=== PATIENT | male | born 1960 | race Caucasian/White ===

== ENCOUNTER → 2019-03-03 | Outpatient (CLI) | payer BC ==
[2019-03-03 08:53] LABS: HCT 40.9 % (39.0-53.0); HGB 13.4 gm/dL (13.0-17.5); MCH 30.1 pg (25.0-35.0); MCHC 32.8 g/dL (31.0-37.0); MCV 91.5 fL (80.0-100.0); Mean Platelet Volume 7.5; Platelet Count 149 k/uL (150-450); RBC 4.47 m/uL (4.30-5.90); RDW 12.7 % (11.5-15.5); WBC 5.2 k/uL (3.8-10.6)
[2019-03-03 16:14] LABS: African American GFR (CKD) 114.9 (60.0-200.0); Anion Gap 6.2 mmol/L (4.00-12.00); BUN/Creat Ratio 22.5 Ratio (12.00-20.00); Calcium 9.3 mg/dL (8.7-10.3); Carbon Dioxide 30.8 mmol/L (21.6-31.8); Chol/HDL Ratio 1.92; LDL Cholesterol,Calculated 59.2 mg/dL (0.0-131.0); Potassium 4.3 mmol/L (3.5-5.5); VLDL Calculation 13.8 mg/dL (5.00-40.00)
[2019-03-03 17:42] LABS: Hemoglobin A1C 5.4 % (4.0-6.0)
== END | disposition home or self-care (01) ==
LOC: LABWHC1 06:30
PROVIDERS: ATTEND Physician Assistant
DX: I10 Essential (primary) hypertension (principal); E78.5 Hyperlipidemia, unspecified; R00.2 Palpitations
CPT/HCPCS: 36415; 80048; 80061; 83036; 84443; 85027

== ENCOUNTER 2022-04-24 15:13 | Observation (INO) | payer BC ==
[2022-04-24] MEDS ORDERED: ASPIRIN 81 MG PO STA (15:29)
[2022-04-24 15:55] LABS: Basophils # (A) 0.1 k/uL (0-0.2); Basophils % (A) 1 %; Eosinophils # (A) 0.1 k/uL (0-0.7); Eosinophils % (A) 1 %; HCT 44.7 % (39.0-53.0); HGB 14.7 gm/dL (13.0-17.5); Lymphocytes # (A) 1.7 k/uL (1.0-4.8); Lymphocytes % (A) 22 %; MCH 31.5 pg (25.0-35.0); MCHC 32.9 g/dL (31.0-37.0); MCV 95.8 fL (80.0-100.0); Mean Platelet Volume 8.9; Monocytes # (A) 0.4 k/uL (0-1.0); Monocytes % (A) 5 %; Neutrophils # (A) 5.5 k/uL (1.3-7.7); Neutrophils % (A) 70 %; Platelet Count 259 k/uL (150-450); RBC 4.67 m/uL (4.30-5.90); RDW 13.5 % (11.5-15.5); WBC 7.8 k/uL (3.8-10.6)
[2022-04-24 16:07] LABS: Albumin 3.6 g/dL (3.5-5.0); Calcium 9.1 mg/dL (8.4-10.2); Magnesium 1.8 mg/dL (1.6-2.3); Potassium 4.9 mmol/L (3.5-5.1); Total Bilirubin 0.9 mg/dL (0.2-1.3); Total Protein 6.6 g/dL (6.3-8.2)
[2022-04-24 16:10] LABS: Prothrombin Time 10.3 sec (9.0-12.0)
--- NOTE | 2022-04-24 17:30 | XR ---
EXAMINATION TYPE: XR chest 2V DATE OF EXAM: 04/24/2022 COMPARISON: 04/24/2022 HISTORY: Chest pain TECHNIQUE: 2 views FINDINGS: Heart and mediastinum are normal. Lungs are clear. Diaphragm is normal. Bony thorax is inta ct. IMPRESSION: No active cardiopulmonary disease. Normal heart. No change.
--- NOTE | 2022-04-24 17:52 | ED ---
General Adult HPI - General Chief complaint: Dizziness Stated complaint: Chest Pain,Dizziness Time Seen by Provider: 04/24/22 17:20 Source: patient, RN notes reviewed, old records reviewed Mode of arrival: ambulatory Limitations: no limitations - History of Present Illness Initial comments: This is a 62-year-old male who presents emergency Department complaining that when he was at work this morning he started yelling lightheaded and felt his heart racing and he almost passed out. Patient states this happened a couple weeks ago and he fell and hurt his ribs on the right side. Patient states he has a history of A. fib and he believes it was atrial fibrillation kicked in the sense that it made him lightheaded. Patient denies any chest pain. Patient states the symptoms continued until he arrived in the emergency department and they seemed to subside. Patient states they did an EKG and he was told that his heart rate was a sinus rhythm at this point time. Patient denies any symptoms since then. Patient states she doesn't want to go home because he is fearful that this occur again he might fall out. Patient states he also has tried a car and that makes him nervous as well. Patient denies any recent fever chills. Patient states he was somewhat short of breath with this was occurring. Patient denies any swelling to the legs or calf tenderness. - Related Data Home Medications Medication Instructions Recorded Confirmed Furosemide [Lasix] 20 mg PO BID 04/24/22 04/24/22 Lansoprazole 30 mg PO DAILY PRN 04/24/22 04/24/22 amLODIPine [Norvasc] 2.5 mg PO DAILY 04/24/22 04/24/22 lisinopriL [Zestril] 5 mg PO BID 04/24/22 04/24/22 oxyCODONE-APAP 10-325MG [Percocet 1 tab PO Q6HR 04/24/22 04/24/22 10-325 mg] Allergies Allergy/AdvReac Type Severity Reaction Status Date / Time iron Allergy SEVERE Verified 04/24/22 17:49 PAIN, WHEN RECEIVED INJECTION OF IRON nylon Allergy SUTURES, Uncoded 04/24/22 15:22 "FESTER OUT," INFECTED Review of Systems ROS Statement: Those systems with pertinent positive or pertinent negative responses have been documented in the HPI. ROS Other: All systems not noted in ROS Statement are negative. Past Medical History Past Medical History: Musculoskeletal Disorder, Skin Disorder Additional Past Medical History / Comment(s): psoriasis, arthritis, hx kidney stones, cast on rt wrist from recent surgery, hx cellulitis left leg History of Any Multi-Drug Resistant Organisms: None Reported Past Surgical History: Back Surgery, Bariatric Surgery, Cholecystectomy, Hernia Repair, Orthopedic Surgery Additional Past Surgical History / Comment(s): BACK X2 -rods in back, CERVICAL SURG.,-Segundo en Y.,hernia x 3, rt wrist surgery, abdominoplasty, cyst removed "from behind the heart", pain clinic procedures Past Anesthesia/Blood Transfusion Reactions: Previous Problems w/ Anesthesia Additional Past Anesthesia/Blood Transfusion Reaction / Comment(s): Pain with last pain clinic procedure 04/28/14- felt every needle going in Past Psychological History: No Psychological Hx Reported Smoking Status: Former smoker Past Alcohol Use History: Rare Past Drug Use History: None Reported - Past Family History Mother Family Medical History: No Reported History Father Family Medical History: No Reported History General Exam - General Exam Comments Initial Comments: GENERAL: Patient is well-developed and well-nourished. Patient is nontoxic and well- hydrated and is in no acute distress. ENT: Neck is soft and supple. No significant lymphadenopathy is noted. Oropharynx is clear. Moist mucous membranes. Neck has full range of motion without eliciting any pain. EYES: The sclera were anicteric and conjunctiva were pink and moist. Extraocular movements were intact and pupils were equal round and reactive to light. Eyelids were unremarkable. PULMONARY: Unlabored respirations. Good breath sounds bilaterally. No audible rales rhonchi or wheezing was noted. CARDIOVASCULAR: There is a regular rate and rhythm without any murmurs gallops or rubs. ABDOMEN: Soft and nontender with normal bowel sounds. SKIN: Skin is clear with no lesions or rashes and otherwise unremarkable. NEUROLOGIC: Patient is alert and oriented x3. Cranial nerves II through XII are grossly intact. Motor and sensory are also intact. Normal speech, volume and content. Symmetrical smile. MUSCULOSKELETAL: Normal extremities with adequate strength and full range of motion. No lower extremity swelling or edema. No calf tenderness. LYMPHATICS: No significant lymphadenopathy is noted PSYCHIATRIC: Normal psychiatric evaluation. Limitations: no limitations Course Vital Signs 04/24/22 04/24/22 15:20 18:27 Temperature 97.3 F L Pulse Rate 91 154 H Respiratory 16 20 Rate Blood Pressure 114/74 O2 Sat by Pulse 98 97 Oximetry Medical Decision Making - Medical Decision Making EKG was interpreted by me. EKG shows sinus rhythm at 70 bpm SC interval 151 QRS is 92 QT interval 352 QTC is 385. Patient's EKG shows an occasional PAC. Patient's EKG shows no ST segment elevation. Patient does have Q waves in leads II, III, and F aVF. Chest x-ray showed no acute abnormality. I spoke with Dr. Anderson he agreed to admit the patient admitted the patient I wrote admitting orders. After I admitted the patient patient started to have some palpitations so repeat EKG was done and showed an atrial tachycardia 132 bpm SC interval was read as 170 by the computer but I do not see a definitive P wave so I do not have a SC interval. QRS was 102 QT interval QT interval was 300 QTC is 378 per patient's EKG shows no ST segment elevation or depression. Patient has Q waves in the inferior leads. - Lab Data Result diagrams: 04/24/22 15:45 04/24/22 15:45 Lab Results 04/24/22 04/24/22 04/24/22 Range/Units 15:45 15:45 15:45 WBC 7.8 (3.8-10.6) k/uL RBC 4.67 (4.30-5.90) m/uL Hgb 14.7 (13.0-17.5) gm/dL Hct 44.7 (39.0-53.0) % MCV 95.8 (80.0-100.0) fL MCH 31.5 (25.0-35.0) pg MCHC 32.9 (31.0-37.0) g/dL RDW 13.5 (11.5-15.5) % Plt Count 259 (150-450) k/uL MPV 8.9 Neutrophils % 70 % Lymphocytes % 22 % Monocytes % 5 % Eosinophils % 1 % Basophils % 1 % Neutrophils # 5.5 (1.3-7.7) k/uL Lymphocytes # 1.7 (1.0-4.8) k/uL Monocytes # 0.4 (0-1.0) k/uL Eosinophils # 0.1 (0-0.7) k/uL Basophils # 0.1 (0-0.2) k/uL PT 10.3 (9.0-12.0) sec INR 1.0 (<1.2) APTT 24.0 (22.0-30.0) sec Sodium 133 L (137-145) mmol/L Potassium 4.9 (3.5-5.1) mmol/L Chloride 104 (98-107) mmol/L Carbon Dioxide 25 (22-30) mmol/L Anion Gap 4 mmol/L BUN 17 (9-20) mg/dL Creatinine 1.13 (0.66-1.25) mg/dL Est GFR (CKD-EPI)AfAm 82 (>60 ml/min/1.73 sqM) Est GFR (CKD-EPI)NonAf 71 (>60 ml/min/1.73 sqM) Glucose 103 H (74-99) mg/dL Calcium 9.1 (8.4-10.2) mg/dL Magnesium 1.8 (1.6-2.3) mg/dL Total Bilirubin 0.9 (0.2-1.3) mg/dL AST 43 (17-59) U/L ALT 19 (4-49) U/L Alkaline Phosphatase 128 H (38-126) U/L Troponin I (0.000-0.034) ng/mL Total Protein 6.6 (6.3-8.2) g/dL Albumin 3.6 (3.5-5.0) g/dL 04/24/22 Range/Units 15:45 WBC (3.8-10.6) k/uL RBC (4.30-5.90) m/uL Hgb (13.0-17.5) gm/dL Hct (39.0-53.0) % MCV (80.0-100.0) fL MCH (25.0-35.0) pg MCHC (31.0-37.0) g/dL RDW (11.5-15.5) % Plt Count (150-450) k/uL MPV Neutrophils % % Lymphocytes % % Monocytes % % Eosinophils % % Basophils % % Neutrophils # (1.3-7.7) k/uL Lymphocytes # (1.0-4.8) k/uL Monocytes # (0-1.0) k/uL Eosinophils # (0-0.7) k/uL Basophils # (0-0.2) k/uL PT (9.0-12.0) sec INR (<1.2) APTT (22.0-30.0) sec Sodium (137-145) mmol/L Potassium (3.5-5.1) mmol/L Chloride (98-107) mmol/L Carbon Dioxide (22-30) mmol/L Anion Gap mmol/L BUN (9-20) mg/dL Creatinine (0.66-1.25) mg/dL Est GFR (CKD-EPI)AfAm (>60 ml/min/1.73 sqM) Est GFR (CKD-EPI)NonAf (>60 ml/min/1.73 sqM) Glucose (74-99) mg/dL Calcium (8.4-10.2) mg/dL Magnesium (1.6-2.3) mg/dL Total Bilirubin (0.2-1.3) mg/dL AST (17-59) U/L ALT (4-49) U/L Alkaline Phosphatase (38-126) U/L Troponin I <0.012 (0.000-0.034) ng/mL Total Protein (6.3-8.2) g/dL Albumin (3.5-5.0) g/dL Disposition Clinical Impression: Near syncope, History of atrial fibrillation, Palpitations Disposition: ADMITTED IP TO THIS [facility] Time of Disposition: 17:55
[2022-04-24] MEDS ORDERED: NITROGLYCERIN SL TABS 0.4 MG TAB SUBLINGUAL PRN (17:56)
[2022-04-24] MEDS ORDERED: PANTOPRAZOLE 40 MG TABLET PO PRN (18:49)
[2022-04-24] MEDS: oxyCODONE-APAP 10-325MG 1 EACH TAB PO SCH (19:01)
[2022-04-24] MEDS: FUROSEMIDE 20 MG TAB PO SCH (20:49)
[2022-04-24] MEDS ORDERED: lisinopriL 5 MG TAB PO SCH (21:00)
--- NOTE | 2022-04-24 22:08 | P.HPIM ---
History of Present Illness H&P Date: 04/24/22 Chief Complaint: Heart racing This is a pleasant 62-year-old patient who follows with Dr. Lucas Williamson. Chronic stable medical conditions include psoriasis,, osteoporosis, kidney stones. Patient has followed with Dr. Juan Davenport from cardiology before for atrial fibrillation. For about 2 years patient has episodes of heart racing then settles down. Today patient started having frequent and more prominent episodes of heart racing perspiration feeling nearly fainted. Coming on and off. Patient finally decided to come in. In the ER also an episode of heart rate going up to 130s. Admitted for the same. Review of systems: GEN.: Tired EYES: None HEENT: None NECK: None RESPIRATORY: As above CARDIOVASCULAR: As above GASTROINTESTINAL: None GENITOURINARY: None MUSCULOSKELETAL: Joint pains LYMPHATICS: None HEMATOLOGICAL: None PSYCHIATRY: None NEUROLOGICAL: None Past medical history to include: Psoriasis, arthritis, kidney stones, atrial fibrillation Social history: Lives alone. 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 Alcohol rarely. Physical examination: VITAL SIGNS: 97.3, 154, 20, 114/74, 98% room air GENERAL: BMI 35.9, laying in bed, awake, not in distress. EYES: Pupils equal. Conjunctiva normal. HEENT: External appearance of nose and ears normal, oral cavity grossly normal. NECK: JVD not raised; masses not palpable. HEART: First and second heart sounds are normal; no edema. LUNGS: Respiratory rate normal; clear to auscultation. ABDOMEN: Soft, nontender, liver spleen not palpable, no masses palpable. PSYCH: Alert and oriented x3; mood and affect normal. MUSCULOSKELETAL:No Clubbing/cyanosis;muscles-grossly intact NEUROLOGICAL: Cranial nerves grossly intact; no facial asymmetry, power and sensation grossly intact. LYMPHATICS: No lymph nodes palpable in the axilla and neck INVESTIGATIONS, reviewed in the clinical context: White count 7.8 hemoglobin 14.7 platelets 259 potassium 4.9 creatinine 1.13 Troponin I less than 0.012 EKG tracing personally reviewed by me-sinus rhythm Chest x-ray film personally reviewed by me-no obvious abnormality Assessment plan: -Paroxysmal atrial fibrillation with rapid ventricular rate/questionable atrial tachycardia.: Symptomatic Telemetry. Cardiology consultation. Check TSH.Lopressor 12.5 twice a day. -Essential hypertension Continue Zestril. Hold Norvasc. Lopressor 12.5 twice a day -GERD PPI -Primary osteoarthritis multiple joints [place] 10 when necessary -Obesity BMI 35.9 Weight loss measures Telemetry. Add Lopressor 12.5 by mouth twice a day. Hold Norvasc. Other home medications to continue. 2-D echocardiogram. Cardiology consulted. Care was discussed with the patient. Past Medical History Past Medical History: Musculoskeletal Disorder, Skin Disorder Additional Past Medical History / Comment(s): psoriasis, arthritis, hx kidney stones, cast on rt wrist from recent surgery, hx cellulitis left leg History of Any Multi-Drug Resistant Organisms: None Reported Past Surgical History: Back Surgery, Bariatric Surgery, Cholecystectomy, Hernia Repair, Orthopedic Surgery Additional Past Surgical History / Comment(s): BACK X2 -rods in back, CERVICAL SURG.,-Segundo en Y.,hernia x 3, rt wrist surgery, abdominoplasty, cyst removed "from behind the heart", pain clinic procedures Past Anesthesia/Blood Transfusion Reactions: Previous Problems w/ Anesthesia Additional Past Anesthesia/Blood Transfusion Reaction / Comment(s): Pain with last pain clinic procedure 04/28/14- felt every needle going in Past Psychological History: No Psychological Hx Reported Additional Psychological History / Comment(s): . Smoking Status: Former smoker Past Alcohol Use History: Rare Additional Past Alcohol Use History / Comment(s): occ CIGAR. QUIT CIGARETTES 1983. Past Drug Use History: None Reported - Past Family History Mother Family Medical History: No Reported History Father Family Medical History: No Reported History Medications and Allergies Home Medications Medication Instructions Recorded Confirmed Type Furosemide [Lasix] 20 mg PO BID 04/24/22 04/24/22 History Lansoprazole 30 mg PO DAILY PRN 04/24/22 04/24/22 History amLODIPine [Norvasc] 2.5 mg PO DAILY 04/24/22 04/24/22 History lisinopriL [Zestril] 5 mg PO BID 04/24/22 04/24/22 History oxyCODONE-APAP 10-325MG [Percocet 1 tab PO Q6HR 04/24/22 04/24/22 History 10-325 mg] Allergies Allergy/AdvReac Type Severity Reaction Status Date / Time iron Allergy SEVERE Verified 04/24/22 17:49 PAIN, WHEN RECEIVED INJECTION OF IRON nylon Allergy SUTURES, Uncoded 04/24/22 15:22 "FESTER OUT," INFECTED Physical Exam Vitals: Vital Signs Temp Pulse Pulse Resp BP BP Pulse Ox 04/24/22 20:25 97.9 F 80 16 97/70 04/24/22 18:27 154 H 20 97 04/24/22 15:20 97.3 F L 91 16 114/74 98 Intake and Output 04/24/22 04/24/22 04/24/22 06:59 14:59 22:59 Intake Total 118 Balance 118 Intake: Oral 118 Other: Weight 127.006 kg Results CBC & Chem 7: 04/24/22 15:45 04/24/22 15:45 Labs: Abnormal Lab Results - Last 24 Hours (Table) 04/24/22 Range/Units 15:45 Sodium 133 L (137-145) mmol/L Glucose 103 H (74-99) mg/dL Alkaline Phosphatase 128 H (38-126) U/L
[2022-04-25] MEDS: oxyCODONE-APAP 10-325MG 1 EACH TAB PO SCH ×5 (00:17→23:20)
[2022-04-25] MEDS ORDERED: amLODIPine 2.5 MG TAB PO SCH (09:00)
[2022-04-25] MEDS ORDERED: ASPIRIN 325 MG TAB PO SCH (09:00)
[2022-04-25] MEDS ORDERED: METOPROLOL TARTRATE 12.5 MG TAB PO SCH (09:00)
[2022-04-25 09:38] LABS: LDL Cholesterol,Calculated 55.8 mg/dL (0.0-131.0)
[2022-04-25] MEDS: FUROSEMIDE 20 MG TAB PO SCH ×2 (10:10→17:09)
[2022-04-25] MEDS: METOPROLOL SUCCINATE (ER) 50 MG TAB.ER.24H PO SCH (10:10)
[2022-04-25] MEDS: FLECAINIDE 50 MG TAB PO SCH ×2 (10:11→21:11)
--- NOTE | 2022-04-25 10:53 | P.CRDCN ---
History of Present Illness History of present illness: HISTORY OF PRESENTING ILLNESS This is a pleasant 62-year-old male past medical history significant for SVT/AVNRT status post ablation in 2014, hypertension, paroxysmal atrial fibrillation (inducible on EP study), hypertension. He follows in the office with Issac. We have been asked to see in consultation for near syncope and palpitations. Patient presents emergency with symptoms of increased dizziness and lightheadedness. He states that he was at work and he felt like he may pass out. His co-workers noticed him and assisted him. He did not lose consciousness. He denied any chest pain, shortness of breath, palpitations. When he arrived to the emergency department he was found to be in SVT. He has been following with Dr. Davenport in the office for this. He currently has an event monitor on. He was called yesterday during this episode, because an arrhythmia was noted on his poppy nt monitor and was recommended patient be evaluated with medication changes. He overall is feeling better but continues to have some lightheadedness.Denies history of CAD, [place], Stroke, or diabetes. Former tobacco use. Denies alcohol or illicit drug use. Denies any family history. DIAGNOSTICS * EKG reveals sinus tachycardia, heart rate 132. * Telemetry tracings indicate sinus tachycardia at bedside HR 130s * Chest xray no acute cardiopulmonary process * Laboratory reviewed, WBC 7.3, he wanted 0.6, platelets 190, sodium 141, potassium 4.9, BUN 54, serum creatinine 1.6, lactate 4.9, repeat 1.0 troponin 0.048-->0.033-->0.038 * Echocardiogram in the office 01/2021 revealed EF 55%, moderate concentric LVH, mild mitral regurgitation, mild tricuspid regurgitation * Current home cardiac medications include lisinopril 5 mg twice a day, amlodipine 2.5 mg daily, Lasix 20 mg twice a day REVIEW OF SYSTEMS At the time of my exam: CONSTITUTIONAL: Denies fever or chills. +lightheadedness, dizziness near syncope CARDIOVASCULAR: Denies chest pain, shortness of breath, orthopnea, PND or palpitations. RESPIRATORY: Denies cough. GASTROINTESTINAL: Denies abdominal pain, diarrhea, constipation, nausea or vomiting. MUSCULOSKELETAL: Denies myalgias. NEUROLOGIC: Denies numbness, tingling, headacbe or weakness. ENDOCRINE: Denies fatigue, weight change, polydipsia or polyurina. GENITOURINARY: Denies burning, hematuria or urgency with micturation. HEMATOLOGIC: Denies history of anemia or bleeding. PHYSICAL EXAMINATION BP 91/63 HR 64, afebrile 97% on room air CONSTITUTIONAL: No apparent distress. HEENT: Head is normocephalic. Pupils are equal, round. Sclerae anicteric. Mucous membranes of the mouth are moist. No JVD. No carotid bruit. CHEST EXAMINATION: Lungs are clear to auscultation. No chest wall tenderness is noted on palpation or with deep breathing. HEART EXAMINATION: Regular rate and rhythm. S1, S2 heard. No murmurs, gallops or rub. ABDOMEN: Soft, nontender. Positive bowel sounds. EXTREMITIES: 2+ peripheral pulses, no lower extremity edema and no calf tenderness. NEUROLOGIC EXAMINATION: Patient is awake, alert and oriented x3. ASSESSMENT SVT Near Syncope History of SVT/AVNRT status post ablation in 2014 Hypertension History of aroxysmal atrial fibrillation (inducible on EP study) [place] Vasc score 1 PLAN Start Flecainide 50mg BID Start metoprolol succinate 50mg Daily Patient hypotensive, hold Lisinopril and amlodipine at this time and can slowly restart medications based on BP response Obtain 2D echocardiogram and doppler study to assess cardiac structure and function. Monitor on telemetry Further recommendations based on clinical course Nurse practitioner note has been reviewed by physician. Signing provider agrees with the documented findings, assessment, and plan of care. Past Medical History Past Medical History: Musculoskeletal Disorder, Skin Disorder Additional Past Medical History / Comment(s): psoriasis, arthritis, hx kidney stones, cast on rt wrist from recent surgery, hx cellulitis left leg History of Any Multi-Drug Resistant Organisms: None Reported Past Surgical History: Back Surgery, Bariatric Surgery, Cholecystectomy, Hernia Repair, Orthopedic Surgery Additional Past Surgical History / Comment(s): BACK X2 -rods in back, CERVICAL SURG.,-Segundo en Y.,hernia x 3, rt wrist surgery, abdominoplasty, cyst removed "from behind the heart", pain clinic procedures Past Anesthesia/Blood Transfusion Reactions: Previous Problems w/ Anesthesia Additional Past Anesthesia/Blood Transfusion Reaction / Comment(s): Pain with last pain clinic procedure 04/28/14- felt every needle going in Past Psychological History: No Psychological Hx Reported Additional Psychological History / Comment(s): . Smoking Status: Former smoker Past Alcohol Use History: Rare Additional Past Alcohol Use History / Comment(s): occ CIGAR. QUIT CIGARETTES 86. Past Drug Use History: None Reported - Past Family History Mother Family Medical History: No Reported History Father Family Medical History: No Reported History Medications and Allergies Home Medications Medication Instructions Recorded Confirmed Type Furosemide [Lasix] 20 mg PO BID 04/24/22 04/24/22 History Lansoprazole 30 mg PO DAILY PRN 04/24/22 04/24/22 History amLODIPine [Norvasc] 2.5 mg PO DAILY 04/24/22 04/24/22 History lisinopriL [Zestril] 5 mg PO BID 04/24/22 04/24/22 History oxyCODONE-APAP 10-325MG [Percocet 1 tab PO Q6HR 04/24/22 04/24/22 History 10-325 mg] Allergies Allergy/AdvReac Type Severity Reaction Status Date / Time iron Allergy SEVERE Verified 04/24/22 17:49 PAIN, WHEN RECEIVED INJECTION OF IRON nylon Allergy SUTURES, Uncoded 04/24/22 15:22 "FESTER OUT," INFECTED Physical Exam Vitals: Vital Signs Temp Pulse Pulse Resp BP BP Pulse Ox 04/25/22 05:47 97.8 F 64 16 93/71 98 04/25/22 03:56 98.1 F 64 16 91/63 97 04/24/22 23:00 98.1 F 69 16 110/66 98 04/24/22 20:25 97.9 F 80 16 97/70 98 04/24/22 18:27 154 H 20 97 04/24/22 15:20 97.3 F L 91 16 114/74 98 Intake and Output 04/24/22 04/25/22 04/25/22 22:59 06:59 14:59 Intake Total 128 250 Balance 128 250 Intake: IV 10 10 Invasive Line 1 10 10 Oral 118 240 Other: Voiding Method Toilet Toilet Weight 127.006 kg Results 04/24/22 15:45 04/24/22 15:45 Cardiac Enzymes 04/24/22 04/24/22 04/24/22 Range/Units 15:45 15:45 18:26 AST 43 (17-59) U/L Troponin I <0.012 <0.012 (0.000-0.034) ng/mL 04/24/22 Range/Units 21:48 AST (17-59) U/L Troponin I <0.012 (0.000-0.034) ng/mL Coagulation 04/24/22 Range/Units 15:45 PT 10.3 (9.0-12.0) sec APTT 24.0 (22.0-30.0) sec CBC 04/24/22 Range/Units 15:45 WBC 7.8 (3.8-10.6) k/uL RBC 4.67 (4.30-5.90) m/uL Hgb 14.7 (13.0-17.5) gm/dL Hct 44.7 (39.0-53.0) % Plt Count 259 (150-450) k/uL Comprehensive Metabolic Panel 04/24/22 Range/Units 15:45 Sodium 133 L (137-145) mmol/L Potassium 4.9 (3.5-5.1) mmol/L Chloride 104 (98-107) mmol/L Carbon Dioxide 25 (22-30) mmol/L BUN 17 (9-20) mg/dL Creatinine 1.13 (0.66-1.25) mg/dL Glucose 103 H (74-99) mg/dL Calcium 9.1 (8.4-10.2) mg/dL AST 43 (17-59) U/L ALT 19 (4-49) U/L Alkaline Phosphatase 128 H (38-126) U/L Total Protein 6.6 (6.3-8.2) g/dL Albumin 3.6 (3.5-5.0) g/dL Current Medications Generic Name Dose Route Start Last Admin Trade Name Freq PRN Reason Stop Dose Admin Aspirin 325 mg 04/25/22 09:00 Aspirin 325 Mg Tab PO DAILY [facility] Furosemide 20 mg 04/24/22 21:00 04/24/22 20:49 Furosemide 20 Mg Tab PO 20 mg 0900,1800 MELVIN Administration Lisinopril 5 mg 04/24/22 21:00 04/24/22 20:49 Lisinopril 5 Mg Tab PO 5 mg BID MELVIN Administration Metoprolol Tartrate 12.5 mg 04/25/22 09:00 Metoprolol Tartrate 12.5 Mg Tab PO BID [facility] Nitroglycerin 0.4 mg 04/24/22 17:56 Nitroglycerin Sl Tabs 0.4 Mg Tab SUBLINGUAL Q5M PRN Chest Pain Oxycodone/Acetaminophen 1 each 04/24/22 19:00 04/25/22 05:45 Oxycodone-Apap 10-325mg 1 Each Tab PO 1 each Q6HR MELVIN Administration Pantoprazole Sodium 40 mg 04/24/22 18:49 Pantoprazole 40 Mg Tablet PO DAILY PRN ACID REFLUX Intake and Output 04/24/22 04/25/22 04/25/22 22:59 06:59 14:59 Intake Total 128 250 Balance 128 250 Intake: IV 10 10 Invasive Line 1 10 10 Oral 118 240 Other: Voiding Method Toilet Toilet Weight 127.006 kg 04/24/22 15:45 04/24/22 15:45
--- NOTE | 2022-04-25 15:49 | P.PN ---
Progress Note - Text Progress Note Date: 04/25/22 Chief Complaint: Heart racing This is a pleasant 62-year-old patient who follows with Dr. Lucas Williamson. Chronic stable medical conditions include psoriasis,, osteoporosis, kidney stones. Patient has followed with Dr. Juan Davenport from cardiology before for atrial fibrillation. For about 2 years patient has episodes of heart racing then settles down. Today patient started having frequent and more prominent episodes of heart racing perspiration feeling nearly fainted. Coming on and off. Patient finally decided to come in. In the ER also an episode of heart rate going up to 130s. Admitted for the same. [History of SVT/AVNRT status post ablation 2015: Paroxysmal atrial fibrillation inducible on EP study. Admitted with SVT. Patient had gone back into sinus rhythm. 04/25/2022: This morning patient again went into SVT-patient was symptomatic feeling tired and dizzy.. Patient's Toprol-XL was increased to 50 mg a day and flecainide was added. Patient feeling better after heart rate controlled. Will observe. Active Medications Flecainide Acetate (Flecainide 50 Mg Tab) 50 mg PO Q12HR [facility] Last Admin: 04/25/22 10:11 Dose: 50 mg Furosemide (Furosemide 20 Mg Tab) 20 mg PO 0900,1800 [facility] Last Admin: 04/25/22 10:10 Dose: 20 mg Metoprolol Succinate (Metoprolol Succinate (Er) 50 Mg Tab.Er.24h) 50 mg PO DAILY [facility] Last Admin: 04/25/22 10:10 Dose: 50 mg Nitroglycerin (Nitroglycerin Sl Tabs 0.4 Mg Tab) 0.4 mg SUBLINGUAL Q5M PRN PRN Reason: Chest Pain Oxycodone/Acetaminophen (Oxycodone-Apap 10-325mg 1 Each Tab) 1 each PO Q6HR [facility] Last Admin: 04/25/22 11:09 Dose: 1 each Pantoprazole Sodium (Pantoprazole 40 Mg Tablet) 40 mg PO DAILY PRN PRN Reason: ACID REFLUX Last Admin: 04/25/22 10:12 Dose: 40 mg Past medical history to include: Psoriasis, arthritis, kidney stones, atrial fibrillation Social history: Lives alone. 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 Alcohol rarely. Physical examination: VITAL SIGNS: 98, 73, 13, 111/80, 98% room air GENERAL: Laying in bed, comfortable EYES: Pupils equal. Conjunctiva normal. HEENT: External appearance of nose and ears normal, oral cavity grossly normal. NECK: JVD not raised; masses not palpable. HEART: First and second heart sounds are normal; no edema. LUNGS: Respiratory rate normal; clear to auscultation. ABDOMEN: Soft, nontender, liver spleen not palpable, no masses palpable. PSYCH: Alert and oriented x3; mood and affect normal. MUSCULOSKELETAL:No Clubbing/cyanosis;muscles-grossly intact INVESTIGATIONS, reviewed in the clinical context: LDL 55 White count 7.8 hemoglobin 14.7 platelets 259 potassium 4.9 creatinine 1.13 Troponin I less than 0.012 EKG tracing personally reviewed by me-sinus rhythm Chest x-ray film personally reviewed by me-no obvious abnormality Assessment plan: -Paroxysmal SVT recurrent Toprol-XL 50 g day. Flecainide 50 mg every 12 -History of AVNRT with ablation in 2015 -History of atrial flutter fibrillation inducible. Chads score 1 -Essential hypertension Stop Zestril. Toprol XL 50 -GERD PPI -Primary osteoarthritis multiple joints [place] 10 when necessary -Obesity BMI 35.9 Weight loss measures Toprol XL 50 started today. Flecainide started.. DC lisinopril. Patient is symptomatic with his episode.
[2022-04-26] MEDS: oxyCODONE-APAP 10-325MG 1 EACH TAB PO SCH ×3 (03:55→11:12)
[2022-04-26] MEDS: FUROSEMIDE 20 MG TAB PO SCH (08:14)
[2022-04-26] MEDS: FLECAINIDE 50 MG TAB PO SCH (08:14)
[2022-04-26] MEDS: METOPROLOL SUCCINATE (ER) 50 MG TAB.ER.24H PO SCH (08:14)
--- NOTE | 2022-04-26 09:13 | CA ---
Transthoracic Echo Report Name: Kenn Cedillo Age: 62 Gender: M : 1960 Exam Date: 04/25/2022 14:06 Exam Location: [facility] Ht (in): 72 Wt (lb): 280 Ordering Physician: Mohsen Anderson MD Attending/Referring Phys: Bingo Floater Erin Gomez RDCS Procedure CPT: Indications: atrial fibrillation Cardiac Hx: Technical Quality: Very technically difficult study Contrast 1: Lumason Total Dose (mL): 4 Contrast 2: Total Dose (mL): MEASUREMENTS (Male / Female) Normal Values M-MODE Aortic Root Diameter MM 3.9 cm MV E Point Septal Separation 0.4 cm AV Cusp Separation MM 2.1 cm DOPPLER MV Area PHT 4.8 cm??? Mitral E Point Velocity 39.0 cm/s Mitral A Point Velocity 48.8 cm/s Mitral E to A Ratio 0.8 MV Deceleration Time 157.6 ms FINDINGS Left Ventricle Left ventricular ejection fraction is estimated at 55%. Right Ventricle Normal right ventricular size and function. Right Atrium Normal right atrial size. Left Atrium Normal left atrial size. Mitral Valve Mitral valve not well visualized. Aortic Valve Aortic valve not well visualized. Tricuspid Valve Tricuspid valve not well visualized. Pulmonic Valve Pulmonic valve not well visualized. Pericardium Normal pericardium. Aorta Aortic root and proximal ascending aorta not well visualized. CONCLUSIONS Normal LV systolic function Technical difficult study with suboptimal acoustic windows, Definity contrast used to enhance LV endocardial borders for good visualization Previewed by: Dr. Juan Davenport MD (Electronically Signed) Final Date: 26 April 2022 09:12
[2022-04-26 10:07] VITALS: RESP 18; TEMP 98.1
[2022-04-26 11:51] VITALS: BP 108/76; PULSE 76
--- NOTE | 2022-04-26 13:16 | P.PN ---
Subjective This is a pleasant 62-year-old male past medical history significant for SVT/AVNRT status post ablation in 2014, hypertension, paroxysmal atrial fibr illation (inducible on EP study), hypertension. He follows in the office with [facility]. We have been asked to see in consultation for near syncope and palpitations. Patient presents emergency with symptoms of increased dizziness and lightheadedness. He states that he was at work and he felt like he may pass out. His co-workers noticed him and assisted him. He did not lose consciousness. He denied any chest pain, shortness of breath, palpitations. When he arrived to the emergency department he was found to be in SVT. He has been following with Dr. Davenport in the office for this. He currently has an event monitor on. He was called yesterday during this episode, because an arrhythmia was noted on his event monitor and was recommended patient be evaluated with medication changes. He overall is feeling better but continues to have some lightheadedness. 04/26/2022 Patient seen and examined at bedside, no acute distress. His symptoms have resolved. No further SVT. 11 episode of sinus tachycardia with heart rate in the 120s. He's currently maintaining sinus rhythm with heart rates in the 60s to 70s, Blood pressure has been low 90s/60s. He's currently maintained on flecainide 50 mg twice a day. Metoprolol succinate 50 mg daily Echocardiogram revealed EF 55% GENERAL: Well-appearing, well-nourished and in no acute distress. NECK: Supple without JVD or thyromegaly. LUNGS: Breath sounds clear to auscultation bilaterally. Respiration equal and unlabored. No wheezes, rales or rhonchi. HEART: Regular rate and rhythm without murmurs, rubs or gallops. S1 and S2 heard. EXTREMITIES: Normal range of motion, no edema. No clubbing or cyanosis. Peripheral pulses intact. ASSESSMENT SVT Near Syncope History of SVT/AVNRT status post ablation in 2014 Hypertension History of aroxysmal atrial fibrillation (inducible on EP study) [place] score 1 PLAN From cardiology perspective, patient is stable to be discharged home. Continue flecainide and metoprolol succinate. Hold lisinopril and amlodipine secondary to hypotension. Follow up with Dr. Davenport outpatient on 05/02 as scheduled. Nurse Practitioner note has been reviewed, I agree with a documented findings and plan of care. Patient was seen and examined. Objective - Vital Signs Vital signs: Vital Signs Temp 98.1 F 04/26/22 08:10 Pulse 76 04/26/22 11:50 Resp 18 04/26/22 11:50 BP 108/76 04/26/22 11:50 Pulse Ox 97 04/26/22 11:50 FiO2 Intake & Output 04/25/22 04/26/22 04/26/22 18:59 06:59 18:59 Intake Total 850 660 118 Balance 850 660 118 Intake: IV 30 Invasive Line 1 30 Oral 820 660 118 Other: Voiding Method Toilet Toilet Toilet # Voids 2 1 - Labs CBC & Chem 7: 04/24/22 15:45 04/24/22 15:45
--- NOTE | 2022-04-26 23:10 | P.DS ---
Providers Date of admission: 04/24/22 17:56 Expected date of discharge: 04/26/22 Attending physician: Mohsen Anderson Consults: 04/24/22 17:56 Consult Physician Urgent Consulting Provider: [facility] Consult Reason/Comments: Palpitations, history of A. fib, near syncope Do you want consulting provider notified?: Yes Primary care physician: Lucas Williamson MD Hospital Course: Chief Complaint: Heart racing This is a pleasant 62-year-old patient who follows with Dr. Lucas Williamson. Chronic stable medical conditions include psoriasis,, osteoporosis, kidney stones. Patient has followed with Dr. Juan Davenport from cardiology before for atrial fibrillation. For about 2 years patient has episodes of heart racing then settles down. Today patient started having frequent and more prominent episodes of heart racing perspiration feeling nearly fainted. Coming on and off. Patient finally decided to come in. In the ER also an episode of heart rate going up to 130s. Admitted for the same. [History of SVT/AVNRT status post ablation 2014: Paroxysmal atrial fibrillation inducible on EP study. Admitted with SVT. Patient had gone back into sinus rhythm. 04/25/2022: This morning patient again went into SVT-patient was symptomatic feeling tired and dizzy.. Patient's Toprol-XL was increased to 50 mg a day and flecainide was added. Patient feeling better after heart rate controlled. Will observe. 04/26/2022: Patient feeling well. Up and about. Seen by cardiology. For discharge home today. Discussed. Past medical history to include: Psoriasis, arthritis, kidney stones, atrial fibrillation Social history: Lives alone. 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 Alcohol rarely. Physical examination: VITAL SIGNS: 98.1, 76, 18, 108/76, 97% room air GENERAL: Sitting up, comfortable EYES: Pupils equal. Conjunctiva normal. HEENT: External appearance of nose and ears normal, oral cavity grossly normal. NECK: JVD not raised; masses not palpable. HEART: First and second heart sounds are normal; no edema. LUNGS: Respiratory rate normal; clear to auscultation. ABDOMEN: Soft, nontender, liver spleen not palpable, no masses palpable. PSYCH: Alert and oriented x3; mood and affect normal. MUSCULOSKELETAL:No Clubbing/cyanosis;muscles-grossly intact INVESTIGATIONS, reviewed in the clinical context: LDL 55 White count 7.8 hemoglobin 14.7 platelets 259 potassium 4.9 creatinine 1.13 Troponin I less than 0.012 EKG tracing personally reviewed by me-sinus rhythm Chest x-ray film personally reviewed by me-no obvious abnormality Assessment plan: -Paroxysmal SVT recurrent Toprol-XL 50 g day. Flecainide 50 mg every 12 -History of AVNRT with ablation in 2014 -History of atrial flutter fibrillation inducible. Chads score 1 -Essential hypertension Stop Zestril. Toprol XL 50 -GERD PPI -Primary osteoarthritis multiple joints [place] 10 when necessary -Obesity BMI 35.9 Weight loss measures Disposition: Home Plan - Discharge Summary Discharge Rx Participant: No New Discharge Prescriptions: New Flecainide [Tambocor] 50 mg PO Q12HR #60 tab Metoprolol Succinate (ER) [Toprol XL] 50 mg PO DAILY #60 tab Continue oxyCODONE-APAP 10-325MG [Percocet 10-325 mg] 1 tab PO Q6HR Lansoprazole 30 mg PO DAILY PRN PRN Reason: ACID REFLUX Discontinued Furosemide [Lasix] 20 mg PO BID lisinopriL [Zestril] 5 mg PO BID amLODIPine [Norvasc] 2.5 mg PO DAILY Discharge Medication List Lansoprazole 30 mg PO DAILY PRN 04/24/22 [History] oxyCODONE-APAP 10-325MG [Percocet 10-325 mg] 1 tab PO Q6HR 04/24/22 [History] Flecainide [Tambocor] 50 mg PO Q12HR #60 tab 04/26/22 [Rx] Metoprolol Succinate (ER) [Toprol XL] 50 mg PO DAILY #60 tab 04/26/22 [Rx] Follow up Appointment(s)/Referral(s): Juan Davenport MD [STAFF PHYSICIAN] - 05/02/22 11:15 am Lucas Williamson MD [Primary Care Provider] - 1-2 days Patient Instructions/Handouts: Heart Palpitations (DC) Discharge Disposition: HOME SELF-CARE
== END 2022-04-26 14:50 | disposition home or self-care (01) ==
LOC: EC 15:13 → INTOOBSV 17:56 → 3SCARD 17:56
PROVIDERS: ADMIT Hospitalist; ATTEND Hospitalist
DX: I47.1 Supraventricular tachycardia (principal); I48.0 Paroxysmal atrial fibrillation; R55 Syncope and collapse; L40.9 Psoriasis, unspecified; I10 Essential (primary) hypertension; K21.9 Gastro-esophageal reflux disease without esophagitis; M15.9 Polyosteoarthritis, unspecified; E66.9 Obesity, unspecified; Z68.35 Body mass index [BMI] 35.0-35.9, adult; Z87.442 Personal history of urinary calculi; Z87.891 Personal history of nicotine dependence; Z98.84 Bariatric surgery status; Z79.899 Other long term (current) drug therapy
CPT/HCPCS: 99285; 36415; 94760; 93005; 93306; 80061; 80053; 84443; 83735; 84484; 85025; 85610; 85730; 71046; G0378 ×3; Q9950

== ENCOUNTER → 2022-08-28 | Outpatient (CLI) | payer BC ==
[2022-08-28 22:13] LABS: HCT 39.9 % (39.6-50.0); HGB 12.2 g/dL (13.0-17.0); MCH 27.3 pg (27.0-32.0); MCHC 30.6 g/dL (32.0-37.0); MCV 89.3 fL (80.0-97.0); Mean Platelet Volume 10.2 fL (9.5-12.2); NRBC Per 100 WBC 0 /100 WBCS (0.0-0.0); Platelet Count 226 X 10*3/uL (140-440); RBC 4.47 X 10*6/uL (4.40-5.60); RDW 15.2 % (11.5-14.5); WBC 6.37 X 10*3/uL (4.50-10.00)
[2022-08-28 23:06] LABS: African American GFR (CKD) 94.5 (60.0-200.0); Anion Gap 11.3 mmol/L (10.00-18.00); Blood Urea Nitrogen 10.5 mg/dL (9.0-27.0); Non-African American GFR(CKD) 81.5 (60.0-200.0); Potassium 4.1 mmol/L (3.5-5.5)
== END | disposition home or self-care (01) ==
LOC: LABPAT 13:12
PROVIDERS: ATTEND Internal Medicine Clinical Cardiac Electrophysiology
DX: Z01.812 Encounter for preprocedural laboratory examination (principal); I47.1 Supraventricular tachycardia; I48.11 Longstanding persistent atrial fibrillation
CPT/HCPCS: 80051; 82565; 84520; 85027

== ENCOUNTER 2022-09-03 09:27 | Day surgery (SDC) | payer BC ==
[2022-09-03] MEDS: SODIUM CHLORIDE 0.9% 1,000 ML IV SCH (09:55)
[2022-09-03] MEDS ORDERED: ATROPINE SULFATE 0.1 MG/ML 10ML SYRINGE ONE (10:31)
[2022-09-03] MEDS ORDERED: ROCURONIUM 10 MG/ML (5 ML VIAL) IV ONE (10:31)
[2022-09-03] MEDS ORDERED: ISOPROTERENOL 250 MCG/1.25 ML SYR IV ONE (10:31)
[2022-09-03] MEDS ORDERED: PROPOFOL 10 MG/ML 20 ML VIAL IV ONE (10:31)
[2022-09-03] MEDS ORDERED: SUCCINYLCHOLINE CHLORIDE 200 MG/10 ML VIAL IV ONE (10:31)
[2022-09-03] MEDS ORDERED: HEPARIN SODIUM,PORCINE 5,000 UNIT/ML 1 ML VIAL ONE (10:31)
[2022-09-03] MEDS ORDERED: LIDOCAINE 2% INJ 20 MG/ML (2 ML VIAL) ONE (10:31)
[2022-09-03] MEDS ORDERED: HYDROmorphone (PF) 1 MG/ML ONE (10:31)
[2022-09-03] MEDS ORDERED: MIDAZOLAM 2 MG/2 ML VIAL ONE (10:31)
[2022-09-03] MEDS ORDERED: fentaNYL (PF) 50 MCG/ML 2 ML AMP ONE (10:31)
[2022-09-03] MEDS ORDERED: HEPARIN SODIUM,PORCINE 10,000 UNIT/ML 1 ML VIAL ONE (10:31)
[2022-09-03] MEDS ORDERED: PHENYLEPHRINE-0.9% NACL SYG 1,000 MCG/10 ML SYRINGE ONE (10:31)
[2022-09-03] MEDS ORDERED: FUROSEMIDE 10 MG/ML 2 ML VIAL ONE (10:31)
[2022-09-03] MEDS ORDERED: LIDOCAINE 1% INJ 10MG/ML (20 ML MDV) ONE (10:57)
[2022-09-03] MEDS ORDERED: HEPARIN SOD,PORK IN 0.45% NACL 25,000 UNIT in 0.45% NACL 1 250ML.BAG IV ONE (11:09)
[2022-09-03] MEDS ORDERED: LIDOCAINE 1% INJ 10MG/ML (20 ML MDV) SQ ONE (11:17)
[2022-09-03] MEDS ORDERED: ADENOSINE 3 MG/ML 4 ML VIAL ONE (11:49)
[2022-09-03] MEDS ORDERED: ADENOSINE 3 MG/ML 4 ML VIAL IV ONE (11:52)
[2022-09-03] MEDS ORDERED: IOPAMIDOL-370 100ML BTL INJ ONE (13:16)
[2022-09-03] MEDS ORDERED: HEPARIN SODIUM (1,000 UNIT/ML) 1,000 UNIT in SODIUM CHLORIDE 0.9% 1,000 ML IRRIGATION ONE (13:48)
[2022-09-03] MEDS ORDERED: SODIUM CHLORIDE 0.9% 1,000 ML IV ONE ×2 (14:40→18:00)
[2022-09-03] MEDS ORDERED: ACETAMINOPHEN TAB 325 MG TAB PO PRN (16:46)
--- NOTE | 2022-09-03 16:54 | P.EPPROC ---
- EP Procedure Note Electrophysiology Procedure Note: PROCEDURE A. fib ablation SVT ablation DIAGNOSIS Atrial fibrillation, symptomatic, refractory to therapy, failed drug therapy SVT, recurrent and symptomatic, recurrent hospitalizations RESULT No left atrial appendage mass seen on intracardiac echo, normal LV size and function Successful A. fib ablation/pulmonary vein isolation of all veins using cryo- ablation Complete entrance block in all 4 veins confirmed No evidence for phrenic nerve injury Esophageal deflection YES Inducible AV ruddy reentrant tachycardia Status post successful slow pathway ablation and the tachycardia was rendered noninducible Inducible atrial fibrillation after PVI, on Isuprel, different atrial activation patterns Left atrial roof line made successfully Left atrial septal line made successfully Inducible atrial fibrillation on Isuprel, once again different atrial and CS activation patterns Electrical cardioversion with a synchronized shock across the chest YES PROCEDURE DETAILS Written informed consent prior to procedure. Patient brought to the EP lab. General anesthesia given. Heparin administered. A city maintained above 300 seconds Both groins prepped and draped per protocol and venous sheaths placed. Esophagus intubated, circa catheter for temperature monitoring an endoscope for possible esophageal deflection. Phrenic nerve monitoring performed. Esophageal temperature monitoring performed. Esophageal deflection performed if circa catheter overlapping with the balloon or circa temperature less than 27.5C Intracardiac echocardiography performed. Pericardium evaluated. Left atrial appendage evaluated. Left atrium evaluated along with pulmonary veins Transseptal catheterization performed under fluoroscopic guidance and intracardiac echo guidance Cryoablation sheath exchanged, balloon catheter along with achieve catheter placed in the left atrium. Pulmonary veins isolated in the following sequence: Left superior pulmonary vein followed by left inferior pulmonary vein, followed by right inferior pulmonary vein and lastly right superior pulmonary vein. Phrenic nerve stimulation along with capture thresholds within the SVC and right superior pulmonary vein to identify the phrenic nerve proximity to the cryo- balloon. Pulmonary veins isolated and confirmed with entrance and exit block. Phrenic nerve integrity confirmed at the end of the procedure Inducible AV ruddy reentrant tachycardia Status post slow pathway ablation, successful Tachycardia rendered noninducible Evidence for antegrade slow pathway conduction persists without induction of SVT Atrial fibrillation/organized/of different activation patterns induced some concentric others eccentric and rapid within the Juan sinus Ablation of the left atrial roof performed with sequential lesions from the left superior to the right superior pulmonary veins. Ablation of the electrograms confirmed Ablation of the left atrial septum performed along fractionated electrograms in the posterior septum Ablation of electrograms confirmed Once again organized atrial fibrillation, somewhat concentric activation in the CS Electrical cardioversion performed for persistence of atrial fibrillation despite successful ablation within the pulmonary veins, left atrial roof and the left atrial septum Diagnostic catheters for the high right atrium, His bundle, coronary sinus placed. LA and RA pressures recorded RA pressure: LA pressure: Diagnostic EP study with coronary sinus pacing and recording, high-dose Isuprel used during different parts of the procedure Baseline measurements: Sinus cycle length 675 ms, SC interval 161 ms, QRS 112 ms and QT 401 ms AH 82 ms and HV 43 ms Sinus recovery times at 600, 500 and, 400 ms were 1014, 1009. 1 and 1205 ms. Corresponding corrected sinus node recovery times were mildly prolonged AV node Wenckebach block 390 ms Atrial ERP 600/240 ms with single echoes Burst stimulation from the coronary sinus induced organized atrial fibrillation at different times during the procedure Venous sheaths were removed and hemostasis assured with a closure device. Patient extubated and transferred to recovery Increase procedural time During ablation multiple attempts had to be made to move the esophagus a safe distance of the from the pulmonary vein draining cryoablation, to avoid excessive thermal cooling of the esophagus This took extra time and effort to keep the esophagus a safe distance away from the cryoablation balloon. During ablation of the right-sided veins, phrenic nerve stimulation was noted within the right-sided veins. The cryo balloon in close proximity to this location, during standard technique for occlusion of the vein, posing a risk to the phrenic nerve. Therefore the balloon was repositioned around the antrum in a roving fashion to isolate the vein at an extra ostial level to minimize the risk of phrenic nerve injury. The right-sided veins were completely and successfully isolated with this extra effort PROCEDURES PERFORMED Diagnostic EP study CS pacing and recording Left and right transseptal catheterization Catheter the mapping of the tachycardia Intracardiac echocardiography Pulmonary vein isolation with transseptal and comprehensive EPS, [id number] Extended procedure duration Drug infusion, +54731 Left atrial roof line, +55995 Linear ablation, left atrium, +84339 Electrical cardioversion with a synchronized shock across the chest [id number]
--- NOTE | 2022-09-03 16:57 | P.HPCAR ---
History of Present Illness This is Dr. Davenport dictating an H/P on this patient The patient was interviewed and examined IMPRESSION / ASSESSMENT: Recurrent SVT Recurrent PAT/atrial fibrillation Failed drug therapy, breakthrough episodes on flecainide Hypertension with LVH PLAN: Proceed with EP study and ablation Continue Xarelto HPI Patient continues to have episodes of palpitations despite flecainide therapy. During episodes of tachycardia he becomes dizzy and lightheaded and gets short of breath No fever chills cough expectoration Compliant with xarelto, PRECIOUS VASC score of 1 ROS: No fever chills or rigors, no cough, phlegm or expectoration, no nausea, vomiting or diarrhea, no hematuria, dysuria, no musculoskeletal complaints, no strokes or seizures, no skin lesions. EXAMINATION: 98.9F, pulse rate in the 70s, blood pressure 152/92 mmHg Breath sounds are clear no rhonchi no crackles Heart sounds S1-S2 normal No JVD Abdomen is soft Extremities are warm REVIEW OF LABS, ECG & MEDICAL DATA currently on xarelto, metoprolol, flecainide and lisinopril and Lasix Physical Exam Vitals: Vital Signs Temp Pulse Resp BP Pulse Ox 09/03/22 09:55 98.9 F 76 16 157/92 97 Intake and Output 09/03/22 09/03/22 09/03/22 06:59 14:59 22:59 Intake Total 2129 Output Total 650 Balance 2129 -650 Intake: IV 2128 Output: Urine 650 Other: Weight 136.7 kg Past Medical History Past Medical History: GERD/Reflux, GI Bleed, Hypertension, Musculoskeletal Disorder, Skin Disorder Additional Past Medical History / Comment(s): psoriasis, arthritis, hx kidney stones, hx cellulitis left leg. see Dr Davenport H&P, hx bleeding ulcers History of Any Multi-Drug Resistant Organisms: None Reported Past Surgical History: Back Surgery, Bariatric Surgery, Cholecystectomy, Hernia Repair, Orthopedic Surgery Additional Past Surgical History / Comment(s): BACK X2 -rods in back, CERVICAL SURG.,-Segundo en Y.,hernia x 3, rt wrist surgery, abdominoplasty, cyst removed "from behind the heart", pain clinic procedures Past Anesthesia/Blood Transfusion Reactions: Previous Problems w/ Anesthesia Additional Past Anesthesia/Blood Transfusion Reaction / Comment(s): Pain with pain clinic procedure 12/11/14- felt every needle going in Smoking Status: Former smoker - Past Family History Mother Family Medical History: No Reported History Father Family Medical History: No Reported History Additional Family Medical History / Comment(s): heart issues Physical Examination Vital Signs Temp Pulse Resp BP Pulse Ox 09/03/22 09:55 98.9 F 76 16 157/92 97 Intake and Output 09/03/22 09/03/22 09/03/22 06:59 14:59 22:59 Intake Total 212 Output Total 650 Balance 2128 - Intake: IV 2128 Output: Urine 650 Other: Weight 136.7 kg Results Current Medications Generic Name Dose Route Start Last Admin Trade Name Freq PRN Reason Stop Dose Admin Acetaminophen 650 mg 09/03/22 16:46 Acetaminophen Tab 325 Mg Tab PO Q6HR PRN Mild Pain (Scale 1 to 3) Flecainide Acetate 50 mg 09/03/22 21:00 Flecainide 50 Mg Tab PO Q12HR MELVIN Furosemide 20 mg 09/04/22 09:00 Furosemide 20 Mg Tab PO BID@0900,1500 MELVIN Sodium Chloride 1,000 mls @ 20 mls/hr 09/03/22 06:51 09/03/22 09:55 Saline 0.9% IV 10/03/22 06:52 1,000 mls .Q24H MELVIN Administration Acetaminophen 1,000 mg/ IV 100 mls @ 400 mls/hr 09/03/22 17:00 Solution IVPB 09/03/22 17:14 ONCE ONE Lisinopril 5 mg 09/04/22 09:00 Lisinopril 5 Mg Tab PO DAILY [facility] Metoprolol Succinate 50 mg 09/04/22 09:00 Metoprolol Succinate (Er) 50 Mg Tab.Er.24h PO DAILY [facility] Pantoprazole Sodium 40 mg 09/04/22 07:30 Pantoprazole 40 Mg Tablet PO AC-BRKFST [facility] Rivaroxaban 20 mg 09/03/22 19:00 Rivaroxaban 20 Mg Tab PO DAILY [facility] Protocol Sodium Chloride 12 ml 09/03/22 16:46 Sodium Chloride 0.9% Flush 10 Ml Syringe IV Q12HR PRN Line Flush Intake and Output 09/03/22 09/03/22 09/03/22 06:59 14:59 22:59 Intake Total 2128 Output Total 650 Balance 2128 -650 Intake: IV 2128 Output: Urine 650 Other: Weight 136.7 kg Patient Weight 09/04/22 06:59 Weight 136.7 kg
[2022-09-03] MEDS ORDERED: ACETAMINOPHEN IV (For NPO) 1,000 MG in EMPTY BAG 1 BAG IVPB ONE (17:00)
[2022-09-03] MEDS ORDERED: oxyCODONE-APAP 10-325MG 1 EACH TAB PO SCH (20:30)
[2022-09-03] MEDS: RIVAROXABAN 20 MG TAB PO SCH (20:49)
[2022-09-03] MEDS: oxyCODONE-APAP 10-325MG 1 EACH TAB PO PRN (20:49)
[2022-09-03] MEDS: FLECAINIDE 50 MG TAB PO SCH (20:49)
[2022-09-04] MEDS: oxyCODONE-APAP 10-325MG 1 EACH TAB PO PRN ×3 (01:37→10:37)
[2022-09-04] MEDS: SODIUM CHLORIDE 0.9% 1,000 ML IV SCH (06:34)
[2022-09-04 06:41] VITALS: BP 132/88; PULSE 85; RESP 17; TEMP 98.7
[2022-09-04] MEDS ORDERED: PANTOPRAZOLE 40 MG TABLET PO SCH (07:30)
--- NOTE | 2022-09-04 07:58 | P.DS ---
Providers Attending physician: Juan Davenport Primary care physician: Lucas Williamson MD Hospital Course: Patient is doing well. No chest discomfort dizziness lightheadedness. No palpitations Groins of healed well Vitals are stable Twelve-lead EKG shows sinus mechanism Impression Recurrent paroxysmal atrial fibrillation, symptomatic Recurrent SVT Obesity Status post SVT ablation for AVNRT Status post pulmonary vein isolation Status post left atrial linear ablation in the roof as well as in the septum Patient was still easily inducible into atrial fibrillation and underwent electrical cardioversion Plan Complete abstinence from alcohol use Weight reduction Sleep apnea assessment Continue current medications including xarelto and flecainide and hypertension management Patient Condition at Discharge: Stable Plan - Discharge Summary Discharge Rx Participant: No New Discharge Prescriptions: No Action Flecainide [Tambocor] 50 mg PO Q12HR #60 tab lisinopriL [Zestril] 5 mg PO DAILY Furosemide [Lasix] 20 mg PO BID Rivaroxaban [Xarelto] 20 mg PO DAILY oxyCODONE-APAP 10-325MG [Percocet 10-325 mg] 1 tab PO Q4H Lansoprazole 30 mg PO DAILY Metoprolol Succinate (ER) [Toprol XL] 50 mg PO DAILY #60 tab Discharge Medication List Lansoprazole 30 mg PO DAILY 04/24/22 [History] oxyCODONE-APAP 10-325MG [Percocet 10-325 mg] 1 tab PO Q4H 04/24/22 [History] Flecainide [Tambocor] 50 mg PO Q12HR #60 tab 04/26/22 [Rx] Metoprolol Succinate (ER) [Toprol XL] 50 mg PO DAILY #60 tab 04/26/22 [Rx] Furosemide [Lasix] 20 mg PO BID 08/28/22 [History] Rivaroxaban [Xarelto] 20 mg PO DAILY 08/28/22 [History] lisinopriL [Zestril] 5 mg PO DAILY 08/28/22 [History] Follow up Appointment(s)/Referral(s): Juan Davenport MD [STAFF PHYSICIAN] - 2 Weeks Activity/Diet/Wound Care/Special Instructions: Post EP study - Ablation instructions 1. Keep access sites dry for 2 days. 2. No heavy lifting or straining for 2 days. 3. Avoid bending the hips repeatedly for 2 days. 4. You may go up and down stairs slowly Call if the following is noted 1. Bleeding, increasing swelling or pain at the access sites. 2. Increasing chest discomfort, especially upon taking a deep breath. 3. Increasing shortness of breath, at rest or with exertion. 4. Undue cough / phlegm 5. Difficulty or pain while swallowing. 6. Pain or change in color in the extremities. 7. Fever, chills, rigors. 8. Increasing headache or neurologic symptoms. 9. Dizziness, fainting, palpitations No change in medications Discharge Disposition: HOME SELF-CARE
[2022-09-04] MEDS: RIVAROXABAN 20 MG TAB PO SCH (08:28)
[2022-09-04] MEDS: FLECAINIDE 50 MG TAB PO SCH (08:28)
[2022-09-04] MEDS ORDERED: FUROSEMIDE 20 MG TAB PO SCH (09:00)
[2022-09-04] MEDS ORDERED: lisinopriL 5 MG TAB PO SCH (09:00)
[2022-09-04] MEDS ORDERED: METOPROLOL SUCCINATE (ER) 50 MG TAB.ER.24H PO SCH (09:00)
== END 2022-09-04 14:10 | disposition home or self-care (01) ==
LOC: CATHEP 09:27 → 6NMEDSUR 16:10 → CATHEP 09-04 14:10
PROVIDERS: ATTEND Internal Medicine Clinical Cardiac Electrophysiology
DX: I47.1 Supraventricular tachycardia (principal); I48.0 Paroxysmal atrial fibrillation; I44.2 Atrioventricular block, complete; I10 Essential (primary) hypertension; Z79.01 Long term (current) use of anticoagulants; K21.9 Gastro-esophageal reflux disease without esophagitis; M19.90 Unspecified osteoarthritis, unspecified site; Z87.442 Personal history of urinary calculi; Z90.49 Acquired absence of other specified parts of digestive tract; Z87.891 Personal history of nicotine dependence; Z79.899 Other long term (current) drug therapy
CPT/HCPCS: 93656; 93657; 93623; 84443; C1894 ×2; C1769 ×4; C1760; C1730 ×4; C1731; C1759; C1893; C1733; C1766; C1732; J2001; J1644 ×2; J0153; J0131; Q9967

== ENCOUNTER 2022-09-13 07:57 | Emergency (ER) | payer BC ==
--- NOTE | 2022-09-13 08:28 | ED ---
Extremity Problem HPI - General Chief complaint: Extremity Problem,Nontraumatic Stated complaint: Feet issue Time Seen by Provider: 09/13/22 07:58 Source: patient, RN notes reviewed Mode of arrival: ambulatory Limitations: no limitations - History of Present Illness Initial comments: This is a 62-year-old male who presents to the emergency department for left leg pain and swelling. States that it started to slightly over month ago. He has seen orthopedics and had imaging revealing no acute findings. He went to [facility] about a week ago. He had an x-ray and blood work at that time. They were concerned about gout and checked his uric acid levels, which he states was negative. He does believe that he might be getting swelling and pain in the right leg now as well. The left leg was red when this first began, however that has since resolved. While the redness has resolved, he feels like the swelling is getting worse. Denies any chest pain or shortness of breath. He has no hx of DVTs and he is on Xarelto. He does also take Lasix twice daily. States that this feels similar to a prior episode of cellulitis, which required hospitalization. Denies any fevers, chills, sore throat, cough, dyspnea, chest pain, pa lpitations, abdominal pain, nausea, vomiting, diarrhea, back pain, or headaches. MD Complaint: extremity pain, extremity swelling Onset/Timin -: month(s) Location: left, lower extremity - Related Data Home Medications Medication Instructions Recorded Confirmed Lansoprazole 30 mg PO DAILY 04/24/22 09/13/22 oxyCODONE-APAP 10-325MG [Percocet 1 tab PO Q4H 04/24/22 09/13/22 10-325 mg] Furosemide [Lasix] 20 mg PO BID 08/28/22 09/13/22 Rivaroxaban [Xarelto] 20 mg PO DAILY 08/28/22 09/13/22 lisinopriL [Zestril] 5 mg PO BID 08/28/22 09/13/22 Previous Rx's Medication Instructions Recorded Flecainide [Tambocor] 50 mg PO Q12HR #60 tab 04/26/22 Metoprolol Succinate (ER) [Toprol 50 mg PO DAILY #60 tab 04/26/22 XL] Cephalexin [Keflex] 500 mg PO Q6HR 7 Days #28 cap 09/13/22 Allergies Allergy/AdvReac Type Severity Reaction Status Date / Time colchicine Allergy Nausea & Verified 09/13/22 10:26 Vomiting iron Allergy SEVERE Verified 09/13/22 10:26 PAIN, WHEN RECEIVED INJECTION OF IRON nylon Allergy SUTURES, Uncoded 09/13/22 10:26 "FESTER OUT," INFECTED Review of Systems ROS Statement: Those systems with pertinent positive or pertinent negative responses have been documented in the HPI. ROS Other: All systems not noted in ROS Statement are negative. Past Medical History Past Medical History: Musculoskeletal Disorder, Skin Disorder Additional Past Medical History / Comment(s): psoriasis, arthritis, hx kidney stones, cast on rt wrist from recent surgery, hx cellulitis left leg History of Any Multi-Drug Resistant Organisms: None Reported Past Surgical History: Back Surgery, Bariatric Surgery, Cholecystectomy, Hernia Repair, Orthopedic Surgery Additional Past Surgical History / Comment(s): BACK X2 -rods in back, CERVICAL SURG.,-Segundo en Y.,hernia x 3, rt wrist surgery, abdominoplasty, cyst removed "from behind the heart", pain clinic procedures Past Anesthesia/Blood Transfusion Reactions: Previous Problems w/ Anesthesia Additional Past Anesthesia/Blood Transfusion Reaction / Comment(s): Pain with last pain clinic procedure 04/28/14- felt every needle going in Past Psychological History: No Psychological Hx Reported Smoking Status: Former smoker Past Alcohol Use History: Occasional Past Drug Use History: None Reported - Past Family History Mother Family Medical History: No Reported History Father Family Medical History: No Reported History General Exam Limitations: no limitations General appearance: alert, in no apparent distress Head exam: Present: atraumatic, normocephalic, normal inspection Respiratory exam: Present: normal lung sounds bilaterally. Absent: respiratory distress, wheezes, rales, rhonchi, stridor Cardiovascular Exam: Present: regular rate, normal rhythm, normal heart sounds. Absent: systolic murmur, diastolic murmur, rubs, gallop, clicks Extremities exam: Present: other (Non-pitting edema and tenderness beginning in the left foot and spreading just inferior to the left patella. No overlying erythema. 2+ DP and PT pulses and capillary refill <1 second.) Neurological exam: Present: alert, oriented X3, CN II-XII intact Psychiatric exam: Present: normal affect, normal mood Skin exam: Present: warm, dry, intact, normal color. Absent: rash Course Vital Signs 09/13/22 09/13/22 09/13/22 08:09 10:04 11:38 Temperature 98.2 F 98.0 F Pulse Rate 92 82 78 Respiratory 20 18 18 Rate Blood Pressure 150/98 112/84 107/93 O2 Sat by Pulse 99 96 96 Oximetry Medical Decision Making - Medical Decision Making This is a 62-year-old male who presents to the emergency department for left leg pain and swelling. Was pt. sent in by a medical professional or institution? @ -No Did you speak to anyone other than the patient for history? @ -No Did you review nursing and triage notes? @ -Yes, and I agree, it is accurate with regards to the patient's symptoms. Were old charts reviewed? @ -No Differential Diagnosis? @ -Differential Leg Pain/Swelling: Leg fracture, leg sprain, DVT, PVD, arterial insufficiency, iliac artery aneurysm, cellulitis, compartment syndrome, tendinopathy, nerve entrapment, piriformis syndrome, osteoarthritis, rhabdomyolysis, myositis, cramping from an electrolyte imbalance, this is not meant to be an all inclusive list. X-rays interpreted by me (1pt min.)? @ -XR of the left foot and tib fib obtained. My interpretation identifies no acute fractures or dislocations. There is diffuse subcutaneous edema. U/S interpreted by me (1pt. min.)? @ -Duplex US of the left lower extremity obtained. My interpretation identifies no evidence of a DVT. What testing was considered but not performed? (CT, X-rays, U/S, labs)? Why? @ -None What meds were considered but not given? Why? @ -None Did you discuss the management of the patient with other professionals? @ -No Did you reconcile home meds? @ -No Was smoking cessation discussed for >3mins.? @ -No Was critical care preformed (if so, how long)? @ -No Were there social determinants of health that impacted care today? How? (Homelessness, low income, unemployed, alcoholism, drug addiction, transportation, low edu. Level, literacy, decrease access to med. care, shelter, rehab)? @ -No Was there de-escalation of care discussed even if they declined? (Discuss DNR or withdrawal of care, Hospice)? @ -No What co-morbidities impacted this encounter? (DM, HTN, Smoking, COPD, CAD, Cancer, CVA, Hep., AIDS, mental health diagnosis, sleep apnea, morbid obesity)? @ -Morbid obesity Was patient admitted / discharged? @ -Discharged. Lab work obtained and found to be fairly unremarkable with no evidence of leukocytosis or elevated BNP. He does have mildly elevated inflammatory markers. XR of the left lower extremity obtained revealing sub cutaneous edema and no other acute findings. Duplex US of the left lower extremity obtained as well revealing no evidence of a DVT. We do not have a clear cause for his symptoms, however given that the symptoms feel the same as a prior cellulitis and with the elevation inflammatory markers, will treat the patient for possible cellulitis. Prescription for Keflex provided with dosing instructions reviewed. He is instructed to follow up with his PCP for reevaluation of ongoing symptoms. Undiagnosed new problem with uncertain prognosis? @ -None Drug Therapy requiring intensive monitoring for toxicity (Heparin, Nitro, Insulin, Cardizem)? @ -None Were any procedures done? @ -None Diagnosis/symptom? @ -Cellulitis, left lower extremity swelling Acute, or Chronic, or Acute on Chronic? @ -Acute Uncomplicated (without systemic symptoms) or Complicated (systemic symptoms)? @ -Uncomplicated Side effects of treatment? @ -None Exacerbation, Progression, or Severe Exacerbation] @ -Not applicable Poses a threat to life or bodily function? @ -No Return precautions reviewed in depth, the patient is instructed to return to the emergency department with any new, worsening, or concerning symptoms. Patient verbalized understanding. This case was discussed in detail with the attending ED physician, Dr. Rodriguez. Presentation, findings, and treatment plan discussed in detail as well. - Lab Data Result diagrams: 09/13/22 08:47 09/13/22 08:47 Lab Results 09/13/22 09/13/22 09/13/22 Range/Units 08:47 08:47 08:47 WBC 8.7 (3.8-10.6) k/uL RBC 4.35 (4.30-5.90) m/uL Hgb 12.5 L (13.0-17.5) gm/dL Hct 38.6 L (39.0-53.0) % MCV 88.9 (80.0-100.0) fL MCH 28.7 (25.0-35.0) pg MCHC 32.3 (31.0-37.0) g/dL RDW 16.3 H (11.5-15.5) % Plt Count 272 (150-450) k/uL MPV 7.6 Neutrophils % 64 % Lymphocytes % 25 % Monocytes % 6 % Eosinophils % 2 % Basophils % 1 % Neutrophils # 5.6 (1.3-7.7) k/uL Lymphocytes # 2.2 (1.0-4.8) k/uL Monocytes # 0.5 (0-1.0) k/uL Eosinophils # 0.1 (0-0.7) k/uL Basophils # 0.0 (0-0.2) k/uL Hypochromasia Slight Anisocytosis Slight ESR Cancelled Sodium 139 (137-145) mmol/L Potassium 4.3 (3.5-5.1) mmol/L Chloride 107 (98-107) mmol/L Carbon Dioxide 22 (22-30) mmol/L Anion Gap 10 mmol/L BUN 11 (9-20) mg/dL Creatinine 0.87 (0.66-1.25) mg/dL Est GFR (CKD-EPI)AfAm >90 (>60 ml/min/1.73 sqM) Est GFR (CKD-EPI)NonAf >90 (>60 ml/min/1.73 sqM) Glucose 93 (74-99) mg/dL Plasma Lactic Acid Luis 1.0 (0.7-2.0) mmol/L Calcium 8.8 (8.4-10.2) mg/dL Total Bilirubin 0.5 (0.2-1.3) mg/dL AST 21 (17-59) U/L ALT 14 (4-49) U/L Alkaline Phosphatase 75 (38-126) U/L C-Reactive Protein 4.4 H (<1.0) mg/dL NT-Pro-B Natriuret Pep pg/mL Total Protein 6.6 (6.3-8.2) g/dL Albumin 3.7 (3.5-5.0) g/dL 09/13/22 09/13/22 Range/Units 08:47 09:40 WBC (3.8-10.6) k/uL RBC (4.30-5.90) m/uL Hgb (13.0-17.5) gm/dL Hct (39.0-53.0) % MCV (80.0-100.0) fL MCH (25.0-35.0) pg MCHC (31.0-37.0) g/dL RDW (11.5-15.5) % Plt Count (150-450) k/uL MPV Neutrophils % % Lymphocytes % % Monocytes % % Eosinophils % % Basophils % % Neutrophils # (1.3-7.7) k/uL Lymphocytes # (1.0-4.8) k/uL Monocytes # (0-1.0) k/uL Eosinophils # (0-0.7) k/uL Basophils # (0-0.2) k/uL Hypochromasia Anisocytosis ESR 17 H Sodium (137-145) mmol/L Potassium (3.5-5.1) mmol/L Chloride (98-107) mmol/L Carbon Dioxide (22-30) mmol/L Anion Gap mmol/L BUN (9-20) mg/dL Creatinine (0.66-1.25) mg/dL Est GFR (CKD-EPI)AfAm (>60 ml/min/1.73 sqM) Est GFR (CKD-EPI)NonAf (>60 ml/min/1.73 sqM) Glucose (74-99) mg/dL Plasma Lactic Acid Luis (0.7-2.0) mmol/L Calcium (8.4-10.2) mg/dL Total Bilirubin (0.2-1.3) mg/dL AST (17-59) U/L ALT (4-49) U/L Alkaline Phosphatase (38-126) U/L C-Reactive Protein (<1.0) mg/dL NT-Pro-B Natriuret Pep 312 pg/mL Total Protein (6.3-8.2) g/dL Albumin (3.5-5.0) g/dL - Radiology Data Radiology results: report reviewed, image reviewed Disposition Clinical Impression: Cellulitis of left lower extremity Disposition: HOME SELF-CARE Instructions (If sedation given, give patient instructions): Cellulitis (ED) Additional Instructions: Return to the emergency department with any new, worsening, or concerning symptoms. Take the antibiotic as prescribed for 7 days. Continue to take your pain medication as prescribed. Follow up with your primary care provider in 1-2 days. Prescriptions: Cephalexin [Keflex] 500 mg PO Q6HR 7 Days #28 cap Is patient prescribed a controlled substance at d/c from ED?: No Referrals: Lucas Williamson MD [Primary Care Provider] - 1-2 days
--- NOTE | 2022-09-13 08:44 | XR ---
EXAMINATION TYPE: XR tibia fibula LT DATE OF EXAM: 09/13/2022 CLINICAL HISTORY: Pain and swelling for 1.5 months. TECHNIQUE: Two views of the left leg are obtained. COMPARISON: None. FINDINGS: There is no acute fracture or dislocation seen in the left tibia or fibula. Meniscal calci fications are present in the left knee raising concern for underlying chondrocalcinosis. Left ankle j oint appears within normal limits. Mild to moderate diffuse subcutaneous edema distally is noted. IMPRESSION: As above.
--- NOTE | 2022-09-13 08:46 | XR ---
EXAMINATION TYPE: XR foot complete LT DATE OF EXAM: 09/13/2022 CLINICAL HISTORY: Pain and swelling TECHNIQUE: Frontal, lateral, and oblique images of the left foot are obtained. COMPARISON: Prior left foot x-ray July 08, 2014 FINDINGS: There is no acute fracture/dislocation evident in the left foot. Mild narrowing at the fir st metatarsophalangeal joint is redemonstrated. Degenerative spurring at tibial talar joint redemonst rated. Tiny round density at the proximal plantar base of the cuboid bone is again seen and could ref lect product of old fracture. Mild diffuse subcutaneous edema is present. IMPRESSION: As above.
[2022-09-13 09:09] LABS: ALT 14 U/L (4-49); AST 21 U/L (17-59); African American GFR (CKD) >90 (>60 ml/min/1.73 sqM); Albumin 3.7 g/dL (3.5-5.0); Alkaline Phosphatase 75 U/L (38-126); Anion Gap 10 mmol/L; Blood Urea Nitrogen 11 mg/dL (9-20); Calcium 8.8 mg/dL (8.4-10.2); Carbon Dioxide 22 mmol/L (22-30); Chloride 107 mmol/L (98-107); Glucose 93 mg/dL (74-99); Non-African American GFR(CKD) >90 (>60 ml/min/1.73 sqM); Potassium 4.3 mmol/L (3.5-5.1); Sodium 139 mmol/L (137-145); Total Bilirubin 0.5 mg/dL (0.2-1.3); Total Protein 6.6 g/dL (6.3-8.2)
--- NOTE | 2022-09-13 09:14 | US ---
EXAMINATION TYPE: US venous doppler duplex LE LT DATE OF EXAM: 09/13/2022 9:06 AM COMPARISON: Prior left lower extremity venous ultrasound 2014 CLINICAL INDICATION: Male, 62 years old with history of Pain and swelling to left leg; pain and edema left leg SIDE PERFORMED: left TECHNIQUE: The lower extremity deep venous system is examined utilizing real time linear array sonog jerica with graded compression, doppler sonography and color-flow sonography. VESSELS IMAGED: Common Femoral Vein Deep Femoral Vein Greater Saphenous Vein * Femoral Vein Popliteal Vein Small Saphenous Vein * Proximal Calf Veins (* superficial vessels) Left Leg: no evidence of DVT as visualized. rouleaux flow left popliteal vein Grayscale, color doppler, spectral doppler imaging performed of the deep veins of the left lower extr emity. There is normal flow, compressibility, vascular waveforms. IMPRESSION: No ultrasound evidence for acute DVT in the left lower extremity. No significant change from prior.
[2022-09-13 09:18] LABS: Anisocytosis Slight; Basophils % (A) 1 %; Eosinophils # (A) 0.1 k/uL (0-0.7); Eosinophils % (A) 2 %; HCT 38.6 % (39.0-53.0); HGB 12.5 gm/dL (13.0-17.5); Hypochromasia Slight; Lymphocytes # (A) 2.2 k/uL (1.0-4.8); Lymphocytes % (A) 25 %; MCH 28.7 pg (25.0-35.0); MCHC 32.3 g/dL (31.0-37.0); MCV 88.9 fL (80.0-100.0); Mean Platelet Volume 7.6; Monocytes # (A) 0.5 k/uL (0-1.0); Monocytes % (A) 6 %; Neutrophils # (A) 5.6 k/uL (1.3-7.7); Neutrophils % (A) 64 %; Platelet Count 272 k/uL (150-450); RBC 4.35 m/uL (4.30-5.90); RDW 16.3 % (11.5-15.5); WBC 8.7 k/uL (3.8-10.6)
[2022-09-13] MEDS ORDERED: KETOROLAC 15 MG/ML 1 ML VIAL IVP STA (09:22)
[2022-09-13] MEDS ORDERED: MORPHINE SULFATE 2 MG/ML SYRINGE IVP STA (09:22)
[2022-09-13 10:07] VITALS: RESP 18
[2022-09-13 10:42] LABS: C Reactive Protein 4.4 mg/dL (<1.0)
[2022-09-13 11:41] VITALS: BP 107/93; PULSE 78; TEMP 98
== END 2022-09-13 11:40 | disposition home or self-care (01) ==
LOC: EC 07:57
DX: L03.116 Cellulitis of left lower limb (principal); Z87.891 Personal history of nicotine dependence; Z88.8 Allergy status to other drugs, medicaments and biological substances
CPT/HCPCS: 36415; 83880; 80053; 85652; 83605; 85025; 86140; 73590; 73630; 93971; 99283; 96374; 96375; J2270; J1885

== ENCOUNTER 2022-11-07 09:13 | Emergency (ER) | payer BC ==
[2022-11-07 09:22] VITALS: BP 147/78; PULSE 77; RESP 18; TEMP 98.8
--- NOTE | 2022-11-07 09:39 | ED ---
General Adult HPI <Eli Angulo - Last Filed: 11/07/22 11:23> - General Source: patient Mode of arrival: ambulatory Limitations: no limitations <Marquez Garcia - Last Filed: 11/07/22 13:41> - General Chief complaint: Trauma Stated complaint: Fall - Head Injury Time Seen by Provider: 11/07/22 09:34 - History of Present Illness Initial comments: Dictation was produced using [employer] dictation software. please excuse any grammatical, word or spelling errors. Chief Complaint: 62-year-old male presents emergency department for head injury History of Present Illness: [id number] male presents to the emergency department for head injury. Patient was playing in his yard. He is standing on boulders when he lost his balance and fell forward. He struck his head on the [place]. Denies any loss of consciousness. Patient has any neck pain. He does complain of also left knee pain. Patient takes Xarelto. He had a cardiac ablation recently. The ROS documented in this emergency department record has been reviewed and confirmed by me. Those systems with pertinent positive or negative responses have been documented in the HPI. All other systems are other negative and/or noncontributory. (Marquez Garcia) - Related Data Home Medications Medication Instructions Recorded Confirmed Lansoprazole 30 mg PO DAILY 04/24/22 09/13/22 oxyCODONE-APAP 10-325MG [Percocet 1 tab PO Q4H 04/24/22 09/13/22 10-325 mg] Furosemide [Lasix] 20 mg PO BID 08/28/22 09/13/22 Rivaroxaban [Xarelto] 20 mg PO DAILY 08/28/22 09/13/22 lisinopriL [Zestril] 5 mg PO BID 08/28/22 09/13/22 Previous Rx's Medication Instructions Recorded Flecainide [Tambocor] 50 mg PO Q12HR #60 tab 04/26/22 Metoprolol Succinate (ER) [Toprol 50 mg PO DAILY #60 tab 04/26/22 XL] Cephalexin [Keflex] 500 mg PO Q6HR 7 Days #28 cap 09/13/22 Amoxic-Pot Clav 875-125Mg 1 tab PO BID 7 Days #14 tab 11/07/22 [Augmentin 111-071] Allergies Allergy/AdvReac Type Severity Reaction Status Date / Time colchicine Allergy Nausea & Verified 11/07/22 09:22 Vomiting iron Allergy SEVERE Verified 11/07/22 09:22 PAIN, WHEN RECEIVED INJECTION OF IRON nylon Allergy SUTURES, Uncoded 11/07/22 09:22 "FESTER OUT," INFECTED Review of Systems ROS Other: All systems not noted in ROS Statement are negative. <Eli Angulo - Last Filed: 11/07/22 11:23> ROS Other: All systems not noted in ROS Statement are negative. <Marquez Garcia - Last Filed: 11/07/22 13:41> ROS Statement: Those systems with pertinent positive or pertinent negative responses have been documented in the HPI. Past Medical History Past Medical History: Musculoskeletal Disorder, Skin Disorder Additional Past Medical History / Comment(s): psoriasis, arthritis, hx kidney stones, cast on rt wrist from recent surgery, hx cellulitis left leg History of Any Multi-Drug Resistant Organisms: None Reported Past Surgical History: Back Surgery, Bariatric Surgery, Cholecystectomy, Hernia Repair, Orthopedic Surgery Additional Past Surgical History / Comment(s): BACK X2 -rods in back, CERVICAL SURG.,-Segundo en Y.,hernia x 3, rt wrist surgery, abdominoplasty, cyst removed "from behind the heart", pain clinic procedures Past Anesthesia/Blood Transfusion Reactions: Previous Problems w/ Anesthesia Additional Past Anesthesia/Blood Transfusion Reaction / Comment(s): Pain with last pain clinic procedure 04/28/14- felt every needle going in Past Psychological History: No Psychological Hx Reported Smoking Status: Former smoker Past Alcohol Use History: Occasional Past Drug Use History: None Reported - Past Family History Mother Family Medical History: No Reported History Father Family Medical History: No Reported History <Marquez Garcia - Last Filed: 11/07/22 13:41> General Exam Limitations: no limitations <Marquez Garcia - Last Filed: 11/07/22 13:41> - General Exam Comments Initial Comments: PHYSICAL EXAM: General Impression: Alert and oriented x3, not in acute distress HEENT: 2 cm laceration over the left eyebrow, extra-ocular movements intact, pupils equal and reactive to light bilaterally, mucous membranes moist. Cardiovascular: Heart regular rate and rhythm Chest: Able to complete full sentences, no retractions, no tachypnea Abdomen: abdomen soft, non-tender, non-distended, no organomegaly Musculoskeletal: Pulses present and equal in all extremities, no peripheral edema, palpable tenderness to the left anterior knee Motor: no focal deficits noted Neurological: CN II-XII grossly intact, no focal motor or sensory deficits noted Skin: Abrasion to the left knee Psych: Normal affect and mood (Marquez Garcia) Course <Marquez Garcia - Last Filed: 11/07/22 13:41> Vital Signs 11/07/22 09:17 Temperature 98.8 F Pulse Rate 77 Respiratory 18 Rate Blood Pressure 147/78 O2 Sat by Pulse 98 Oximetry - Reevaluation(s) Reevaluation #1: 11/07/22 09:39 Patient seen and evaluated in room #6. Patient seen and evaluated via ATLS protocol. (Marquez Garcia) EKG Findings - EKG Comments: EKG Findings:: My EKG interpretation: Ventricular rate 75, sinus rhythm,. Interval 171, QRS 90, QTc 433. No OK prolongation, no QTC prolongation, no ST or T-wave changes noted. EKG compared to 09/04/2022 showing no changes. Overall, this EKG is unremarkable <Marquez Garcia - Last Filed: 11/07/22 13:41> Procedures - Laceration Laceration #1 Consent Obtained: verbal consent Indication: laceration Site: face (left eyebrow) Description: linear Depth: simple, single layer Anesthetic Used: lidocaine 2%, with epi Anesthesia Technique: local infiltration Amount (mls): 4 Type of Sutures: other (monofilament) Size of Sutures: 6-0 Number of Sutures: 15 Technique: simple, interrupted Patient Tolerated Procedure: well, no complications <Eli Angulo - Last Filed: 11/07/22 11:23> Medical Decision Making - Lab Data Result diagrams: 11/07/22 09:36 11/07/22 09:36 <Eli Angulo - Last Filed: 11/07/22 11:23> - Lab Data Result diagrams: 11/07/22 09:36 11/07/22 09:36 <Marquez Garcia - Last Filed: 11/07/22 13:41> - Medical Decision Making Was pt. sent in by a medical professional or institution (, [facility], TOPOGRAPHICAL SURVEYOR, urgent care, hospital, or prison...) When possible be specific @ -No Did you speak to anyone other than the patient for history (EMS, parent, family, police, friend...)? What history was obtained from this source @ -EMS reports patient fell and struck his head Did you review nursing and triage notes (agree or disagree)? Why? @ -I reviewed and agree with nursing and triage notes Were old charts reviewed (outside hosp., previous admission, EMS record, old EKG, old radiological studies, urgent care reports/EKG's, prison records)? Report findings @ -No old charts were reviewed Differential Diagnosis (chest pain, altered mental status, abdominal pain women, abdominal pain men, vaginal bleeding, musculoskeletal, weakness, fever, dyspnea, syncope, headache, dizziness, GI bleed, back pain, seizure, CVA, palpatations, mental health)? @ -Cranial injury, scalp fracture, facial fracture EKG interpreted by me (3pts min.). @ -See above X-rays interpreted by me (1pt min.). @ -Chest x-ray, pelvis x-ray and knee x-ray shows no acute osseous abnormalities CT interpreted by me (1pt min.). @ -And the head and C-spine shows no acute intracranial processes. Facial CT shows left inferior orbital wall fracture U/S interpreted by me (1pt. min.). @ -None done What testing was considered but not performed or refused? (CT, X-rays, U/S, labs)? Why? @ -None What meds were considered but not given or refused? Why? @ -None Did you discuss the management of the patient with other professionals (professionals i.e. , [facility], TOPOGRAPHICAL SURVEYOR, lab, RT, psych nurse, social problems specialist, corporation lawyer, teacher, fourth officer, family service caseworker)? Give summary @ -No Was smoking cessation discussed for >3mins.? @ -No Was critical care preformed (if so, how long)? @ -Yes, 33 minutes Were there social determinants of health that impacted care today? How? (Homelessness, low income, unemployed, alcoholism, drug addiction, transportation, low edu. Level, literacy, decrease access to med. care, skilled nursing, rehab)? @ -No Was there de-escalation of care discussed even if they declined (Discuss DNR or withdrawal of care, Hospice)? DNR status @ -No What co-morbidities impacted this encounter? (DM, HTN, Smoking, COPD, CAD, Cancer, CVA, ARF, Chemo, Hep., AIDS, mental health diagnosis, sleep apnea, morbid obesity)? @ -None Was patient admitted / discharged? Hospital course, mention meds given and route, prescriptions, significant lab abnormalities, going to OR and other pertinent info. @ -62-year-old male takes anti-coagulation medication presents to the ER after head injury after mechanical fall. Vital signs upon arrival are within acceptable limits. Laboratory evaluation is unremarkable. Imaging studies shows no severe traumatic injuries. He does have a orbital floor fracture without entrapment. No clinical entrapment. Laceration repaired by mid-level provider. Tetanus updated. Patient discharged. He is given prophylactic antibiotics Undiagnosed new problem with uncertain prognosis? @ -No Drug Therapy requiring intensive monitoring for toxicity (Heparin, Nitro, Insulin, Cardizem)? @ -No Were any procedures done? @ -No Diagnosis/symptom? Acute, or Chronic, or Acute on Chronic? Uncomplicated (without systemic symptoms) or Complicated (systemic symptoms)? @ - head injury, facial laceration, orbital floor fracture Side effects of treatment? @ -No Exacerbation, Progression, or Severe Exacerbation? @ -No Poses a threat to life or bodily function? How? (Chest pain, [place], [place], pneumonia, PE, COPD, DKA, ARF, appy, cholecystitis, CVA, Diverticulitis, Homicidal, Suicidal, threat to staff... and all critical care pts) @ -yes (Marquez Garcia) - Lab Data Lab Results 11/07/22 11/07/22 11/07/22 Range/Units 09:36 09:36 09:36 WBC 7.4 (3.8-10.6) k/uL RBC 4.39 (4.30-5.90) m/uL Hgb 12.3 L (13.0-17.5) gm/dL Hct 38.3 L (39.0-53.0) % MCV 87.3 (80.0-100.0) fL MCH 27.9 (25.0-35.0) pg MCHC 32.0 (31.0-37.0) g/dL RDW 17.1 H (11.5-15.5) % Plt Count 173 (150-450) k/uL MPV 7.9 Neutrophils % 69 % Lymphocytes % 22 % Monocytes % 5 % Eosinophils % 2 % Basophils % 1 % Neutrophils # 5.1 (1.3-7.7) k/uL Lymphocytes # 1.6 (1.0-4.8) k/uL Monocytes # 0.4 (0-1.0) k/uL Eosinophils # 0.1 (0-0.7) k/uL Basophils # 0.1 (0-0.2) k/uL Anisocytosis Slight PT 12.0 (9.0-12.0) sec INR 1.2 H (<1.2) APTT 27.9 (22.0-30.0) sec Sodium 137 (137-145) mmol/L Potassium 3.7 (3.5-5.1) mmol/L Chloride 101 (98-107) mmol/L Carbon Dioxide 27 (22-30) mmol/L Anion Gap 9 mmol/L BUN 14 (9-20) mg/dL Creatinine 0.88 (0.66-1.25) mg/dL Est GFR (CKD-EPI)AfAm >90 (>60 ml/min/1.73 sqM) Est GFR (CKD-EPI)NonAf >90 (>60 ml/min/1.73 sqM) Glucose 108 H (74-99) mg/dL POC Glucose (mg/dL) (70-110) mg/dL POC Glu Pipe Bending Machine Operator ID Calcium 8.6 (8.4-10.2) mg/dL Total Bilirubin 0.7 (0.2-1.3) mg/dL AST 29 (17-59) U/L ALT 15 (4-49) U/L Alkaline Phosphatase 102 (38-126) U/L Troponin I (0.000-0.034) ng/mL Total Protein 6.8 (6.3-8.2) g/dL Albumin 3.9 (3.5-5.0) g/dL Serum Alcohol <10 mg/dL Blood Type Blood Type Confirm Blood Type Recheck Bld Type Recheck Status Antibody Screen Spec Expiration Date 11/07/22 11/07/22 11/07/22 Range/Units 09:36 09:40 09:56 WBC (3.8-10.6) k/uL RBC (4.30-5.90) m/uL Hgb (13.0-17.5) gm/dL Hct (39.0-53.0) % MCV (80.0-100.0) fL MCH (25.0-35.0) pg MCHC (31.0-37.0) g/dL RDW (11.5-15.5) % Plt Count (150-450) k/uL MPV Neutrophils % % Lymphocytes % % Monocytes % % Eosinophils % % Basophils % % Neutrophils # (1.3-7.7) k/uL Lymphocytes # (1.0-4.8) k/uL Monocytes # (0-1.0) k/uL Eosinophils # (0-0.7) k/uL Basophils # (0-0.2) k/uL Anisocytosis PT (9.0-12.0) sec INR (<1.2) APTT (22.0-30.0) sec Sodium (137-145) mmol/L Potassium (3.5-5.1) mmol/L Chloride (98-107) mmol/L Carbon Dioxide (22-30) mmol/L Anion Gap mmol/L BUN (9-20) mg/dL Creatinine (0.66-1.25) mg/dL Est GFR (CKD-EPI)AfAm (>60 ml/min/1.73 sqM) Est GFR (CKD-EPI)NonAf (>60 ml/min/1.73 sqM) Glucose (74-99) mg/dL POC Glucose (mg/dL) 111 H (70-110) mg/dL POC Glu Pipe Bending Machine Operator ID Mosley, Hay Calcium (8.4-10.2) mg/dL Total Bilirubin (0.2-1.3) mg/dL AST (17-59) U/L ALT (4-49) U/L Alkaline Phosphatase (38-126) U/L Troponin I <0.012 (0.000-0.034) ng/mL Total Protein (6.3-8.2) g/dL Albumin (3.5-5.0) g/dL Serum Alcohol mg/dL Blood Type A Positive Blood Type Confirm Blood Type Recheck No Previous Record Bld Type Recheck Status CABO Indicated Antibody Screen NEGATIVE Spec Expiration Date 11/10/2022 - 233511/07/22 Range/Units 09:56 WBC (3.8-10.6) k/uL RBC (4.30-5.90) m/uL Hgb (13.0-17.5) gm/dL Hct (39.0-53.0) % MCV (80.0-100.0) fL MCH (25.0-35.0) pg MCHC (31.0-37.0) g/dL RDW (11.5-15.5) % Plt Count (150-450) k/uL MPV Neutrophils % % Lymphocytes % % Monocytes % % Eosinophils % % Basophils % % Neutrophils # (1.3-7.7) k/uL Lymphocytes # (1.0-4.8) k/uL Monocytes # (0-1.0) k/uL Eosinophils # (0-0.7) k/uL Basophils # (0-0.2) k/uL Anisocytosis PT (9.0-12.0) sec INR (<1.2) APTT (22.0-30.0) sec Sodium (137-145) mmol/L Potassium (3.5-5.1) mmol/L Chloride (98-107) mmol/L Carbon Dioxide (22-30) mmol/L Anion Gap mmol/L BUN (9-20) mg/dL Creatinine (0.66-1.25) mg/dL Est GFR (CKD-EPI)AfAm (>60 ml/min/1.73 sqM) Est GFR (CKD-EPI)NonAf (>60 ml/min/1.73 sqM) Glucose (74-99) mg/dL POC Glucose (mg/dL) (70-110) mg/dL POC Glu Pipe Bending Machine Operator ID Calcium (8.4-10.2) mg/dL Total Bilirubin (0.2-1.3) mg/dL AST (17-59) U/L ALT (4-49) U/L Alkaline Phosphatase (38-126) U/L Troponin I (0.000-0.034) ng/mL Total Protein (6.3-8.2) g/dL Albumin (3.5-5.0) g/dL Serum Alcohol mg/dL Blood Type Blood Type Confirm A Positive Blood Type Recheck Bld Type Recheck Status Antibody Screen Spec Expiration Date Disposition <Eli Angulo - Last Filed: 11/07/22 11:23> Is patient prescribed a controlled substance at d/c from ED?: No Time of Disposition: 13:41 <Marquez Garcia - Last Filed: 11/07/22 13:41> Clinical Impression: Head injury Disposition: HOME SELF-CARE Condition: Fair Instructions (If sedation given, give patient instructions): Head Injury (ED) Additional Instructions: suture removal in 5 days, do not blow nose Prescriptions: Amoxic-Pot Clav 875-125Mg [Augmentin 875-125] 1 tab PO BID 7 Days #14 tab Referrals: Lucas Williamson MD [Primary Care Provider] - 1-2 days
[2022-11-07 09:42] LABS: Glucose,Whole Blood 111 mg/dL (70-110)
[2022-11-07] MEDS ORDERED: MORPHINE SULFATE 4 MG/ML SYRINGE IV STA ×2 (09:45→12:23)
[2022-11-07] MEDS ORDERED: DIPH,PERTUS(ACELL)TETVAC-LF 0.5 ML VIAL IM ONE (09:45)
[2022-11-07 09:53] LABS: Anisocytosis Slight; Basophils # (A) 0.1 k/uL (0-0.2); Basophils % (A) 1 %; Eosinophils # (A) 0.1 k/uL (0-0.7); Eosinophils % (A) 2 %; HCT 38.3 % (39.0-53.0); HGB 12.3 gm/dL (13.0-17.5); Lymphocytes # (A) 1.6 k/uL (1.0-4.8); Lymphocytes % (A) 22 %; MCH 27.9 pg (25.0-35.0); MCV 87.3 fL (80.0-100.0); Mean Platelet Volume 7.9; Monocytes # (A) 0.4 k/uL (0-1.0); Monocytes % (A) 5 %; Neutrophils # (A) 5.1 k/uL (1.3-7.7); Neutrophils % (A) 69 %; Platelet Count 173 k/uL (150-450); RBC 4.39 m/uL (4.30-5.90); RDW 17.1 % (11.5-15.5); WBC 7.4 k/uL (3.8-10.6)
--- NOTE | 2022-11-07 09:55 | XR ---
EXAMINATION TYPE: XR chest 1V portable DATE OF EXAM: 11/07/2022 Comparison: 04/24/2022 Clinical History: 62-year-old male pain after trauma, fall on thinners Findings: ACDF hardware. Heart mild to moderately enlarged. Patchy bibasilar opacities. There are low lung volu mes with elevated hemidiaphragms. No pleural effusion seen. Impression: Mild/moderate cardiomegaly. Bibasilar opacities likely patchy atelectasis given the low lung volumes. Clinically correlate.
--- NOTE | 2022-11-07 09:57 | XR ---
EXAMINATION TYPE: XR pelvis AP view DATE OF EXAM: 11/07/2022 Comparison: 10/23/2011 Clinical History: 62-year-old male Trauma Findings: Posterior and interbody lumbosacral fusion hardware. There is mild degenerative change of the left hi p. Bilateral superior femoral head neck junction CAM deformities which can contribute to femoral acet abular impingement. No acute fracture, subluxation, dislocation is seen. Somewhat underpenetrated ass essment of the iliac wings and sacrum. Impression: Mild left hip OA. No acute osseous abnormality seen.
[2022-11-07 10:04] LABS: ALT 15 U/L (4-49); AST 29 U/L (17-59); African American GFR (CKD) >90 (>60 ml/min/1.73 sqM); Albumin 3.9 g/dL (3.5-5.0); Alcohol <10 mg/dL; Alkaline Phosphatase 102 U/L (38-126); Anion Gap 9 mmol/L; Blood Urea Nitrogen 14 mg/dL (9-20); Calcium 8.6 mg/dL (8.4-10.2); Carbon Dioxide 27 mmol/L (22-30); Chloride 101 mmol/L (98-107); Glucose 108 mg/dL (74-99); Non-African American GFR(CKD) >90 (>60 ml/min/1.73 sqM); Potassium 3.7 mmol/L (3.5-5.1); Sodium 137 mmol/L (137-145); Total Bilirubin 0.7 mg/dL (0.2-1.3); Total Protein 6.8 g/dL (6.3-8.2)
[2022-11-07] MEDS ORDERED: LIDOCAINE 2%-EPI 1:100,000 20 ML VIAL SQ STA (10:11)
--- NOTE | 2022-11-07 10:23 | CT ---
EXAMINATION TYPE: CT facial bones wo con DATE OF EXAM: 11/07/2022 COMPARISON: None HISTORY: Fall on thinners CT DLP: [id number] mGycm Unenhanced CT of the facial bones was performed in the axial and coronal planes. Bone and soft tissu e window settings are submitted. Soft tissue swelling with left frontal scalp laceration. There is irregularity at the base of the left orbital floor compatible with orbital floor fracture wi thout evidence of muscle entrapment. Displacement is noted of approximately 1.6 mm. Small amount of h emorrhagic fluid is seen within the left maxillary sinus. The globes are intact. Paranasal sinuses are well-aerated. IMPRESSION: 1. Mildly displaced left orbital floor fracture without blowout component or muscle entrapment. Displ acement of 1.6 mm. Small amount of hemorrhagic fluid left maxillary sinus.
[2022-11-07 10:29] LABS: INR 1.2 (<1.2); Partial Thromboplastin Time 27.9 sec (22.0-30.0)
--- NOTE | 2022-11-07 10:40 | XR ---
EXAMINATION TYPE: XR knee complete LT DATE OF EXAM: 11/07/2022 COMPARISON: None HISTORY: 62-year-old male fall and pain, multiple abrasions TECHNIQUE: 3 views FINDINGS: Meniscal chondrocalcinosis. Some anterior soft tissue swelling is noted. No significant joint effusio n. Osteopenia. No acute fracture, subluxation, dislocation seen. Medial and patellofemoral compartmen t degenerative spurring. IMPRESSION: Soft tissue swelling. Meniscal chondrocalcinosis incidentally noted. Some scattered degenerative spur ring. No acute osseous abnormality seen.
--- NOTE | 2022-11-07 11:53 | CT ---
EXAMINATION TYPE: CT brain barrett campos con DATE OF EXAM: 11/07/2022 COMPARISON: 02/11/2014 HISTORY: Trauma, Fall on thinners CT DLP: 1328.[address] of the brain was performed. The ventricles, basal cisterns and sulci overlying the cerebral convexities demonstrate mild enlargem ent. There is no evidence for intracranial hemorrhage or sulcal effacement. There is decreased attenuatio n about the periventricular white matter and deep white matter of both cerebral hemispheres, compatib le with chronic small vessel ischemia. No mass effects are seen. If symptoms persist consider MRI. Osseous calvarium is intact. Left frontal scalp laceration noted. Small amount of hemorrhagic fluid w ithin the left maxillary sinus. IMPRESSION: 1. Age related atrophic and chronic small vessel ischemic change without acute intracranial process seen at this time. CT Cervical Spine: Unenhanced CT of the cervical spine was performed with bone and soft tissue window settings submitted . Coronal and sagittal reconstruction is obtained. There is normal alignment and prevertebral soft tissues. No evidence for acute cervical fracture . Scattered degenerative disc disease and spondylosis. Biapical scarring. IMPRESSION: 1. No evidence for acute fracture or subluxation of the cervical spine.
== END 2022-11-07 14:09 | disposition home or self-care (01) ==
LOC: EC 09:13
DX: S02.32XA Fracture of orbital floor, left side, initial encounter for closed fracture (principal); S01.112A Laceration without foreign body of left eyelid and periocular area, initial encounter; S80.212A Abrasion, left knee, initial encounter; Z87.891 Personal history of nicotine dependence; Z23 Encounter for immunization; Z88.8 Allergy status to other drugs, medicaments and biological substances; Z91.048 Other nonmedicinal substance allergy status; W01.198A Fall on same level from slipping, tripping and stumbling with subsequent striking against other object, initial encounter
CPT/HCPCS: 36415; 93005; 86900; 86901; 80053; 84484; 85025; 85610; 85730; 86850; 80320; 72170; 73562; 71045; 72125; 70486; 70450; 90715; 99285; 96374; 96376; 90471; 12011; J2270

== ENCOUNTER 2022-11-10 17:29 | Emergency (ER) | payer BC ==
[2022-11-10 18:10] VITALS: RESP 18; TEMP 98
--- NOTE | 2022-11-10 19:47 | XR ---
EXAMINATION TYPE: XR wrist complete LT DATE OF EXAM: 11/10/2022 7:42 PM INDICATION: Patient age:Male; 62 years old; Reason for study: pain; PHH. COMPARISON: None TECHNIQUE: left wrist was examined in the. Frontal, navicular, lateral, and oblique. FINDINGS: No acute osseous pathology, joint dislocation, or joint effusion. No evidence of any soft tissue swelling is seen. Multifocal degeneration changes of the joints of the hand most pronounced at the carpometacarpal joint of the first digit. IMPRESSION: 1. No acute osseous pathology. 2. Mild multifocal osteoarthrosis
--- NOTE | 2022-11-10 20:34 | ED ---
General Adult HPI - General Chief complaint: Extremity Injury, Upper Stated complaint: L Wrist, fall Time Seen by Provider: 11/10/22 18:21 Source: patient, RN notes reviewed, old records reviewed Mode of arrival: ambulatory - History of Present Illness Initial comments: Patient is a 62-year-old male who presents emergency department over concern for left wrist injury. Was evaluated recently and I emergency department after a fall but left wrist is not hurting at that time. Since the fall has developed left wrist tenderness, as well as stiffness. He is concerned he may have a injury of the left wrist. No other acute injuries that are new at this time. Denies any sensory deficits. Reduced range motion left wrist as well as fingers. Presents for x-rays and further evaluation. - Related Data Home Medications Medication Instructions Recorded Confirmed Lansoprazole 30 mg PO DAILY 04/24/22 09/13/22 oxyCODONE-APAP 10-325MG [Percocet 1 tab PO Q4H 04/24/22 09/13/22 10-325 mg] Furosemide [Lasix] 20 mg PO BID 08/28/22 09/13/22 Rivaroxaban [Xarelto] 20 mg PO DAILY 08/28/22 09/13/22 lisinopriL [Zestril] 5 mg PO BID 08/28/22 09/13/22 Previous Rx's Medication Instructions Recorded Flecainide [Tambocor] 50 mg PO Q12HR #60 tab 04/26/22 Metoprolol Succinate (ER) [Toprol 50 mg PO DAILY #60 tab 04/26/22 XL] Cephalexin [Keflex] 500 mg PO Q6HR 7 Days #28 cap 09/13/22 Amoxic-Pot Clav 875-125Mg 1 tab PO BID 7 Days #14 tab 11/07/22 [Augmentin 875-125] Allergies Allergy/AdvReac Type Severity Reaction Status Date / Time colchicine Allergy Nausea & Verified 11/10/22 18:11 Vomiting iron Allergy SEVERE Verified 11/10/22 18:11 PAIN, WHEN RECEIVED INJECTION OF IRON nylon Allergy SUTURES, Uncoded 11/10/22 18:11 "FESTER OUT," INFECTED Review of Systems ROS Statement: Those systems with pertinent positive or pertinent negative responses have been documented in the HPI. Review of Systems: CONST: Denies fever EYES: Denies blurry vision ENT: Denies nasal congestion C/V: Denies Chest pain RESP: Denies shortness of breath GI: Denies abdominal pain : Denies dysuria SKIN: Denies rash. MSK: Endorses left wrist pain NEURO: Denies headache ROS Other: All systems not noted in ROS Statement are negative. Past Medical History Past Medical History: Atrial Fibrillation, Musculoskeletal Disorder, Skin Disorder Additional Past Medical History / Comment(s): psoriasis, arthritis, hx kidney stones, cast on rt wrist from recent surgery, hx cellulitis left leg History of Any Multi-Drug Resistant Organisms: None Reported Past Surgical History: Ablation, Back Surgery, Bariatric Surgery, Cholec ystectomy, Hernia Repair, Orthopedic Surgery Additional Past Surgical History / Comment(s): BACK X2 -rods in back, CERVICAL SURG.,-Segundo en Y.,hernia x 3, rt wrist surgery, abdominoplasty, cyst removed "from behind the heart", pain clinic procedures Past Anesthesia/Blood Transfusion Reactions: Previous Problems w/ Anesthesia Additional Past Anesthesia/Blood Transfusion Reaction / Comment(s): Pain with last pain clinic procedure 04/28/14- felt every needle going in Past Psychological History: No Psychological Hx Reported Smoking Status: Former smoker Past Alcohol Use History: Occasional Past Drug Use History: None Reported - Past Family History Mother Family Medical History: No Reported History Father Family Medical History: No Reported History General Exam - General Exam Comments Initial Comments: General: Appears in no acute distress. HEAD: Bruising over the left cheek and eye, with known left orbital floor fracture EYES: EOMI. ENT: Hearing grossly intact. RESPIRATORY: No respiratory distress. C/V: Regular rate and rhythm. ABD: Abdomen is nondistended. EXT: Swelling over the left wrist. Reduced range of motion secondary to pain. No obvious deformity palpated. Tenderness over the left snuffbox. Neurovascular intact. Reduced range of motion of the fingers. 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 SKIN: No rashes or lesions observed on exposed skin. NEURO: Alert and oriented. Course Vital Signs 11/10/22 11/10/22 18:04 20:41 Temperature 98 F Pulse Rate 86 54 L Respiratory 18 18 Rate Blood Pressure 143/91 146/91 O2 Sat by Pulse 93 L 95 Oximetry Procedures - Orthopedic Splinting/Casting Injury #1 Side: left Upper Extremity Injury Location: wrist Upper Extremity Immobilizer: volar splint Additional Comments: Neurovascularly intact following procedure distal to the splint. Medical Decision Making - Medical Decision Making Was pt. sent in by a medical professional or institution (CLOVIS Martinez, FLIGHT SIMULATOR TEACHER, urgent care, hospital, or [facility]...) When possible be specific @ -No Did you speak to anyone other than the patient for history (EMS, parent, family, police, friend...)? What history was obtained from this source @ -No Did you review nursing and triage notes (agree or disagree)? Why? @ -I reviewed and agree with nursing and triage notes Were old charts reviewed (outside hosp., previous admission, EMS record, old EKG, old radiological studies, urgent care reports/EKG's, [facility] records)? Report findings @ -. Recent visit to the emergency department from 11/07/2022 Differential Diagnosis (chest pain, altered mental status, abdominal pain women, abdominal pain men, vaginal bleeding, weakness, fever, dyspnea, syncope, headache, dizziness, GI bleed, back pain, seizure, CVA, palpatations, mental health, musculoskeletal)? @ -Differential Musculoskeletal Muscular strain, contusion, ligament sprain, fracture, arthritis, septic arthritis, bursitis, cellulitis, muscle spasm, nerve compression, DVT, arterial occlusion, herpes zoster, electrolyte abnormality, tumor.... This is not meant to be in all inclusive list EKG interpreted by me (3pts min.). @ -None done X-rays interpreted by me (1pt min.). @ -Left wrist x-ray reveals no obvious acute injury. There is arthritis present. CT interpreted by me (1pt min.). @ -None done U/S interpreted by me (1pt. min.). @ -None done What testing was considered but not performed or refused? (CT, X-rays, U/S, la bs)? Why? @ -None What meds were considered but not given or refused? Why? @ -I offered analgesia medications which were declined. Did you discuss the management of the patient with other professionals (professionals i.e. CLOVIS Martinez, FLIGHT SIMULATOR TEACHER, lab, RT, psych nurse, social work manager, washer assembler, teacher, founder and chief executive officer, insurance case manager)? Give summary @ -No Was smoking cessation discussed for >3mins.? @ -No Was critical care preformed (if so, how long)? @ -No Were there social determinants of health that impacted care today? How? (Homelessness, low income, unemployed, alcoholism, drug addiction, transportation, low edu. Level, literacy, decrease access to med. care, senior living, rehab)? @ -No Was there de-escalation of care discussed even if they declined (Discuss DNR or withdrawal of care, Hospice)? DNR status @ -No What co-morbidities impacted this encounter? (DM, HTN, Smoking, COPD, CAD, Cancer, CVA, ARF, Chemo, Hep., AIDS, mental health diagnosis, sleep apnea, morbid obesity)? @ -None Was patient admitted / discharged? Hospital course, mention meds given and route, prescriptions, significant lab abnormalities, going to OR and other pertinent info. @ -Based on the patient's presentation and physical exam, presents with left wrist pain after a fall. Fell 2 days ago and was evaluated as he is on blood thinners and workup revealed a left orbital floor fracture. No imaging was done of the wrist. States it is begun hurting and is more stiff with reduced range of motion. Is requesting x-rays. No new falls or traumas. No loss of consciousness or hitting of his head since the original fall. Otherwise has no acute complaints. X-rays will be obtained. I offered analgesia medications which were declined. Vital signs within acceptable limits. X-rays negative for acute fracture. I updated the patient. Due to the patient having snuffbox tenderness as well as increased pain, he will be placed in a splint and given follow-up information with his orthopedic surgeon, Dr. Kaufman who he is familiar with. He was in agreement with this plan. Strict return precautions discussed. Patient tolerated stenting well. Neurovascular intact following the procedure distal to the splint. I instructed the patient to follow up with their PCP in the next 1-3 days. I provided contact information for follow up with orthopedics. I explained that the patient should return to the emergency department if they experience any worsening symptoms. Strict return precautions were discussed with the patient. The patient expressed understanding of these instructions. I answered all questions that the patient had. The patient was discharged home in good condition with their prescriptions and follow up information. Undiagnosed new problem with uncertain prognosis? @ -No Drug Therapy requiring intensive monitoring for toxicity (Heparin, Nitro, Insulin, Cardizem)? @ -No Were any procedures done? @ -Splinting Diagnosis/symptom? @ -Left wrist pain, strain Acute, or Chronic, or Acute on Chronic? @ -Acute Uncomplicated (without systemic symptoms) or Complicated (systemic symptoms)? @ -Complicated Side effects of treatment? @ -No Exacerbation, Progression, or Severe Exacerbation? @ -No Poses a threat to life or bodily function? How? (Chest pain, USA, MS, pneumonia, PE, COPD, DKA, ARF, appy, cholecystitis, CVA, Diverticulitis, Homicidal, Suicidal, threat to staff... and all critical care pts) @ -No Disposition Clinical Impression: Wrist pain, Wrist sprain Disposition: HOME SELF-CARE Condition: Good Instructions (If sedation given, give patient instructions): Wrist Injury (ED) Is patient prescribed a controlled substance at d/c from ED?: No Referrals: Lucas Williamson MD [Primary Care Provider] - 1-2 days Ron Kaufman MD [STAFF PHYSICIAN] - 1-2 days Time of Disposition: 20:29
[2022-11-10 20:46] VITALS: BP 146/91; PULSE 54
== END 2022-11-10 20:45 | disposition home or self-care (01) ==
LOC: EC 17:29
DX: S63.502A Unspecified sprain of left wrist, initial encounter (principal); I48.91 Unspecified atrial fibrillation; Z79.01 Long term (current) use of anticoagulants; Z87.891 Personal history of nicotine dependence; Z88.8 Allergy status to other drugs, medicaments and biological substances; W18.30XA Fall on same level, unspecified, initial encounter
CPT/HCPCS: 29125; 99283

== ENCOUNTER → 2024-04-23 | Outpatient (CLI) | payer BC ==
[2024-04-23 11:31] LABS: ALT 17 U/L (10-49); AST 21 U/L (14-35); Albumin 3.9 g/dL (3.8-4.9); Albumin/Globulin Ratio 1.62 Ratio (1.60-3.17); Alkaline Phosphatase 161 U/L (41-126); Blood Urea Nitrogen 46.4 mg/dL (9.0-27.0); Calcium 9.4 mg/dL (8.7-10.3); Carbon Dioxide 18.1 mmol/L (21.6-31.8); Chloride 112 mmol/L (96-109); Chol/HDL Ratio 2.64 Ratio; Globulin 2.4 g/dL (1.6-3.3); Glucose 85 mg/dL (70-110); LDL Cholesterol,Calculated 67.5 mg/dL (0.0-131.0); Magnesium 2.2 mg/dL (1.5-2.4); Potassium 5.6 mmol/L (3.5-5.5); Sodium 144 mmol/L (135-145); Total Bilirubin 0.8 mg/dL (0.3-1.2); Total Protein 6.3 g/dL (6.2-8.2); VLDL Calculation 17.04 mg/dL (5.00-40.00)
== END | disposition home or self-care (01) ==
LOC: LABWHC1 07:11
PROVIDERS: ATTEND Nurse Practitioner Adult Health
DX: I48.0 Paroxysmal atrial fibrillation (principal); I12.9 Hypertensive chronic kidney disease with stage 1 through stage 4 chronic kidney disease, or unspecified chronic kidney disease; N18.32 Chronic kidney disease, stage 3b
CPT/HCPCS: 36415; 80053; 80061; 83036; 83735; 84439; 84443

== ENCOUNTER 2024-05-08 12:22 | Inpatient (IN) | payer BC ==
[2024-05-08] MEDS: SODIUM CHLORIDE 0.9% 1,000 ML IV STA (12:40)
[2024-05-08 12:56] LABS: Basophils % (A) 0 %; Eosinophils # (A) 0.1 k/uL (0-0.7); Eosinophils % (A) 0 %; HCT 37.4 % (39.0-53.0); HGB 11.8 gm/dL (13.0-17.5); Hypochromasia Marked; Lymphocytes # (A) 0.3 k/uL (1.0-4.8); Lymphocytes % (A) 2 %; MCH 30.3 pg (25.0-35.0); MCHC 31.5 g/dL (31.0-37.0); MCV 96.2 fL (80.0-100.0); Mean Platelet Volume 8.3; Monocytes # (A) 0.4 k/uL (0-1.0); Monocytes % (A) 2 %; Neutrophils # (A) 19.8 k/uL (1.3-7.7); Neutrophils % (A) 96 %; Platelet Count 148 k/uL (150-450); RBC 3.89 m/uL (4.30-5.90); RDW 14.6 % (11.5-15.5); WBC 20.8 k/uL (3.8-10.6)
[2024-05-08 12:58] LABS: INR 1.1 (<1.2); Partial Thromboplastin Time 24.9 sec (22.0-30.0)
[2024-05-08 12:59] LABS: AST 254 U/L (17-59); African American GFR (CKD) 16 (>60 ml/min/1.73 sqM); Albumin 3.6 g/dL (3.5-5.0); Alkaline Phosphatase 171 U/L (38-126); Anion Gap 17 mmol/L; Blood Urea Nitrogen 76 mg/dL (9-20); Calcium 8.8 mg/dL (8.4-10.2); Carbon Dioxide 10 mmol/L (22-30); Chloride 115 mmol/L (98-107); Glucose 93 mg/dL (74-99); Magnesium 1.8 mg/dL (1.6-2.3); Non-African American GFR(CKD) 14 (>60 ml/min/1.73 sqM); Potassium 4.8 mmol/L (3.5-5.1); Sodium 142 mmol/L (137-145); Total Bilirubin 4.1 mg/dL (0.2-1.3); Total Protein 6.1 g/dL (6.3-8.2)
[2024-05-08 13:06] LABS: ALT 177 U/L (4-49)
--- NOTE | 2024-05-08 13:33 | XR ---
EXAMINATION TYPE: XR chest 2V DATE OF EXAM: 05/08/2024 1:26 PM COMPARISON: Chest radiographs from 11/07/2022 CLINICAL INDICATION: Male, 64 years old with history of dysrhythmia; [facility] TECHNIQUE: XR chest 2V Frontal and lateral views of the chest. FINDINGS: Lungs/Pleura: There is no evidence of pleural effusion, focal consolidation, or pneumothorax. Pulmonary vascularity: Unremarkable. Heart/mediastinum: Cardiomediastinal silhouette is unremarkable. Musculoskeletal: No acute osseous pathology. There is fixation hardware in the lower cervical spine. IMPRESSION: No acute cardiopulmonary disease/process. [facility], , 05/08/2024 1:31 PM
[2024-05-08 13:34] LABS: Bilirubin, Delta 1.5 mg/dL (0.0-0.2); Bilirubin,Unconjugated 0.6 mg/dL (0.0-1.1)
--- NOTE | 2024-05-08 13:47 | ED ---
General Adult HPI - General Chief complaint: Arrhythmia/Palpitations Stated complaint: Afib, Weakness, Low oxygen Time Seen by Provider: 05/08/24 12:30 Source: patient Mode of arrival: wheelchair Limitations: no limitations - History of Present Illness Initial comments: 64-year-old male past medical history of chronic kidney disease, chronic back pain who presents to the emergency department with weakness. Patient reports that he has been feeling weak with low blood pressure and high heart rate. He noted a couple of weeks ago that he had 1 day worth of dark tea colored urine. He was not having any abdominal pain. He told his family that he would go to the emergency department if it happened again. He reports it happened once more but then stopped. He does have chronic kidney disease stage IIIa. He denies any abdominal pain now. States he has been urinating more frequently. Denies dysuria or hematuria. No black or bloody stools. No recent medication changes. Denies use of alcohol or NSAIDs. No fevers. No nausea or vomiting. No chest pain or difficulty breathing. Does have a history of A-fib. Is not on anticoagulation. This was stopped after his ablation. No other alleviating, precipitating or modifying factors - Related Data Home Medications Medication Instructions Recorded Confirmed Lansoprazole 30 mg PO DAILY PRN 04/24/22 05/08/24 oxyCODONE-APAP 10-325MG [Percocet 1 tab PO Q4H 04/24/22 05/08/24 10-325 mg] Furosemide [Lasix] 40 mg PO BID 08/28/22 05/08/24 Cholecalciferol [Vitamin D3 (25 25 mcg PO DAILY 05/08/24 05/08/24 Mcg = 1000 Iu)] Sodium Bicarbonate Tab 650 mg PO BID 05/08/24 05/08/24 allopurinoL [Zyloprim] 100 mg PO DAILY 05/08/24 05/08/24 lisinopriL [Zestril] 15 mg PO DAILY 05/08/24 05/08/24 Previous Rx's Medication Instructions Recorded Metoprolol Succinate (ER) [Toprol 50 mg PO DAILY #60 tab 04/26/22 XL] Allergies Allergy/AdvReac Type Severity Reaction Status Date / Time colchicine Allergy Nausea & Verified 05/08/24 16:01 Vomiting iron Allergy SEVERE Verified 05/08/24 16:01 PAIN, WHEN RECEIVED INJECTION OF IRON nylon Allergy SUTURES, Uncoded 05/08/24 12:24 "FESTER OUT," INFECTED Review of Systems ROS Statement: Those systems with pertinent positive or pertinent negative responses have been documented in the HPI. ROS Other: All systems not noted in ROS Statement are negative. Past Medical History Past Medical History: Atrial Fibrillation, Musculoskeletal Disorder, Renal Disease, Skin Disorder, Thyroid Disorder Additional Past Medical History / Comment(s): psoriasis, arthritis, hx kidney stones, cast on rt wrist from recent surgery, hx cellulitis left leg History of Any Multi-Drug Resistant Organisms: None Reported Past Surgical History: Ablation, Back Surgery, Bariatric Surgery, Cholecystectomy, Hernia Repair, Orthopedic Surgery Additional Past Surgical History / Comment(s): BACK X2 -rods in back, CERVICAL SURG.,-Segundo en Y.,hernia x 3, rt wrist surgery, abdominoplasty, cyst removed "from behind the heart", pain clinic procedures Past Anesthesia/Blood Transfusion Reactions: Previous Problems w/ Anesthesia Additional Past Anesthesia/Blood Transfusion Reaction / Comment(s): Pain with last pain clinic procedure 04/28/14- felt every needle going in Past Psychological History: No Psychological Hx Reported Smoking Status: Former smoker Past Alcohol Use History: Occasional Past Drug Use History: None Reported - Past Family History Mother Family Medical History: No Reported History Father Family Medical History: No Reported History General Exam Limitations: no limitations General appearance: alert, in no apparent distress Head exam: Present: atraumatic, normocephalic, normal inspection Eye exam: Present: normal appearance, PERRL, EOMI. Absent: scleral icterus, conjunctival injection, periorbital swelling ENT exam: Present: normal exam, mucous membranes moist Neck exam: Present: normal inspection. Absent: tenderness, meningismus, lymphadenopathy Respiratory exam: Present: normal lung sounds bilaterally. Absent: respiratory distress, wheezes, rales, rhonchi, stridor Cardiovascular Exam: Present: regular rate, normal rhythm, normal heart sounds. Absent: systolic murmur, diastolic murmur, rubs, gallop, clicks GI/Abdominal exam: Present: soft, normal bowel sounds. Absent: distended, tenderness, guarding, rebound, rigid Extremities exam: Present: normal inspection, full ROM, normal capillary refill. Absent: tenderness, pedal edema, joint swelling, calf tenderness Back exam: Present: normal inspection Neurological exam: Present: alert, oriented X3, CN II-XII intact Psychiatric exam: Present: normal affect, normal mood Skin exam: Present: warm, dry, intact, normal color. Absent: rash Course Vital Signs 05/08/24 05/08/24 05/08/24 12:24 13:10 13:57 Temperature 97.9 F Pulse Rate 102 H 100 96 Respiratory 22 18 18 Rate Blood Pressure 62/45 70/41 68/40 O2 Sat by Pulse 100 98 95 Oximetry 05/08/24 05/08/24 05/08/24 14:48 15:20 15:23 Temperature Pulse Rate 95 96 Respiratory 16 15 Rate Blood Pressure 73/39 61/47 69/45 O2 Sat by Pulse 96 96 Oximetry 05/08/24 05/08/24 05/08/24 15:33 15:55 16:00 Temperature Pulse Rate 101 H 99 101 H Respiratory 16 11 L 22 Rate Blood Pressure 71/60 64/42 O2 Sat by Pulse 97 94 L 89 L Oximetry 05/08/24 05/08/24 05/08/24 16:10 16:13 16:20 Temperature Pulse Rate 102 H 102 H Respiratory 24 20 46 H Rate Blood Pressure 69/40 69/40 69/40 O2 Sat by Pulse 97 96 62 L Oximetry 05/08/24 05/08/24 05/08/24 16:27 16:30 16:40 Temperature Pulse Rate 96 96 92 Respiratory 20 23 25 H Rate Blood Pressure 67/41 67/40 67/45 O2 Sat by Pulse 96 97 96 Oximetry 05/08/24 05/08/24 05/08/24 16:45 16:50 16:51 Temperature Pulse Rate 93 96 96 Respiratory 20 23 20 Rate Blood Pressure 76/57 76/57 77/56 O2 Sat by Pulse 97 98 97 Oximetry 05/08/24 05/08/24 05/08/24 17:00 17:10 17:20 Temperature Pulse Rate 100 93 91 Respiratory 18 25 H 12 Rate Blood Pressure 77/56 84/55 79/56 O2 Sat by Pulse 99 97 98 Oximetry 05/08/24 05/08/24 05/08/24 17:30 17:33 17:40 Temperature Pulse Rate 90 92 95 Respiratory 15 20 13 Rate Blood Pressure 79/56 83/53 83/58 O2 Sat by Pulse 98 96 95 Oximetry 05/08/24 05/08/2424 17:50 18:00 18:10 Temperature Pulse Rate 92 93 93 Respiratory 10 L 16 20 Rate Blood Pressure 81/52 81/52 89/63 O2 Sat by Pulse 95 98 98 Oximetry 05/08/24 05/08/24 05/08/24 18:20 18:30 18:40 Temperature Pulse Rate 96 99 98 Respiratory 27 H 26 H 26 H Rate Blood Pressure 84/66 84/66 98/66 O2 Sat by Pulse 97 97 98 Oximetry 05/08/24 05/08/24 05/08/24 18:50 18:52 18:58 Temperature 97.8 F Pulse Rate 96 96 104 H Respiratory 25 H 20 20 Rate Blood Pressure 94/65 94/65 94/64 O2 Sat by Pulse 97 97 97 Oximetry 05/08/24 05/08/24 19:00 19:21 Temperature Pulse Rate 103 H Respiratory 11 L Rate Blood Pressure 94/65 85/51 O2 Sat by Pulse 97 Oximetry Procedures - Central Line Placement Right IJ Consent Obtained: verbal consent, written consent Patient Placed on Monitor/Pulse Ox: Yes MD Prep: mask, gown, gloves Central Line Prep: Chlorhexidine scrub Local Anesthesia Used: Lidocaine 1% Amount of Anesthesia Used (mls): 6 Ultrasound Used for Placement: Yes Central Line Lumen Inserted: triple Bloods Obtained for Lab: Yes Central Line Position: all ports aspirated, flushed, capped, sutured in place with nylon Dressing Applied: Tegaderm Post Procedure X-Ray: tip of catheter in good position Patient Tolerated Procedure: well, no complications Complications: none - Sepsis Sepsis Focused Exam #1 Time Sepsis Criteria Met: 16:15 (urine obtained and possibly the source) Sepsis Focused Exam Date: 05/08/24 Sepsis Focused Exam Time: 20:15 Sepsis Focused Exam Complete: Yes Vital Signs & RN Notes Reviewed: Yes Capillary Refill: < 2 Seconds: Fingers, Toes Peripheral Pulses: Normal: Radial (R), Radial (L), Dorsalis Pedis (R), Dorsalis Pedis (L) Skin Color: Jaundice Respiratory Exam: normal lung sounds Cardiovascular Exam: regular rate Medical Decision Making - Medical Decision Making Was pt. sent in by a medical professional or institution (, PA, DENTAL LABORATORY MANAGER, urgent care, hospital, or fpc...) When possible be specific @ -No Did you speak to anyone other than the patient for history (EMS, parent, family, police, friend...)? What history was obtained from this source @ -Spoke with family for history Did you review nursing and triage notes (agree or disagree)? Why? @ -I reviewed and agree with nursing and triage notes Were old charts reviewed (outside hosp., previous admission, EMS record, old EKG, old radiological studies, urgent care reports/EKG's, fpc records)? Report findings @ -No old charts were reviewed Differential Diagnosis (chest pain, altered mental status, abdominal pain women, abdominal pain men, vaginal bleeding, weakness, fever, dyspnea, syncope, h eadache, dizziness, GI bleed, back pain, seizure, CVA, palpatations, mental health, musculoskeletal)? @ -Differential Weakness: Hypoglycemia, shock, sepsis, hyponatremia, anemia, infection, OH, ETOH, adverse medicine reaction, overdose, stroke, this is not meant to be an all-inclusive list. EKG interpreted by me (3pts min.). @ -yes and demonstrates sinus tachycardia with a rate of 104. MN interval 167. QRS 89. QTc of 382. No acute ST segment elevations or depressions X-rays interpreted by me (1pt min.). @ -Yes and demonstrates no acute process CT interpreted by me (1pt min.). @ -Yes and demonstrates no acute process U/S interpreted by me (1pt. min.). @ -None done What testing was considered but not performed or refused? (CT, X-rays, U/S, labs)? Why? @ -None What meds were considered but not given or refused? Why? @ -None Did you discuss the management of the patient with other professionals (professionals i.e. Dr., PA, DENTAL LABORATORY MANAGER, lab, RT, psych nurse, addiction social worker, wrist liner, teacher, admitting officer, returned case inspector)? Give summary @ -Spoke with Dr. Baum from the ICU, Dr. Salmeron from [facility] and Dr. Richardson from nephrology Was smoking cessation discussed for >3mins.? @ -No Was critical care preformed (if so, how long)? @ -yes, 40 minutes Were there social determinants of health that impacted care today? How? (Homelessness, low income, unemployed, alcoholism, drug addiction, transportation, low edu. Level, literacy, decrease access to med. care, prison, rehab)? @ -No Was there de-escalation of care discussed even if they declined (Discuss DNR or withdrawal of care, Hospice)? DNR status @ -No What co-morbidities impacted this encounter? (DM, HTN, Smoking, COPD, CAD, Can cer, CVA, ARF, Chemo, Hep., AIDS, mental health diagnosis, sleep apnea, morbid obesity)? @ -Hypertension, chronic back pain Was patient admitted / discharged? Hospital course, mention meds given and route, prescriptions, significant lab abnormalities, going to OR and other pertinent info. @ -Upon arrival patient seen and evaluated in room 15. Thorough history and physical exam was performed. Patient markedly hypotensive upon arrival. IV is established. Laboratory studies are conducted. Chest x-ray was performed. CT was performed. Patient did receive 3 L of normal saline. He was empirically started on Zosyn due to his abnormal elevated white blood cell count and abnormal liver studies. Urinalysis does return and is fairly unremarkable. Blood cultures were obtained before antibiotic administration. Patient remains hypotensive after 3 L normal saline and therefore central line is placed and patient is started on norepinephrine. I did speak with Dr. Richardson who recommended a 4th L of fluid and starting the patient on a bicarb drip at 150 cc/hr. I spoke with Dr. Baum from ICU and [facility] Admitted to the floor in stable condition Undiagnosed new problem with uncertain prognosis? @ -No Drug Therapy requiring intensive monitoring for toxicity (Heparin, Nitro, Insulin, Cardizem)? @ -No Were any procedures done? @ -No Diagnosis/symptom? @ -Acute hypotension, undifferentiated shock, transaminitis, hyperbilirubinemia, leukocytosis, lactic acidosis Acute, or Chronic, or Acute on Chronic? @ -Acute Uncomplicated (without systemic symptoms) or Complicated (systemic symptoms)? @ -complicated Side effects of treatment? @ -No Exacerbation, Progression, or Severe Exacerbation? @ -NO Poses a threat to life or bodily function? How? (Chest pain, [place], OH, pneumonia, PE, COPD, DKA, ARF, appy, cholecystitis, CVA, Diverticulitis, Homicidal, Suicidal, threat to staff... and all critical care pts) @ -yes patient is markedly hypotensive - Lab Data Result diagrams: 05/09/24 05:14 12/22/24 05:14 Lab Results 05/08/24 05/08/24 05/08/24 Range/Units 12:44 12:44 12:44 WBC 20.8 H (3.8-10.6) k/uL RBC 3.89 L (4.30-5.90) m/uL Hgb 11.8 L (13.0-17.5) gm/dL Hct 37.4 L (39.0-53.0) % MCV 96.2 (80.0-100.0) fL MCH 30.3 (25.0-35.0) pg MCHC 31.5 (31.0-37.0) g/dL RDW 14.6 (11.5-15.5) % Plt Count 148 L (150-450) k/uL MPV 8.3 Neutrophils % 96 % Lymphocytes % 2 % Monocytes % 2 % Eosinophils % 0 % Basophils % 0 % Neutrophils # 19.8 H (1.3-7.7) k/uL Lymphocytes # 0.3 L (1.0-4.8) k/uL Monocytes # 0.4 (0-1.0) k/uL Eosinophils # 0.1 (0-0.7) k/uL Basophils # 0.0 (0-0.2) k/uL Manual Slide Review Performed Hypochromasia Marked PT 12.0 (10.0-12.5) sec INR 1.1 (<1.2) APTT 24.9 (22.0-30.0) sec Sodium 142 (137-145) mmol/L Potassium 4.8 (3.5-5.1) mmol/L Chloride 115 H (98-107) mmol/L Carbon Dioxide 10 L (22-30) mmol/L Anion Gap 17 mmol/L BUN 76 H (9-20) mg/dL Creatinine 4.26 H (0.66-1.25) mg/dL Est GFR (CKD-EPI)AfAm 16 (>60 ml/min/1.73 sqM) Est GFR (CKD-EPI)NonAf 14 (>60 ml/min/1.73 sqM) Glucose 93 (74-99) mg/dL Lactic Ac Sepsis Rflx Plasma Lactic Acid Luis (0.7-2.0) mmol/L Calcium 8.8 (8.4-10.2) mg/dL Magnesium 1.8 (1.6-2.3) mg/dL Total Bilirubin 4.1 H (0.2-1.3) mg/dL Conjugated Bilirubin 2.0 H (0.0-0.3) mg/dL Unconjugated Bilirubin 0.6 (0.0-1.1) mg/dL Delta Bilirubin 1.5 H (0.0-0.2) mg/dL AST 254 H (17-59) U/L ALT 177 H (4-49) U/L Alkaline Phosphatase 171 H (38-126) U/L Troponin I (0.000-0.034) ng/mL NT-Pro-B Natriuret Pep pg/mL Total Protein 6.1 L (6.3-8.2) g/dL Albumin 3.6 (3.5-5.0) g/dL Lipase (23-300) U/L TSH 2.230 (0.465-4.680) mIU/L Urine Color Urine Appearance (Clear) Urine pH (5.0-8.0) Ur Specific [place] (1.001-1.035) Urine Protein (Negative) Urine Glucose (UA) (Negative) Urine Ketones (Negative) Urine Blood (Negative) Urine Nitrite (Negative) Urine Bilirubin (Negative) Urine Urobilinogen (<2.0) mg/dL Ur Leukocyte Esterase (Negative) Urine RBC (0-5) /hpf Urine WBC (0-5) /hpf Ur Squamous Epith Cells (0-4) /hpf Urine Bacteria (None) /hpf Hyaline Casts (0-2) /lpf Acetaminophen ug/mL Hepatitis A IgM Ab (Nonreactive) Hep Bs Antigen (Nonreactive) Hep B Core IgM Ab (Nonreactive) Hep C IgG Ab (Nonreactive) 05/08/24 05/08/24 05/08/24 Range/Units 12:44 13:19 14:07 WBC (3.8-10.6) k/uL RBC (4.30-5.90) m/uL Hgb (13.0-17.5) gm/dL Hct (39.0-53.0) % MCV (80.0-100.0) fL MCH (25.0-35.0) pg MCHC (31.0-37.0) g/dL RDW (11.5-15.5) % Plt Count (150-450) k/uL MPV Neutrophils % % Lymphocytes % % Monocytes % % Eosinophils % % Basophils % % Neutrophils # (1.3-7.7) k/uL Lymphocytes # (1.0-4.8) k/uL Monocytes # (0-1.0) k/uL Eosinophils # (0-0.7) k/uL Basophils # (0-0.2) k/uL Manual Slide Review Hypochromasia PT (10.0-12.5) sec INR (<1.2) APTT (22.0-30.0) sec Sodium (137-145) mmol/L Potassium (3.5-5.1) mmol/L Chloride (98-107) mmol/L Carbon Dioxide (22-30) mmol/L Anion Gap mmol/L BUN (9-20) mg/dL Creatinine (0.66-1.25) mg/dL Est GFR (CKD-EPI)AfAm (>60 ml/min/1.73 sqM) Est GFR (CKD-EPI)NonAf (>60 ml/min/1.73 sqM) Glucose (74-99) mg/dL Lactic Ac Sepsis Rflx Y Plasma Lactic Acid Luis 3.2 H* (0.7-2.0) mmol/L Calcium (8.4-10.2) mg/dL Magnesium (1.6-2.3) mg/dL Total Bilirubin (0.2-1.3) mg/dL Conjugated Bilirubin (0.0-0.3) mg/dL Unconjugated Bilirubin (0.0-1.1) mg/dL Delta Bilirubin (0.0-0.2) mg/dL AST (17-59) U/L ALT (4-49) U/L Alkaline Phosphatase (38-126) U/L Troponin I <0.012 (0.000-0.034) ng/mL NT-Pro-B Natriuret Pep pg/mL Total Protein (6.3-8.2) g/dL Albumin (3.5-5.0) g/dL Lipase (23-300) U/L TSH (0.465-4.680) mIU/L Urine Color Urine Appearance (Clear) Urine pH (5.0-8.0) Ur Specific [place] (1.001-1.035) Urine Protein (Negative) Urine Glucose (UA) (Negative) Urine Ketones (Negative) Urine Blood (Negative) Urine Nitrite (Negative) Urine Bilirubin (Negative) Urine Urobilinogen (<2.0) mg/dL Ur Leukocyte Esterase (Negative) Urine RBC (0-5) /hpf Urine WBC (0-5) /hpf Ur Squamous Epith Cells (0-4) /hpf Urine Bacteria (None) /hpf Hyaline Casts (0-2) /lpf Acetaminophen ug/mL Hepatitis A IgM Ab (Nonreactive) Hep Bs Antigen (Nonreactive) Hep B Core IgM Ab (Nonreactive) Hep C IgG Ab (Nonreactive) 05/08/24 05/08/24 05/08/24 Range/Units 15:05 16:12 16:43 WBC (3.8-10.6) k/uL RBC (4.30-5.90) m/uL Hgb (13.0-17.5) gm/dL Hct (39.0-53.0) % MCV (80.0-100.0) fL MCH (25.0-35.0) pg MCHC (31.0-37.0) g/dL RDW (11.5-15.5) % Plt Count (150-450) k/uL MPV Neutrophils % % Lymphocytes % % Monocytes % % Eosinophils % % Basophils % % Neutrophils # (1.3-7.7) k/uL Lymphocytes # (1.0-4.8) k/uL Monocytes # (0-1.0) k/uL Eosinophils # (0-0.7) k/uL Basophils # (0-0.2) k/uL Manual Slide Review Hypochromasia PT (10.0-12.5) sec INR (<1.2) APTT (22.0-30.0) sec Sodium (137-145) mmol/L Potassium (3.5-5.1) mmol/L Chloride (98-107) mmol/L Carbon Dioxide (22-30) mmol/L Anion Gap mmol/L BUN (9-20) mg/dL Creatinine (0.66-1.25) mg/dL Est GFR (CKD-EPI)AfAm (>60 ml/min/1.73 sqM) Est GFR (CKD-EPI)NonAf (>60 ml/min/1.73 sqM) Glucose (74-99) mg/dL Lactic Ac Sepsis Rflx Plasma Lactic Acid Luis (0.7-2.0) mmol/L Calcium (8.4-10.2) mg/dL Magnesium (1.6-2.3) mg/dL Total Bilirubin (0.2-1.3) mg/dL Conjugated Bilirubin (0.0-0.3) mg/dL Unconjugated Bilirubin (0.0-1.1) mg/dL Delta Bilirubin (0.0-0.2) mg/dL AST (17-59) U/L ALT (4-49) U/L Alkaline Phosphatase (38-126) U/L Troponin I (0.000-0.034) ng/mL NT-Pro-B Natriuret Pep pg/mL Total Protein (6.3-8.2) g/dL Albumin (3.5-5.0) g/dL Lipase 44 (23-300) U/L TSH (0.465-4.680) mIU/L Urine Color Dark Yellow Urine Appearance Cloudy (Clear) Urine pH 5.5 (5.0-8.0) Ur Specific [place] 1.019 (1.001-1.035) Urine Protein 1+ H (Negative) Urine Glucose (UA) Negative (Negative) Urine Ketones Negative (Negative) Urine Blood Negative (Negative) Urine Nitrite Negative (Negative) Urine Bilirubin 2+ H (Negative) Urine Urobilinogen 8.0 (<2.0) mg/dL Ur Leukocyte Esterase Moderate H (Negative) Urine RBC 2 (0-5) /hpf Urine WBC 17 H (0-5) /hpf Ur Squamous Epith Cells 1 (0-4) /hpf Urine Bacteria Rare H (None) /hpf Hyaline Casts 1 (0-2) /lpf Acetaminophen <10.0 <10.0 ug/mL Hepatitis A IgM Ab (Nonreactive) Hep Bs Antigen (Nonreactive) Hep B Core IgM Ab (Nonreactive) Hep C IgG Ab (Nonreactive) 05/08/24 05/08/24 05/08/24 Range/Units 16:43 16:43 16:43 WBC (3.8-10.6) k/uL RBC (4.30-5.90) m/uL Hgb (13.0-17.5) gm/dL Hct (39.0-53.0) % MCV (80.0-100.0) fL MCH (25.0-35.0) pg MCHC (31.0-37.0) g/dL RDW (11.5-15.5) % Plt Count (150-450) k/uL MPV Neutrophils % % Lymphocytes % % Monocytes % % Eosinophils % % Basophils % % Neutrophils # (1.3-7.7) k/uL Lymphocytes # (1.0-4.8) k/uL Monocytes # (0-1.0) k/uL Eosinophils # (0-0.7) k/uL Basophils # (0-0.2) k/uL Manual Slide Review Hypochromasia PT (10.0-12.5) sec INR (<1.2) APTT (22.0-30.0) sec Sodium (137-145) mmol/L Potassium (3.5-5.1) mmol/L Chloride (98-107) mmol/L Carbon Dioxide (22-30) mmol/L Anion Gap mmol/L BUN (9-20) mg/dL Creatinine (0.66-1.25) mg/dL Est GFR (CKD-EPI)AfAm (>60 ml/min/1.73 sqM) Est GFR (CKD-EPI)NonAf (>60 ml/min/1.73 sqM) Glucose (74-99) mg/dL Lactic Ac Sepsis Rflx Plasma Lactic Acid Luis 3.0 H* (0.7-2.0) mmol/L Calcium (8.4-10.2) mg/dL Magnesium (1.6-2.3) mg/dL Total Bilirubin (0.2-1.3) mg/dL Conjugated Bilirubin (0.0-0.3) mg/dL Unconjugated Bilirubin (0.0-1.1) mg/dL Delta Bilirubin (0.0-0.2) mg/dL AST (17-59) U/L ALT (4-49) U/L Alkaline Phosphatase (38-126) U/L Troponin I (0.000-0.034) ng/mL NT-Pro-B Natriuret Pep 9350 pg/mL Total Protein (6.3-8.2) g/dL Albumin (3.5-5.0) g/dL Lipase (23-300) U/L TSH (0.465-4.680) mIU/L Urine Color Urine Appearance (Clear) Urine pH (5.0-8.0) Ur Specific [place] (1.001-1.035) Urine Protein (Negative) Urine Glucose (UA) (Negative) Urine Ketones (Negative) Urine Blood (Negative) Urine Nitrite (Negative) Urine Bilirubin (Negative) Urine Urobilinogen (<2.0) mg/dL Ur Leukocyte Esterase (Negative) Urine RBC (0-5) /hpf Urine WBC (0-5) /hpf Ur Squamous Epith Cells (0-4) /hpf Urine Bacteria (None) /hpf Hyaline Casts (0-2) /lpf Acetaminophen ug/mL Hepatitis A IgM Ab Nonreactive (Nonreactive) Hep Bs Antigen Nonreactive (Nonreactive) Hep B Core IgM Ab Nonreactive (Nonreactive) Hep C IgG Ab Nonreactive (Nonreactive) Disposition Clinical Impression: Hypotension, [place] (acute kidney injury), Leukocytosis Disposition: ADMITTED IP TO THIS [facility] Condition: Serious Is patient prescribed a controlled substance at d/c from ED?: No Time of Disposition: 16:54 Decision to Admit Reason: Admit from EC Decision Date: 05/08/24 Decision Time: 16:54
[2024-05-08] MEDS: SODIUM CHLORIDE 0.9% 1,000 ML IV ONE ×2 (14:03→18:04)
[2024-05-08] MEDS: SODIUM CHLORIDE 0.9% 1,000 ML IV SCH (14:04)
[2024-05-08] MEDS: fentaNYL (PF) 50 MCG/ML 2 ML AMP IVP STA (14:45)
[2024-05-08] MEDS: PIPERACILLIN-TAZOBACTAM 3.375 GM in SODIUM CHLORIDE 0.9% 100 ML IVPB STA (15:08)
[2024-05-08 15:24] LABS: Acetaminophen <10.0 ug/mL; Lipase 44 U/L (23-300)
[2024-05-08] MEDS: fentaNYL (PF) 50 MCG/ML 2 ML AMP IVP PRN (15:29)
--- NOTE | 2024-05-08 16:19 | CT ---
EXAMINATION TYPE: CT abdomen pelvis wo con DATE OF EXAM: 05/08/2024 4:00 PM COMPARISON: None available. CLINICAL INDICATION: Male, 64 years old with history of abd pain; weakness, abdominal pain, jaundice TECHNIQUE: Axial CT abdomen pelvis wo con;Sagittal and coronal reformats were created on a separate workstation. Oral contrast used: without Oral Contrast (none if empty) CT DLP: 1417.4 mGycm, Automated exposure control for dose reduction was used. FINDINGS: LOWER CHEST: Unremarkable ABDOMEN LIVER: Unremarkable GALLBLADDER AND BILE DUCTS: Gallbladder is surgically absent with mild intrahepatic and extra hepatic biliary dilatation likely physiologic and a postcholecystectomy change. No evidence of choledocholit hiasis. PANCREAS: Unremarkable. SPLEEN: Unremarkable. ADRENAL GLANDS: Unremarkable. KIDNEYS AND URETERS: Bilateral nonobstructive small renal calculi. No hydronephrosis or hydroureter. PELVIS BLADDER: No evidence for wall thickening or mass given limitations of exam. REPRODUCTIVE: Unremarkable. ABDOMEN & PELVIS STOMACH AND BOWEL: Postoperative changes of Segundo-en-Y gastric bypass. No evidence of bowel obstructio n. PERITONEUM/RETROPERITONEUM: No evidence of pneumoperitoneum or free fluid. VASCULATURE: No evidence of aortic aneurysm. MUSCULOSKELETAL: No acute osseous abnormalities. Multilevel thoracolumbar spinal degenerative changes . Fusion hardware visualized beginning at L2-S1. Surgical daryl overlying the anterior abdominal wa ll. LYMPH NODES: No gross evidence for lymphadenopathy. SOFT TISSUE/ABDOMINAL WALL: Unremarkable IMPRESSION: No acute abnormality in the abdomen/pelvis or CT findings to explain reported symptoms. [facility], , 05/08/2024 4:17 PM
[2024-05-08] MEDS: NOREPINEPHRINE 4 MG in SODIUM CHLORIDE 0.9% 250 ML IV SCH (16:24)
[2024-05-08 16:26] LABS: Appearance,Urine Cloudy (Clear); Bacteria,Urine Rare /hpf; Bilirubin,Urine 2+ (Negative); Blood,Urine Negative (Negative); Color,Urine Dark Yellow; Glucose,Urine (UA) Negative (Negative); Hyaline Casts,Urine 1 /lpf (0-2); Ketones,Urine Negative (Negative); Leukocyte Esterase,Urine Moderate (Negative); Nitrite,Urine Negative (Negative); PH, Urine 5.5 (5.0-8.0); Protein,Urine 1+ (Negative); RBC,Urine 2 /hpf (0-5); Specific Gravity,Urine 1.019 (1.001-1.035); Squamous Epithelial Cell,Urine 1 /hpf (0-4); WBC,Urine 17 /hpf (0-5)
[2024-05-08] MEDS ORDERED: Potassium Replacement Protocol 1 EACH MISC MISCELLANE PRN (16:54)
[2024-05-08] MEDS ORDERED: Magnesium Replacement Protocol 1 EACH MISC MISCELLANE PRN (16:54)
[2024-05-08] MEDS ORDERED: NALOXONE 0.4 MG/ML 1 ML VIAL IV PRN (16:54)
[2024-05-08] MEDS ORDERED: VANCOMYCIN IV PER PHARMACY 1 EACH MISC MISCELLANE PRN (17:39)
[2024-05-08] MEDS ORDERED: CEFEPIME 2 GM in SODIUM CHLORIDE 0.9% 100 ML IVPB SCH (17:45)
[2024-05-08] MEDS: metroNIDAZOLE-NS PMX 500 MG in SALINE 1 100ML.BAG IVPB SCH (17:51)
[2024-05-08] MEDS: LIDOCAINE 1% INJ 10MG/ML (20 ML MDV) SQ ONE (17:53)
[2024-05-08] MEDS ORDERED: LACTATED RINGERS 1,000 ML IV SCH (18:00)
--- NOTE | 2024-05-08 18:31 | P.HPIM ---
History of Present Illness H&P Date: 05/08/24 Patient is a 64-year-old male with past medical history significant for atrial fibrillation status post ablation (09/08) not on anticoagulation at home, chronic kidney disease stage IIIa, hypertension, and hyperlipidemia presents to the emergency department due to feeling severe fatigue since around 10 AM as well as a reported home blood pressure of 60s/40s with a pulse near 200reported by family who is at bedside. Patient states that he has been feeling sick 3 times about 1 month before , on , and today. All 3 of these episodes have been accompanied by "a stomachache." He notes that with the previous to illnesses he had dark urine but this time his urine color did not change. Family states that he was unable to walk today because he was feeling sick and that is when they decided to check his blood pressure. He notes a feeling of nausea earlier this morning and tried to force himself to vomit but was unable to. He denies diarrhea. He reports feeling cold in his extremities. He currently denies chest pain, palpitations, dyspnea, abdominal pain, nausea/v omiting, diarrhea, lightheadedness. Initial EKG: Sinus tachycardia, low voltage, ventricular rate 104 bpm. Initial chest x-ray: No acute cardiopulmonary disease/process. Initial CT abdomen/pelvis: No acute abnormalities. Initial labs: WBC 20.8, hemoglobin 11.8, hematocrit 37.4, platelets 148, sodium 142, potassium 4.8, chloride 115, CO2 10, BUN 76, creatinine 4.26, lactic acid 3.2, total bilirubin 4.1, conjugated bilirubin 2.0, AST 254, ALT 177, alkaline phosphatase 171, troponin X1 <0.012, lipase 44, TSH 2.23. Initial urinalysis: 1+ protein, 2+ bilirubin, moderate leukocyte esterase, WBC 1 7, rare bacteria. Initial vitals: T 97.9, OK 102 bpm, RR 22, BP 62/45, 100% O2 on room air. ED documentation reviewed. Review of systems: Pertinent positives and negatives as discussed in HPI, a complete review of systems was performed and all other systems are negative. Social history: Tobacco: Former smoker Alcohol: None reported Recreational drugs: None reported Travel: None reported Sick contacts: None reported Physical examination: Vital signs reviewed General: Nontoxic, no distress, appears stated age, well-appearing Derm: Warm, dry, intact Head: Atraumatic, normocephalic, symmetric Eyes: EOMI, icteric sclera Mouth: No lip lesion, mucus membranes moist Cardiovascular: S1-S2 regular, no murmur Lungs: CTA bilateral, no rhonchi, no rales, no accessory muscle use Abdominal: Soft, non-tender to palpation Extremities: No cyanosis, no clubbing, 1+ pitting edema bilaterally to the knee Neuro: Alert, oriented x 3, gross neurological examination did not reveal any focal deficits. Cranial nerves II to XII grossly intact. Psych: Appropriate affect and mood Assessment and Plan: Patient is a 64-year-old male with past medical history significant for atrial fibrillation status post ablation (09/08) not on anticoagulation at home, chronic kidney disease stage IIIa, hypertension, and hyperlipidemia admitted for shock. Active #. Unspecified shock, likely septic versus hypovolemic #. Leukocytosis #. Lactic acidosis #. High anion gap metabolic acidosis #Mild thrombocytopenia and normocytic anemia, likely in the setting of acute illness IV cefepime 1 g twice daily IV vancomycin pharmacy to dose IV metronidazole 500 mg 3 times daily IV sodium bicarb 150 cc/h -Blood cultures pending -Echocardiogram pending -A.m. cortisol level -Repeat CBC and CMP tomorrow #. Conjugated bilirubinemia, concerning for obstruction pathology #Transaminitis -Acute hepatitis panel pending Right upper quadrant ultrasound pending #. Acute kidney injury on chronic kidney disease stage IIIa Ultrasound kidney and bladder pending -Likely prerenal -Management as above -Nephrology consulted, pending recommendations Chronic #. Atrial fibrillation status post ablation (09/08) not on anticoagulation Currently in sinus rhythm -Continue threat monitoring analyst #. Hypertension Hold home antihypertensives due to hypotension and shock #. Hyperlipidemia Hold home meds #. History of GI ulcers DVT prophylaxis: Heparin subcutaneous every 8 hours GI prophylaxis: Protonix IV 40 mg daily The patient is admitted with an anticipated less than 2 midnight stay for evaluation of shock CODE STATUS: Full code Discussed with: Patient, patient's family at bedside, and Dr. Salmeron Anticipated discharge place: Home A total of 65 minutes was spent on the care of this complex patient more than 50% of the time was spent in counseling and care coordination. I have seen and evaluated the patient today. Discussed with the resident and agree with the residents finding and plan as documented in the resident's note. Changes highlighted in blue font. Past Medical History Past Medical History: Atrial Fibrillation, Musculoskeletal Disorder, Renal Disease, Skin Disorder, Thyroid Disorder Additional Past Medical History / Comment(s): psoriasis, arthritis, hx kidney stones, cast on rt wrist from recent surgery, hx cellulitis left leg History of Any Multi-Drug Resistant Organisms: None Reported Past Surgical History: Ablation, Back Surgery, Bariatric Surgery, Cholecystectomy, Hernia Repair, Orthopedic Surgery Additional Past Surgical History / Comment(s): BACK X2 -rods in back, CERVICAL SURG.,-Segundo en Y.,hernia x 3, rt wrist surgery, abdominoplasty, cyst removed "from behind the heart", pain clinic procedures Past Anesthesia/Blood Transfusion Reactions: Previous Problems w/ Anesthesia Additional Past Anesthesia/Blood Transfusion Reaction / Comment(s): Pain with last pain clinic procedure 04/28/14- felt every needle going in Past Psychological History: No Psychological Hx Reported Smoking Status: Former smoker Past Alcohol Use History: Occasional Past Drug Use History: None Reported - Past Family History Mother Family Medical History: No Reported History Father Family Medical History: No Reported History Medications and Allergies Home Medications Medication Instructions Recorded Confirmed Type Lansoprazole 30 mg PO DAILY PRN 04/24/22 05/08/24 History oxyCODONE-APAP 10-325MG [Percocet 1 tab PO Q4H 04/24/22 05/08/24 History 10-325 mg] Metoprolol Succinate (ER) [Toprol 50 mg PO DAILY #60 tab 04/26/22 05/08/24 Rx XL] Furosemide [Lasix] 40 mg PO BID 08/28/22 05/08/24 History Cholecalciferol [Vitamin D3 (25 25 mcg PO DAILY 05/08/24 05/08/24 History Mcg = 1000 Iu)] Sodium Bicarbonate Tab 650 mg PO BID 05/08/24 05/08/24 History allopurinoL [Zyloprim] 100 mg PO DAILY 05/08/24 05/08/24 History lisinopriL [Zestril] 15 mg PO DAILY 05/08/24 05/08/24 History Allergies Allergy/AdvReac Type Severity Reaction Status Date / Time colchicine Allergy Nausea & Verified 05/08/24 16:01 Vomiting iron Allergy SEVERE Verified 05/08/24 16:01 PAIN, WHEN RECEIVED INJECTION OF IRON nylon Allergy SUTURES, Uncoded 12/21/24 12:24 "FESTER OUT," INFECTED Physical Exam Vitals: Vital Signs Temp Pulse Resp BP Pulse Ox 05/08/24 16:27 96 20 67/41 96 05/08/24 16:13 102 H 20 69/40 96 05/08/24 15:33 101 H 16 71/60 97 05/08/24 15:23 96 15 69/45 96 05/08/24 15:20 95 16 61/47 96 05/08/24 14:48 73/39 05/08/24 13:57 96 18 68/40 95 05/08/24 13:10 100 18 70/41 98 05/08/24 12:24 97.9 F 102 H 22 62/45 100 Intake and Output 05/08/24 05/08/24 05/08/24 06:59 14:59 22:59 Intake Total 2.943 Balance 2.943 Intake: Intake, IV Titration 2.943 Amount Norepinephrine 4 mg In 2.943 Sodium Chloride 0.9% 250 ml @ 0.03 MCG/KG/MIN 13. 584 mls/hr IV .[id number] [facility] Rx#:[id number] Other: Weight 118.841 kg Results CBC & Chem 7: 05/08/24 12:44 05/08/24 12:44 Labs: Abnormal Lab Results - Last 24 Hours (Table) 05/08/24 05/08/24 05/08/24 Range/Units 12:44 12:44 13:19 WBC 20.8 H (3.8-10.6) k/uL RBC 3.89 L (4.30-5.90) m/uL Hgb 11.8 L (13.0-17.5) gm/dL Hct 37.4 L (39.0-53.0) % Plt Count 148 L (150-450) k/uL Neutrophils # 19.8 H (1.3-7.7) k/uL Lymphocytes # 0.3 L (1.0-4.8) k/uL Chloride 115 H (98-107) mmol/L Carbon Dioxide 10 L (22-30) mmol/L BUN 76 H (9-20) mg/dL Creatinine 4.26 H (0.66-1.25) mg/dL Plasma Lactic Acid Luis 3.2 H* (0.7-2.0) mmol/L Total Bilirubin 4.1 H (0.2-1.3) mg/dL Conjugated Bilirubin 2.0 H (0.0-0.3) mg/dL Delta Bilirubin 1.5 H (0.0-0.2) mg/dL AST 254 H (17-59) U/L ALT 177 H (4-49) U/L Alkaline Phosphatase 171 H (38-126) U/L Total Protein 6.1 L (6.3-8.2) g/dL Urine Protein (Negative) Urine Bilirubin (Negative) Ur Leukocyte Esterase (Negative) Urine WBC (0-5) /hpf Urine Bacteria (None) /hpf 05/08/24 Range/Units 16:12 WBC (3.8-10.6) k/uL RBC (4.30-5.90) m/uL Hgb (13.0-17.5) gm/dL Hct (39.0-53.0) % Plt Count (150-450) k/uL Neutrophils # (1.3-7.7) k/uL Lymphocytes # (1.0-4.8) k/uL Chloride (98-107) mmol/L Carbon Dioxide (22-30) mmol/L BUN (9-20) mg/dL Creatinine (0.66-1.25) mg/dL Plasma Lactic Acid Luis (0.7-2.0) mmol/L Total Bilirubin (0.2-1.3) mg/dL Conjugated Bilirubin (0.0-0.3) mg/dL Delta Bilirubin (0.0-0.2) mg/dL AST (17-59) U/L ALT (4-49) U/L Alkaline Phosphatase (38-126) U/L Total Protein (6.3-8.2) g/dL Urine Protein 1+ H (Negative) Urine Bilirubin 2+ H (Negative) Ur Leukocyte Esterase Moderate H (Negative) Urine WBC 17 H (0-5) /hpf Urine Bacteria Rare H (None) /hpf
[2024-05-08] MEDS: VANCOMYCIN 1,750 MG in SODIUM CHLORIDE 0.9% 500 ML 500 ML IVPB ONE (18:40)
[2024-05-08] MEDS: DEXTROSE 5% IN WATER 1,000 ML with SODIUM BICARB (1 MEQ/ML) 150 ML IV SCH (18:44)
--- NOTE | 2024-05-08 18:51 | XR ---
EXAMINATION TYPE: XR chest 1V confirm line plcmt DATE OF EXAM: 05/08/2024 6:46 PM COMPARISON: Prior chest radiographs, most recently dated 05/08/2024. CLINICAL INDICATION: Male, 64 years old with history of central line to right ij; [facility] TECHNIQUE: XR chest 1V confirm line plcmt Frontal view of the chest. FINDINGS: Low lung volumes limit evaluation. Cardiomegaly. Mild bibasilar atelectasis/scarring. No sizable pleural effusion. No pneumothorax. Right IJ central venous catheter terminating in the region of the proximal SVC. Partially visualized cervical spine fusion. IMPRESSION: Right IJ central venous catheter with distal catheter tip terminating in the region of the proximal S VC. [facility], , 05/08/2024 6:49 PM
[2024-05-08] MEDS: NOREPINEPHRINE 32 MG in SODIUM CHLORIDE 0.9% 218 ML IV SCH (18:54)
[2024-05-08 19:23] LABS: Glucose,Whole Blood 84 mg/dL (70-110)
[2024-05-08] MEDS: SODIUM BICARBONATE TAB 650 MG TAB PO SCH (21:43)
[2024-05-08] MEDS: CEFEPIME 1 GM in SODIUM CHLORIDE 0.9% 50 ML IVPB SCH (23:05)
[2024-05-09] MEDS: HEPARIN SODIUM,PORCINE 5,000 UNIT/ML 1 ML VIAL SQ SCH (00:53)
[2024-05-09] MEDS: oxyCODONE-APAP 10-325MG 1 EACH TAB PO PRN (01:50)
[2024-05-09 06:04] LABS: ALT 126 U/L (4-49); AST 132 U/L (17-59); African American GFR (CKD) 21 (>60 ml/min/1.73 sqM); Alkaline Phosphatase 159 U/L (38-126); Anion Gap 9 mmol/L; Blood Urea Nitrogen 73 mg/dL (9-20); Calcium 8.4 mg/dL (8.4-10.2); Carbon Dioxide 14 mmol/L (22-30); Chloride 118 mmol/L (98-107); Glucose 91 mg/dL (74-99); Magnesium 1.8 mg/dL (1.6-2.3); Non-African American GFR(CKD) 18 (>60 ml/min/1.73 sqM); Potassium 4.8 mmol/L (3.5-5.1); Sodium 141 mmol/L (137-145); Total Bilirubin 3.2 mg/dL (0.2-1.3); Total Protein 5.4 g/dL (6.3-8.2)
[2024-05-09] MEDS: MAGNESIUM SULFATE-D5W PMX 1 GM in DEXTROSE/WATER 1 100ML.BAG IVPB ONE (06:30)
[2024-05-09 07:05] LABS: HCT 35.4 % (39.0-53.0); HGB 11.2 gm/dL (13.0-17.5); Hypochromasia Moderate; MCH 30.3 pg (25.0-35.0); MCHC 31.7 g/dL (31.0-37.0); MCV 95.8 fL (80.0-100.0); Mean Platelet Volume 10.2; Platelet Count 129 k/uL (150-450); RDW 15.4 % (11.5-15.5); WBC 37.1 k/uL (3.8-10.6)
[2024-05-09 08:13] LABS: Band Neutrophils % 27 %; Lymphocytes # (M) 1.48 k/uL (1.0-4.8); Monocytes # (M) 1.11 k/uL (0-1.0); Neutrophils % (M) 66 %; Nucleated Red Blood Cells 0 /100 WBC (0-0); Total Cells Counted 100
[2024-05-09] MEDS: PANTOPRAZOLE 40 MG/10 ML VIAL IVP SCH (08:34)
--- NOTE | 2024-05-09 08:48 | XR ---
EXAMINATION TYPE: XR chest 1V DATE OF EXAM: 05/09/2024 COMPARISON: 05/08/2024 CLINICAL INDICATION: Male, 64 years old with history of Follow-up pneumonia; TECHNIQUE: Single frontal view of the chest is obtained. FINDINGS: No change in the right jugular central venous catheter. There is no airspace consolidation. There is no pleural effusion or pneumothorax. Heart and pulmonary vasculature are stable. There may be mild interstitial prominence could be chroni c or reflect mild vascular congestion. Postsurgical changes of cervical fusion otherwise the osseous structures are intact. IMPRESSION: Mild interstitial prominence could reflect chronic interstitial changes or mild pulmonary edema or in fectious process. There is been no interval change. [facility], , 05/09/2024 8:45 AM
--- NOTE | 2024-05-09 09:10 | US ---
EXAMINATION TYPE: US abdomen comp/pelvis limited DATE OF EXAM: 05/09/2024 COMPARISON: NONE CLINICAL INDICATION: Male, 64 years old with history of shock, please evaluate CBD; CKD 3 evaluate CB D GB removed. TECHNIQUE: Grayscale color Doppler imaging of the abdomen and pelvis. FINDINGS: EXAM MEASUREMENTS: Liver Length: 19.7 cm Gallbladder Wall: Surgically absent CBD: .9 cm Spleen: 9.3 cm Right Kidney: 11.5 x 5.4 x 5.4 cm Left Kidney: 11.9 x 5.6 x 4.3 cm Pancreas: Obscured by bowel gas Liver: Increased attenuation Gallbladder: Surgically absent CBD: wnl Spleen: wnl Right Kidney: No hydronephrosis or masses seen Left Kidney: No hydronephrosis or masses seen Upper IVC: wnl Abd Aorta: wnl Bladder: Catheter in place. IMPRESSION: 1. Moderate hepatomegaly and fatty infiltration of the liver. 2. Surgical absence of the gallbladder. 3 Limited evaluation of pancreas but the visualized portion is normal. 4. No biliary duct dilatation. 5. Normal kidneys and aorta [facility], Workstation: [email or web address] 05/09/2024 9:08 AM
--- NOTE | 2024-05-09 09:30 | P.NPCON ---
History of Present Illness - Reason for Consult acute renal failure - History of Present Illness Reason for consultation: Acute kidney injury on chronic kidney disease History of present illness: Patient is a 64-year-old male seen in renal consultation for acute kidney injury on chronic kidney disease. Patient has chronic kidney disease stage IIIb with baseline creatinine near 1.5-1.6 secondary to nephrosclerosis. Patient's creatinine on admission was 4.26 and is 3.48 today. Patient states he developed stomach pain which was going on since before . Pain has been intermittent but was worse this time for which he came to the hospital. Patient states his oral intake has been less than usual and has been feeling weak. Blood pressure was low in the systolic 60s and he did receive 4 L normal saline bolus and is currently maintained on bicarb drip. Acidosis is improving. He is on Levophed. Nonoliguric. CAT scan showed no evidence of hydronephrosis. He denies history of diabetes. Denies history of coronary artery disease. Denies use of nonsteroidals. Patient does have history of A-fib and has undergone 2 ablations in the past. No vomiting. Denies fever or chills. Denies gross hematuria or dysuria. Vital signs are stable. General: No acute distress. HEENT: Head exam is unremarkable. LUNGS: No audible rhonchi or wheezes. HEART: Rate and Rhythm are regular. ABDOMEN: Nontender. EXTREMITITES: No edema. Past Medical History Past Medical History: Atrial Fibrillation, Hyperlipidemia, Hypertension, Musculoskeletal Disorder, Renal Disease, Skin Disorder, Thyroid Disorder Additional Past Medical History / Comment(s): bariatric surgery (gastric bypass) over 15 years ago and he has lost over 200 pounds, psoriasis, arthritis, hx kidney stones, cast on rt wrist from recent surgery, hx cellulitis left leg History of Any Multi-Drug Resistant Organisms: None Reported Past Surgical History: Ablation, Back Surgery, Bariatric Surgery, Cholecystectomy, Hernia Repair, Orthopedic Surgery Additional Past Surgical History / Comment(s): BACK X2 -rods in back, CERVICAL SURG.,-Segundo en Y.,hernia x 3, rt wrist surgery, abdominoplasty, cyst removed "from behind the heart", pain clinic procedures Past Anesthesia/Blood Transfusion Reactions: Previous Problems w/ Anesthesia Additional Past Anesthesia/Blood Transfusion Reaction / Comment(s): Pain with last pain clinic procedure 04/28/14- felt every needle going in Past Psychological History: No Psychological Hx Reported Smoking Status: Former smoker Past Alcohol Use History: Occasional Past Drug Use History: None Reported - Past Family History Mother Family Medical History: No Reported History Father Family Medical History: No Reported History Medications and Allergies Home Medications Medication Instructions Recorded Confirmed Type Lansoprazole 30 mg PO DAILY PRN 04/24/22 05/08/24 History oxyCODONE-APAP 10-325MG [Percocet 1 tab PO Q4H 04/24/22 05/08/24 History 10-325 mg] Metoprolol Succinate (ER) [Toprol 50 mg PO DAILY #60 tab 04/26/22 05/08/24 Rx XL] Furosemide [Lasix] 40 mg PO BID 08/28/22 05/08/24 History Cholecalciferol [Vitamin D3 (25 25 mcg PO DAILY 05/08/24 05/08/24 History Mcg = 1000 Iu)] Sodium Bicarbonate Tab 650 mg PO BID 05/08/24 05/08/24 History allopurinoL [Zyloprim] 100 mg PO DAILY 05/08/24 05/08/24 History lisinopriL [Zestril] 15 mg PO DAILY 05/08/24 05/08/24 History Allergies Allergy/AdvReac Type Severity Reaction Status Date / Time colchicine Allergy Nausea & Verified 05/08/24 16:01 Vomiting iron Allergy SEVERE Verified 05/08/24 16:01 PAIN, WHEN RECEIVED INJECTION OF IRON nylon Allergy SUTURES, Uncoded 05/08/24 12:24 "FESTER OUT," INFECTED Physical Exam Vitals: Vital Signs Temp Pulse Resp BP Pulse Ox 05/09/24 07:00 84 17 114/73 93 L 05/09/24 06:45 82 20 102/73 93 L 05/09/24 06:30 80 22 117/78 05/09/24 06:15 83 28 H 112/75 97 05/09/24 06:00 81 20 104/72 05/09/24 05:45 80 20 102/73 05/09/24 05:30 79 20 100/69 05/09/24 05:15 78 18 109/79 95 05/09/24 05:00 83 18 109/77 05/09/24 04:45 80 19 111/82 05/09/24 04:30 84 21 100/70 05/09/24 04:15 83 24 110/76 93 L 05/09/24 04:00 80 20 110/74 94 L 05/09/24 03:45 83 20 106/75 05/09/24 03:30 85 21 104/73 05/09/24 03:15 86 20 107/74 05/09/24 03:00 85 21 115/76 93 L 05/09/24 02:45 84 21 119/85 93 L 05/09/24 02:30 85 20 92/63 94 L 05/09/24 02:15 83 24 121/80 94 L 05/09/24 02:00 86 25 H 110/84 05/09/24 01:45 85 15 132/98 96 05/09/24 01:30 87 25 H 130/93 95 05/09/24 01:15 90 26 H 117/81 95 05/09/24 01:00 91 24 115/83 93 L 05/09/24 00:45 90 22 103/78 93 L 05/09/24 00:30 92 22 114/79 05/09/24 00:15 92 21 107/81 05/09/24 00:10 96 26 H 107/81 94 L 05/09/24 00:00 98.6 F 96 26 H 120/80 93 L 05/08/24 23:45 94 28 H 109/78 95 05/08/24 23:30 91 25 H 115/80 95 05/08/24 23:20 95 28 H 115/80 94 L 05/08/24 23:10 96 21 98/67 93 L 05/08/24 23:00 95 19 95/76 95 05/08/24 22:50 26 H 95/76 94 L 05/08/24 22:40 96 27 H 102/73 93 L 05/08/24 22:30 30 H 102/69 94 L 05/08/24 22:20 96 18 102/69 95 05/08/24 22:10 98 26 H 95/64 95 05/08/24 22:00 98 18 114/74 96 05/08/24 21:50 85 25 H 114/74 97 05/08/24 21:40 90 25 H 119/75 96 05/08/24 21:30 90 23 115/77 97 05/08/24 21:20 87 26 H 115/77 95 05/08/24 21:10 91 27 H 104/74 96 05/08/24 21:00 87 18 104/77 96 05/08/24 20:50 86 18 104/77 97 05/08/24 20:40 88 23 95/74 98 05/08/24 20:30 85 34 H 94/65 97 05/08/24 20:20 87 33 H 94/65 98 05/08/24 20:10 18 83/59 97 05/08/24 20:00 98.1 F 91 6 L 74/53 97 05/08/24 19:50 96 11 L 74/53 96 05/08/24 19:40 95 7 L 77/50 96 05/08/24 19:30 75/52 05/08/24 19:21 103 H 11 L 85/51 05/08/24 19:00 94/65 97 05/08/24 18:58 104 H 20 94/64 97 05/08/24 18:52 97.8 F 96 20 94/65 97 05/08/24 18:50 96 25 H 94/65 97 05/08/24 18:40 98 26 H 98/66 98 05/08/24 18:30 99 26 H 84/66 97 05/08/24 18:20 96 27 H 84/66 97 05/08/24 18:10 93 20 89/63 98 05/08/24 18:00 93 16 81/52 98 05/08/24 17:50 92 10 L 81/52 95 05/08/24 17:40 95 13 83/58 95 05/08/24 17:33 92 20 83/53 96 05/08/24 17:30 90 15 79/56 98 05/08/24 17:20 91 12 79/56 98 05/08/24 17:10 93 25 H 84/55 97 05/08/24 17:00 100 18 77/56 99 05/08/24 16:51 96 20 77/56 97 05/08/24 16:50 96 23 76/57 98 05/08/24 16:45 93 20 76/57 97 05/08/24 16:40 92 25 H 67/45 96 05/08/24 16:30 96 23 67/40 97 05/08/24 16:27 96 20 67/41 96 05/08/24 16:20 46 H 69/40 62 L 05/08/24 16:13 102 H 20 69/40 96 05/08/24 16:10 102 H 24 69/40 97 05/08/24 16:00 101 H 22 64/42 89 L 05/08/24 15:55 99 11 L 94 L 05/08/24 15:33 101 H 16 71/60 97 05/08/24 15:23 96 15 69/45 96 05/08/24 15:20 95 16 61/47 96 05/08/24 14:48 73/39 05/08/24 13:57 96 18 68/40 95 05/08/24 13:10 100 18 70/41 98 05/08/24 12:24 97.9 F 102 H 22 62/45 100 Intake and Output 05/08/24 05/09/24 05/09/24 22:59 06:59 14:59 Intake Total 1934.297 2806.799 253.37 Output Total 230 925 100 Balance 980.055 568.799 153.37 Intake: IV 1010 1380 250 0.9 KVO 10 80 0 Cefepime 1 gm In Sodium 50 Chloride 0.9% 50 ml @ 12. 5 mls/hr IVPB Q12HR [facility] Rx#:[id number] Dextrose 5% in Water 1, 450 1200 150 000 ml @ 150 mls/hr IV . Q7H40M [facility] with Sodium Bicarb (1 Meq/ml) 150 ml Rx#:[id number] Magnesium Sulfate-D5w Pmx 100 1 gm In Dextrose/Water 1 100ml.bag @ 100 mls/hr IVPB ONCE ONE Rx#: [id number] Vancomycin 1,750 mg In 500 Sodium Chloride 0.9% 500 ml 500 ml @ 167 mls/hr IVPB ONCE ONE Rx#: [id number] metroNIDAZOLE-NS PMX 500 100 mg In Saline 1 100ml.bag @ 100 mls/hr IVPB Q8HR [facility] Rx#:[id number] Intake, IV Titration 200.055 113.799 3.37 Amount Norepinephrine 32 mg In 113.799 3.37 Sodium Chloride 0.9% 218 ml @ 0.05 MCG/KG/MIN 2. 785 mls/hr IV .Q24H [facility] Rx#:[id number] Norepinephrine 4 mg In 200.055 Sodium Chloride 0.9% 250 ml @ 0.03 MCG/KG/MIN 13. 584 mls/hr IV .[id number] [facility] Rx#:[id number] Output: Urine 230 925 100 Other: Voiding Method Indwelling Catheter Indwelling Catheter Weight 118.841 kg 123.6 kg Results - Lab Results Most recent lab results Calcium 8.4 mg/dL (8.4-10.2) 05/09/24 05:14 Magnesium 1.8 mg/dL (1.6-2.3) 05/09/24 05:14 05/09/24 05:14 05/09/24 05:14 Assessment and Plan Plan: Assessment: 1. Acute kidney injury secondary to ATN secondary to hypotension, further worsened with the use of lisinopril. And was also taking Lasix as needed. Creatinine 4.26 on admission and is 3.48 today. No hydronephrosis noted on imaging. 2. Chronic kidney disease stage IIIb with a baseline creatinine 1.5-1.6 secondary to nephrosclerosis. 3. Septic shock maintained on Levophed and antibiotics. 4. Metabolic acidosis secondary to lactic acidosis, acute kidney injury maintained on bicarb drip. Better. 5. A-fib with history of ablations. Plan: Maintain bicarb drip. Follow-up cultures. Avoid nephrotoxins. Continue to monitor renal function and urine output. Wean Levophed. Thank you for the consultation. I will continue to follow the patient with you during his hospital stay.
[2024-05-09 11:16] LABS: Glucose,Whole Blood 109 mg/dL (70-110)
--- NOTE | 2024-05-09 11:30 | P.CNPUL ---
History of Present Illness Consult date: 05/09/24 Chief complaint: Hypotension History of present illness: On 05/09/2024, patient is being seen in consultation for sepsis/hypotension. The patient presented to the Emergency Department feeling weak. On and off, he was been having abdominal pain for the past 2 to 3 months. He was having some vague mid abdominal pain which essentially has recovered. No nausea. No emesis. No diarrhea. No abdominal pain. He states that he was able to keep up with his oral and fluid intake. He has a [employer] combination of lisinopril and SPENSER inhibitors on outpatient basis. He was feeling weak. He came into the emergency department and the patient was found to be in acute kidney injury. Urine output was low. He was started on fluid resuscitation as the patient was found to have an acute kidney injury. Noted the patient's initial creatinine wa s at 4.26 with a BUN of 76. He also had a serum bicarb of 10. Lactic acid level is at 3.2. Mild transaminitis. Troponins were negative. Lipase was 44. There is white cell count was initially 20.8 came at 37. Hemoglobin 11.2 and a platelet count of 129. The patient was started on IV cefepime and vancomycin. Overall, he received a total of 4 L of normal saline and the patient was subsequently maintained on a bicarb drip at a rate of 150 cc an hour. Urine output improved and the creatinine is dropped from 4.26 down to 3.4 and the patient is producing urine output. Blood cultures from today is indicating positive gram-negative bacillus, likely E. coli. Chest x-ray shows no evidence of any acute abnormalities. CAT scan of the abdomen and pelvis was done in Emergency Department yesterday and it showed no acute intra-abdominal findings. The ultrasound of the abdomen was also done today. The patient has hepatomegaly and fatty liver infiltration. He is status post cholecystectomy. No other acute abnormalities were noted. Currently, the patient is on pressors. Norepinephrine was running as high as 0.3 mcg/kg/min and currently is down to 0.09. Awake and alert and communicating. He is currently in normal sinus rhythm. Room air oxygen with a pulse ox of 94%. Review of Systems Constitutional: Reports fatigue, Reports weakness Eyes: denies as per HPI, denies blurred vision, denies bulging eye, denies decr eased vision, denies diplopia, denies discharge, denies dry eye, denies irritation, denies itching, denies pain, denies photophobia, denies loss of peripheral vision, denies loss of vision, denies tunnel vision/blind spots Ears: deny: decreased hearing, ear discharge, earache, tinnitus Ears, nose, mouth and throat: Reports as per HPI Breasts: absent: as per HPI, gynecomastia Cardiovascular: Reports as per HPI Respiratory: Reports as per HPI Gastrointestinal: Reports abdominal pain Genitourinary: Reports as per HPI Musculoskeletal: Reports as per HPI Musculoskeletal: absent: ankle pain, ankle stiffness, ankle swelling Integumentary: Reports as per HPI Neurological: Reports as per HPI Psychiatric: Reports as per HPI Endocrine: Reports as per HPI Hematologic/Lymphatic: Reports as per HPI Allergic/Immunologic: Reports as per HPI Past Medical History Past Medical History: Atrial Fibrillation, Hyperlipidemia, Hypertension, Musculoskeletal Disorder, Renal Disease, Skin Disorder, Thyroid Disorder Additional Past Medical History / Comment(s): bariatric surgery (gastric bypass) over 15 years ago and he has lost over 200 pounds, psoriasis, arthritis, hx kidney stones, cast on rt wrist from recent surgery, hx cellulitis left leg History of Any Multi-Drug Resistant Organisms: None Reported Past Surgical History: Ablation, Back Surgery, Bariatric Surgery, Cholecystectomy, Hernia Repair, Orthopedic Surgery Additional Past Surgical History / Comment(s): BACK X2 -rods in back, CERVICAL SURG.,-[facility].,hernia x 3, rt wrist surgery, abdominoplasty, cyst removed "from behind the heart", pain clinic procedures Past Anesthesia/Blood Transfusion Reactions: Previous Problems w/ Anesthesia Additional Past Anesthesia/Blood Transfusion Reaction / Comment(s): Pain with last pain clinic procedure 04/28/14- felt every needle going in Past Psychological History: No Psychological Hx Reported Smoking Status: Former smoker Past Alcohol Use History: Occasional Past Drug Use History: None Reported - Past Family History Mother Family Medical History: No Reported History Father Family Medical History: No Reported History Medications and Allergies Home Medications Medication Instructions Recorded Confirmed Type Lansoprazole 30 mg PO DAILY PRN 04/24/22 05/08/24 History oxyCODONE-APAP 10-325MG [Percocet 1 tab PO Q4H 04/24/22 05/08/24 History 10-325 mg] Metoprolol Succinate (ER) [Toprol 50 mg PO DAILY #60 tab 04/26/22 05/08/24 Rx XL] Furosemide [Lasix] 40 mg PO BID 08/28/22 05/08/24 History Cholecalciferol [Vitamin D3 (25 25 mcg PO DAILY 05/08/24 05/08/24 History Mcg = 1000 Iu)] Sodium Bicarbonate Tab 650 mg PO BID 05/08/24 05/08/24 History allopurinoL [Zyloprim] 100 mg PO DAILY 05/08/24 05/08/24 History lisinopriL [Zestril] 15 mg PO DAILY 05/08/24 05/08/24 History Allergies Allergy/AdvReac Type Severity Reaction Status Date / Time colchicine Allergy Nausea & Verified 05/08/24 16:01 Vomiting iron Allergy SEVERE Verified 05/08/24 16:01 PAIN, WHEN RECEIVED INJECTION OF IRON nylon Allergy SUTURES, Uncoded 05/08/24 12:24 "FESTER OUT," INFECTED Physical Exam Vitals: Vital Signs Temp Pulse Resp BP Pulse Ox 05/09/24 07:00 84 17 114/73 93 L 05/09/24 06:45 82 20 102/73 93 L 05/09/24 06:30 80 22 117/78 05/09/24 06:15 83 28 H 112/75 97 05/09/24 06:00 81 20 104/72 05/09/24 05:45 80 20 102/73 05/09/24 05:30 79 20 100/69 05/09/24 05:15 78 18 109/79 95 05/09/24 05:00 83 18 109/77 05/09/24 04:45 80 19 111/82 05/09/24 04:30 84 21 100/70 05/09/24 04:15 83 24 110/76 93 L 05/09/24 04:00 80 20 110/74 94 L 05/09/24 03:45 83 20 106/75 05/09/24 03:30 85 21 104/73 05/09/24 03:15 86 20 107/74 05/09/24 03:00 85 21 115/76 93 L 05/09/24 02:45 84 21 119/85 93 L 05/09/24 02:30 85 20 92/63 94 L 05/09/24 02:15 83 24 121/80 94 L 05/09/24 02:00 86 25 H 110/84 05/09/24 01:45 85 15 132/98 96 05/09/24 01:30 87 25 H 130/93 95 05/09/24 01:15 90 26 H 117/81 95 05/09/24 01:00 91 24 115/83 93 L 05/09/24 00:45 90 22 103/78 93 L 05/09/24 00:30 92 22 114/79 05/09/24 00:15 92 21 107/81 05/09/24 00:10 96 26 H 107/81 94 L 05/09/24 00:00 98.6 F 96 26 H 120/80 93 L 05/08/24 23:45 94 28 H 109/78 95 05/08/24 23:30 91 25 H 115/80 95 05/08/24 23:20 95 28 H 115/80 94 L 05/08/24 23:10 96 21 98/67 93 L 05/08/24 23:00 95 19 95/76 95 05/08/24 22:50 26 H 95/76 94 L 05/08/24 22:40 96 27 H 102/73 93 L 05/08/24 22:30 30 H 102/69 94 L 05/08/24 22:20 96 18 102/69 95 05/08/24 22:10 98 26 H 95/64 95 05/08/24 22:00 98 18 114/74 96 05/08/24 21:50 85 25 H 114/74 97 05/08/24 21:40 90 25 H 119/75 96 05/08/24 21:30 90 23 115/77 97 05/08/24 21:20 87 26 H 115/77 95 05/08/24 21:10 91 27 H 104/74 96 05/08/24 21:00 87 18 104/77 96 05/08/24 20:50 86 18 104/77 97 05/08/24 20:40 88 23 95/74 98 05/08/24 20:30 85 34 H 94/65 97 05/08/24 20:20 87 33 H 94/65 98 05/08/24 20:10 18 83/59 97 05/08/24 20:00 98.1 F 91 6 L 74/53 97 05/08/24 19:50 96 11 L 74/53 96 05/08/24 19:40 95 7 L 77/50 96 05/08/24 19:30 75/52 05/08/24 19:21 103 H 11 L 85/51 05/08/24 19:00 94/65 97 05/08/24 18:58 104 H 20 94/64 97 05/08/24 18:52 97.8 F 96 20 94/65 97 05/08/24 18:50 96 25 H 94/65 97 05/08/24 18:40 98 26 H 98/66 98 05/08/24 18:30 99 26 H 84/66 97 05/08/24 18:20 96 27 H 84/66 97 05/08/24 18:10 93 20 89/63 98 05/08/24 18:00 93 16 81/52 98 05/08/24 17:50 92 10 L 81/52 95 05/08/24 17:40 95 13 83/58 95 05/08/24 17:33 92 20 83/53 96 05/08/24 17:30 90 15 79/56 98 05/08/24 17:20 91 12 79/56 98 05/08/24 17:10 93 25 H 84/55 97 05/08/24 17:00 100 18 77/56 99 05/08/24 16:51 96 20 77/56 97 05/08/24 16:50 96 23 76/57 98 05/08/24 16:45 93 20 76/57 97 05/08/24 16:40 92 25 H 67/45 96 05/08/24 16:30 96 23 67/40 97 05/08/24 16:27 96 20 67/41 96 05/08/24 16:20 46 H 69/40 62 L 05/08/24 16:13 102 H 20 69/40 96 05/08/24 16:10 102 H 24 69/40 97 05/08/24 16:00 101 H 22 64/42 89 L 05/08/24 15:55 99 11 L 94 L 05/08/24 15:33 101 H 16 71/60 97 05/08/24 15:23 96 15 69/45 96 05/08/24 15:20 95 16 61/47 96 05/08/24 14:48 73/39 05/08/24 13:57 96 18 68/40 95 05/08/24 13:10 100 18 70/41 98 05/08/24 12:24 97.9 F 102 H 22 62/45 100 Intake and Output 05/08/24 05/09/24 05/09/24 22:59 06:59 14:59 Intake Total 4329.262 9060.799 253.37 Output Total 230 925 100 Balance 980.055 568.799 153.37 Intake: IV 1010 1380 250 0.9 KVO 10 80 0 Cefepime 1 gm In Sodium 50 Chloride 0.9% 50 ml @ 12. 5 mls/hr IVPB Q12HR [facility] Rx#:[id number] Dextrose 5% in Water 1, 450 1200 150 000 ml @ 150 mls/hr IV . Q7H40M MELVIN with Sodium Bicarb (1 Meq/ml) 150 ml Rx#:[id number] Magnesium Sulfate-D5w Pmx 100 1 gm In Dextrose/Water 1 100ml.bag @ 100 mls/hr IVPB ONCE ONE Rx#: [id number] Vancomycin 1,750 mg In 500 Sodium Chloride 0.9% 500 ml 500 ml @ 167 mls/hr IVPB ONCE ONE Rx#: [id number] metroNIDAZOLE-NS PMX 500 100 mg In Saline 1 100ml.bag @ 100 mls/hr IVPB Q8HR [facility] Rx#:[id number] Intake, IV Titration 200.055 113.799 3.37 Amount Norepinephrine 32 mg In 113.799 3.37 Sodium Chloride 0.9% 218 ml @ 0.05 MCG/KG/MIN 2. 785 mls/hr IV .Q24H [facility] Rx#:[id number] Norepinephrine 4 mg In 200.055 Sodium Chloride 0.9% 250 ml @ 0.03 MCG/KG/MIN 13. 584 mls/hr IV .[id number] [facility] Rx#:[id number] Output: Urine 230 925 100 Other: Voiding Method Indwelling Catheter Indwelling Catheter Weight 118.841 kg 123.6 kg The patient appeared well nourished and normally developed. Vital signs as documented. Head exam is unremarkable. No scleral icterus or corneal arcus noted. Neck is without jugular venous distension, thyromegaly, or carotid bruits. Carotid upstrokes are brisk bilaterally. Lungs are clear to auscultation and percussion. Cardiac exam reveals the PMI to be normally sized and situated. Rhythm is regular. First and second heart sounds normal. No murmurs, rubs or gallops. Abdominal exam reveals normal bowel sounds, no masses, no organomegaly and no aortic enlargement. Extremities are nonedematous and both femoral and pedal pulses are normal. Examination of the skin revealed no evidence of significant rashes, suspicious appearing nevi or other concerning lesions. Neurologically, the patient is awake and alert and the patient does not have any focal neurological deficit. Cranial nerves are essentially intact. Results - Laboratory Findings CBC and BMP: 05/09/24 05:14 05/09/24 05:14 PT/INR, D-dimer PT 12.0 sec (10.0-12.5) 05/08/24 12:44 INR 1.1 (<1.2) 05/08/24 12:44 Abnormal lab findings: Abnormal Labs 05/08/24 05/08/24 05/08/24 12:44 12:44 13:19 WBC 20.8 H RBC 3.89 L Hgb 11.8 L Hct 37.4 L Plt Count 148 L Neutrophils # 19.8 H Neutrophils # (Manual) Lymphocytes # 0.3 L Monocytes # (Manual) Chloride 115 H Carbon Dioxide 10 L BUN 76 H Creatinine 4.26 H Plasma Lactic Acid Luis 3.2 H* Total Bilirubin 4.1 H Conjugated Bilirubin 2.0 H Delta Bilirubin 1.5 H AST 254 H ALT 177 H Alkaline Phosphatase 171 H Total Protein 6.1 L Albumin Urine Protein Urine Bilirubin Ur Leukocyte Esterase Urine WBC Urine Bacteria 05/08/24 05/08/24 05/08/24 16:12 16:43 19:50 WBC RBC Hgb Hct Plt Count Neutrophils # Neutrophils # (Manual) Lymphocytes # Monocytes # (Manual) Chloride Carbon Dioxide BUN Creatinine Plasma Lactic Acid Luis 3.0 H* 3.5 H* Total Bilirubin Conjugated Bilirubin Delta Bilirubin AST ALT Alkaline Phosphatase Total Protein Albumin Urine Protein 1+ H Urine Bilirubin 2+ H Ur Leukocyte Esterase Moderate H Urine WBC 17 H Urine Bacteria Rare H 05/08/24 05/09/24 05/09/24 23:34 05:14 05:14 WBC 37.1 H RBC 3.70 L Hgb 11.2 L Hct 35.4 L Plt Count 129 L Neutrophils # Neutrophils # (Manual) 34.50 H Lymphocytes # Monocytes # (Manual) 1.11 H Chloride 118 H Carbon Dioxide 14 L BUN 73 H Creatinine 3.48 H Plasma Lactic Acid Luis 2.9 H* Total Bilirubin 3.2 H Conjugated Bilirubin Delta Bilirubin AST 132 H ALT 126 H Alkaline Phosphatase 159 H Total Protein 5.4 L Albumin 3.0 L Urine Protein Urine Bilirubin Ur Leukocyte Esterase Urine WBC Urine Bacteria 05/09/24 05:14 WBC RBC Hgb Hct Plt Count Neutrophils # Neutrophils # (Manual) Lymphocytes # Monocytes # (Manual) Chloride Carbon Dioxide BUN Creatinine Plasma Lactic Acid Luis 2.2 H* Total Bilirubin Conjugated Bilirubin Delta Bilirubin AST ALT Alkaline Phosphatase Total Protein Albumin Urine Protein Urine Bilirubin Ur Leukocyte Esterase Urine WBC Urine Bacteria - Diagnostic Findings Chest x-ray: image reviewed Assessment and Plan Plan: Acute gram-negative sepsis , Likely E. coli of a urinary source. Awaiting final blood culture results. Acute hypotension, resuscitated with a total of 4 L of IV fluids and pressors. Norepinephrine is running at 0.09 mcg/kg/min. Acute kidney injury, improving, secondary to above, currently off diuretics and off SPENSER inhibitors Acute leukocytosis secondary to above Mild lactic acidosis Metabolic acidosis, currently on a bicarb infusion at a rate of 150 cc an hour Anuria at the time of admission, improving and the patient is producing adequate amount of urine output Paroxysmal atrial fibrillation, status post ablation the patient's cardiac rhythm is sinus Hypertension Hyperlipidemia Gastric bypass surgery and the patient has lost significant amount of weight following his bariatric surgeon that was done more than 15 years ago Plan Patient is currently on room air oxygen Modify antibiotics and put the patient on 2 g of IV Rocephin every 24 hours Awaiting final cultures and sensitivities Wean off pressors and discontinue Continue bicarb infusion Mental status is appropriate Check UA and urine cultures Will continue to follow. Keep the patient in ICU for now.
[2024-05-09 11:35] LABS: Hepatitis A Antibody IgM Nonreactive (Nonreactive); Hepatitis B Core IgM Nonreactive (Nonreactive); Hepatitis B Surface Antigen Nonreactive (Nonreactive); Hepatitis C IgG Antibody Nonreactive (Nonreactive)
--- NOTE | 2024-05-09 11:57 | P.PN ---
Subjective Progress Note Date: 05/09/24 Subjective: Patient seen and examined at bedside. No acute events overnight. Pertinent positives and negatives as discussed above, a complete review of systems was performed and all other systems are negative. Vitals Signs Reviewed. General: Nontoxic, no distress, appears at stated age Derm: Warm, dry Head: Atraumatic, normocephalic, symmetric Eyes: EOMI, no lid lag, icteric sclera Mouth: No lip lesion, mucus membranes moist Cardiovascular: S1S2 reg, no murmur Lungs: CTA bilateral, no rhonchi, no rales, no accessory muscle use Abdominal: Soft, nontender to palpation, no guarding, no appreciable organomegaly Ext: No gross muscle atrophy, trace peripheral edema, no contractures Neuro: CN II-XI grossly intact, no focal neuro deficits Psych: Alert, oriented, appropriate affect Data Reviewed Today: Pertinent Labs: WBC 37.1, band neutrophils 27%, hemoglobin 11.2, platelet 121, bicarb 14, creatinine 3.48, lactate 2.2, total bili 3.2, AST 132, ALT 126, ALP 159 Imaging: Abdominal ultrasound shows CBD within normal limits, moderate hepatomegaly and fatty infiltration of the liver Chest x-ray independently interpreted, shows interstitial opacities, more prominent on right base Assessment and Plan: Active: Septic shock secondary to E. coli bacteremia Bandemia Lactic acidosis High anion gap metabolic acidosis [place] on CKD stage III transaminitis -Possibly urinary source for E. coli bacteremia -Nephrology note reviewed, patient continued on sodium bicarb drip at 150 cc an hour -Also continued on sodium bicarb tabs 650 twice daily -Wean pressors -ICU following -Started on ceftriaxone 2 g every 24 hours, Flagyl 500 IV every 8 hours, vancomycin discontinued -Cortisol level pending -Repeat blood cultures, hepatitis panel pending -Echocardiogram pending Chronic: History of hypertension -Hold antihypertensives Atrial fibrillation status post ablation -Not on any anticoagulation Dyslipidemia -Hold statin DVT ppx: Subcu heparin Code status: Full code Anticipated discharge place: Pending clinical course Anticipated discharge time: Pending clinical course Objective - Vital Signs Vital signs: Vital Signs Temp 98.6 F 05/09/24 00:00 Pulse 84 05/09/24 07:00 Resp 17 05/09/24 07:00 BP 114/73 05/09/24 07:00 Pulse Ox 93 L 05/09/24 07:00 FiO2 Intake & Output 05/08/24 05/09/24 05/09/24 18:59 06:59 18:59 Intake Total 44.599 2659.255 253.37 Output Total 1155 100 Balance 44.599 1504.255 153.37 Weight 118.841 kg 123.6 kg Intake: IV 2390 250 0.9 KVO 90 0 Cefepime 1 gm In Sodium 50 Chloride 0.9% 50 ml @ 12. 5 mls/hr IVPB Q12HR [facility] Rx#:[id number] Dextrose 5% in Water 1, 1650 150 000 ml @ 150 mls/hr IV . Q7H40M [facility] with Sodium Bicarb (1 Meq/ml) 150 ml Rx#:[id number] Magnesium Sulfate-D5w Pmx 100 1 gm In Dextrose/Water 1 100ml.bag @ 100 mls/hr IVPB ONCE ONE Rx#: [id number] Vancomycin 1,750 mg In 500 Sodium Chloride 0.9% 500 ml 500 ml @ 167 mls/hr IVPB ONCE ONE Rx#: [id number] metroNIDAZOLE-NS PMX 500 100 mg In Saline 1 100ml.bag @ 100 mls/hr IVPB Q8HR [facility] Rx#:[id number] Intake, IV Titration 44.599 269.255 3.37 Amount Norepinephrine 32 mg In 113.799 3.37 Sodium Chloride 0.9% 218 ml @ 0.05 MCG/KG/MIN 2. 785 mls/hr IV .Q24H [facility] Rx#:[id number] Norepinephrine 4 mg In 44.599 155.456 Sodium Chloride 0.9% 250 ml @ 0.03 MCG/KG/MIN 13. 584 mls/hr IV .[id number] [facility] Rx#:[id number] Output: Urine 1155 100 Other: Voiding Method Indwelling Catheter - Labs CBC & Chem 7: 05/09/24 05:14 05/09/24 05:14 Labs: Abnormal Lab Results - Last 24 Hours (Table) 05/08/24 05/08/24 05/08/24 Range/Units 12:44 12:44 13:19 WBC 20.8 H (3.8-10.6) k/uL RBC 3.89 L (4.30-5.90) m/uL Hgb 11.8 L (13.0-17.5) gm/dL Hct 37.4 L (39.0-53.0) % Plt Count 148 L (150-450) k/uL Neutrophils # 19.8 H (1.3-7.7) k/uL Neutrophils # (Manual) (1.3-7.7) k/uL Lymphocytes # 0.3 L (1.0-4.8) k/uL Monocytes # (Manual) (0-1.0) k/uL Chloride 115 H (98-107) mmol/L Carbon Dioxide 10 L (22-30) mmol/L BUN 76 H (9-20) mg/dL Creatinine 4.26 H (0.66-1.25) mg/dL Plasma Lactic Acid Luis 3.2 H* (0.7-2.0) mmol/L Total Bilirubin 4.1 H (0.2-1.3) mg/dL Conjugated Bilirubin 2.0 H (0.0-0.3) mg/dL Delta Bilirubin 1.5 H (0.0-0.2) mg/dL AST 254 H (17-59) U/L ALT 177 H (4-49) U/L Alkaline Phosphatase 171 H (38-126) U/L Total Protein 6.1 L (6.3-8.2) g/dL Albumin (3.5-5.0) g/dL Urine Protein (Negative) Urine Bilirubin (Negative) Ur Leukocyte Esterase (Negative) Urine WBC (0-5) /hpf Urine Bacteria (None) /hpf 05/08/24 05/08/24 05/08/24 Range/Units 16:12 16:43 19:50 WBC (3.8-10.6) k/uL RBC (4.30-5.90) m/uL Hgb (13.0-17.5) gm/dL Hct (39.0-53.0) % Plt Count (150-450) k/uL Neutrophils # (1.3-7.7) k/uL Neutrophils # (Manual) (1.3-7.7) k/uL Lymphocytes # (1.0-4.8) k/uL Monocytes # (Manual) (0-1.0) k/uL Chloride (98-107) mmol/L Carbon Dioxide (22-30) mmol/L BUN (9-20) mg/dL Creatinine (0.66-1.25) mg/dL Plasma Lactic Acid Luis 3.0 H* 3.5 H* (0.7-2.0) mmol/L Total Bilirubin (0.2-1.3) mg/dL Conjugated Bilirubin (0.0-0.3) mg/dL Delta Bilirubin (0.0-0.2) mg/dL AST (17-59) U/L ALT (4-49) U/L Alkaline Phosphatase (38-126) U/L Total Protein (6.3-8.2) g/dL Albumin (3.5-5.0) g/dL Urine Protein 1+ H (Negative) Urine Bilirubin 2+ H (Negative) Ur Leukocyte Esterase Moderate H (Negative) Urine WBC 17 H (0-5) /hpf Urine Bacteria Rare H (None) /hpf 05/08/24 05/09/24 05/09/24 Range/Units 23:34 05:14 05:14 WBC 37.1 H (3.8-10.6) k/uL RBC 3.70 L (4.30-5.90) m/uL Hgb 11.2 L (13.0-17.5) gm/dL Hct 35.4 L (39.0-53.0) % Plt Count 129 L (150-450) k/uL Neutrophils # (1.3-7.7) k/uL Neutrophils # (Manual) 34.50 H (1.3-7.7) k/uL Lymphocytes # (1.0-4.8) k/uL Monocytes # (Manual) 1.11 H (0-1.0) k/uL Chloride 118 H (98-107) mmol/L Carbon Dioxide 14 L (22-30) mmol/L BUN 73 H (9-20) mg/dL Creatinine 3.48 H (0.66-1.25) mg/dL Plasma Lactic Acid Luis 2.9 H* (0.7-2.0) mmol/L Total Bilirubin 3.2 H (0.2-1.3) mg/dL Conjugated Bilirubin (0.0-0.3) mg/dL Delta Bilirubin (0.0-0.2) mg/dL AST 132 H (17-59) U/L ALT 126 H (4-49) U/L Alkaline Phosphatase 159 H (38-126) U/L Total Protein 5.4 L (6.3-8.2) g/dL Albumin 3.0 L (3.5-5.0) g/dL Urine Protein (Negative) Urine Bilirubin (Negative) Ur Leukocyte Esterase (Negative) Urine WBC (0-5) /hpf Urine Bacteria (None) /hpf 05/09/24 Range/Units 05:14 WBC (3.8-10.6) k/uL RBC (4.30-5.90) m/uL Hgb (13.0-17.5) gm/dL Hct (39.0-53.0) % Plt Count (150-450) k/uL Neutrophils # (1.3-7.7) k/uL Neutrophils # (Manual) (1.3-7.7) k/uL Lymphocytes # (1.0-4.8) k/uL Monocytes # (Manual) (0-1.0) k/uL Chloride (98-107) mmol/L Carbon Dioxide (22-30) mmol/L BUN (9-20) mg/dL Creatinine (0.66-1.25) mg/dL Plasma Lactic Acid Luis 2.2 H* (0.7-2.0) mmol/L Total Bilirubin (0.2-1.3) mg/dL Conjugated Bilirubin (0.0-0.3) mg/dL Delta Bilirubin (0.0-0.2) mg/dL AST (17-59) U/L ALT (4-49) U/L Alkaline Phosphatase (38-126) U/L Total Protein (6.3-8.2) g/dL Albumin (3.5-5.0) g/dL Urine Protein (Negative) Urine Bilirubin (Negative) Ur Leukocyte Esterase (Negative) Urine WBC (0-5) /hpf Urine Bacteria (None) /hpf Microbiology - Last 24 Hours (Table) 05/08/24 15:05 Blood Culture Gram Stain - Preliminary Blood Blood Culture - Preliminary Molecular ID
[2024-05-09 13:12] LABS: Amylase 57 U/L (23-121); Lipase 10 U/L (14-60)
[2024-05-09] MEDS: VANCOMYCIN 1,750 MG in SODIUM CHLORIDE 0.9% 500 ML 500 ML IVPB ONE (14:50)
[2024-05-10 06:13] LABS: Basophils # (A) 0.1 k/uL (0-0.2); Basophils % (A) 0 %; Eosinophils # (A) 0.2 k/uL (0-0.7); Eosinophils % (A) 1 %; HCT 34.6 % (39.0-53.0); Hypochromasia Slight; Lymphocytes % (A) 5 %; MCH 30.1 pg (25.0-35.0); MCHC 31.7 g/dL (31.0-37.0); MCV 95.2 fL (80.0-100.0); Mean Platelet Volume 9.3; Monocytes # (A) 0.4 k/uL (0-1.0); Monocytes % (A) 2 %; Neutrophils # (A) 20.9 k/uL (1.3-7.7); Neutrophils % (A) 92 %; Platelet Count 113 k/uL (150-450); RBC 3.64 m/uL (4.30-5.90); RDW 15.1 % (11.5-15.5); WBC 22.6 k/uL (3.8-10.6)
[2024-05-10 06:27] LABS: ALT 90 U/L (4-49); AST 66 U/L (17-59); African American GFR (CKD) 28 (>60 ml/min/1.73 sqM); Albumin 2.9 g/dL (3.5-5.0); Alkaline Phosphatase 170 U/L (38-126); Anion Gap 6 mmol/L; Blood Urea Nitrogen 63 mg/dL (9-20); Calcium 8.6 mg/dL (8.4-10.2); Carbon Dioxide 23 mmol/L (22-30); Chloride 112 mmol/L (98-107); Glucose 106 mg/dL (74-99); Non-African American GFR(CKD) 24 (>60 ml/min/1.73 sqM); Potassium 3.9 mmol/L (3.5-5.1); Sodium 141 mmol/L (137-145); Total Bilirubin 1.2 mg/dL (0.2-1.3); Total Protein 5.2 g/dL (6.3-8.2)
[2024-05-10 06:32] LABS: Vancomycin,Random 17.8 ug/mL
--- NOTE | 2024-05-10 09:52 | P.PN ---
Subjective Patient is seen in follow-up for acute kidney injury on chronic kidney disease. Renal function improved. Nonoliguric. Off Levophed this morning. Bicarb drip discontinued. Vital signs are stable. General: No acute distress. HEENT: Head exam is unremarkable. On nasal cannula. LUNGS: No audible rhonchi or wheezes. HEART: Rate and Rhythm are regular. ABDOMEN: Nontender. EXTREMITITES: No edema. Objective - Vital Signs Vital signs: Vital Signs Temp 98.6 F 05/10/24 08:00 Pulse 86 05/10/24 08:15 Resp 20 05/10/24 08:15 BP 106/72 05/10/24 08:15 Pulse Ox 94 L 05/10/24 08:15 FiO2 Intake & Output 05/09/24 05/10/24 05/10/24 18:59 06:59 18:59 Intake Total 2155.485 2140 170 Output Total 1145 1120 150 Balance 4482.139 3529 20 Weight 126.3 kg Intake: IV 2110 2140 170 0.9 KVO 210 240 20 Dextrose 5% in Water 1, 1800 1800 150 000 ml @ 150 mls/hr IV . Q7H40M [facility] with Sodium Bicarb (1 Meq/ml) 150 ml Rx#:[id number] Magnesium Sulfate-D5w Pmx 100 1 gm In Dextrose/Water 1 100ml.bag @ 100 mls/hr IVPB ONCE ONE Rx#: [id number] metroNIDAZOLE-NS PMX 500 100 mg In Saline 1 100ml.bag @ 100 mls/hr IVPB Q8HR [facility] Rx#:[id number] Intake, IV Titration 45.485 Amount Norepinephrine 32 mg In 45.485 Sodium Chloride 0.9% 218 ml @ 0.05 MCG/KG/MIN 2. 785 mls/hr IV .Q24H [facility] Rx#:[id number] Output: Urine 1145 1120 150 Other: Voiding Method Indwelling Catheter Indwelling Catheter # Bowel Movements 1 - Labs CBC & Chem 7: 05/10/24 05:28 05/10/24 05:28 Labs: Abnormal Lab Results - Last 24 Hours (Table) 05/09/24 05/09/24 05/10/24 Range/Units 05:14 09:52 05:28 WBC (3.8-10.6) k/uL RBC (4.30-5.90) m/uL Hgb (13.0-17.5) gm/dL Hct (39.0-53.0) % Plt Count (150-450) k/uL Neutrophils # (1.3-7.7) k/uL Chloride 112 H (98-107) mmol/L BUN 63 H (9-20) mg/dL Creatinine 2.72 H (0.66-1.25) mg/dL Glucose 106 H (74-99) mg/dL Plasma Lactic Acid Luis 2.8 H* (0.7-2.0) mmol/L AST 66 H (17-59) U/L ALT 90 H (4-49) U/L Alkaline Phosphatase 170 H (38-126) U/L Total Protein 5.2 L (6.3-8.2) g/dL Albumin 2.9 L (3.5-5.0) g/dL Lipase 10 L (14-60) U/L 05/10/24 Range/Units 05:28 WBC 22.6 H (3.8-10.6) k/uL RBC 3.64 L (4.30-5.90) m/uL Hgb 11.0 L (13.0-17.5) gm/dL Hct 34.6 L (39.0-53.0) % Plt Count 113 L (150-450) k/uL Neutrophils # 20.9 H (1.3-7.7) k/uL Chloride (98-107) mmol/L BUN (9-20) mg/dL Creatinine (0.66-1.25) mg/dL Glucose (74-99) mg/dL Plasma Lactic Acid Luis (0.7-2.0) mmol/L AST (17-59) U/L ALT (4-49) U/L Alkaline Phosphatase (38-126) U/L Total Protein (6.3-8.2) g/dL Albumin (3.5-5.0) g/dL Lipase (14-60) U/L Microbiology - Last 24 Hours (Table) 05/08/24 18:31 Blood Culture Gram Stain - Preliminary Blood 05/08/24 15:05 Blood Culture Gram Stain - Preliminary Blood Blood Culture - Preliminary Molecular ID Assessment and Plan Plan: Assessment: 1. Acute kidney injury secondary to ATN secondary to hypotension, further worsened with the use of lisinopril. And was also taking Lasix as needed. Creatinine 4.26 on admission and is 2.72 today. Nonoliguric. No hydronephrosis noted on imaging. 2. Chronic kidney disease stage IIIb with a baseline creatinine 1.5-1.6 second steven to nephrosclerosis. 3. Septic shock maintained on Levophed and antibiotics. Blood culture positive for E. coli. 4. Metabolic acidosis secondary to lactic acidosis, acute kidney injury maintained on bicarb drip. Improved with bicarb drip. 5. A-fib with history of ablations. Plan: Bicarb drip discontinued. Start normal saline at 50 cc an hour for maintenance fluids. Encouraged oral intake. Avoid nephrotoxins. Continue to monitor renal function and urine output.
[2024-05-10] MEDS ORDERED: SODIUM CHLORIDE 0.9% 100 ML BAG IV SCH (10:30)
[2024-05-10] MEDS: SODIUM CHLORIDE 0.9% 1,000 ML IV SCH (10:42)
--- NOTE | 2024-05-10 12:45 | P.PN ---
Subjective Progress Note Date: 05/10/24 Principal diagnosis: Acute E. coli sepsis, septic shock, and bacteremia On 05/09/2024, patient is being seen in consultation for sepsis/hypotension. The patient presented to the Emergency Department feeling weak. On and off, he was been having abdominal pain for the past 2 to 3 months. He was having some vague mid abdominal pain which essentially has recovered. No nausea. No emesis. No diarrhea. No abdominal pain. He states that he was able to keep up with his oral and fluid intake. He has a [employer] combination of lisinopril and SPENSER inhibitors on outpatient basis. He was feeling weak. He came into the emergency department and the patient was found to be in acute kidney injury. Urine output was low. He was started on fluid resuscitation as the patient was found to have an acute kidney injury. Noted the patient's initial creatinine was at 4.26 with a BUN of 76. He also had a serum bicarb of 10. Lactic acid level is at 3.2. Mild transaminitis. Troponins were negative. Lipase was 44. There is white cell count was initially 20.8 came at 37. Hemoglobin 11.2 and a platelet count of 129. The patient was started on IV cefepime and vancomycin. Overall, he received a total of 4 L of normal saline and the patient was subsequently maintained on a bicarb drip at a rate of 150 cc an hour. Urine output improved and the creatinine is dropped from 4.26 down to 3.4 and the patient is producing urine output. Blood cultures from today is indicating positive gram-negative bacillus, likely E. coli. Chest x-ray shows no evidence of any acute abnormalities. CAT scan of the abdomen and pelvis was done in Emergency Department yesterday and it showed no acute intra-abdominal findings. The ultrasound of the abdomen was also done today. The patient has hepatomegaly and fatty liver infiltration. He is status post cholecystectomy. No other acute abnormalities were noted. Currently, the patient is on pressors. Norepinephrine was running as high as 0.3 mcg/kg/min and currently is down to 0.09. Awake and alert and communicating. He is currently in normal sinus rhythm. Room air oxygen with a pulse ox of 94%. Patient was evaluated today on 05/10/2024, remains in the ICU, remains on antibiotics in the form of Rocephin, patient required norepinephrine briefly, he is now off norepinephrine, he is off both sodium bicarb drip, patient had positive blood cultures for E. coli, and the most likely source is the urine. Urine cultures are pending. Patient is feeling better today, his leukocytosis is improving with WBC count is 22.6, his metabolic acidosis is resolving bicarb today is 23 liver enzymes are improving vancomycin was discontinued WBC count is 22.6 hemoglobin is 11, creatinine down to 2.72, his hemodynamics are stabilizing and this morning norepinephrine was discontinued. Blood pressure remains marginal but the patient has good urine output. Mean arterial pressure this morning is 65 Objective - Vital Signs Vital signs: Vital Signs Temp 97.6 F 05/10/24 12:00 Pulse 68 05/10/24 12:00 Resp 20 05/10/24 12:00 BP 97/62 05/10/24 12:00 Pulse Ox 97 05/10/24 12:00 FiO2 Intake & Output 05/09/24 05/10/24 05/10/24 18:59 06:59 18:59 Intake Total 2155.485 2140 383.773 Output Total 1145 1120 355 Balance 8907.302 9392 28.773 Weight 126.3 kg Intake: IV 2110 2140 250 0.9 KVO 210 240 100 Dextrose 5% in Water 1, 1800 1800 150 000 ml @ 150 mls/hr IV . Q7H40M [facility] with Sodium Bicarb (1 Meq/ml) 150 ml Rx#:[id number] Magnesium Sulfate-D5w Pmx 100 1 gm In Dextrose/Water 1 100ml.bag @ 100 mls/hr IVPB ONCE ONE Rx#: [id number] metroNIDAZOLE-NS PMX 500 100 mg In Saline 1 100ml.bag @ 100 mls/hr IVPB Q8HR [facility] Rx#:[id number] Intake, IV Titration 45.485 133.773 Amount Norepinephrine 32 mg In 45.485 33.773 Sodium Chloride 0.9% 218 ml @ 0.05 MCG/KG/MIN 2. 785 mls/hr IV .Q24H [facility] Rx#:[id number] Sodium Chloride 0.9% 1, 100 000 ml @ 50 mls/hr IV . Q20H [facility] Rx#:[id number] Output: Urine 1145 1120 355 Other: Voiding Method Indwelling Catheter Indwelling Catheter Indwelling Catheter # Bowel Movements 1 - Exam General: Revealed 64-year-old white male in no distress Derm: No rashes skin is warm dry Head: Atraumatic, normocephalic Eyes: EOMI, no lid lag, icteric sclera Mouth: Moist mucous membranes, no thrush Cardiovascular: Normal S1-S2, no S3 gallop, no murmur Lungs: Symmetrical chest expansion clear bilaterally no rhonchi no wheezes Abdominal: Soft nontender no rebound no guarding Ext: No clubbing edema or cyanosis Neuro: Alert oriented x 3 no gross focal deficit Psych: Normal mood affect and no mental status examination - Labs CBC & Chem 7: 05/10/24 05:28 05/10/24 05:28 Labs: Abnormal Lab Results - Last 24 Hours (Table) 05/09/24 05/10/24 05/10/24 Range/Units 05:14 05:28 05:28 WBC 22.6 H (3.8-10.6) k/uL RBC 3.64 L (4.30-5.90) m/uL Hgb 11.0 L (13.0-17.5) gm/dL Hct 34.6 L (39.0-53.0) % Plt Count 113 L (150-450) k/uL Neutrophils # 20.9 H (1.3-7.7) k/uL Chloride 112 H (98-107) mmol/L BUN 63 H (9-20) mg/dL Creatinine 2.72 H (0.66-1.25) mg/dL Glucose 106 H (74-99) mg/dL AST 66 H (17-59) U/L ALT 90 H (4-49) U/L Alkaline Phosphatase 170 H (38-126) U/L Total Protein 5.2 L (6.3-8.2) g/dL Albumin 2.9 L (3.5-5.0) g/dL Lipase 10 L (14-60) U/L Microbiology - Last 24 Hours (Table) 05/08/24 18:31 Blood Culture Gram Stain - Preliminary Blood Blood Culture - Preliminary Escherichia coli 05/08/24 15:05 Blood Culture Gram Stain - Preliminary Blood Blood Culture - Preliminary Escherichia coli Molecular ID Assessment and Plan Assessment: Impression: Acute E. coli bacteremia with sepsis and septic shock most likely source is the urine/UTI urine cultures are pending patient presented with hypotension requiring fluids followed by norepinephrine Acute kidney injury, improving Acute metabolic acidosis secondary to sepsis and septic shock resolved Paroxysmal atrial fibrillation, status post ablation the patient's cardiac rhythm is sinus Hypertension Hyperlipidemia History of gastric bypass surgery Plan: Continue to monitor in the ICU for the next 24 hours Continue present supportive care measures Continue antibiotics patient is now on Rocephin Discontinue bicarb drip Continue to monitor renal profile, improving but not resolved Continue hemodynamic support if felt necessary/norepinephrine is on standby Awaiting urine cultures Patient remains critically ill Critical time is over 30 minutes Will continue to follow. Time with Patient: Greater than 30
--- NOTE | 2024-05-10 15:18 | P.PN ---
Subjective Progress Note Date: 05/10/24 Patient is a 64-year-old male with past medical history significant for atrial fibrillation status post ablation (09/08) not on anticoagulation at home, chronic kidney disease stage IIIa, hypertension, and hyperlipidemia presents to the emergency department due to feeling severe fatigue since around 10 AM as well as a reported home blood pressure of 60s/40s with a pulse near 200reported by family who is at bedside. Patient states that he has been feeling sick 3 times about 1 month before , on , and today. All 3 of these episodes have been accompanied by "a stomachache." He notes that with the previous to illnesses he had dark urine but this time his urine color did not c hange. Family states that he was unable to walk today because he was feeling sick and that is when they decided to check his blood pressure. He notes a feeling of nausea earlier this morning and tried to force himself to vomit but was unable to. He denies diarrhea. He reports feeling cold in his extremities. He currently denies chest pain, palpitations, dyspnea, abdominal pain, nausea/vomiting, diarrhea, lightheadedness. Initial EKG: Sinus tachycardia, low voltage, ventricular rate 104 bpm. Initial chest x-ray: No acute cardiopulmonary disease/process. Initial CT abdomen/pelvis: No acute abnormalities. Initial labs: WBC 20.8, hemoglobin 11.8, hematocrit 37.4, platelets 148, sodium 142, potassium 4.8, chloride 115, CO2 10, BUN 76, creatinine 4.26, lactic acid 3.2, total bilirubin 4.1, conjugated bilirubin 2.0, AST 254, ALT 177, alkaline phosphatase 171, troponin X1 <0.012, lipase 44, TSH 2.23. Initial urinalysis: 1+ protein, 2+ bilirubin, moderate leukocyte esterase, WBC 17, rare bacteria. Initial vitals: T 97.9, ND 102 bpm, RR 22, BP 62/45, 100% O2 on room air. 05/10. Patient seen and examined at bedside. No acute events overnight. Reports nausea and feeling weak and tired. Denies chest pain, abdominal pain, shortness of breath, fever, vomiting. Blood cultures growing E. coli bacteremia. Labs today: WBC 22.6, hemoglobin 11, platelets 113, sodium 141, potassium 3.9, chloride 112, BUN 63, creatinine 2.72, glucose 106, AST 66, ALT 90, alkaline phosphatase 170. Cortisol 15.6. Pertinent positives and negatives discussed above, a complete review of systems was performed and all the other systems were negative. Physical examination: Vital signs reviewed. Afebrile, hypotensive, 96% O2 saturation on room air. General: Nontoxic, no distress, appears stated age, well-appearing Derm: Warm, dry, intact Head: Atraumatic, normocephalic, symmetric Eyes: EOMI, anicteric sclera Mouth: No lip lesion, mucus membranes moist Cardiovascular: S1-S2 regular, no murmur Lungs: CTA bilateral, no rhonchi, no rales, no accessory muscle use Abdominal: Soft, non-tender to palpation Extremities: No cyanosis, clubbing, 1+ pitting edema bilaterally to the knee Neuro: Alert, oriented x 3, gross neurological examination did not reveal any focal deficits. Cranial nerves II to XII grossly intact. Psych: Appropriate affect and mood Assessment and Plan: Patient is a 64-year-old male with past medical history significant for atrial fibrillation status post ablation (09/08) not on anticoagulation at home, chronic kidney disease stage IIIa, hypertension, and hyperlipidemia admitted for shock. Active #. Septic shock, secondary to E. coli bacteremia #. Lactic acidosis #. High anion gap metabolic acidosis #. Mild thrombocytopenia and normocytic anemia, likely in the setting of acute illness Possibly urinary source for E. coli bacteremia, pending urine culture IV ceftriaxone 2 g every 24 hours IV metronidazole 500 mg every 8 hours Sodium bicarb drip discontinued 0.9% saline at 50 cc/h for maintenance fluids Repeat blood cultures pending Echocardiogram pending Repeat CBC and CMP tomorrow Wean pressors as tolerated #. Conjugated bilirubinemia, concerning for obstruction pathology, improving #. Transaminitis, improving Acute hepatitis panel negative Right upper quadrant ultrasound: Moderate hepatomegaly and fatty infiltration of the liver, no biliary duct dilatation #. Acute kidney injury on chronic kidney disease stage IIIa, likely prerenal Ultrasound kidney and bladder: No hydronephrosis or masses Management as above Nephrology following Chronic #. Atrial fibrillation status post ablation (09/08) not on anticoagulation Currently in sinus rhythm Continue telemetry monitoring #. Hypertension Hold home antihypertensives due to hypotension and shock #. Hyperlipidemia Hold home meds #. History of GI ulcers DVT prophylaxis: Heparin subcutaneous every 8 hours GI prophylaxis: Protonix IV 40 mg daily Code status: Full code Anticipated discharge place: Pending clinical course I have seen and evaluated the patient today. Discussed with the resident and agree with the residents finding and plan as documented in the resident's note. Changes highlighted in blue font. Objective - Vital Signs Vital signs: Vital Signs Temp 97.2 F L 05/10/24 04:00 Pulse 77 05/10/24 06:15 Resp 22 05/10/24 06:15 BP 105/76 05/10/24 06:15 Pulse Ox 96 05/10/24 06:15 FiO2 Intake & Output 05/09/24 05/09/24 05/10/24 06:59 18:59 06:59 Intake Total 2659.255 2155.485 2140 Output Total 1155 1145 1120 Balance 9565.740 6441.485 1020 Weight 123.6 kg 126.3 kg Intake: IV 2390 2110 2140 0.9 KVO 90 210 240 Cefepime 1 gm In Sodium 50 Chloride 0.9% 50 ml @ 12. 5 mls/hr IVPB Q12HR [facility] Rx#:[id number] Dextrose 5% in Water 1, 1650 1800 1800 000 ml @ 150 mls/hr IV . Q7H40M [facility] with Sodium Bicarb (1 Meq/ml) 150 ml Rx#:[id number] Magnesium Sulfate-D5w Pmx 100 1 gm In Dextrose/Water 1 100ml.bag @ 100 mls/hr IVPB ONCE ONE Rx#: [id number] Vancomycin 1,750 mg In 500 Sodium Chloride 0.9% 500 ml 500 ml @ 167 mls/hr IVPB ONCE ONE Rx#: [id number] metroNIDAZOLE-NS PMX 500 100 100 mg In Saline 1 100ml.bag @ 100 mls/hr IVPB Q8HR [facility] Rx#:[id number] Intake, IV Titration 269.255 45.485 Amount Norepinephrine 32 mg In 113.799 45.485 Sodium Chloride 0.9% 218 ml @ 0.05 MCG/KG/MIN 2. 785 mls/hr IV .Q24H [facility] Rx#:[id number] Norepinephrine 4 mg In 155.456 Sodium Chloride 0.9% 250 ml @ 0.03 MCG/KG/MIN 13. 584 mls/hr IV .B12L27M [facility] Rx#:[id number] Output: Urine 1155 1145 1120 Other: Voiding Method Indwelling Catheter Indwelling Catheter Indwelling Catheter # Bowel Movements 1 - Labs CBC & Chem 7: 05/10/24 05:28 05/10/24 05:28 Labs: Abnormal Lab Results - Last 24 Hours (Table) 05/09/24 05/09/24 05/09/24 Range/Units 05:14 05:14 09:52 WBC 37.1 H (3.8-10.6) k/uL RBC 3.70 L (4.30-5.90) m/uL Hgb 11.2 L (13.0-17.5) gm/dL Hct 35.4 L (39.0-53.0) % Plt Count 129 L (150-450) k/uL Neutrophils # (1.3-7.7) k/uL Neutrophils # (Manual) 34.50 H (1.3-7.7) k/uL Monocytes # (Manual) 1.11 H (0-1.0) k/uL Chloride (98-107) mmol/L BUN (9-20) mg/dL Creatinine (0.66-1.25) mg/dL Glucose (74-99) mg/dL Plasma Lactic Acid Luis 2.8 H* (0.7-2.0) mmol/L AST (17-59) U/L ALT (4-49) U/L Alkaline Phosphatase (38-126) U/L Total Protein (6.3-8.2) g/dL Albumin (3.5-5.0) g/dL Lipase 10 L (14-60) U/L 05/10/24 05/10/24 Range/Units 05:28 05:28 WBC 22.6 H (3.8-10.6) k/uL RBC 3.64 L (4.30-5.90) m/uL Hgb 11.0 L (13.0-17.5) gm/dL Hct 34.6 L (39.0-53.0) % Plt Count 113 L (150-450) k/uL Neutrophils # 20.9 H (1.3-7.7) k/uL Neutrophils # (Manual) (1.3-7.7) k/uL Monocytes # (Manual) (0-1.0) k/uL Chloride 112 H (98-107) mmol/L BUN 63 H (9-20) mg/dL Creatinine 2.72 H (0.66-1.25) mg/dL Glucose 106 H (74-99) mg/dL Plasma Lactic Acid Luis (0.7-2.0) mmol/L AST 66 H (17-59) U/L ALT 90 H (4-49) U/L Alkaline Phosphatase 170 H (38-126) U/L Total Protein 5.2 L (6.3-8.2) g/dL Albumin 2.9 L (3.5-5.0) g/dL Lipase (14-60) U/L Microbiology - Last 24 Hours (Table) 05/08/24 18:31 Blood Culture Gram Stain - Preliminary Blood 05/08/24 15:05 Blood Culture Gram Stain - Preliminary Blood Blood Culture - Preliminary Molecular ID
--- NOTE | 2024-05-10 17:18 | CA ---
Transthoracic Echo Report Name: Kenn Cedillo Age: 64 Gender: M : 1960 Exam Date: 05/10/2024 09:03 Exam Location: [facility] Ht (in): 73 Wt (lb): 262 Ordering Physician: Amy Medina MD Attending/Referring Phys: Annealer Antoinette Quiñonez RDCS Procedure CPT: Indications: shock Cardiac Hx: Technical Quality: Very technically difficult study Contrast 1: Definity Total Dose (mL): 2 Contrast 2: Total Dose (mL): MEASUREMENTS (Male / Female) Normal Values 2D ECHO LV Diastolic Diameter PLAX 4.4 cm 4.2 - 5.9 / 3.9 - 5.3 cm LV Systolic Diameter PLAX 3.2 cm IVS Diastolic Thickness 1.1 cm 0.6 - 1.0 / 0.6 - 0.9 cm LVPW Diastolic Thickness 1.0 cm 0.6 - 1.0 / 0.6 - 0.9 cm LV Relative Wall Thickness 0.5 RV Internal Dim ED PLAX 3.8 cm LA Systolic Diameter LX 3.5 cm 3.0 - 4.0 / 2.7 - 3.8 cm M-MODE Aortic Root Diameter MM 3.6 cm AV Cusp Separation MM 2.2 cm DOPPLER AV Peak Velocity 111.5 cm/s AV Peak Gradient 5.0 mmHg MV Area PHT 4.0 cm??? Mitral E Point Velocity 69.7 cm/s Mitral A Point Velocity 43.6 cm/s Mitral E to A Ratio 1.6 MV Deceleration Time 191.6 ms TR Peak Velocity 324.9 cm/s TR Peak Gradient 42.2 mmHg Right Ventricular Systolic Press 47.2 mmHg FINDINGS Left Ventricle Left ventricular ejection fraction is estimated at 50-55 %. Left ventricular cavity size normal. Left ventricular wall thickness normal. Right Ventricle Moderate right ventricular dilatation. Moderate pulmonary hypertension. Right ventricular systolic pressure estimated at 47 mm hg. Right Atrium Right atrium not well visualized. Left Atrium Normal left atrial size. Mitral Valve Mitral valve not well visualized. Aortic Valve Aortic valve not well visualized. Tricuspid Valve Tricuspid valve not well visualized. Mild tricuspid regurgitation. Pulmonic Valve Pulmonic valve not well visualized. Pericardium No pericardial effusion. Aorta Normal size aortic root and proximal ascending aorta. CONCLUSIONS Diagnosis diagnosis acute hypotension/shock Hyperdynamic LV with preserved function Previewed by: Dr. Juan Davenport MD (Electronically Signed) Final Date: 10 May 2024 17:17
[2024-05-10] MEDS: ONDANSETRON 4 MG TAB PO PRN (20:53)
[2024-05-11 05:45] LABS: Basophils % (A) 0 %; Eosinophils # (A) 0.3 k/uL (0-0.7); Eosinophils % (A) 2 %; HCT 30.3 % (39.0-53.0); Hypochromasia Marked; Lymphocytes # (A) 1.5 k/uL (1.0-4.8); Lymphocytes % (A) 11 %; MCH 30.1 pg (25.0-35.0); MCHC 31.1 g/dL (31.0-37.0); MCV 96.7 fL (80.0-100.0); Mean Platelet Volume 9.4; Monocytes # (A) 0.5 k/uL (0-1.0); Monocytes % (A) 3 %; Neutrophils % (A) 83 %; RBC 3.13 m/uL (4.30-5.90); WBC 14.4 k/uL (3.8-10.6)
[2024-05-11 06:05] LABS: ALT 64 U/L (4-49); AST 35 U/L (17-59); African American GFR (CKD) 38 (>60 ml/min/1.73 sqM); Albumin 2.4 g/dL (3.5-5.0); Alkaline Phosphatase 135 U/L (38-126); Anion Gap 2 mmol/L; Blood Urea Nitrogen 53 mg/dL (9-20); Calcium 8.3 mg/dL (8.4-10.2); Carbon Dioxide 25 mmol/L (22-30); Chloride 114 mmol/L (98-107); Glucose 93 mg/dL (74-99); Non-African American GFR(CKD) 33 (>60 ml/min/1.73 sqM); Potassium 3.8 mmol/L (3.5-5.1); Sodium 141 mmol/L (137-145); Total Bilirubin 0.8 mg/dL (0.2-1.3); Total Protein 4.7 g/dL (6.3-8.2)
[2024-05-11 06:06] LABS: HGB 9.4 gm/dL (13.0-17.5); Platelet Count 98 k/uL (150-450)
--- NOTE | 2024-05-11 10:01 | P.PN ---
Subjective Patient is seen in follow-up for acute kidney injury on chronic kidney disease. Renal function improved. Nonoliguric. Off Levophed this morning. On normal saline. Vital signs are stable. General: No acute distress. HEENT: Head exam is unremarkable. On nasal cannula. LUNGS: No audible rhonchi or wheezes. HEART: Rate and Rhythm are regular. ABDOMEN: Nontender. EXTREMITITES: No edema. Objective - Vital Signs Vital signs: Vital Signs Temp 96.2 F L 05/11/24 08:15 Pulse 58 L 05/11/24 08:15 Resp 10 L 05/11/24 08:15 BP 88/57 05/11/24 08:15 Pulse Ox 97 05/11/24 08:15 FiO2 Intake & Output 05/10/24 05/11/24 05/11/24 18:59 06:59 18:59 Intake Total 727.977 670.889 155 Output Total 580 680 125 Balance 147.977 -9.111 30 Weight 128.2 kg Intake: IV 280 610 155 0.9 KVO 130 60 5 Dextrose 5% in Water 1, 150 000 ml @ 150 mls/hr IV . Q7H40M [facility] with Sodium Bicarb (1 Meq/ml) 150 ml Rx#:[id number] Sodium Chloride 0.9% 1, 550 50 000 ml @ 50 mls/hr IV . Q20H [facility] Rx#:[id number] metroNIDAZOLE-NS PMX 500 100 mg In Saline 1 100ml.bag @ 100 mls/hr IVPB Q8HR [facility] Rx#:[id number] Intake, IV Titration 447.977 60.889 Amount Norepinephrine 32 mg In 47.977 10.889 Sodium Chloride 0.9% 218 ml @ 0.05 MCG/KG/MIN 2. 785 mls/hr IV .Q24H [facility] Rx#:[id number] Sodium Chloride 0.9% 1, 400 50 000 ml @ 50 mls/hr IV . Q20H [facility] Rx#:[id number] Output: Urine 580 680 125 Other: Voiding Method Indwelling Catheter Indwelling Catheter - Labs CBC & Chem 7: 05/11/24 05:29 05/11/24 05:29 Labs: Abnormal Lab Results - Last 24 Hours (Table) 05/11/24 05/11/24 Range/Units 05:29 05:29 WBC 14.4 H (3.8-10.6) k/uL RBC 3.13 L (4.30-5.90) m/uL Hgb 9.4 L D (13.0-17.5) gm/dL Hct 30.3 L (39.0-53.0) % Plt Count 98 L (150-450) k/uL Neutrophils # 12.0 H (1.3-7.7) k/uL Chloride 114 H (98-107) mmol/L BUN 53 H (9-20) mg/dL Creatinine 2.09 H (0.66-1.25) mg/dL Calcium 8.3 L (8.4-10.2) mg/dL ALT 64 H (4-49) U/L Alkaline Phosphatase 135 H (38-126) U/L Total Protein 4.7 L (6.3-8.2) g/dL Albumin 2.4 L (3.5-5.0) g/dL Microbiology - Last 24 Hours (Table) 05/09/24 11:52 Blood Culture - Preliminary Blood 05/08/24 18:31 Blood Culture Gram Stain - Preliminary Blood Blood Culture - Preliminary Escherichia coli 05/08/24 15:05 Blood Culture Gram Stain - Preliminary Blood Blood Culture - Preliminary Escherichia coli Molecular ID Assessment and Plan Plan: Assessment: 1. Acute kidney injury secondary to ATN secondary to hypotension, further worsened with the use of lisinopril. And was also taking Lasix as needed. Creatinine 4.26 on admission and is 2.09 today. Nonoliguric. No hydronephrosis noted on imaging. 2. Chronic kidney disease stage IIIb with a baseline creatinine 1.5-1.6 secondary to nephrosclerosis. 3. Septic shock maintained on Levophed and antibiotics. Blood culture positive for E. coli. 4. Metabolic acidosis secondary to lactic acidosis, acute kidney injury maintained on bicarb drip. Improved with bicarb drip. 5. A-fib with history of ablations. Plan: Maintain gentle IV hydration. Encouraged oral intake. Avoid nephrotoxins. Continue to monitor renal function and urine output.
[2024-05-11] MEDS: MIDODRINE 5 MG TAB PO SCH (10:48)
[2024-05-11] MEDS: POTASSIUM CHLORIDE ER 20 MEQ TAB.ER PO STA (10:48)
--- NOTE | 2024-05-11 11:33 | P.PN ---
Subjective Progress Note Date: 05/11/24 Principal diagnosis: Acute E. coli sepsis, septic shock, and bacteremia On 05/09/2024, patient is being seen in consultation for sepsis/hypotension. The patient presented to the Emergency Department feeling weak. On and off, he was been having abdominal pain for the past 2 to 3 months. He was having some vague mid abdominal pain which essentially has recovered. No nausea. No emesis. No diarrhea. No abdominal pain. He states that he was able to keep up with his oral and fluid intake. He has a [employer] combination of lisinopril and SPENSER inhibitors on outpatient basis. He was feeling weak. He came into the emergency department and the patient was found to be in acute kidney injury. Urine output was low. He was started on fluid resuscitation as the patient was found to have an acute kidney injury. Noted the patient's initial creatinine was at 4.26 with a BUN of 76. He also had a serum bicarb of 10. Lactic acid level is at 3.2. Mild transaminitis. Troponins were negative. Lipase was 44. There is white cell count was initially 20.8 came at 37. Hemoglobin 11.2 and a platelet count of 129. The patient was started on IV cefepime and vancomycin. Overall, he received a total of 4 L of normal saline and the patient was subsequently maintained on a bicarb drip at a rate of 150 cc an hour. Urine output improved and the creatinine is dropped from 4.26 down to 3.4 and the patient is producing urine output. Blood cultures from today is indicating positive gram-negative bacillus, likely E. coli. Chest x-ray shows no evidence of any acute abnormalities. CAT scan of the abdomen and pelvis was done in Emergency Department yesterday and it showed no acute intra-abdominal findings. The ultrasound of the abdomen was also done today. The patient has hepatomegaly and fatty liver infiltration. He is status post cholecystectomy. No other acute abnormalities were noted. Currently, the patient is on pressors. Norepinephrine was running as high as 0.3 mcg/kg/min and currently is down to 0.09. Awake and alert and communicating. He is currently in normal sinus rhythm. Room air oxygen with a pulse ox of 94%. Patient was evaluated today on 05/10/2024, remains in the ICU, remains on antibiotics in the form of Rocephin, patient required norepinephrine briefly, he is now off norepinephrine, he is off both sodium bicarb drip, patient had positive blood cultures for E. coli, and the most likely source is the urine. Urine cultures are pending. Patient is feeling better today, his leukocytosis is improving with WBC count is 22.6, his metabolic acidosis is resolving bicarb today is 23 liver enzymes are improving vancomycin was discontinued WBC count is 22.6 hemoglobin is 11, creatinine down to 2.72, his hemodynamics are stabilizing and this morning norepinephrine was discontinued. Blood pressure remains marginal but the patient has good urine output. Mean arterial pressure this morning is 65 Patient was evaluated today on 05/11/2024, patient is doing well, not requiring any pressors, norepinephrine was discontinued around 530 this a.m. Remains on Rocephin and Flagyl patient had E. coli bacteremia he is on 1 L nasal cannula, not in any distress, hemodynamically stable today. WBC count is trending down to 14.4 electrolytes are normal BUN is better down to 53 creatinine down to 2.09. Overall the patient has been dramatically improving over the last few days Objective - Vital Signs Vital signs: Vital Signs Temp 96.2 F L 05/11/24 08:15 Pulse 64 05/11/24 11:00 Resp 12 05/11/24 11:00 BP 99/68 05/11/24 11:00 Pulse Ox 93 L 05/11/24 11:00 FiO2 Intake & Output 05/10/24 05/11/24 05/11/24 18:59 06:59 18:59 Intake Total 727.977 670.889 713 Output Total 580 680 375 Balance 147.977 -9.111 338 Weight 128.2 kg Intake: IV 280 610 355 0.9 KVO 130 60 5 Cefepime 1 gm In Sodium 50 Chloride 0.9% 50 ml @ 12. 5 mls/hr IVPB Q12HR [facility] Rx#:[id number] Dextrose 5% in Water 1, 150 000 ml @ 150 mls/hr IV . Q7H40M [facility] with Sodium Bicarb (1 Meq/ml) 150 ml Rx#:[id number] Sodium Chloride 0.9% 1, 550 200 000 ml @ 50 mls/hr IV . Q20H [facility] Rx#:[id number] metroNIDAZOLE-NS PMX 500 100 mg In Saline 1 100ml.bag @ 100 mls/hr IVPB Q8HR [facility] Rx#:[id number] Intake, IV Titration 447.977 60.889 Amount Norepinephrine 32 mg In 47.977 10.889 Sodium Chloride 0.9% 218 ml @ 0.05 MCG/KG/MIN 2. 785 mls/hr IV .Q24H [facility] Rx#:[id number] Sodium Chloride 0.9% 1, 400 50 000 ml @ 50 mls/hr IV . Q20H [facility] Rx#:[id number] Oral 358 Output: Urine 580 680 375 Other: Voiding Method Indwelling Catheter Indwelling Catheter - Exam General: Revealed 64-year-old white male in no distress, on 1 L nasal cannula Derm: No rashes skin is warm dry Head: Atraumatic, normocephalic Eyes: EOMI, no lid lag, icteric sclera Mouth: Moist mucous membranes, no thrush Cardiovascular: Normal S1-S2, no S3 gallop, no murmur Lungs: Symmetrical chest expansion clear bilaterally no rhonchi no wheezes Abdominal: Soft nontender no rebound no guarding Ext: No clubbing edema or cyanosis Neuro: Alert oriented x 3 no gross focal deficit Psych: Normal mood affect and no mental status examination - Labs CBC & Chem 7: 05/11/24 05:29 05/11/24 05:29 Labs: Abnormal Lab Results - Last 24 Hours (Table) 05/11/24 05/11/24 Range/Units 05:29 05:29 WBC 14.4 H (3.8-10.6) k/uL RBC 3.13 L (4.30-5.90) m/uL Hgb 9.4 L D (13.0-17.5) gm/dL Hct 30.3 L (39.0-53.0) % Plt Count 98 L (150-450) k/uL Neutrophils # 12.0 H (1.3-7.7) k/uL Chloride 114 H (98-107) mmol/L BUN 53 H (9-20) mg/dL Creatinine 2.09 H (0.66-1.25) mg/dL Calcium 8.3 L (8.4-10.2) mg/dL ALT 64 H (4-49) U/L Alkaline Phosphatase 135 H (38-126) U/L Total Protein 4.7 L (6.3-8.2) g/dL Albumin 2.4 L (3.5-5.0) g/dL Microbiology - Last 24 Hours (Table) 05/10/24 11:46 Urine Culture - Final Urine,Catheterized 05/08/24 18:31 Blood Culture Gram Stain - Final Blood Blood Culture - Final Escherichia coli 05/08/24 15:05 Blood Culture Gram Stain - Final Blood Blood Culture - Final Escherichia coli Molecular ID 05/09/24 11:52 Blood Culture - Preliminary Blood Assessment and Plan Assessment: Impression: Acute E. coli bacteremia with sepsis and septic shock most likely source is the urine/UTI urine cultures are pending patient presented with hypotension requiring fluids followed by norepinephrine Acute kidney injury, improving Acute metabolic acidosis secondary to sepsis and septic shock resolved Paroxysmal atrial fibrillation, status post ablation the patient's cardiac rhythm is sinus Hypertension Hyperlipidemia History of gastric bypass surgery Plan: Continue to monitor in the ICU Continue present supportive care measures Continue antibiotics patient is now on Rocephin Awaiting urine cultures And potentially downgrade to a monitored bed in the next 24 hours assuming the patient does not require any pressors anymore for Will continue to follow. Time with Patient: Less than 30
--- NOTE | 2024-05-11 11:56 | P.PN ---
Subjective Progress Note Date: 05/11/24 Subjective: Patient seen and examined at bedside. No acute events overnight. Off of Levophed this morning. Pertinent positives and negatives as discussed above, a complete review of systems was performed and all other systems are negative. Vitals Signs Reviewed. General: [nontoxic], [no distress], [appears at stated age] Derm: [warm], [dry] Head: [atraumatic], [normocephalic], [symmetric] Eyes: [EOMI], [no lid lag], [anicteric sclera] Mouth: [no lip lesion], [mucus membranes moist] Cardiovascular: [S1S2 reg], [no murmur] Lungs: [CTA bilateral], [no rhonchi, no rales] , [no accessory muscle use] Abdominal: [soft], [ nontender to palpation], [no guarding], [no appreciable organomegaly] Ext: [no gross muscle atrophy], [no edema], [no contractures] Neuro: [ CN II-XI grossly intact], [no focal neuro deficits] Psych: [Alert], [oriented], [appropriate affect] Data Reviewed Today: Pertinent Labs: WBC 14.4, hemoglobin 9.4, platelet 98, creatinine 2.09, AST 35, ALT 64, ALP 135, total bili 0.8 Imaging: No new imaging Assessment and Plan: Patient is critically ill, needs close monitoring. Prognosis guarded Active #. Septic shock, secondary to E. coli bacteremia #. Lactic acidosis #. High anion gap metabolic acidosis #. Mild thrombocytopenia and normocytic anemia, likely in the setting of acute illness Possibly urinary source for E. coli bacteremia, urine cultures were taken after antibiotic administration -Repeat blood cultures negative growth to date -CT abdomen pelvis did not show any acute process IV ceftriaxone 2 g every 24 hours IV metronidazole 500 mg every 8 hours 0.9% saline at 50 cc/h for maintenance fluids Echocardiogram LVEF 50 to 55% Repeat CBC and CMP tomorrow Maintain off of pressors -ID also consulted, there is another potential bacteria identified with initial blood culture, pending further speciation #. Conjugated bilirubinemia, concerning for obstruction pathology, improving #. Transaminitis, improving Acute hepatitis panel negative Right upper quadrant ultrasound: Moderate hepatomegaly and fatty infiltration of the liver, no biliary duct dilatation #. Acute kidney injury on chronic kidney disease stage IIIa, likely prerenal Ultrasound kidney and bladder: No hydronephrosis or masses Management as above Nephrology note reviewed, continue management as above Chronic #. Atrial fibrillation status post ablation (09/08) not on anticoagulation Currently in sinus rhythm Continue telemetry monitoring #. Hypertension Hold home antihypertensives due to hypotension and shock #. Hyperlipidemia Hold home meds #. History of GI ulcers DVT prophylaxis: Heparin subcutaneous every 8 hours GI prophylaxis: Protonix IV 40 mg daily Code status: Full code Anticipated discharge place: Pending clinical course Anticipated discharge time: Pending clinical course Objective - Vital Signs Vital signs: Vital Signs Temp 96.2 F L 05/11/24 08:15 Pulse 64 05/11/24 11:00 Resp 12 05/11/24 11:00 BP 99/68 05/11/24 11:00 Pulse Ox 93 L 05/11/24 11:00 FiO2 Intake & Output 05/10/24 05/11/24 05/11/24 18:59 06:59 18:59 Intake Total 727.977 670.889 713 Output Total 580 680 375 Balance 147.977 -9.111 338 Weight 128.2 kg Intake: IV 280 610 355 0.9 KVO 130 60 5 Cefepime 1 gm In Sodium 50 Chloride 0.9% 50 ml @ 12. 5 mls/hr IVPB Q12HR [facility] Rx#:[id number] Dextrose 5% in Water 1, 150 000 ml @ 150 mls/hr IV . Q7H40M [facility] with Sodium Bicarb (1 Meq/ml) 150 ml Rx#:[id number] Sodium Chloride 0.9% 1, 550 200 000 ml @ 50 mls/hr IV . Q20H [facility] Rx#:[id number] metroNIDAZOLE-NS PMX 500 100 mg In Saline 1 100ml.bag @ 100 mls/hr IVPB Q8HR [facility] Rx#:[id number] Intake, IV Titration 447.977 60.889 Amount Norepinephrine 32 mg In 47.977 10.889 Sodium Chloride 0.9% 218 ml @ 0.05 MCG/KG/MIN 2. 785 mls/hr IV .Q24H [facility] Rx#:[id number] Sodium Chloride 0.9% 1, 400 50 000 ml @ 50 mls/hr IV . Q20H [facility] Rx#:[id number] Oral 358 Output: Urine 580 680 375 Other: Voiding Method Indwelling Catheter Indwelling Catheter - Labs CBC & Chem 7: 05/11/24 05:29 05/11/24 05:29 Labs: Abnormal Lab Results - Last 24 Hours (Table) 05/11/24 05/11/24 Range/Units 05:29 05:29 WBC 14.4 H (3.8-10.6) k/uL RBC 3.13 L (4.30-5.90) m/uL Hgb 9.4 L D (13.0-17.5) gm/dL Hct 30.3 L (39.0-53.0) % Plt Count 98 L (150-450) k/uL Neutrophils # 12.0 H (1.3-7.7) k/uL Chloride 114 H (98-107) mmol/L BUN 53 H (9-20) mg/dL Creatinine 2.09 H (0.66-1.25) mg/dL Calcium 8.3 L (8.4-10.2) mg/dL ALT 64 H (4-49) U/L Alkaline Phosphatase 135 H (38-126) U/L Total Protein 4.7 L (6.3-8.2) g/dL Albumin 2.4 L (3.5-5.0) g/dL Microbiology - Last 24 Hours (Table) 05/10/24 11:46 Urine Culture - Final Urine,Catheterized 05/08/24 18:31 Blood Culture Gram Stain - Final Blood Blood Culture - Final Escherichia coli 05/08/24 15:05 Blood Culture Gram Stain - Final Blood Blood Culture - Final Escherichia coli Molecular ID 05/09/24 11:52 Blood Culture - Preliminary Blood
[2024-05-11] MEDS: ONDANSETRON 4 MG TAB PO PRN (12:41)
[2024-05-11 23:44] VITALS: RESP 18
[2024-05-12 09:03] LABS: Basophils % (A) 0 %; Eosinophils # (A) 0.3 k/uL (0-0.7); Eosinophils % (A) 3 %; HCT 33.6 % (39.0-53.0); HGB 10.3 gm/dL (13.0-17.5); Hypochromasia Moderate; Lymphocytes # (A) 1.5 k/uL (1.0-4.8); Lymphocytes % (A) 16 %; MCH 29.6 pg (25.0-35.0); MCHC 30.8 g/dL (31.0-37.0); Mean Platelet Volume 9.3; Monocytes # (A) 0.7 k/uL (0-1.0); Monocytes % (A) 7 %; Neutrophils # (A) 6.9 k/uL (1.3-7.7); Neutrophils % (A) 72 %; Platelet Count 111 k/uL (150-450); RDW 14.7 % (11.5-15.5); WBC 9.5 k/uL (3.8-10.6)
[2024-05-12 09:16] LABS: ALT 45 U/L (4-49); AST 20 U/L (17-59); African American GFR (CKD) 44 (>60 ml/min/1.73 sqM); Albumin 2.7 g/dL (3.5-5.0); Alkaline Phosphatase 139 U/L (38-126); Anion Gap 5 mmol/L; Blood Urea Nitrogen 41 mg/dL (9-20); Calcium 8.7 mg/dL (8.4-10.2); Carbon Dioxide 23 mmol/L (22-30); Chloride 114 mmol/L (98-107); Glucose 103 mg/dL (74-99); Non-African American GFR(CKD) 38 (>60 ml/min/1.73 sqM); Potassium 3.6 mmol/L (3.5-5.1); Sodium 142 mmol/L (137-145); Total Bilirubin 0.6 mg/dL (0.2-1.3); Total Protein 5.1 g/dL (6.3-8.2)
--- NOTE | 2024-05-12 09:21 | P.CONS ---
History of Present Illness - Reason for Consult Consult date: 05/11/24 Unclear source of E. coli bacteremia Requesting physician: Sahil Salmeron - Chief Complaint Weakness dark urine x few days - History of Present Illness Patient is a 64-year-old male with a past medical history significant for atrial fibrillation kidney stones psoriasis renal insufficiency with low creatinine clearance and high risk of nephrotoxicity from certain antibiotics patient has been brought to the hospital 3 days ago for evaluation of weakness patient was complaining of feeling weak low blood pressure and high heart rate symptom has been going on for the last week or so before presentation to hospital admission urine has becoming more darker tea colored patient denies having any suprapubic or flank pain he did have some nausea but no vomiting denies having any chest pain or shortness of breath or cough or presentation to the hospital the patient was afebrile and no fever have been called subsequently patient was not tachycardic he was hypotensive requiring admission to the ICU and has been treated with a pressor support patient did have elevated white count 20,000 which is up to 37,000 on 05/09/2024 and is down to 22.6 BUN/creatinine has been elevated but trending down liver enzymes are elevated UA has been mildly positive patient did have chest x-ray no acute cardiopulmonary disease process abdominal pelvis CT no acute abnormality in the abdominal pelvis on CT patient has been treated with Rocephin and Flagyl infectious disease was consulted today concerning for E. coli bacteremia without a clear etiology Review of Systems Positive point and negatives has been mentioned in the HPI, complete review of systems was performed and all other systems are negative Past Medical History Past Medical History: Atrial Fibrillation, Musculoskeletal Disorder, Renal Disease, Skin Disorder, Thyroid Disorder Additional Past Medical History / Comment(s): psoriasis, arthritis, hx kidney stones, cast on rt wrist from recent surgery, hx cellulitis left leg History of Any Multi-Drug Resistant Organisms: None Reported Past Surgical History: Ablation, Back Surgery, Bariatric Surgery, Cholecyst ectomy, Hernia Repair, Orthopedic Surgery Additional Past Surgical History / Comment(s): BACK X2 -rods in back, CERVICAL SURG.,-Seg[facility] en Y.,hernia x 3, rt wrist surgery, abdominoplasty, cyst removed "from behind the heart", pain clinic procedures Past Anesthesia/Blood Transfusion Reactions: Previous Problems w/ Anesthesia Additional Past Anesthesia/Blood Transfusion Reaction / Comm: Pain with last pain clinic procedure 04/28/14- felt every needle going in Past Psychological History: No Psychological Hx Reported Smoking Status: Former smoker Past Alcohol Use History: Occasional Past Drug Use History: None Reported - Past Family History Mother Family Medical History: No Reported History Father Family Medical History: No Reported History Medications and Allergies Home Medications Medication Instructions Recorded Confirmed Type Lansoprazole 30 mg PO DAILY PRN 04/24/22 05/08/24 History oxyCODONE-APAP 10-325MG [Percocet 1 tab PO Q4H 04/24/22 05/08/24 History 10-325 mg] Metoprolol Succinate (ER) [Toprol 50 mg PO DAILY #60 tab 04/26/22 05/08/24 Rx XL] Furosemide [Lasix] 40 mg PO BID 08/28/22 05/08/24 History Cholecalciferol [Vitamin D3 (25 25 mcg PO DAILY 05/08/24 05/08/24 History Mcg = 1000 Iu)] Sodium Bicarbonate Tab 650 mg PO BID 05/08/24 05/08/24 History allopurinoL [Zyloprim] 100 mg PO DAILY 05/08/24 05/08/24 History lisinopriL [Zestril] 15 mg PO DAILY 05/08/24 05/08/24 History Allergies Allergy/AdvReac Type Severity Reaction Status Date / Time colchicine Allergy Nausea & Verified 05/08/24 16:01 Vomiting iron Allergy SEVERE Verified 05/08/24 16:01 PAIN, WHEN RECEIVED INJECTION OF IRON nylon Allergy SUTURES, Uncoded 05/08/24 12:24 "FESTER OUT," INFECTED Physical Exam Vitals: Vital Signs Temp Pulse Resp BP Pulse Ox 05/11/24 11:00 64 12 99/68 93 L 05/11/24 10:45 17 93/59 92 L 05/11/24 10:30 15 94/58 96 05/11/24 10:15 59 L 13 93/58 91 L 05/11/24 10:00 64 12 85/59 90 L 05/11/24 09:45 62 12 90/62 92 L 05/11/24 09:30 67 15 88/62 96 05/11/24 09:15 58 L 11 L 90/58 95 05/11/24 09:00 60 10 L 94/66 95 05/11/24 08:45 62 16 103/71 96 05/11/24 08:30 59 L 13 101/45 97 05/11/24 08:15 96.2 F L 58 L 10 L 88/57 97 05/11/24 08:10 97 05/11/24 08:00 60 12 90/56 95 05/11/24 07:45 61 10 L 87/57 94 L 05/11/24 07:30 58 L 10 L 87/59 97 05/11/24 07:15 67 12 85/57 96 05/11/24 07:00 61 12 92/61 94 L 05/11/24 06:45 67 12 88/60 95 05/11/24 06:30 69 12 93/64 96 05/11/24 06:15 60 12 98/67 94 L 05/11/24 06:00 58 L 13 101/70 98 05/11/24 05:45 53 L 14 104/73 96 05/11/24 05:30 53 L 10 L 95/72 96 05/11/24 05:15 56 L 13 95/64 98 05/11/24 05:00 53 L 11 L 89/65 96 05/11/24 04:45 52 L 11 L 94/67 95 05/11/24 04:30 56 L 14 91/60 95 05/11/24 04:15 57 L 13 90/61 94 L 05/11/24 04:00 97.7 F 57 L 11 L 89/59 94 L 05/11/24 03:45 56 L 12 90/59 93 L 05/11/24 03:30 63 12 87/54 93 L 05/11/24 03:15 61 11 L 84/58 93 L 05/11/24 03:00 59 L 14 84/52 93 L 05/11/24 02:45 61 11 L 88/52 92 L 05/11/24 02:30 57 L 11 L 88/54 92 L 05/11/24 02:15 61 12 87/56 93 L 05/11/24 02:00 64 12 89/63 93 L 05/11/24 01:45 58 L 14 85/57 95 05/11/24 01:30 63 12 85/56 95 05/11/24 01:15 69 12 89/56 95 05/11/24 01:00 71 13 86/57 92 L 05/11/24 00:45 68 13 98/59 94 L 05/11/24 00:34 59 L 14 98/59 95 05/11/24 00:30 59 L 14 90/65 97 05/11/24 00:15 64 13 94/63 96 05/11/24 00:00 97.4 F L 61 12 90/61 95 05/10/24 23:45 66 12 89/58 93 L 05/10/24 23:30 72 14 88/58 93 L 05/10/24 23:15 69 14 92/60 92 L 05/10/24 23:00 71 14 91/59 92 L 05/10/24 22:45 74 14 90/59 93 L 05/10/24 22:30 65 13 94/64 93 L 05/10/24 22:15 67 12 91/58 95 05/10/24 22:00 73 13 92/58 94 L 05/10/24 21:45 74 14 90/61 93 L 05/10/24 21:30 73 16 98/65 93 L 05/10/24 21:15 68 14 102/68 94 L 05/10/24 21:00 68 16 99/64 95 05/10/24 20:45 63 16 96/65 94 L 05/10/24 20:30 64 14 97/64 94 L 05/10/24 20:15 68 16 99/62 94 L 05/10/24 20:00 97.3 F L 65 13 100/57 94 L 05/10/24 19:45 61 14 102/64 95 05/10/24 19:30 61 12 97/59 95 05/10/24 19:15 66 13 93/62 93 L 05/10/24 19:00 64 12 98/64 95 05/10/24 18:45 62 7 L 101/66 95 05/10/24 18:30 67 15 99/65 96 05/10/24 18:15 65 16 95/64 98 05/10/24 18:00 67 13 89/57 98 05/10/24 17:45 72 13 88/57 97 05/10/24 17:30 75 16 88/56 95 05/10/24 17:15 79 18 100/67 94 L 05/10/24 17:00 63 14 103/69 97 05/10/24 16:45 66 13 88/60 97 05/10/24 16:30 60 13 93/63 97 05/10/24 16:15 62 13 96/56 96 05/10/24 16:00 98.3 F 67 14 94/61 96 05/10/24 15:45 67 17 95/60 95 05/10/24 15:30 65 16 92/62 96 05/10/24 15:15 85 21 97/58 95 05/10/24 15:00 73 15 94/57 93 L 05/10/24 14:45 75 13 95/56 94 L 05/10/24 14:30 74 15 90/59 95 05/10/24 14:15 70 17 103/71 94 L 05/10/24 14:00 66 16 97/62 97 05/10/24 13:45 70 12 90/65 96 05/10/24 13:30 67 16 105/63 97 Intake and Output 05/10/24 05/11/24 05/11/24 22:59 06:59 14:59 Intake Total 459.263 445.830 713 Output Total 385 445 375 Balance 74.263 0.830 338 Intake: IV 190 440 355 0.9 KVO 40 40 5 Cefepime 1 gm In Sodium 50 Chloride 0.9% 50 ml @ 12. 5 mls/hr IVPB Q12HR [facility] Rx#:[id number] Sodium Chloride 0.9% 1, 150 400 200 000 ml @ 50 mls/hr IV . Q20H [facility] Rx#:[id number] metroNIDAZOLE-NS PMX 500 100 mg In Saline 1 100ml.bag @ 100 mls/hr IVPB Q8HR [facility] Rx#:[id number] Intake, IV Titration 269.263 5.830 Amount Norepinephrine 32 mg In 19.263 5.830 Sodium Chloride 0.9% 218 ml @ 0.05 MCG/KG/MIN 2. 785 mls/hr IV .Q24H [facility] Rx#:[id number] Sodium Chloride 0.9% 1, 250 000 ml @ 50 mls/hr IV . Q20H [facility] Rx#:[id number] Oral 358 Output: Urine 385 445 375 Other: Voiding Method Indwelling Catheter Indwelling Catheter Weight 128.2 kg GENERAL DESCRIPTION: Middle-aged male up in the chair, no distress. No tachypnea or accessory muscle of respiration use. HEENT: Shows Pallor , no scleral icterus. Oral mucous membrane is dry. NECK: Trachea central, no thyromegaly. LUNGS: Unlabored breathing. Clear to auscultation anteriorly. No wheeze or crackle. HEART: S1, S2, regular rate and rhythm. No loud murmur ABDOMEN: Soft, no tenderness , EXTREMITIES: No edema of feet. SKIN: No rash, no masses palpable. NEUROLOGICAL: The patient is awake, alert, oriented x3, mood and affect normal. Results CBC & Chem 7: 05/12/24 08:23 05/12/24 08:23 Labs: Abnormal Lab Results - Last 24 Hours (Table) 05/11/24 05/11/24 Range/Units 05:29 05:29 WBC 14.4 H (3.8-10.6) k/uL RBC 3.13 L (4.30-5.90) m/uL Hgb 9.4 L D (13.0-17.5) gm/dL Hct 30.3 L (39.0-53.0) % Plt Count 98 L (150-450) k/uL Neutrophils # 12.0 H (1.3-7.7) k/uL Chloride 114 H (98-107) mmol/L BUN 53 H (9-20) mg/dL Creatinine 2.09 H (0.66-1.25) mg/dL Calcium 8.3 L (8.4-10.2) mg/dL ALT 64 H (4-49) U/L Alkaline Phosphatase 135 H (38-126) U/L Total Protein 4.7 L (6.3-8.2) g/dL Albumin 2.4 L (3.5-5.0) g/dL Microbiology - Last 24 Hours (Table) 05/10/24 11:46 Urine Culture - Final Urine,Catheterized 05/08/24 18:31 Blood Culture Gram Stain - Final Blood Blood Culture - Final Escherichia coli 05/08/24 15:05 Blood Culture Gram Stain - Final Blood Blood Culture - Final Escherichia coli Molecular ID 05/09/24 11:52 Blood Culture - Preliminary Blood Assessment and Plan (1) Sepsis Current Visit: Yes Status: Acute Code(s): A41.9 - SEPSIS, UNSPECIFIED ORGANISM SNOMED Code(s): 96114228 (2) UTI (urinary tract infection) Current Visit: Yes Status: Acute Code(s): N39.0 - URINARY TRACT INFECTION, SITE NOT SPECIFIED SNOMED Code(s): 19599815 (3) E coli bacteremia Current Visit: Yes Status: Acute Code(s): R78.81 - BACTEREMIA; B96.20 - UNSP ESCHERICHIA COLI THE CAUSE OF DISEASES CLASSD ELSR SNOMED Code(s): 655739395639 (4) Leukocytosis Current Visit: Yes Status: Acute Code(s): D72.829 - ELEVATED WHITE BLOOD CELL COUNT, UNSPECIFIED SNOMED Code(s): 504004394 Plan: 1patient presented to hospital with sepsis in this patient who did have elevated white count hypotension source likely urinary 2-E. coli bacteremia source is likely urinary as no other obvious focus for this bacteremia CT abdominal pelvis did not show any GI source 3-blood culture repeat has been negative so far 4-patient to continue with Rocephin 2 g daily however discontinue Flagyl We will follow on clinical condition and cultures to further adjust medication if needed Thank you for this consultation we will follow the patient along with you Dictation was produced using [email or web address] dictation software. please excuse any grammatical, word or spelling errors. Time with Patient: Greater than 30
--- NOTE | 2024-05-12 09:50 | P.PN ---
Subjective Patient is seen in follow-up for acute kidney injury on chronic kidney disease. Renal function improved. Nonoliguric. Off vasopressors. Transferred out of the ICU. Bañuelos catheter removed this morning. Has been voiding on his own. Vital signs are stable. General: No acute distress. HEENT: Head exam is unremarkable. On nasal cannula. LUNGS: No audible rhonchi or wheezes. HEART: Rate and Rhythm are regular. ABDOMEN: Nontender. EXTREMITITES: 1+ edema. Objective - Vital Signs Vital signs: Vital Signs Temp 97.6 F 05/12/24 07:54 Pulse 66 05/12/24 07:54 Resp 18 05/12/24 07:54 BP 104/69 05/12/24 07:54 Pulse Ox 97 05/12/24 07:54 FiO2 Intake & Output 05/11/24 05/12/24 05/12/24 18:59 06:59 18:59 Intake Total 1635 110 476 Output Total 720 400 Balance 915 -290 476 Weight 120.7 kg Intake: IV 815 110 0.9 KVO 15 10 Cefepime 1 gm In Sodium 50 Chloride 0.9% 50 ml @ 12. 5 mls/hr IVPB Q12HR [facility] Rx#:[id number] Sodium Chloride 0.9% 1, 550 100 000 ml @ 50 mls/hr IV . Q20H [facility] Rx#:[id number] metroNIDAZOLE-NS PMX 500 200 mg In Saline 1 100ml.bag @ 100 mls/hr IVPB Q8HR [facility] Rx#:[id number] Oral 820 476 Output: Urine 720 400 Other: Voiding Method Indwelling Catheter Indwelling Catheter - Labs CBC & Chem 7: 05/12/24 08:23 05/12/24 08:23 Labs: Abnormal Lab Results - Last 24 Hours (Table) 05/12/24 05/12/24 Range/Units 08:23 08:23 RBC 3.50 L (4.30-5.90) m/uL Hgb 10.3 L (13.0-17.5) gm/dL Hct 33.6 L (39.0-53.0) % MCHC 30.8 L (31.0-37.0) g/dL Plt Count 111 L (150-450) k/uL Chloride 114 H (98-107) mmol/L BUN 41 H (9-20) mg/dL Creatinine 1.86 H (0.66-1.25) mg/dL Glucose 103 H (74-99) mg/dL Alkaline Phosphatase 139 H (38-126) U/L Total Protein 5.1 L (6.3-8.2) g/dL Albumin 2.7 L (3.5-5.0) g/dL Microbiology - Last 24 Hours (Table) 05/09/24 11:52 Blood Culture - Preliminary Blood 05/10/24 11:46 Urine Culture - Final Urine,Catheterized 05/08/24 18:31 Blood Culture Gram Stain - Final Blood Blood Culture - Final Escherichia coli 05/08/24 15:05 Blood Culture Gram Stain - Final Blood Blood Culture - Final Escherichia coli Molecular ID Assessment and Plan Plan: Assessment: 1. Acute kidney injury secondary to ATN secondary to hypotension, further worsened with the use of lisinopril. And was also taking Lasix as needed. Creatinine 4.26 on admission and is 1.86 today. Nonoliguric. No hydronephrosis noted on imaging. 2. Chronic kidney disease stage IIIb with a baseline creatinine 1.5-1.6 secondary to nephrosclerosis. 3. Septic shock status post vasopressors. On antibiotics. Blood culture positive for E. coli. 4. Metabolic acidosis secondary to lactic acidosis, acute kidney injury maintained on bicarb drip. Improved with bicarb drip. 5. A-fib with history of ablations. 6. Volume overload. Plan: Hep-Lock IV fluids. Lasix 40 mg IV once today. Encouraged oral intake. Avoid nephrotoxins. Continue to monitor renal function and urine output. Monitor bladder scans to make sure no urinary retention.
--- NOTE | 2024-05-12 09:55 | P.PN ---
Subjective Progress Note Date: 05/12/24 No new complaints today. Breathing is good. happy to have clay catheter removed. Passed TOV, having stools, not diarrhea. Gen: In NAD, non-toxic HEENT: normocephalic, atraumatic, hearing acuity is intant, mucous membranes moist CVS: perfusing all extremities well, no pitting edema, Respiratory: symmetric chest expansion, no accessory muscle use, GI: soft, NTTP, ND, : no suprapubic tenderness, no CVA tenderness MSK/Derm: no rashes, cyanosis Neuro: CN II-XII intact, no motor weakness, Psych: cooperative, euthymic mood, judgment and insight is intact Hospital course: Patient is a 64-year-old male with past medical history significant for atrial fibrillation status post ablation (09/08) not on anticoagulation at home, chronic kidney disease stage IIIa, hypertension, and hyperlipidemia presented to the emergency department due to feeling severe fatigue. Initial EKG: Sinus tachycardia, low voltage, ventricular rate 104 bpm. Initial chest x-ray: No acute cardiopulmonary disease/process. Initial CT abdomen/pelvis: No acute abnormalities. Initial labs: WBC 20.8, hemoglobin 11.8, hematocrit 37.4, platelets 148, sodium 142, potassium 4.8, chloride 115, CO2 10, BUN 76, creatinine 4.26, lactic acid 3.2, total bilirubin 4.1, conjugated bilirubin 2.0, AST 254, ALT 177, alkaline phosphatase 171, troponin X1 <0.012, lipase 44, TSH 2.23. Initial urinalysis: 1+ protein, 2+ bilirubin, moderate leukocyte esterase, WBC 17, rare bacteria. Initial vitals: T 97.9, [place] 102 bpm, RR 22, BP 62/45, 100% O2 on room air. Pt was treated initially for septic shock, and was found to have E coli bact eremia with unclear source. Treated with ceftriaxone, flagyl, and required levophed. Quickly improved with IVF, pressors, and abx, and E coli was found to be pansensitive, so tapered down to ceftriaxone alone per ID. Active #. Septic shock, secondary to E. coli bacteremia #. Lactic acidosis #. High anion gap metabolic acidosis #. Mild thrombocytopenia and normocytic anemia, likely in the setting of acute illness Possibly urinary source for E. coli bacteremia, urine cultures were taken after antibiotic administration -Repeat blood cultures negative growth to date -CT abdomen pelvis did not show any acute process IV ceftriaxone 2 g every 24 hours IV metronidazole 500 mg every 8 hours was discontinued 0.9% saline at 50 cc/h for maintenance fluids Echocardiogram LVEF 50 to 55% Repeat CBC and CMP tomorrow Maintain off of pressors -ID also consulted, there is another potential bacteria identified with initial blood culture, pending further speciation #. Conjugated bilirubinemia, concerning for obstruction pathology, improving #. Transaminitis, improving Acute hepatitis panel negative Right upper quadrant ultrasound: Moderate hepatomegaly and fatty infiltration of the liver, no biliary duct dilatation #. Acute kidney injury on chronic kidney disease stage IIIa, likely prerenal Ultrasound kidney and bladder: No hydronephrosis or masses Management as above Nephrology note reviewed, continue management as above Chronic #. Atrial fibrillation status post ablation (09/08) not on anticoagulation Currently in sinus rhythm Continue telemetry monitoring #. Hypertension Hold home antihypertensives due to hypotension and shock #. Hyperlipidemia Hold home meds #. History of GI ulcers DVT prophylaxis: Heparin subcutaneous every 8 hours GI prophylaxis: Protonix IV 40 mg daily Code status: Full code Anticipated discharge place: Pending clinical course Anticipated discharge time: Pending clinical course Objective - Vital Signs Vital signs: Vital Signs Temp 97.6 F 05/12/24 07:54 Pulse 66 05/12/24 07:54 Resp 18 05/12/24 07:54 BP 104/69 05/12/24 07:54 Pulse Ox 97 05/12/24 07:54 FiO2 Intake & Output 05/11/24 05/12/24 05/12/24 18:59 06:59 18:59 Intake Total 1635 110 476 Output Total 720 400 Balance 915 -290 476 Weight 120.7 kg Intake: IV 815 110 0.9 KVO 15 10 Cefepime 1 gm In Sodium 50 Chloride 0.9% 50 ml @ 12. 5 mls/hr IVPB Q12HR [facility] Rx#:[id number] Sodium Chloride 0.9% 1, 550 100 000 ml @ 50 mls/hr IV . Q20H [facility] Rx#:[id number] metroNIDAZOLE-NS PMX 500 200 mg In Saline 1 100ml.bag @ 100 mls/hr IVPB Q8HR [facility] Rx#:[id number] Oral 820 476 Output: Urine 720 400 Other: Voiding Method Indwelling Catheter Indwelling Catheter - Labs CBC & Chem 7: 05/12/24 08:23 05/12/24 08:23 Labs: Abnormal Lab Results - Last 24 Hours (Table) 05/12/24 05/12/24 Range/Units 08:23 08:23 RBC 3.50 L (4.30-5.90) m/uL Hgb 10.3 L (13.0-17.5) gm/dL Hct 33.6 L (39.0-53.0) % MCHC 30.8 L (31.0-37.0) g/dL Plt Count 111 L (150-450) k/uL Chloride 114 H (98-107) mmol/L BUN 41 H (9-20) mg/dL Creatinine 1.86 H (0.66-1.25) mg/dL Glucose 103 H (74-99) mg/dL Alkaline Phosphatase 139 H (38-126) U/L Total Protein 5.1 L (6.3-8.2) g/dL Albumin 2.7 L (3.5-5.0) g/dL Microbiology - Last 24 Hours (Table) 05/09/24 11:52 Blood Culture - Preliminary Blood 05/10/24 11:46 Urine Culture - Final Urine,Catheterized 05/08/24 18:31 Blood Culture Gram Stain - Final Blood Blood Culture - Final Escherichia coli 05/08/24 15:05 Blood Culture Gram Stain - Final Blood Blood Culture - Final Escherichia coli Molecular ID
--- NOTE | 2024-05-12 11:23 | P.PN ---
Subjective Progress Note Date: 05/12/24 Principal diagnosis: Acute E. coli sepsis, septic shock, and bacteremia On 05/09/2024, patient is being seen in consultation for sepsis/hypotension. The patient presented to the Emergency Department feeling weak. On and off, he was been having abdominal pain for the past 2 to 3 months. He was having some vague mid abdominal pain which essentially has recovered. No nausea. No emesis. No diarrhea. No abdominal pain. He states that he was able to keep up with his oral and fluid intake. He has a [employer] combination of lisinopril and SPENSER inhibitors on outpatient basis. He was feeling weak. He came into the emergency department and the patient was found to be in acute kidney injury. Urine output was low. He was started on fluid resuscitation as the patient was found to have an acute kidney injury. Noted the patient's initial creatinine was at 4.26 with a BUN of 76. He also had a serum bicarb of 10. Lactic acid level is at 3.2. Mild transaminitis. Troponins were negative. Lipase was 44. There is white cell count was initially 20.8 came at 37. Hemoglobin 11.2 and a platelet count of 129. The patient was started on IV cefepime and vancomycin. Overall, he received a total of 4 L of normal saline and the patient was subsequently maintained on a bicarb drip at a rate of 150 cc an hour. Urine output improved and the creatinine is dropped from 4.26 down to 3.4 and the patient is producing urine output. Blood cultures from today is indicating positive gram-negative bacillus, likely E. coli. Chest x-ray shows no evidence of any acute abnormalities. CAT scan of the abdomen and pelvis was done in Emergency Department yesterday and it showed no acute intra-abdominal findings. The ultrasound of the abdomen was also done today. The patient has hepatomegaly and fatty liver infiltration. He is status post cholecystectomy. No other acute abnormalities were noted. Currently, the patient is on pressors. Norepinephrine was running as high as 0.3 mcg/kg/min and currently is down to 0.09. Awake and alert and communicating. He is currently in normal sinus rhythm. Room air oxygen with a pulse ox of 94%. Patient was evaluated today on 05/10/2024, remains in the ICU, remains on antibiotics in the form of Rocephin, patient required norepinephrine briefly, he is now off norepinephrine, he is off both sodium bicarb drip, patient had positive blood cultures for E. coli, and the most likely source is the urine. Urine cultures are pending. Patient is feeling better today, his leukocytosis is improving with WBC count is 22.6, his metabolic acidosis is resolving bicarb today is 23 liver enzymes are improving vancomycin was discontinued WBC count is 22.6 hemoglobin is 11, creatinine down to 2.72, his hemodynamics are stabilizing and this morning norepinephrine was discontinued. Blood pressure remains marginal but the patient has good urine output. Mean arterial pressure this morning is 65 Patient was evaluated today on 05/11/2024, patient is doing well, not requiring any pressors, norepinephrine was discontinued around 530 this a.m. Remains on Rocephin and Flagyl patient had E. coli bacteremia he is on 1 L nasal cannula, not in any distress, hemodynamically stable today. WBC count is trending down to 14.4 electrolytes are normal BUN is better down to 53 creatinine down to 2.09. Overall the patient has been dramatically improving over the last few days Patient was seen today on 05/12/2024, he is now on the medical floor, out of the ICU he was transferred last night, patient is hemodynamically stable, not in any distress, feeling great, even his chronic back pain seems to be better according to him since he has been in the hospital. His urine cultures are negative, his source of infection remains unclear, patient had an E. coli bacteremia on admission. CT of the abdomen and pelvis on admission showed no evidence of abscess even the lumbar spine was noted to be unremarkable. WBC count is down to 9.5 this is the best he has had since admission hemoglobin is 10.3 electrolytes are normal BUN is 41 creatinine steadily improving down to 1.86 today. Objective - Vital Signs Vital signs: Vital Signs Temp 97.6 F 05/12/24 07:54 Pulse 66 05/12/24 08:25 Resp 18 05/12/24 07:54 BP 104/69 05/12/24 07:54 Pulse Ox 97 05/12/24 07:54 FiO2 Intake & Output 05/11/24 05/12/24 05/12/24 18:59 06:59 18:59 Intake Total 1635 110 476 Output Total 720 400 Balance 915 -290 476 Weight 120.7 kg Intake: IV 815 110 0.9 KVO 15 10 Cefepime 1 gm In Sodium 50 Chloride 0.9% 50 ml @ 12. 5 mls/hr IVPB Q12HR [facility] Rx#:[id number] Sodium Chloride 0.9% 1, 550 100 000 ml @ 50 mls/hr IV . Q20H [facility] Rx#:[id number] metroNIDAZOLE-NS PMX 500 200 mg In Saline 1 100ml.bag @ 100 mls/hr IVPB Q8HR [facility] Rx#:[id number] Oral 820 476 Output: Urine 720 400 Other: Voiding Method Indwelling Catheter Indwelling Catheter Indwelling Catheter - Exam General: Revealed 64-year-old white male in no distress, on 2 L nasal cannula with O2 sat of 97 to 99% Derm: No rashes skin is warm dry Head: Atraumatic, normocephalic Eyes: EOMI, no lid lag, icteric sclera Mouth: Moist mucous membranes, no thrush Cardiovascular: Normal S1-S2, no S3 gallop, no murmur Lungs: Symmetrical chest expansion clear bilaterally no rhonchi no wheezes Abdominal: Soft nontender no rebound no guarding Ext: No clubbing edema or cyanosis Neuro: Alert oriented x 3 no gross focal deficit Psych: Normal mood affect and no mental status examination - Labs CBC & Chem 7: 05/12/24 08:23 05/12/24 08:23 Labs: Abnormal Lab Results - Last 24 Hours (Table) 05/12/24 05/12/24 Range/Units 08:23 08:23 RBC 3.50 L (4.30-5.90) m/uL Hgb 10.3 L (13.0-17.5) gm/dL Hct 33.6 L (39.0-53.0) % MCHC 30.8 L (31.0-37.0) g/dL Plt Count 111 L (150-450) k/uL Chloride 114 H (98-107) mmol/L BUN 41 H (9-20) mg/dL Creatinine 1.86 H (0.66-1.25) mg/dL Glucose 103 H (74-99) mg/dL Alkaline Phosphatase 139 H (38-126) U/L Total Protein 5.1 L (6.3-8.2) g/dL Albumin 2.7 L (3.5-5.0) g/dL Microbiology - Last 24 Hours (Table) 05/09/24 11:52 Blood Culture - Preliminary Blood 05/10/24 11:46 Urine Culture - Final Urine,Catheterized 05/08/24 18:31 Blood Culture Gram Stain - Final Blood Blood Culture - Final Escherichia coli 05/08/24 15:05 Blood Culture Gram Stain - Final Blood Blood Culture - Final Escherichia coli Molecular ID Assessment and Plan Assessment: Impression: Acute E. coli bacteremia with sepsis and septic shock, primary source remains unknown urine cultures came back negative so far Acute kidney injury, improving, kidney functioning is steadily better Acute metabolic acidosis secondary to sepsis and septic shock resolved Paroxysmal atrial fibrillation, status post ablation the patient's cardiac rhythm is sinus Hypertension Hyperlipidemia History of gastric bypass surgery Plan: Continue present supportive care measures Continue antibiotics patient is now on Rocephin Continue IV fluids and continue to monitor his renal status/creatinine Will continue to follow. Time with Patient: Less than 30
[2024-05-12] MEDS: FUROSEMIDE 10 MG/ML 4 ML VIAL IV STA (12:26)
--- NOTE | 2024-05-12 21:14 | P.PN ---
Subjective Progress Note Date: 05/12/24 Principal diagnosis: Reason for follow-up is E. coli UTI and bacteremia Patient is a 64-year-old male with a past medical history significant for atrial fibrillation kidney stones psoriasis renal insufficiency with low creatinine clearance and high risk of nephrotoxicity from certain antibiotics patient has been brought to the hospital for evaluation of weakness low blood pressure, did have a dark urine and subsequently blood culture positive for E. coli CT abdominal pelvis did not show any acute abnormality. On today's evaluation that is 05/12/2024,the patient denies any fever or any chills, patient is breathing comfortably on room air, the patient denies chest pain shortness of breath and no significant cough, patient denies abdominal pain, no nausea vomiting or diarrhea. Patient white count normalized to 9.5 creatinine is 1.86 Objective - Vital Signs Vital signs: Vital Signs Temp 97.6 F 05/12/24 07:54 Pulse 63 05/12/24 14:00 Resp 18 05/12/24 14:00 BP 115/75 05/12/24 12:25 Pulse Ox 97 05/12/24 12:25 FiO2 Intake & Output 05/11/24 05/12/24 05/12/24 18:59 06:59 18:59 Intake Total 1635 110 698 Output Total 720 400 700 Balance 915 -290 -2 Weight 120.7 kg Intake: IV 815 110 0.9 KVO 15 10 Cefepime 1 gm In Sodium 50 Chloride 0.9% 50 ml @ 12. 5 mls/hr IVPB Q12HR [facility] Rx#:[id number] Sodium Chloride 0.9% 1, 550 100 000 ml @ 50 mls/hr IV . Q20H [facility] Rx#:[id number] metroNIDAZOLE-NS PMX 500 200 mg In Saline 1 100ml.bag @ 100 mls/hr IVPB Q8HR [facility] Rx#:[id number] Oral 820 698 Output: Urine 720 400 700 Other: Voiding Method Indwelling Catheter Indwelling Catheter Indwelling Catheter - Exam GENERAL DESCRIPTION: Middle-age male lying in bed in no distress RESPIRATORY SYSTEM: Unlabored breathing , decreased breath sounds at bases HEART: S1 S2 regular rate and rhythm , ABDOMEN: Soft , no tenderness EXTREMITIES: Diffuse swelling to the lower extremity - Labs CBC & Chem 7: 05/12/24 08:23 05/12/24 08:23 Labs: Abnormal Lab Results - Last 24 Hours (Table) 05/12/24 05/12/24 Range/Units 08:23 08:23 RBC 3.50 L (4.30-5.90) m/uL Hgb 10.3 L (13.0-17.5) gm/dL Hct 33.6 L (39.0-53.0) % MCHC 30.8 L (31.0-37.0) g/dL Plt Count 111 L (150-450) k/uL Chloride 114 H (98-107) mmol/L BUN 41 H (9-20) mg/dL Creatinine 1.86 H (0.66-1.25) mg/dL Glucose 103 H (74-99) mg/dL Alkaline Phosphatase 139 H (38-126) U/L Total Protein 5.1 L (6.3-8.2) g/dL Albumin 2.7 L (3.5-5.0) g/dL Microbiology - Last 24 Hours (Table) 05/09/24 11:52 Blood Culture - Preliminary Blood 05/10/24 11:46 Urine Culture - Final Urine,Catheterized 05/08/24 18:31 Blood Culture Gram Stain - Final Blood Blood Culture - Final Escherichia coli 05/08/24 15:05 Blood Culture Gram Stain - Final Blood Blood Culture - Final Escherichia coli Molecular ID Assessment and Plan (1) Sepsis Current Visit: Yes Status: Acute Code(s): A41.9 - SEPSIS, UNSPECIFIED ORGANISM SNOMED Code(s): 57656486 (2) UTI (urinary tract infection) Current Visit: Yes Status: Acute Code(s): N39.0 - URINARY TRACT INFECTION, SITE NOT SPECIFIED SNOMED Code(s): 80346683 (3) E coli bacteremia Current Visit: Yes Status: Acute Code(s): R78.81 - BACTEREMIA; B96.20 - UNSP ESCHERICHIA COLI THE CAUSE OF DISEASES [facility] SNOMED Code(s): 117151472622 (4) Leukocytosis Current Visit: Yes Status: Acute Code(s): D72.829 - ELEVATED WHITE BLOOD CELL COUNT, UNSPECIFIED SNOMED Code(s): 706778854 Plan: 1patient presented to hospital with sepsis in this patient who did have elevated white count hypotension source likely urinary 2-E. 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 please excuse any grammatical, word or spelling errors. Time with Patient: Less than 30
[2024-05-13 07:14] LABS: African American GFR (CKD) 42 (>60 ml/min/1.73 sqM); Anion Gap 5 mmol/L; Blood Urea Nitrogen 36 mg/dL (9-20); Calcium 8.8 mg/dL (8.4-10.2); Carbon Dioxide 28 mmol/L (22-30); Chloride 109 mmol/L (98-107); Glucose 89 mg/dL (74-99); Non-African American GFR(CKD) 36 (>60 ml/min/1.73 sqM); Potassium 3.4 mmol/L (3.5-5.1); Sodium 142 mmol/L (137-145)
[2024-05-13 07:42] VITALS: TEMP 98.1
--- NOTE | 2024-05-13 09:32 | P.PN ---
Subjective Patient is seen in follow-up for acute kidney injury on chronic kidney disease. Renal function fairly stable. Status post IV Lasix yesterday. Admits to good urine output. Denies chest pain or shortness of breath. Vital signs are stable. General: No acute distress. HEENT: Head exam is unremarkable. On room air. LUNGS: No audible rhonchi or wheezes. HEART: Rate and Rhythm are regular. ABDOMEN: Nontender. EXTREMITITES: 1+ edema. Objective - Vital Signs Vital signs: Vital Signs Temp 98.1 F 05/13/24 07:25 Pulse 63 05/13/24 07:25 Resp 18 05/13/24 07:25 BP 125/86 05/13/24 07:25 Pulse Ox 100 05/13/24 07:25 FiO2 Intake & Output 05/12/24 05/13/24 05/13/24 18:59 06:59 18:59 Intake Total 920 150 Output Total 1475 Balance -555 150 Weight 127.7 kg Intake: Oral 920 150 Output: Urine 1475 Other: Voiding Method Indwelling Catheter Indwelling Catheter # Voids 1 # Bowel Movements 1 - Labs CBC & Chem 7: 05/12/24 08:23 05/13/24 06:29 Labs: Abnormal Lab Results - Last 24 Hours (Table) 05/13/24 Range/Units 06:29 Potassium 3.4 L (3.5-5.1) mmol/L Chloride 109 H (98-107) mmol/L BUN 36 H (9-20) mg/dL Creatinine 1.94 H (0.66-1.25) mg/dL Microbiology - Last 24 Hours (Table) 05/09/24 11:52 Blood Culture - Preliminary Blood Assessment and Plan Plan: Assessment: 1. Acute kidney injury secondary to ATN secondary to hypotension, further worsened with the use of lisinopril. And was also taking Lasix as needed. Creatinine 4.26 on admission and is stable at 1.94 today. Nonoliguric. No hydronephrosis noted on imaging. 2. Chronic kidney disease stage IIIb with a baseline creatinine 1.5-1.6 seconda ry to nephrosclerosis. 3. Septic shock status post vasopressors. On antibiotics. Blood culture po sitive for E. coli. 4. Metabolic acidosis secondary to lactic acidosis, acute kidney injury maintai johnny on bicarb drip. Improved with bicarb drip. 5. A-fib with history of ablations. 6. Volume overload. 7. Hypokalemia from diuresis. Plan: Started on oral Lasix 40 mg twice daily today. Potassium being replaced. Encouraged oral intake. Avoid nephrotoxins. Continue to monitor renal function and urine output.
--- NOTE | 2024-05-13 12:16 | P.DS ---
Providers Date of admission: 05/08/24 16:54 Attending physician: Sahil Salmeron Consults: 05/08/24 16:54 Consult Physician Stat Consulting Provider: Guerline Mcginnis Consult Reason/Comments: hypotension, alisa/ckd Do you want consulting provider notified?: Already Contacted Consult Physician Urgent Consulting Provider: Nirav Richardson Consult Reason/Comments: alisa/ckd Do you want consulting provider notified?: Yes 05/11/24 11:54 Consult Physician Routine Consulting Provider: Dani Cesar Consult Reason/Comments: unclear source of E coli bacteremia, shock Do you want consulting provider notified?: Yes Primary care physician: Stated None Hospital Course: Hospital Course: Patient is a 64-year-old male with past medical history significant for atrial fibrillation status post ablation (09/08) not on anticoagulation at home, chronic kidney disease stage IIIa, hypertension, and hyperlipidemia presented to the emergency department due to feeling severe fatigue. Initial EKG: Sinus tachycardia, low voltage, ventricular rate 104 bpm. Initial chest x-ray: No acute cardiopulmonary disease/process. Initial CT abdomen/pelvis: No acute abnormalities. Initial labs: WBC 20.8, hemoglobin 11.8, hematocrit 37.4, platelets 148, sodium 142, potassium 4.8, chloride 115, CO2 10, BUN 76, creatinine 4.26, lactic acid 3.2, total bilirubin 4.1, conjugated bilirubin 2.0, AST 254, ALT 177, alkaline phosphatase 171, troponin X1 <0.012, lipase 44, TSH 2.23. Initial urinalysis: 1+ protein, 2+ bilirubin, moderate leukocyte esterase, WBC 17, rare bacteria. Initial vitals: T 97.9, IL 102 bpm, RR 22, BP 62/45, 100% O2 on room air. Patient was treated initially for septic shock, and was found to have E. coli bacteremia with unclear source. Initially treated in the ICU with ceftriaxone, flagyl, and required levophed. He quickly improved with IVF, pressors, and antibiotics and E. coli was found to be pansensitive so tapered down to ceftriaxone alone per ID. PT/OT recommended home care PT, patient declined. Patient is medically optimized for discharge. Ceftin 500 mg PO twice daily for 5 days upon discharge. Final Diagnosis: #. E. coli bacteremia #. Septic shock, secondary to E. coli bacteremia. Resolved. #. Lactic acidosis. Resolved. #. Mild thrombocytopenia and normocytic anemia, likely in the setting of acute illness. #. Conjugated bilirubinemia and transaminitis. Improved. #. Acute kidney injury on chronic kidney disease stage IIIa, likely prerenal. Improved. #. Atrial fibrillation status post ablation (09/08), not on anticoagulation #. Hypertension #. Hyperlipidemia #. History of GI ulcers Physical examination: Vital signs reviewed. Afebrile, normotensive, 100 % O2 saturation on room air. General: Nontoxic, no distress, appears stated age, well-appearing Derm: Warm, dry, intact Head: Atraumatic, normocephalic, symmetric Eyes: EOMI, anicteric sclera Mouth: No lip lesion, mucus membranes moist Cardiovascular: S1-S2 regular, no murmur Lungs: CTA bilateral, no rhonchi, no rales, no accessory muscle use Abdominal: Soft, non-tender to palpation Extremities: No cyanosis, clubbing, 2+ pitting edema bilaterally to the knee Neuro: Alert, oriented x 3, gross neurological examination did not reveal any focal deficits. Cranial nerves II to XII grossly intact. Psych: Appropriate affect and mood I saw and evaluated the patient during the sweeney and critical portions of this encounter, and discussed the case in detail with the resident author of this note, I agree with the Assessment and Plan, and my changes, if any, are highlighted in blue. Patient Condition at Discharge: Stable Plan - Discharge Summary Discharge Rx Participant: No New Discharge Prescriptions: New cefuroxime axetiL [Ceftin] 500 mg PO BID #10 tab Continue Furosemide [Lasix] 40 mg PO BID Cholecalciferol [Vitamin D3 (25 Mcg = 1000 Iu)] 25 mcg PO DAILY lisinopriL [Zestril] 15 mg PO DAILY allopurinoL [Zyloprim] 100 mg PO DAILY Sodium Bicarbonate Tab 650 mg PO BID oxyCODONE-APAP 10-325MG [Percocet 10-325 mg] 1 tab PO Q4H Lansoprazole 30 mg PO DAILY PRN PRN Reason: acid reflux Metoprolol Succinate (ER) [Toprol XL] 50 mg PO DAILY #60 tab Discharge Medication List Lansoprazole 30 mg PO DAILY PRN 04/24/22 [History] oxyCODONE-APAP 10-325MG [Percocet 10-325 mg] 1 tab PO Q4H 04/24/22 [History] Metoprolol Succinate (ER) [Toprol XL] 50 mg PO DAILY #60 tab 04/26/22 [Rx] Furosemide [Lasix] 40 mg PO BID 08/28/22 [History] Cholecalciferol [Vitamin D3 (25 Mcg = 1000 Iu)] 25 mcg PO DAILY 05/08/24 [History] Sodium Bicarbonate Tab 650 mg PO BID 05/08/24 [History] allopurinoL [Zyloprim] 100 mg PO DAILY 05/08/24 [History] lisinopriL [Zestril] 15 mg PO DAILY 05/08/24 [History] cefuroxime axetiL [Ceftin] 500 mg PO BID #10 tab 05/13/24 [Rx] Follow up Appointment(s)/Referral(s): None,Stated [Primary Care Provider] - 1-2 days Amy Medina MD [RESIDENT] - 1 Week Nirav Richardson DO [STAFF PHYSICIAN] - 1 Week Activity/Diet/Wound Care/Special Instructions: Please followup with your primary care provider and nephrology. Discharge Disposition: HOME SELF-CARE
--- NOTE | 2024-05-13 12:18 | P.PN ---
Subjective Progress Note Date: 05/13/24 Principal diagnosis: Acute E. coli sepsis, septic shock, and bacteremia On 05/09/2024, patient is being seen in consultation for sepsis/hypotension. The patient presented to the Emergency Department feeling weak. On and off, he was been having abdominal pain for the past 2 to 3 months. He was having some vague mid abdominal pain which essentially has recovered. No nausea. No emesis. No diarrhea. No abdominal pain. He states that he was able to keep up with his oral and fluid intake. He has a [employer] combination of lisinopril and SPENSER inhibitors on outpatient basis. He was feeling weak. He came into the emergency department and the patient was found to be in acute kidney injury. Urine output was low. He was started on fluid resuscitation as the patient was found to have an acute kidney injury. Noted the patient's initial creatinine was at 4.26 with a BUN of 76. He also had a serum bicarb of 10. Lactic acid level is at 3.2. Mild transaminitis. Troponins were negative. Lipase was 44. There is white cell count was initially 20.8 came at 37. Hemoglobin 11.2 and a platelet count of 129. The patient was started on IV cefepime and vancomycin. Overall, he received a total of 4 L of normal saline and the patient was subsequently maintained on a bicarb drip at a rate of 150 cc an hour. Urine output improved and the creatinine is dropped from 4.26 down to 3.4 and the patient is producing urine output. Blood cultures from today is indicating positive gram-negative bacillus, likely E. coli. Chest x-ray shows no evidence of any acute abnormalities. CAT scan of the abdomen and pelvis was done in Emergency Department yesterday and it showed no acute intra-abdominal findings. The ultrasound of the abdomen was also done today. The patient has hepatomegaly and fatty liver infiltration. He is status post cholecystectomy. No other acute abnormalities were noted. Currently, the patient is on pressors. Norepinephrine was running as high as 0.3 mcg/kg/min and currently is down to 0.09. Awake and alert and communicating. He is currently in normal sinus rhythm. Room air oxygen with a pulse ox of 94%. Patient was evaluated today on 05/10/2024, remains in the ICU, remains on antibiotics in the form of Rocephin, patient required norepinephrine briefly, he is now off norepinephrine, he is off both sodium bicarb drip, patient had positive blood cultures for E. coli, and the most likely source is the urine. Urine cultures are pending. Patient is feeling better today, his leukocytosis is improving with WBC count is 22.6, his metabolic acidosis is resolving bicarb today is 23 liver enzymes are improving vancomycin was discontinued WBC count is 22.6 hemoglobin is 11, creatinine down to 2.72, his hemodynamics are stabilizing and this morning norepinephrine was discontinued. Blood pressure remains marginal but the patient has good urine output. Mean arterial pressure this morning is 65 Patient was evaluated today on 05/11/2024, patient is doing well, not requiring any pressors, norepinephrine was discontinued around 530 this a.m. Remains on Rocephin and Flagyl patient had E. coli bacteremia he is on 1 L nasal cannula, not in any distress, hemodynamically stable today. WBC count is trending down to 14.4 electrolytes are normal BUN is better down to 53 creatinine down to 2.09. Overall the patient has been dramatically improving over the last few days Patient was seen today on 05/12/2024, he is now on the medical floor, out of the ICU he was transferred last night, patient is hemodynamically stable, not in any distress, feeling great, even his chronic back pain seems to be better according to him since he has been in the hospital. His urine cultures are negative, his source of infection remains unclear, patient had an E. coli bacteremia on admission. CT of the abdomen and pelvis on admission showed no evidence of abscess even the lumbar spine was noted to be unremarkable. WBC count is down to 9.5 this is the best he has had since admission hemoglobin is 10.3 electrolytes are normal BUN is 41 creatinine steadily improving down to 1.86 today. Seen today on 05/13/2024, patient continues to do well, he is edematous but he has no active pulmonary symptoms, remains on treatment for his E. coli b acteremia on admission. Patient feels much better now compared to how he felt upon admission he is not in any distress, remains on diuretics for his bipedal edema patient apparently gained almost over 20 pounds since admission, Renal functioning seems to be a bit worse today with a BUN of 36 creatinine 1.94 CBC is relatively normal Objective - Vital Signs Vital signs: Vital Signs Temp 98.1 F 05/13/24 07:25 Pulse 63 05/13/24 08:00 Resp 18 05/13/24 07:25 BP 125/86 05/13/24 07:25 Pulse Ox 100 05/13/24 07:25 FiO2 Intake & Output 05/12/24 05/13/24 05/13/24 18:59 06:59 18:59 Intake Total 920 150 Output Total 1475 Balance -555 150 Weight 127.7 kg Intake: Oral 920 150 Output: Urine 1475 Other: Voiding Method Indwelling Catheter Indwelling Catheter Indwelling Catheter # Voids 1 # Bowel Movements 1 - Exam General: Revealed 64-year-old white male in no distress, on room air Derm: No rashes skin is warm dry Head: Atraumatic, normocephalic Eyes: EOMI, no lid lag, icteric sclera Mouth: Moist mucous membranes, no thrush Cardiovascular: Normal S1-S2, no S3 gallop, no murmur Lungs: Symmetrical chest expansion clear bilaterally no rhonchi no wheezes Abdominal: Soft nontender no rebound no guarding Ext: No clubbing 2+ bipedal edema no cyanosis Neuro: Alert oriented x 3 no gross focal deficit Psych: Normal mood affect and no mental status examination - Labs CBC & Chem 7: 05/12/24 08:23 05/13/24 06:29 Labs: Abnormal Lab Results - Last 24 Hours (Table) 05/13/24 Range/Units 06:29 Potassium 3.4 L (3.5-5.1) mmol/L Chloride 109 H (98-107) mmol/L BUN 36 H (9-20) mg/dL Creatinine 1.94 H (0.66-1.25) mg/dL Microbiology - Last 24 Hours (Table) 05/09/24 11:52 Blood Culture - Preliminary Blood Assessment and Plan Assessment: Impression: Acute E. coli bacteremia with sepsis and septic shock Acute kidney injury, improving, being followed by nephrology Acute metabolic acidosis secondary to sepsis and septic shock resolved Paroxysmal atrial fibrillation, status post ablation the patient's cardiac rhy thm is sinus Hypertension Hyperlipidemia History of gastric bypass surgery Plan: Continue present supportive care measures Continue antibiotics patient is now on Rocephin Gentle diuresis, would recommend cutting down the Lasix to once daily instead of 40 mg twice daily Continue IV fluids and continue to monitor his renal status/creatinine Will continue to follow. Time with Patient: Less than 30
[2024-05-13] MEDS: POTASSIUM CHLORIDE ER 20 MEQ TAB.ER PO STA (12:25)
[2024-05-13] MEDS: FUROSEMIDE 40 MG TAB PO SCH (12:26)
[2024-05-13 12:49] VITALS: BP 129/82; PULSE 62
--- NOTE | 2024-05-13 13:37 | P.PN ---
Subjective Progress Note Date: 05/13/24 Principal diagnosis: Reason for follow-up is E. coli UTI and bacteremia Patient is a 64-year-old male with a past medical history significant for atrial fibrillation kidney stones psoriasis renal insufficiency with low creatinine clearance and high risk of nephrotoxicity from certain antibiotics patient has been brought to the hospital for evaluation of weakness low blood pressure, did have a dark urine and subsequently blood culture positive for E. coli CT abdominal pelvis did not show any acute abnormality. On today's evaluation that is 05/13/2024,the patient remains to be afebrile, patient is on room air not requiring supplemental oxygen and denies any shor tness of breath no chest pain or cough.Patient denies having any nausea or vomiting, no abdominal pain did have some diarrhea, mention feeling better. Patient white count normalized to 9.5 as of yesterday, creatinine is 1.94 did blood culture has been negative. Objective - Vital Signs Vital signs: Vital Signs Temp 98.1 F 05/13/24 07:25 Pulse 63 05/13/24 07:25 Resp 18 05/13/24 07:25 BP 125/86 05/13/24 07:25 Pulse Ox 100 05/13/24 07:25 FiO2 Intake & Output 05/12/24 05/13/24 05/13/24 18:59 06:59 18:59 Intake Total 920 150 Output Total 1475 Balance -555 150 Weight 127.7 kg Intake: Oral 920 150 Output: Urine 1475 Other: Voiding Method Indwelling Catheter Indwelling Catheter # Voids 1 # Bowel Movements 1 - Exam GENERAL DESCRIPTION: Middle-age male lying in bed in no distress RESPIRATORY SYSTEM: Unlabored breathing , decreased breath sounds at bases HEART: S1 S2 regular rate and rhythm , ABDOMEN: Soft , no tenderness EXTREMITIES: Diffuse swelling to the lower extremity - Labs CBC & Chem 7: 05/12/24 08:23 05/13/24 06:29 Labs: Abnormal Lab Results - Last 24 Hours (Table) 05/13/24 Range/Units 06:29 Potassium 3.4 L (3.5-5.1) mmol/L Chloride 109 H (98-107) mmol/L BUN 36 H (9-20) mg/dL Creatinine 1.94 H (0.66-1.25) mg/dL Microbiology - Last 24 Hours (Table) 12/22/24 11:52 Blood Culture - Preliminary Blood Assessment and Plan (1) Sepsis Status: Acute Code(s): A41.9 - SEPSIS, UNSPECIFIED ORGANISM SNOMED Code(s): 56962660 (2) UTI (urinary tract infection) Status: Acute Code(s): N39.0 - URINARY TRACT INFECTION, SITE NOT SPECIFIED SNOMED Code(s): 98392397 (3) E coli bacteremia Status: Acute Code(s): R78.81 - BACTEREMIA; B96.20 - UNSP ESCHERICHIA COLI THE CAUSE OF DISEASES CLASSD ELSR SNOMED Code(s): 887265660007 (4) Leukocytosis Status: Acute Code(s): D72.829 - ELEVATED WHITE BLOOD CELL COUNT, UNSPECIFIED SNOMED Code(s): 442975109 Plan: 1patient presented to hospital with sepsis in this patient who did have lalo vated white count hypotension source likely urinary 2-E. coli bacteremia source is likely urinary as no other obvious focus for this bacteremia CT abdominal pelvis did not show any GI source 3-blood culture repeat has been negative so far 4-patient has shown clinical improvement on Rocephin, plan is to finish therapy with oral Ceftin x 10 days on discharge discussed with the resident physician, patient encouraged to increase his probiotic yogurt intake while on antibiotic Dictation was produced using [employer] dictation software. please excuse any grammatical, word or spelling errors. Time with Patient: Less than 30
== END 2024-05-13 13:16 | disposition home or self-care (01) | DRG 871 ==
LOC: EC 12:22 → 2SICU 16:54 → 3SCARD 05-11 22:40
PROVIDERS: ADMIT Student in an Organized Health Care Education/Training Program; ATTEND Student in an Organized Health Care Education/Training Program
PROC: 02HV33Z Insertion of Infusion Device into Superior Vena Cava, Percutaneous Approach (ICD-10-PCS; principal; 2024-05-09)
PROC: 3E043XZ Introduction of Vasopressor into Central Vein, Percutaneous Approach (ICD-10-PCS; 2024-05-09)
DX: A41.51 Sepsis due to Escherichia coli [E. coli] (principal); N17.0 Acute kidney failure with tubular necrosis; R65.21 Severe sepsis with septic shock; N39.0 Urinary tract infection, site not specified; D69.6 Thrombocytopenia, unspecified; N18.32 Chronic kidney disease, stage 3b; I12.9 Hypertensive chronic kidney disease with stage 1 through stage 4 chronic kidney disease, or unspecified chronic kidney disease; D64.9 Anemia, unspecified; K76.0 Fatty (change of) liver, not elsewhere classified; G89.29 Other chronic pain; E78.5 Hyperlipidemia, unspecified; I48.0 Paroxysmal atrial fibrillation; E87.6 Hypokalemia; E87.70 Fluid overload, unspecified; Z87.891 Personal history of nicotine dependence; Z79.899 Other long term (current) drug therapy; Z87.11 Personal history of peptic ulcer disease; Z98.84 Bariatric surgery status; R16.0 Hepatomegaly, not elsewhere classified
CPT/HCPCS: 36415; 71045; 71046; 74176; 76700; 76857; 80048; 80053; 80074; 80143; 80202; 81001; 82150; 82248; 82533; 83605; 83690; 83735; 83880; 84443; 84484; 85025; 85610; 85730; 87040; 87077; 87086; 87186; 87636; 93005; 93306; 94760; 96361; 96365; 96366; 96367; 96375; 99291

== ENCOUNTER 2024-05-28 01:54 | Inpatient (IN) | payer BC ==
--- NOTE | 2024-05-28 02:30 | ED ---
General Adult HPI - General Chief complaint: Abdominal Pain Stated complaint: Abdominal Pain, Low BP Time Seen by Provider: 05/28/24 02:05 Source: patient, family, RN notes reviewed, old records reviewed Mode of arrival: wheelchair Limitations: no limitations - History of Present Illness Initial comments: Patient is a 64-year-old male who presents emergency department complaining of abdominal pain. Patient was discharged home last month after an ICU stay for what seems like septic shock. Patient was discharged home on May 13, 2024. Presents today as he has been having some abdominal pain over the last few days but worsening this evening. Blood pressure was low at home as well. States the pain is lower in his abdomen, suprapubic as well as right greater than left sided lower abdominal pain. No upper abdominal pain. No chest pain or shortness of breath. Patient is on Percocets at home. He has a past medical history remarkable for atrial fibrillation, multiple abdominal surgeries, kidney disease. Denies any changes in stooling. Endorses nausea but denies vomiting. Patient is on Lasix at home as well. Presents for further evaluation at this time over concern for his abdominal discomfort. - Related Data Home Medications Medication Instructions Recorded Confirmed Lansoprazole 30 mg PO DAILY PRN 04/24/22 05/08/24 oxyCODONE-APAP 10-325MG [Percocet 1 tab PO Q4H 04/24/22 05/08/24 10-325 mg] Furosemide [Lasix] 40 mg PO BID 08/28/22 05/08/24 Cholecalciferol [Vitamin D3 (25 25 mcg PO DAILY 05/08/24 05/08/24 Mcg = 1000 Iu)] Sodium Bicarbonate Tab 650 mg PO BID 05/08/24 05/08/24 allopurinoL [Zyloprim] 100 mg PO DAILY 05/08/24 05/08/24 lisinopriL [Zestril] 15 mg PO DAILY 05/08/24 05/08/24 Previous Rx's Medication Instructions Recorded Metoprolol Succinate (ER) [Toprol 50 mg PO DAILY #60 tab 04/26/22 XL] cefuroxime axetiL [Ceftin] 500 mg PO BID #10 tab 05/13/24 Allergies Allergy/AdvReac Type Severity Reaction Status Date / Time colchicine Allergy Nausea & Verified 05/28/24 01:55 Vomiting iron Allergy SEVERE Verified 05/28/24 01:55 PAIN, WHEN RECEIVED INJECTION OF IRON nylon Allergy SUTURES, Uncoded 05/28/24 01:55 "FESTER OUT," INFECTED Review of Systems ROS Statement: Those systems with pertinent positive or pertinent negative responses have been documented in the HPI. Review of Systems: CONST: Denies fever EYES: Denies blurry vision ENT: Denies nasal congestion C/V: Denies Chest pain RESP: Denies shortness of breath GI: Endorses abdominal pain : Denies dysuria SKIN: Denies rash. MSK: Denies joint pain. NEURO: Denies headache ROS Other: All systems not noted in ROS Statement are negative. Past Medical History Past Medical History: Atrial Fibrillation, Musculoskeletal Disorder, Renal Disease, Skin Disorder, Thyroid Disorder Additional Past Medical History / Comment(s): psoriasis, arthritis, hx kidney stones, cast on rt wrist from recent surgery, hx cellulitis left leg History of Any Multi-Drug Resistant Organisms: None Reported Past Surgical History: Ablation, Back Surgery, Bariatric Surgery, Cholecystectomy, Hernia Repair, Orthopedic Surgery Additional Past Surgical History / Comment(s): BACK X2 -rods in back, CERVICAL SURG.,-Segundo en Y.,hernia x 3, rt wrist surgery, abdominoplasty, cyst removed "from behind the heart", pain clinic procedures Past Anesthesia/Blood Transfusion Reactions: Previous Problems w/ Anesthesia Additional Past Anesthesia/Blood Transfusion Reaction / Comment(s): Pain with last pain clinic procedure 04/28/14- felt every needle going in Past Psychological History: No Psychological Hx Reported Smoking Status: Former smoker Past Alcohol Use History: Occasional Past Drug Use History: None Reported - Past Family History Mother Family Medical History: No Reported History Father Family Medical History: No Reported History General Exam - General Exam Comments Initial Comments: General: Appears in mild to moderate distress secondary to abdominal pain. HEAD: Normal with no signs of head trauma. EYES: PERRLA, EOMI, conjunctiva normal, no discharge. Pupils are 3 mm and equal bilaterally. ENT: Hearing grossly intact, normal oropharynx. RESPIRATORY: Clear breath sounds bilaterally. No wheezes, rales, or rhonchi. C/V: Regular rate and rhythm. S1 and S2 auscultated, no edema, peripheral pulses 2+ and intact throughout ABD: Abdomen is soft, nondistended. Tender palpation periumbilically and in the suprapubic and bilateral lower quadrants of the abdomen. No guarding. No rebound tenderness. No peritoneal signs. EXT: Normal range of motion, no obvious deformity SKIN: No rashes or lesions observed on exposed skin. NEURO: Alert and oriented x 4. No focal deficits. Limitations: no limitations Course Vital Signs 05/28/24 05/28/24 05/28/24 01:56 03:15 03:30 Temperature 98.6 F Pulse Rate 83 93 91 Respiratory 22 18 18 Rate Blood Pressure 94/58 96/61 99/72 O2 Sat by Pulse 97 96 96 Oximetry 05/28/24 05/28/24 05/28/24 03:45 04:00 04:45 Temperature Pulse Rate 91 93 97 Respiratory 18 18 18 Rate Blood Pressure 101/79 100/65 96/63 O2 Sat by Pulse 96 95 96 Oximetry 05/28/24 05/28/24 05/28/24 05:30 06:00 06:05 Temperature Pulse Rate 98 110 H 96 Respiratory 18 18 Rate Blood Pressure 116/66 89/61 O2 Sat by Pulse 96 96 Oximetry 05/28/24 05/28/24 05/28/24 06:15 06:30 06:33 Temperature Pulse Rate 98 114 H 110 H Respiratory 18 18 Rate Blood Pressure 91/56 92/49 O2 Sat by Pulse 96 95 Oximetry 05/28/24 05/28/24 05/28/24 06:45 07:00 07:33 Temperature Pulse Rate 122 H 116 H 112 H Respiratory 18 18 18 Rate Blood Pressure 83/46 96/47 84/46 O2 Sat by Pulse 97 95 93 L Oximetry Medical Decision Making - Medical Decision Making Was pt. sent in by a medical professional or institution (, PA, TELECOMMUNICATIONS NETWORK ENGINEER, urgent care, hospital, or jail...) When possible be specific @ -No Did you speak to anyone other than the patient for history (EMS, parent, family, police, friend...)? What history was obtained from this source @ -No Did you review nursing and triage notes (agree or disagree)? Why? @ -I reviewed and agree with nursing and triage notes Were old charts reviewed (outside hosp., previous admission, EMS record, old EKG, old radiological studies, urgent care reports/EKG's, jail records)? Report findings @ -Reviewed patient's recent hospitalization from April 2024 for septic shock from bacteremia. Differential Diagnosis (chest pain, altered mental status, abdominal pain women, abdominal pain men, vaginal bleeding, weakness, fever, dyspnea, syncope, headache, dizziness, GI bleed, back pain, seizure, CVA, palpatations, mental health, musculoskeletal)? @ -Differential Abdominal Pain Men: Appendicitis, cholecystitis, diverticulosis, ischemic bowel, pancreatitis, hepatitis, UTI, gastroenteritis, AAA, incarcerated hernia, bowel obstruction, constipation, inflammatory bowel, hepatitis, peptic ulcer disease, splenic infarction, perforated viscus, testicular torsion, this is not meant to be an all-inclusive list EKG interpreted by me (3pts min.). @ -As above X-rays interpreted by me (1pt min.). @ -None done CT interpreted by me (1pt min.). @ -CT abdomen/pelvis revealed findings consistent with choledocholithiasis with multiple calcifications in the distal end of the CBD with dilation of the CBD to 2.7 cm. Patient also has a stable postsurgical changes consistent with the gastric bypass. Possible findings consistent with enteritis. No other acute findings at this time. U/S interpreted by me (1pt. min.). @ -None done What testing was considered but not performed or refused? (CT, X-rays, U/S, labs)? Why? @ -None What meds were considered but not given or refused? Why? @ -None Did you discuss the management of the patient with other professionals (professionals i.e. , PA, TELECOMMUNICATIONS NETWORK ENGINEER, lab, RT, psych nurse, social media developer, account officer, teacher, life science technical officer, business case analyst)? Give summary @ -Discussed with on-call tool and fixture repairer at [facility], Dr. Denny who recommended transfer to [facility] due to the history of gastric bypass and need for possible MRCP. Discussed with [facility], and patient was accepted by Dr. Izquierdo. Pending transfer per bed availability. Discussed with sound physician group who agreed to medical consult while patient held in our ER. Was smoking cessation discussed for >3mins.? @ -No Was critical care preformed (if so, how long)? @ -Yes, 35 minutes Were there social determinants of health that impacted care today? How? ( Homelessness, low income, unemployed, alcoholism, drug addiction, transportation, low edu. Level, literacy, decrease access to med. care, fci, rehab)? @ -No Was there de-escalation of care discussed even if they declined (Discuss DNR or withdrawal of care, Hospice)? DNR status @ -No What co-morbidities impacted this encounter? (DM, HTN, Smoking, COPD, CAD, Cancer, CVA, ARF, Chemo, Hep., AIDS, mental health diagnosis, sleep apnea, morbid obesity)? @ -None Was patient admitted / discharged? Hospital course, mention meds given and route, prescriptions, significant lab abnormalities, going to OR and other pertinent info. @ -Patient presents with abdominal pain for few days and worsening this evening. Seems to be lower abdominal pain. Vitals remarkable for softer blood pressure with blood pressure 94/58. Vital signs otherwise within acceptable limits. Patient will be administered IV fluids, IV Toradol, Protonix, Zofran, Maalox, viscous lidocaine. Will obtain abdominal workup, chest x-ray, CT. Patient was in agreement this plan.Blood pressure is on the softer side with systolics from upper 80s to upper 90s. Patient be given a 1 L fluid bolus and monitored. Patient's initial laboratory studies were all hemolyzed. Repeat confirmed patient is hyperkalemic with a potassium of 6.3. Patient had elevated BUN and creatinine which appears chronic as patient does have CKD. Patient had elevated LFTs as well as alk phos which appear acute as well as an elevated total bilirubin of 3.5. Fractionated bilirubin is ordered. No leukocytosis. Troponin is undetectable. CT imaging returned remarkable for possible enteritis however patient denies any symptoms consistent with this including denying diarrhea or nausea or vomiting. Primary complaint is pain. Patient does have a history of a remote gastric bypass surgery. Patient does have ectasia of the CBD as well as multiple calcific densities in the distal common bile duct, which are more present when compared with previous CT imaging from last month per radiologist. They are calling it findings consistent with distal choledocholithiasis. Correlated with bilirubin levels, this is a possibility. I discussed results with the patient. Patient given the hyperkalemia cocktail including Lokelma, calcium gluconate, albuterol, insulin, D50 push. Patient empirically dosed Zosyn and placed on maintenance IV fluids. Blood culture was obtained and sent. I discussed the results with him as well as his daughter. As the patient does have a history of cholecystectomy however is showing findings consistent with choledocholithiasis in the setting of elevated bilirubins and LFTs and alk phos, I do believe he requires a gastroenterology evaluation. However at our facility, we have no gastroenterology available today or over the weekend. Therefore patient requires transfer where gastroenterology is available for evaluation. Patient may require an MRCP. Patient made n.p.o. Blood pressure remained stable and improved at this time with systolics ranging from 90s to low 100s. We will continue with empiric Zosyn. Patient made n.p.o. for now. Will continue with IV fluids as well. Patient was in agreement this plan. Discussed with on-call tool and fixture repairer at [facility], Dr. Denny who recommended transfer to [facility] due to the history of gastric bypass and need for possible MRCP. Discussed with [facility], and patient was accepted by Dr. Izquierdo. Pending transfer per bed availability. Discussed with sound physician group who agreed to medical consult while patient held in our ER. Undiagnosed new problem with uncertain prognosis? @ -No Drug Therapy requiring intensive monitoring for toxicity (Heparin, Nitro, Insulin, Cardizem)? @ -No Were any procedures done? @ -No Diagnosis/symptom? @ -Abdominal pain, hyperkalemia, possible choledocholithiasis Acute, or Chronic, or Acute on Chronic? @ -Acute Uncomplicated (without systemic symptoms) or Complicated (systemic symptoms)? @ -Complicated Side effects of treatment? @ -None Exacerbation, Progression, or Severe Exacerbation] @ -No Poses a threat to life or bodily function? @ -Possibly, yes - Lab Data Result diagrams: 05/28/24 03:06 05/28/24 04:10 Lab Results 05/28/24 05/28/24 05/28/24 Range/Units 03:06 03:07 03:07 WBC 7.5 (3.8-10.6) k/uL RBC 4.23 L (4.30-5.90) m/uL Hgb 12.6 L (13.0-17.5) gm/dL Hct 41.1 (39.0-53.0) % MCV 97.2 (80.0-100.0) fL MCH 29.9 (25.0-35.0) pg MCHC 30.7 L (31.0-37.0) g/dL RDW 14.4 (11.5-15.5) % Plt Count 245 D (150-450) k/uL MPV 8.3 Neutrophils % 85 % Lymphocytes % 7 % Monocytes % 6 % Eosinophils % 1 % Basophils % 0 % Neutrophils # 6.3 (1.3-7.7) k/uL Lymphocytes # 0.5 L (1.0-4.8) k/uL Monocytes # 0.5 (0-1.0) k/uL Eosinophils # 0.1 (0-0.7) k/uL Basophils # 0.0 (0-0.2) k/uL Hypochromasia Marked PT (10.0-12.5) sec INR (<1.2) APTT (22.0-30.0) sec Sodium 138 (137-145) mmol/L Potassium 6.6 H* (3.5-5.1) mmol/L Chloride 107 (98-107) mmol/L Carbon Dioxide 23 (22-30) mmol/L Anion Gap 8 mmol/L BUN 30 H (9-20) mg/dL Creatinine 1.74 H (0.66-1.25) mg/dL Est GFR (CKD-EPI)AfAm 48 (>60 ml/min/1.73 sqM) Est GFR (CKD-EPI)NonAf 41 (>60 ml/min/1.73 sqM) Glucose 136 H (74-99) mg/dL POC Glucose (mg/dL) (70-110) mg/dL POC Glu Safekeeping Clerk ID Plasma Lactic Acid Luis 1.1 (0.7-2.0) mmol/L Calcium 9.6 (8.4-10.2) mg/dL Total Bilirubin 3.2 H (0.2-1.3) mg/dL Conjugated Bilirubin (0.0-0.3) mg/dL Unconjugated Bilirubin (0.0-1.1) mg/dL Delta Bilirubin (0.0-0.2) mg/dL AST 530 H (17-59) U/L ALT 207 H (4-49) U/L Alkaline Phosphatase 340 H (38-126) U/L Troponin I (0.000-0.034) ng/mL NT-Pro-B Natriuret Pep 176 pg/mL Total Protein 6.8 (6.3-8.2) g/dL Albumin 4.3 (3.5-5.0) g/dL Amylase 39 (30-110) U/L Lipase 70 (23-300) U/L 05/28/24 05/28/24 05/28/24 Range/Units 03:07 04:10 04:10 WBC (3.8-10.6) k/uL RBC (4.30-5.90) m/uL Hgb (13.0-17.5) gm/dL Hct (39.0-53.0) % MCV (80.0-100.0) fL MCH (25.0-35.0) pg MCHC (31.0-37.0) g/dL RDW (11.5-15.5) % Plt Count (150-450) k/uL MPV Neutrophils % % Lymphocytes % % Monocytes % % Eosinophils % % Basophils % % Neutrophils # (1.3-7.7) k/uL Lymphocytes # (1.0-4.8) k/uL Monocytes # (0-1.0) k/uL Eosinophils # (0-0.7) k/uL Basophils # (0-0.2) k/uL Hypochromasia PT 11.4 (10.0-12.5) sec INR 1.0 (<1.2) APTT 22.6 (22.0-30.0) sec Sodium 137 (137-145) mmol/L Potassium 6.3 H* (3.5-5.1) mmol/L Chloride 107 (98-107) mmol/L Carbon Dioxide 20 L (22-30) mmol/L Anion Gap 10 mmol/L BUN 29 H (9-20) mg/dL Creatinine 1.78 H (0.66-1.25) mg/dL Est GFR (CKD-EPI)AfAm 46 (>60 ml/min/1.73 sqM) Est GFR (CKD-EPI)NonAf 40 (>60 ml/min/1.73 sqM) Glucose 132 H (74-99) mg/dL POC Glucose (mg/dL) (70-110) mg/dL POC Glu Safekeeping Clerk ID Plasma Lactic Acid Luis (0.7-2.0) mmol/L Calcium 9.2 (8.4-10.2) mg/dL Total Bilirubin 3.5 H (0.2-1.3) mg/dL Conjugated Bilirubin (0.0-0.3) mg/dL Unconjugated Bilirubin (0.0-1.1) mg/dL Delta Bilirubin (0.0-0.2) mg/dL AST 423 H (17-59) U/L ALT 185 H (4-49) U/L Alkaline Phosphatase 338 H (38-126) U/L Troponin I <0.012 (0.000-0.034) ng/mL NT-Pro-B Natriuret Pep pg/mL Total Protein 6.3 (6.3-8.2) g/dL Albumin 3.8 (3.5-5.0) g/dL Amylase (30-110) U/L Lipase (23-300) U/L 05/28/24 05/28/24 05/28/24 Range/Units 04:10 05:15 06:16 WBC (3.8-10.6) k/uL RBC (4.30-5.90) m/uL Hgb (13.0-17.5) gm/dL Hct (39.0-53.0) % MCV (80.0-100.0) fL MCH (25.0-35.0) pg MCHC (31.0-37.0) g/dL RDW (11.5-15.5) % Plt Count (150-450) k/uL MPV Neutrophils % % Lymphocytes % % Monocytes % % Eosinophils % % Basophils % % Neutrophils # (1.3-7.7) k/uL Lymphocytes # (1.0-4.8) k/uL Monocytes # (0-1.0) k/uL Eosinophils # (0-0.7) k/uL Basophils # (0-0.2) k/uL Hypochromasia PT (10.0-12.5) sec INR (<1.2) APTT (22.0-30.0) sec Sodium (137-145) mmol/L Potassium (3.5-5.1) mmol/L Chloride (98-107) mmol/L Carbon Dioxide (22-30) mmol/L Anion Gap mmol/L BUN (9-20) mg/dL Creatinine (0.66-1.25) mg/dL Est GFR (CKD-EPI)AfAm (>60 ml/min/1.73 sqM) Est GFR (CKD-EPI)NonAf (>60 ml/min/1.73 sqM) Glucose (74-99) mg/dL POC Glucose (mg/dL) 171 H 116 H (70-110) mg/dL POC Glu Safekeeping Clerk ID Braeden Steele Plasma Lactic Acid Luis (0.7-2.0) mmol/L Calcium (8.4-10.2) mg/dL Total Bilirubin 3.3 H (0.2-1.3) mg/dL Conjugated Bilirubin 1.2 H (0.0-0.3) mg/dL Unconjugated Bilirubin 0.8 (0.0-1.1) mg/dL Delta Bilirubin 1.3 H (0.0-0.2) mg/dL AST (17-59) U/L ALT (4-49) U/L Alkaline Phosphatase (38-126) U/L Troponin I (0.000-0.034) ng/mL NT-Pro-B Natriuret Pep pg/mL Total Protein (6.3-8.2) g/dL Albumin (3.5-5.0) g/dL Amylase (30-110) U/L Lipase (23-300) U/L - EKG Data -: EKG Interpreted by Me EKG Comments: 12-lead Electrocardiogram Interpretation Note EKG was reviewed and interpreted by myself. 12-lead ECG performed at 0236 is interpreted by me as revealing normal sinus rhythm at a rate of 91 beats per minute. [place] is normal. [place] interval is 185 ms, QRS duration is 92 ms, QTc is 397 ms.. There were no ST or T wave abnormalities to suggest myocardial ischemia or injury. R wave progression across the precordium was satisfactory. By my interpretation this EKG is non-diagnostic for acute ischemia. Critical Care Time Critical Care Time: Yes Total Critical Care Time: 35 Disposition Clinical Impression: Choledocholithiasis, Hyperkalemia, CKD (chronic kidney disease), Abdominal pain Disposition: OTHER INSTITUTION NOT DEFINED Condition: Serious Referrals: None,Stated [Primary Care Provider] - 1-2 days Time of Disposition: 07:00 - Out of Hospital Transfer - Req. Specs Out of Hospital Transfer - Requested Specifics: Other Emergency Center (Transfer to [facility] pending bed availability for escalation of care for gastroenterology evaluation for possible findings consistent with choled ocholithiasis. We do not have gastroenterology available at our facility.)
[2024-05-28] MEDS: KETOROLAC 15 MG/ML 1 ML VIAL IVP STA (03:15)
[2024-05-28] MEDS: PANTOPRAZOLE 40 MG/10 ML VIAL IVP STA (03:18)
[2024-05-28] MEDS: SODIUM CHLORIDE 0.9% 1,000 ML IV STA ×2 (03:22→05:07)
[2024-05-28] MEDS: ONDANSETRON 4 MG/2 ML VIAL IVP STA (03:35)
[2024-05-28] MEDS: LIDOCAINE VISCOUS 2% 15 ML CUP PO ONE (03:36)
[2024-05-28] MEDS: MAG HYDROX/AL HYDROX/SIMETH 30 ML CUP PO PRN (03:36)
[2024-05-28 03:41] LABS: ALT 207 U/L (4-49); African American GFR (CKD) 48 (>60 ml/min/1.73 sqM); Albumin 4.3 g/dL (3.5-5.0); Amylase 39 U/L (30-110); Anion Gap 8 mmol/L; Blood Urea Nitrogen 30 mg/dL (9-20); Calcium 9.6 mg/dL (8.4-10.2); Carbon Dioxide 23 mmol/L (22-30); Chloride 107 mmol/L (98-107); Glucose 136 mg/dL (74-99); Lipase 70 U/L (23-300); Non-African American GFR(CKD) 41 (>60 ml/min/1.73 sqM); Sodium 138 mmol/L (137-145); Total Bilirubin 3.2 mg/dL (0.2-1.3); Total Protein 6.8 g/dL (6.3-8.2)
[2024-05-28 03:50] LABS: NT-Pro-B-Type Natriuretic Pept 176 pg/mL
[2024-05-28 04:02] LABS: AST 530 U/L (17-59); Alkaline Phosphatase 340 U/L (38-126); Potassium 6.6 mmol/L (3.5-5.1)
[2024-05-28 04:05] LABS: Basophils % (A) 0 %; Eosinophils # (A) 0.1 k/uL (0-0.7); Eosinophils % (A) 1 %; HCT 41.1 % (39.0-53.0); HGB 12.6 gm/dL (13.0-17.5); Hypochromasia Marked; Lymphocytes # (A) 0.5 k/uL (1.0-4.8); Lymphocytes % (A) 7 %; MCH 29.9 pg (25.0-35.0); MCHC 30.7 g/dL (31.0-37.0); MCV 97.2 fL (80.0-100.0); Mean Platelet Volume 8.3; Monocytes # (A) 0.5 k/uL (0-1.0); Monocytes % (A) 6 %; Neutrophils # (A) 6.3 k/uL (1.3-7.7); Neutrophils % (A) 85 %; RBC 4.23 m/uL (4.30-5.90); RDW 14.4 % (11.5-15.5); WBC 7.5 k/uL (3.8-10.6)
[2024-05-28 04:20] LABS: Platelet Count 245 k/uL (150-450)
--- NOTE | 2024-05-28 04:22 | CT ---
EXAM: CT Abdomen and Pelvis Without Intravenous Contrast CLINICAL HISTORY: Abdominal pain TECHNIQUE: Axial computed tomography images of the abdomen and pelvis without intravenous contrast. CTDI is 27.1 mGy and DLP is 1745.4 mGy-cm. This CT exam was performed using one or more of the following dose reduction techniques: automated exposure control, adjustment of the mA and/or kV according to patient size, and/or use of iterative reconstruction technique. COMPARISON: CT abdomen and pelvis without contrast dated 05/08/2024 FINDINGS: Artifacts: Scatter artifact likely related to patient's arm position. Limitations: There is respiratory artifact, which degrades image quality on multiple image slices. Lung bases: Curvilinear changes noted in the lung bases. No consolidation. ABDOMEN: Liver: Unremarkable. Gallbladder and bile ducts: Cholecystectomy. Ectasia of the common bile duct, more prominent from the previous examination, measuring up to 2.7 cm. There are multiple rounded calcific densities in the distal common bile duct near the ampulla which are more numerous from the previous examination, measuring up to 11 mm in length at the level of the ampulla (series 202; images 61-63). Pancreas: Unremarkable. No ductal dilation. Spleen: Unremarkable. No splenomegaly. Adrenals: Unremarkable. No mass. Kidneys and ureters: Stable subcentimeter nonobstructive nephrolithiasis in the left kidney. No hydronephrosis. Stomach and bowel: Stable postsurgical changes consistent with previous gastric bypass. No evidence for high-grade bowel obstruction. There is fecal appearing material within 8 postoperative small bowel loop in the anterolateral left abdomen, measuring up to 4.7 cm. Additional minimal fecal material in nondilated small bowel loops in the left pelvis. At least moderate stool burden throughout the colon. Similar colonic mucosal prominence and areas of partial decompression. No diverticulitis. PELVIS: Appendix: A normal retrocecal appendix is noted in the right lateral abdomen. Bladder: Unremarkable. No stones. Reproductive: Unremarkable as visualized. ABDOMEN and PELVIS: Intraperitoneal space: Unremarkable. No free air. No significant fluid collection. Bones/joints: Stable postoperative changes throughout the lumbar spine with posterior fusion from L2-S1 with pedicle screws and paraspinal rods. No acute osseous abnormality. No dislocation. Soft tissues: No significant overlying soft tissue abnormality. Stable postoperative changes about the anterior abdominopelvic wall. Vasculature: Unremarkable. No abdominal aortic aneurysm. Lymph nodes: Unremarkable. No enlarged lymph nodes. IMPRESSION: 1. Ectasia of the common bile duct, more prominent from the previous examination, measuring up to 2.7 cm. There are multiple rounded calcific densities in the distal common bile duct near the ampulla which are more numerous from the previous examination, measuring up to 11 mm in length at the level of the ampulla (series 202; images 61-63). Findings are most consistent with distal choledocholithiasis. Please correlate with bilirubin levels. 2. Stable postsurgical changes consistent with previous gastric bypass. No evidence for high-grade bowel obstruction. There is fecal appearing material within 8 postoperative small bowel loop in the anterolateral left abdomen, measuring up to 4.7 cm. Additional minimal fecal material in nondilated small bowel loops in the left pelvis. There is a nonspecific finding but raises the suspicion for potential enteritis with delayed transit to the small bowel. 3. At least moderate stool burden throughout the colon. Similar colonic mucosal prominence and areas of partial decompression. No diverticulitis. No free intraperitoneal fluid or pneumoperitoneum.
[2024-05-28 04:30] LABS: ALT 185 U/L (4-49); AST 423 U/L (17-59); African American GFR (CKD) 46 (>60 ml/min/1.73 sqM); Albumin 3.8 g/dL (3.5-5.0); Alkaline Phosphatase 338 U/L (38-126); Anion Gap 10 mmol/L; Blood Urea Nitrogen 29 mg/dL (9-20); Calcium 9.2 mg/dL (8.4-10.2); Carbon Dioxide 20 mmol/L (22-30); Chloride 107 mmol/L (98-107); Glucose 132 mg/dL (74-99); Non-African American GFR(CKD) 40 (>60 ml/min/1.73 sqM); Sodium 137 mmol/L (137-145); Total Bilirubin 3.5 mg/dL (0.2-1.3); Total Protein 6.3 g/dL (6.3-8.2)
[2024-05-28 04:31] LABS: Partial Thromboplastin Time 22.6 sec (22.0-30.0); Prothrombin Time 11.4 sec (10.0-12.5)
[2024-05-28 04:57] LABS: Potassium 6.3 mmol/L (3.5-5.1)
[2024-05-28 05:16] LABS: Glucose,Whole Blood 171 mg/dL (70-110)
[2024-05-28] MEDS: INSULIN REGULAR 100 UNIT/ML VIAL (IV) IV ONE (05:18)
[2024-05-28] MEDS: DEXTROSE 50% SYRINGE 50 ML IVP ONE (05:22)
[2024-05-28 05:28] LABS: Bilirubin, Conjugated 1.2 mg/dL (0.0-0.3); Bilirubin, Delta 1.3 mg/dL (0.0-0.2); Bilirubin,Unconjugated 0.8 mg/dL (0.0-1.1); Total Bilirubin 3.3 mg/dL (0.2-1.3)
[2024-05-28] MEDS: CALCIUM GLUCONATE IN NACL 1 GM in SALINE 1 100ML.BAG IVPB ONE (05:31)
[2024-05-28] MEDS: SODIUM BICARB 8.4% 50 ML SYR (1 MEQ/ML) IV ONE (05:38)
[2024-05-28] MEDS: PIPERACILLIN-TAZOBACTAM 3.375 GM in SODIUM CHLORIDE 0.9% 100 ML IVPB STA (05:40)
[2024-05-28] MEDS: ALBUTEROL NEB (CONC) 2.5 MG/0.5 ML INHALATION ONE (06:02)
[2024-05-28] MEDS: SODIUM CHLORIDE 0.9% 500 ML 500 ML IV ONE ×2 (06:06→06:54)
[2024-05-28 06:17] LABS: Glucose,Whole Blood 116 mg/dL (70-110)
[2024-05-28] MEDS: SODIUM ZIRCONIUM CYCLOSILICATE 10 GM PACKET PO ONE (06:45)
--- NOTE | 2024-05-28 08:39 | P.CONS ---
History of Present Illness - Reason for Consult Consult date: 05/28/24 - Chief Complaint abdominal pain - History of Present Illness Patient is a 64-year-old male with past medical history of A-fib status post ablation, HTN, history of bariatric surgery, CKD 3B, recent admission to our institution(discharged on 05/13/2024) for septic shock secondary to E. coli bacteremia with unclear source, who presented to the ER with abdominal pain. He gets couple times a month and recently it became worse. He describes dull achy pain that started in the right lower quadrant, no associated nausea, vomiting, chills, fever, bowel habit changes. He states that his stool is normal brown color, urine sometimes gets dark but not lately. No skin color changes, no m edication changes. Patient's blood pressure at home runs around 100 110 systolic. On my exam, patient states that the pain had gone and now he only has back pain, states that he had back surgeries in the past ER course CT abdomen pelvis: Cholecystectomy. Ectasia of the CBD more prominent from the previous examination now up to 2.7 cm with multiple rounded calcific densities in the distal CBD near the ampulla up to 11 mm, findings are consistent with distal choledocholithiasis. No evidence of high-grade bowel obstruction. Fecal material within small bowel loop, nonspecific findings suspicious for potential enteritis with delayed transit to the small bowel. At least moderate small burden throughout the colon, no diverticulitis, no free air. EKG showed sinus rhythm with HR 90s, low voltage QRS, no ischemic changes, QTc 397. Patient's lab work was significant for no leukocytosis, hemoglobin 12.6, improved from April 27.. Platelet count normal, coagulation panel normal, sodium normal, potassium 6.6, creatinine was 1.74 which appears to be near patient's baseline, AST elevated at 530, ALT 207, alkaline phosphatase 340. Conjugated bilirubin elevated 1.2, troponin negative, lipase normal, amylase normal, BNP normal. In the ER patient was given bolus of fluid, ketorolac for pain control, Protonix, hyperkalemia protocol with albuterol, calcium gluconate, IV insulin 10 units, sodium bicarb, 1 dose of Lokelma, a dose of Zosyn. Cultures obtained. Given above findings, transfer was initiated by ER to [facility] for evaluation by GI, patient was made n.p.o., our service consulted for management while awaiting bed. Patient was started on Zosyn, maintenance IVF, made n.p.o. Pertinent positives and negatives as discussed in HPI, a complete review of systems was performed and all other systems are negative. Patient seen and examined at bedside. Patient's daughter present during exam Vital signs reviewed General: nontoxic, no distress, appears at stated age Derm: warm, dry Head: atraumatic, normocephalic, symmetric Eyes: EOMI, no lid lag, anicteric sclera, pupils equal round reactive to light ENT: Nose and ears atraumatic Neck: No thyromegaly, supple Mouth: no lip lesion, mucus membranes moist Cardiovascular: S1S2 reg, no murmur, no edema Lungs: clear to auscultation bilateral, no rhonchi, no rales, no wheeze, no accessory muscle use Abdominal: soft, nontender to palpation, no guarding, no appreciable organomegaly. Surgical scars Ext: no gross muscle atrophy, muscle strength muscle strength 5 out of 5 in all 4 extremities, no contractures. Bilateral lower extremity swelling, improving per patient Neuro: CN II-XII grossly intact Psych: Alert, oriented, appropriate affect Assessment/Plan: Possible distal choledocholithiasis Abdominal pain, resolved Possible enteritis Conjugated bilirubinemia Transaminitis Elevated ALP -Presents with abdominal pain -Ectasia of the CBD more prominent from the previous examination now up to 2.7 cm with multiple rounded calcific densities in the distal CBD near the ampulla up to 11 mm, findings are consistent with distal choledocholithiasis. No evidence of high-grade bowel obstruction. Fecal material within small bowel loop, nonspecific findings suspicious for potential enteritis with delayed transit to the small bowel. At least moderate small burden throughout the colon, no diverticulitis, no free air. Acute hypokalemia CKD stage IIIb with baseline creatinine 1.51.6 secondary to nephrosclerosis -Continue IV fluids -Continue Zosyn -Awaiting transfer to [facility] -Check lactate -Repeat potassium ordered -Repeat CMP ordered of A-fib status post ablation HTN history of bariatric surgery -Holding home BP meds, holding Lasix recent admission to our institution(discharged on 05/13/2024) for septic shock secondary to E. coli bacteremia with unclear source DVT prophylaxis: scd Anticipated discharge place: [] A total of [] minutes was spent on the care of this complex patient more than 50% of the time was spent in counseling and care coordination. Past Medical History Past Medical History: Atrial Fibrillation, Musculoskeletal Disorder, Renal Disease, Skin Disorder, Thyroid Disorder Additional Past Medical History / Comment(s): psoriasis, arthritis, hx kidney stones, cast on rt wrist from recent surgery, hx cellulitis left leg History of Any Multi-Drug Resistant Organisms: None Reported Past Surgical History: Ablation, Back Surgery, Bariatric Surgery, Cholecystectomy, Hernia Repair, Orthopedic Surgery Additional Past Surgical History / Comment(s): BACK X2 -rods in back, CERVICAL SURG.,-Seg[facility].,hernia x 3, rt wrist surgery, abdominoplasty, cyst removed "from behind the heart", pain clinic procedures Past Anesthesia/Blood Transfusion Reactions: Previous Problems w/ Anesthesia Additional Past Anesthesia/Blood Transfusion Reaction / Comm: Pain with last pain clinic procedure 04/28/14- felt every needle going in Past Psychological History: No Psychological Hx Reported Smoking Status: Former smoker Past Alcohol Use History: Occasional Past Drug Use History: None Reported - Past Family History Mother Family Medical History: No Reported History Father Family Medical History: No Reported History Medications and Allergies Home Medications Medication Instructions Recorded Confirmed Type Lansoprazole 30 mg PO DAILY PRN 04/24/22 05/08/24 History oxyCODONE-APAP 10-325MG [Percocet 1 tab PO Q4H 04/24/22 05/08/24 History 10-325 mg] Metoprolol Succinate (ER) [Toprol 50 mg PO DAILY #60 tab 04/26/22 05/08/24 Rx XL] Furosemide [Lasix] 40 mg PO BID 08/28/22 05/08/24 History Cholecalciferol [Vitamin D3 (25 25 mcg PO DAILY 05/08/24 05/08/24 History Mcg = 1000 Iu)] Sodium Bicarbonate Tab 650 mg PO BID 05/08/24 05/08/24 History allopurinoL [Zyloprim] 100 mg PO DAILY 05/08/24 05/08/24 History lisinopriL [Zestril] 15 mg PO DAILY 05/08/24 05/08/24 History cefuroxime axetiL [Ceftin] 500 mg PO BID #10 tab 05/13/24 Rx Allergies Allergy/AdvReac Type Severity Reaction Status Date / Time colchicine Allergy Nausea & Verified 05/28/24 01:55 Vomiting iron Allergy SEVERE Verified 05/28/24 01:55 PAIN, WHEN RECEIVED INJECTION OF IRON nylon Allergy SUTURES, Uncoded 05/28/24 01:55 "FESTER OUT," INFECTED Physical Exam Vitals: Vital Signs Temp Pulse Resp BP Pulse Ox 05/28/24 08:05 106 H 18 90/59 96 05/28/24 07:33 112 H 18 84/46 93 L 05/28/24 07:00 116 H 18 96/47 95 05/28/24 06:45 122 H 18 83/46 97 05/28/24 06:33 110 H 05/28/24 06:30 114 H 18 92/49 95 05/28/24 06:15 98 18 91/56 96 05/28/24 06:05 96 05/28/24 06:00 110 H 18 89/61 96 05/28/24 05:30 98 18 116/66 96 05/28/24 04:45 97 18 96/63 96 05/28/24 04:00 93 18 100/65 95 05/28/24 03:45 91 18 101/79 96 05/28/24 03:30 91 18 99/72 96 05/28/24 03:15 93 18 96/61 96 05/28/24 01:56 98.6 F 83 22 94/58 97 Intake and Output 05/27/24 05/28/24 05/28/24 22:59 06:59 14:59 Other: Weight 121.109 kg Results CBC & Chem 7: 05/28/24 03:06 05/28/24 04:10 Labs: Abnormal Lab Results - Last 24 Hours (Table) 05/28/24 05/28/24 05/28/24 Range/Units 03:06 03:07 04:10 RBC 4.23 L (4.30-5.90) m/uL Hgb 12.6 L (13.0-17.5) gm/dL MCHC 30.7 L (31.0-37.0) g/dL Lymphocytes # 0.5 L (1.0-4.8) k/uL Potassium 6.6 H* 6.3 H* (3.5-5.1) mmol/L Carbon Dioxide 20 L (22-30) mmol/L BUN 30 H 29 H (9-20) mg/dL Creatinine 1.74 H 1.78 H (0.66-1.25) mg/dL Glucose 136 H 132 H (74-99) mg/dL POC Glucose (mg/dL) (70-110) mg/dL Total Bilirubin 3.2 H 3.5 H (0.2-1.3) mg/dL Conjugated Bilirubin (0.0-0.3) mg/dL Delta Bilirubin (0.0-0.2) mg/dL AST 530 H 423 H (17-59) U/L ALT 207 H 185 H (4-49) U/L Alkaline Phosphatase 340 H 338 H (38-126) U/L 05/28/24 05/28/24 05/28/24 Range/Units 04:10 05:15 06:16 RBC (4.30-5.90) m/uL Hgb (13.0-17.5) gm/dL MCHC (31.0-37.0) g/dL Lymphocytes # (1.0-4.8) k/uL Potassium (3.5-5.1) mmol/L Carbon Dioxide (22-30) mmol/L BUN (9-20) mg/dL Creatinine (0.66-1.25) mg/dL Glucose (74-99) mg/dL POC Glucose (mg/dL) 171 H 116 H (70-110) mg/dL Total Bilirubin 3.3 H (0.2-1.3) mg/dL Conjugated Bilirubin 1.2 H (0.0-0.3) mg/dL Delta Bilirubin 1.3 H (0.0-0.2) mg/dL AST (17-59) U/L ALT (4-49) U/L Alkaline Phosphatase (38-126) U/L
[2024-05-28 09:05] LABS: ALT 133 U/L (4-49); AST 281 U/L (17-59); African American GFR (CKD) 45 (>60 ml/min/1.73 sqM); Albumin 2.9 g/dL (3.5-5.0); Alkaline Phosphatase 250 U/L (38-126); Anion Gap 8 mmol/L; Blood Urea Nitrogen 29 mg/dL (9-20); Calcium 8.6 mg/dL (8.4-10.2); Carbon Dioxide 22 mmol/L (22-30); Chloride 109 mmol/L (98-107); Glucose 136 mg/dL (74-99); Non-African American GFR(CKD) 39 (>60 ml/min/1.73 sqM); Potassium 4.8 mmol/L (3.5-5.1); Sodium 139 mmol/L (137-145); Total Bilirubin 3.5 mg/dL (0.2-1.3); Total Protein 5.1 g/dL (6.3-8.2)
[2024-05-28] MEDS: PIPERACILLIN-TAZOBACTAM 3.375 GM in SODIUM CHLORIDE 0.9% 100 ML IVPB SCH (13:23)
[2024-05-28] MEDS: MORPHINE SULFATE 2 MG/ML SYRINGE IVP PRN ×2 (14:16→18:32)
[2024-05-28 14:43] LABS: ALT 134 U/L (4-49); AST 238 U/L (17-59); African American GFR (CKD) 44 (>60 ml/min/1.73 sqM); Albumin 3.2 g/dL (3.5-5.0); Alkaline Phosphatase 259 U/L (38-126); Anion Gap 9 mmol/L; Blood Urea Nitrogen 29 mg/dL (9-20); Calcium 8.9 mg/dL (8.4-10.2); Carbon Dioxide 22 mmol/L (22-30); Chloride 109 mmol/L (98-107); Glucose 90 mg/dL (74-99); Non-African American GFR(CKD) 38 (>60 ml/min/1.73 sqM); Potassium 5.1 mmol/L (3.5-5.1); Sodium 140 mmol/L (137-145); Total Bilirubin 4.4 mg/dL (0.2-1.3); Total Protein 5.6 g/dL (6.3-8.2)
[2024-05-28 17:48] LABS: Appearance,Urine Clear (Clear); Bilirubin,Urine 1+ (Negative); Blood,Urine Negative (Negative); Color,Urine Yellow; Glucose,Urine (UA) Negative (Negative); Ketones,Urine Negative (Negative); Leukocyte Esterase,Urine Negative (Negative); Nitrite,Urine Negative (Negative); PH, Urine 5.5 (5.0-8.0); Protein,Urine Trace (Negative); Specific Gravity,Urine 1.017 (1.001-1.035); Urobilinogen,Urine <2.0 mg/dL (<2.0)
[2024-05-29] MEDS: oxyCODONE-APAP 10-325MG 1 EACH TAB PO SCH (01:45)
[2024-05-29] MEDS: GABAPENTIN 300 MG CAP PO STA (01:46)
[2024-05-29 09:45] LABS: Basophils % (A) 1 %; Eosinophils # (A) 0.3 k/uL (0-0.7); Eosinophils % (A) 4 %; HCT 35.3 % (39.0-53.0); HGB 11.2 gm/dL (13.0-17.5); Hypochromasia Moderate; Lymphocytes # (A) 1.2 k/uL (1.0-4.8); Lymphocytes % (A) 19 %; MCH 30.5 pg (25.0-35.0); MCHC 31.6 g/dL (31.0-37.0); MCV 96.4 fL (80.0-100.0); Mean Platelet Volume 8.4; Monocytes # (A) 0.5 k/uL (0-1.0); Monocytes % (A) 8 %; Neutrophils # (A) 4.1 k/uL (1.3-7.7); Neutrophils % (A) 66 %; Platelet Count 174 k/uL (150-450); RBC 3.67 m/uL (4.30-5.90); RDW 14.6 % (11.5-15.5); WBC 6.2 k/uL (3.8-10.6)
[2024-05-29 10:02] LABS: ALT 102 U/L (4-49); AST 126 U/L (17-59); African American GFR (CKD) 56 (>60 ml/min/1.73 sqM); Albumin 3.1 g/dL (3.5-5.0); Alkaline Phosphatase 248 U/L (38-126); Anion Gap 8 mmol/L; Blood Urea Nitrogen 24 mg/dL (9-20); Calcium 8.9 mg/dL (8.4-10.2); Carbon Dioxide 19 mmol/L (22-30); Chloride 114 mmol/L (98-107); Glucose 74 mg/dL (74-99); Non-African American GFR(CKD) 49 (>60 ml/min/1.73 sqM); Sodium 141 mmol/L (137-145); Total Bilirubin 3.4 mg/dL (0.2-1.3); Total Protein 5.5 g/dL (6.3-8.2)
--- NOTE | 2024-05-29 13:06 | XR ---
EXAMINATION TYPE: XR ankle complete LT DATE OF EXAM: 05/29/2024 12:56 PM COMPARISON: Left tibia and fibula 09/06/2019. CLINICAL INDICATION: Male, 64 years old with history of acute ankle pain, inflammatory arthritis/gout ?, pain TECHNIQUE: 3 view(s) obtained. FINDINGS: There is mild soft tissue swelling over the medial malleolus with milder soft tissue swelling lateral ly. Findings however appears stable from comparison. The ankle mortise is intact. No acute fracture or dislocation evident. Tiny calcaneal heel spurs may be present. No suspicious erosions or calcifications. Follow up exams can be performed 7-10 days from acute trauma for continued pain. IMPRESSION: 1. No acute osseous abnormality radiographically apparent. [facility], , 05/29/2024 1:03 PM
--- NOTE | 2024-05-29 14:02 | P.PN ---
Subjective Progress Note Date: 05/29/24 Hospital Course: Patient is a 64-year-old male with past medical history of A-fib status post a blation, HTN, history of bariatric surgery, CKD 3B, recent admission to our institution(discharged on 05/13/2024) for septic shock secondary to E. coli bacteremia with unclear source, who presented to the ER with abdominal pain. He gets couple times a month and recently it became worse. He describes dull achy pain that started in the right lower quadrant, no associated nausea, vomiting, chills, fever, bowel habit changes. He states that his stool is normal brown color, urine sometimes gets dark but not lately. No skin color changes, no medication changes. Patient's blood pressure at home runs around 100 110 systolic. On my exam, patient states that the pain had gone and now he only has back pain, states that he had back surgeries in the past ER course CT abdomen pelvis: Cholecystectomy. Ectasia of the CBD more prominent from the previous examination now up to 2.7 cm with multiple rounded calcific densities in the distal CBD near the ampulla up to 11 mm, findings are consistent with distal choledocholithiasis. No evidence of high-grade bowel obstruction. Fecal material within small bowel loop, nonspecific findings suspicious for potential enteritis with delayed transit to the small bowel. At least moderate small burden throughout the colon, no diverticulitis, no free air. EKG showed sinus rhythm with HR 90s, low voltage QRS, no ischemic changes, QTc 397. Patient's lab work was significant for no leukocytosis, hemoglobin 12.6, improved from April 27.3. Platelet count normal, coagulation panel normal, sodium normal, potassium 6.6, creatinine was 1.74 which appears to be near patient's baseline, AST elevated at 530, ALT 207, alkaline phosphatase 340. Conjugated bilirubin elevated 1.2, troponin negative, lipase normal, amylase normal, BNP normal. In the ER patient was given bolus of fluid, ketorolac for pain control, Protonix, hyperkalemia protocol with albuterol, calcium gluconate, IV insulin 10 units, sodium bicarb, 1 dose of Lokelma, a dose of Zosyn. Cultures obtained. Given above findings, transfer was initiated by ER to [facility] for evaluation by GI, patient was made n.p.o., our service consulted for management while awaiting bed. Patient was started on Zosyn, maintenance IVF, made n.p.o. 05/29: Patient is still waiting for bed, abdominal pain resolved, LFT trending down, started on CLD, discontinued IV fluids She was complaining of left ankle pain, has known history of gout, does not take allopurinol, ordered uric acid and x-ray. X-ray showed mild soft tissue swelling no suspicious erosions or calcifications. Pertinent Imaging: X-ray showed mild soft tissue swelling no suspicious erosions or calcifications. Subjective: Seen and examined at bedside in the ER, patient's family present. Patient states that his abdominal pain has resolved, he was complaining of chronic lower back pain, and new bilateral feet pain especially left ankle pain, states that he feels like his gout flare. Pertinent positives and negatives as discussed above, a complete review of systems was performed and all other systems are negative. Vitals Signs Reviewed. General: nontoxic, no distress, appears at stated age Derm: warm, dry Head: atraumatic, normocephalic, symmetric Eyes: EOMI, no lid lag, anicteric sclera, pupils equal round reactive to light ENT: Nose and ears atraumatic Neck: No thyromegaly, supple Mouth: no lip lesion, mucus membranes moist Cardiovascular: S1S2 reg, no murmur, no edema Lungs: clear to auscultation bilateral, no rhonchi, no rales, no wheeze, no accessory muscle use Abdominal: soft, nontender to palpation, no guarding, no appreciable organomegaly. Surgical scars Ext: no gross muscle atrophy, muscle strength muscle strength 5 out of 5 in all 4 extremities, no contractures. Bilateral lower extremity swelling, improving per patient. Left ankle tenderness Neuro: CN II-XII grossly intact Psych: Alert, oriented, appropriate affect Data Reviewed Today: Pertinent Labs: WBC 6.2, hemoglobin 11.2, platelets normal, sodium and potassium normal, creatinine improved to 152, LFT trending down AST 126, ALT 102 Assessment and Plan: Possible distal choledocholithiasis Abdominal pain, resolved Possible enteritis Conjugated bilirubinemia Transaminitis Elevated ALP Acute hypokalemia CKD stage IIIb with baseline creatinine 1.51.6 secondary to nephrosclerosis -Presents with abdominal pain -Ectasia of the CBD more prominent from the previous examination now up to 2.7 cm with multiple rounded calcific densities in the distal CBD near the ampulla up to 11 mm, findings are consistent with distal choledocholithiasis. No evidence of high-grade bowel obstruction. Fecal material within small bowel loop, nonspecific findings suspicious for potential enteritis with delayed transit to the small bowel. At least moderate small burden throughout the colon, no diverticulitis, no free air. -disContinue IV fluids, start CLD -Continue Zosyn -Awaiting transfer to [facility] -Repeat CMP ordered, creatinine improved, AST and LFT trending down of A-fib status post ablation HTN: Continue to hold home BP meds, patient blood pressure is borderline history of bariatric surgery -Holding home BP meds, holding Lasix recent admission to our institution(discharged on 05/13/2024) for septic shock secondary to E. coli bacteremia with unclear source Bilateral feet pain, left ankle pain -Left ankle x-ray nonrevealing, there is soft tissue swelling -Uric acid pending DVT prophylaxis: scd Objective - Vital Signs Vital signs: Vital Signs Temp 98.6 F 05/28/24 01:56 Pulse 87 05/29/24 13:44 Resp 16 05/29/24 13:44 BP 115/75 05/29/24 13:44 Pulse Ox 97 05/29/24 13:44 FiO2 - Labs CBC & Chem 7: 05/29/24 09:37 05/29/24 09:37 Labs: Abnormal Lab Results - Last 24 Hours (Table) 05/28/24 05/28/24 05/29/24 Range/Units 03:11 14:09 09:37 RBC (4.30-5.90) m/uL Hgb (13.0-17.5) gm/dL Hct (39.0-53.0) % Chloride 109 H 114 H (98-107) mmol/L Carbon Dioxide 19 L (22-30) mmol/L BUN 29 H 24 H (9-20) mg/dL Creatinine 1.85 H 1.52 H (0.66-1.25) mg/dL Total Bilirubin 4.4 H 3.4 H (0.2-1.3) mg/dL AST 238 H 126 H (17-59) U/L ALT 134 H 102 H (4-49) U/L Alkaline Phosphatase 259 H 248 H (38-126) U/L Total Protein 5.6 L 5.5 L (6.3-8.2) g/dL Albumin 3.2 L 3.1 L (3.5-5.0) g/dL Urine Protein Trace H (Negative) Urine Bilirubin 1+ H (Negative) 05/29/24 Range/Units 09:37 RBC 3.67 L (4.30-5.90) m/uL Hgb 11.2 L (13.0-17.5) gm/dL Hct 35.3 L (39.0-53.0) % Chloride (98-107) mmol/L Carbon Dioxide (22-30) mmol/L BUN (9-20) mg/dL Creatinine (0.66-1.25) mg/dL Total Bilirubin (0.2-1.3) mg/dL AST (17-59) U/L ALT (4-49) U/L Alkaline Phosphatase (38-126) U/L Total Protein (6.3-8.2) g/dL Albumin (3.5-5.0) g/dL Urine Protein (Negative) Urine Bilirubin (Negative) Microbiology - Last 24 Hours (Table) 05/28/24 03:00 Blood Culture - Preliminary Blood
[2024-05-29] MEDS: predniSONE 10 MG TAB PO STA (15:34)
[2024-05-29] MEDS: GABAPENTIN 300 MG CAP PO SCH (15:37)
[2024-05-29] MEDS: SODIUM BICARBONATE TAB 650 MG TAB PO SCH (21:58)
[2024-05-30 08:32] LABS: Basophils % (A) 0 %; Eosinophils % (A) 1 %; HCT 34.9 % (39.0-53.0); Hypochromasia Moderate; Lymphocytes # (A) 1.1 k/uL (1.0-4.8); Lymphocytes % (A) 18 %; MCH 30.5 pg (25.0-35.0); MCHC 31.5 g/dL (31.0-37.0); MCV 96.8 fL (80.0-100.0); Mean Platelet Volume 8.9; Monocytes # (A) 0.3 k/uL (0-1.0); Monocytes % (A) 5 %; Neutrophils # (A) 4.7 k/uL (1.3-7.7); Neutrophils % (A) 75 %; Platelet Count 201 k/uL (150-450); RBC 3.61 m/uL (4.30-5.90); RDW 14.4 % (11.5-15.5); WBC 6.3 k/uL (3.8-10.6)
[2024-05-30 08:43] LABS: ALT 75 U/L (4-49); AST 61 U/L (17-59); African American GFR (CKD) 54 (>60 ml/min/1.73 sqM); Albumin 3.3 g/dL (3.5-5.0); Alkaline Phosphatase 219 U/L (38-126); Anion Gap 7 mmol/L; Blood Urea Nitrogen 22 mg/dL (9-20); Calcium 9.7 mg/dL (8.4-10.2); Carbon Dioxide 22 mmol/L (22-30); Chloride 108 mmol/L (98-107); Glucose 122 mg/dL (74-99); Non-African American GFR(CKD) 47 (>60 ml/min/1.73 sqM); Potassium 4.7 mmol/L (3.5-5.1); Sodium 137 mmol/L (137-145); Total Bilirubin 1.2 mg/dL (0.2-1.3); Total Protein 5.9 g/dL (6.3-8.2)
[2024-05-30] MEDS ORDERED: FUROSEMIDE 20 MG TAB PO SCH (10:15)
[2024-05-30] MEDS: predniSONE 10 MG TAB PO SCH (10:35)
[2024-05-30] MEDS: LORATADINE 10 MG TAB PO STA (10:35)
--- NOTE | 2024-05-30 13:36 | P.PN ---
Subjective Progress Note Date: 05/30/24 Hospital Course: Patient is a 64-year-old male with past medical history of A-fib status post a blation, HTN, history of bariatric surgery, CKD 3B, recent admission to our institution(discharged on 05/13/2024) for septic shock secondary to E. coli bacteremia with unclear source, who presented to the ER with abdominal pain. He gets couple times a month and recently it became worse. He describes dull achy pain that started in the right lower quadrant, no associated nausea, vomiting, chills, fever, bowel habit changes. He states that his stool is normal brown color, urine sometimes gets dark but not lately. No skin color changes, no medication changes. Patient's blood pressure at home runs around 100 110 systolic. On my exam, patient states that the pain had gone and now he only has back pain, states that he had back surgeries in the past ER course CT abdomen pelvis: Cholecystectomy. Ectasia of the CBD more prominent from the previous examination now up to 2.7 cm with multiple rounded calcific densities in the distal CBD near the ampulla up to 11 mm, findings are consistent with distal choledocholithiasis. No evidence of high-grade bowel obstruction. Fecal material within small bowel loop, nonspecific findings suspicious for potential enteritis with delayed transit to the small bowel. At least moderate small burden throughout the colon, no diverticulitis, no free air. EKG showed sinus rhythm with HR 90s, low voltage QRS, no ischemic changes, QTc 397. Patient's lab work was significant for no leukocytosis, hemoglobin 12.6, improved from April 27.3. Platelet count normal, coagulation panel normal, sodium normal, potassium 6.6, creatinine was 1.74 which appears to be near patient's baseline, AST elevated at 530, ALT 207, alkaline phosphatase 340. Conjugated bilirubin elevated 1.2, troponin negative, lipase normal, amylase normal, BNP normal. In the ER patient was given bolus of fluid, ketorolac for pain control, Protonix, hyperkalemia protocol with albuterol, calcium gluconate, IV insulin 10 units, sodium bicarb, 1 dose of Lokelma, a dose of Zosyn. Cultures obtained. Given above findings, transfer was initiated by ER to [facility] for evaluation by GI, patient was made n.p.o., our service consulted for management while awaiting bed. Patient was started on Zosyn, maintenance IVF, made n.p.o. 05/29: Patient is still waiting for bed, abdominal pain resolved, LFT trending down, started on CLD, discontinued IV fluids he was complaining of left ankle pain, has known history of gout, does not take allopurinol, ordered uric acid and x-ray. X-ray showed mild soft tissue swelling no suspicious erosions or calcifications. Uric acid level normal 03/30: Patient denies any nausea, vomiting, abdominal discomfort, has regular bowel movements. Ankle pain improved, ready to try some regular diet. Will discontinue Zosyn no signs of infection, minimal symptoms have resolved completely. Pertinent Imaging: Imaging Subjective: Patient feels better today, has some ankle pain but is able to put some weight on it Pertinent positives and negatives as discussed above, a complete review of systems was performed and all other systems are negative. Vitals Signs Reviewed. General: nontoxic, no distress, appears at stated age Derm: warm, dry Head: atraumatic, normocephalic, symmetric Eyes: EOMI, no lid lag, anicteric sclera, pupils equal round reactive to light ENT: Nose and ears atraumatic Neck: No thyromegaly, supple Mouth: no lip lesion, mucus membranes moist Cardiovascular: S1S2 reg, no murmur, no edema Lungs: clear to auscultation bilateral, no rhonchi, no rales, no wheeze, no accessory muscle use Abdominal: soft, nontender to palpation, no guarding, no appreciable organomegaly. Surgical scars Ext: no gross muscle atrophy, muscle strength muscle strength 5 out of 5 in all 4 extremities, no contractures. Bilateral lower extremity swelling, improving per patient. Left ankle tenderness Neuro: CN II-XII grossly intact Psych: Alert, oriented, appropriate affect Data Reviewed Today: Pertinent Labs: No leukocytosis, hemoglobin stable 11.0, sodium and potassium normal, kidney function stable creatinine 1.57, AST and ALT trending down further. Assessment and Plan: Possible distal choledocholithiasis Abdominal pain, resolved Possible enteritis Conjugated bilirubinemia Transaminitis Elevated ALP Acute hypokalemia CKD stage IIIb with baseline creatinine 1.51.6 secondary to nephrosclerosis -Presents with abdominal pain -Ectasia of the CBD more prominent from the previous examination now up to 2.7 cm with multiple rounded calcific densities in the distal CBD near the ampulla up to 11 mm, findings are consistent with distal choledocholithiasis. No evidence of high-grade bowel obstruction. Fecal material within small bowel loop, nonspecific findings suspicious for potential enteritis with delayed transit to the small bowel. At least moderate small burden throughout the colon, no diverticulitis, no free air. -Advance diet to regular -Discontinue Zosyn -Awaiting transfer to [facility] of A-fib status post ablation HTN: For 4 more days to hold home BP meds, patient blood pressure is borderline history of bariatric surgery -Holding home BP meds, holding Lasix recent admission to our institution(discharged on 05/13/2024) for septic shock secondary to E. coli bacteremia with unclear source Bilateral feet pain, left ankle pain -Left ankle x-ray nonrevealing, there is soft tissue swelling -Uric acid normal -significant improvement on prednisone, continue for 4 more days DVT prophylaxis: scd Objective - Vital Signs Vital signs: Vital Signs Temp 98.6 F 05/28/24 01:56 Pulse 70 05/30/24 12:00 Resp 16 05/30/24 12:00 BP 100/76 05/30/24 12:00 Pulse Ox 96 05/30/24 12:00 FiO2 - Labs CBC & Chem 7: 05/30/24 08:15 05/30/24 08:15 Labs: Abnormal Lab Results - Last 24 Hours (Table) 05/30/24 05/30/24 Range/Units 08:15 08:15 RBC 3.61 L (4.30-5.90) m/uL Hgb 11.0 L (13.0-17.5) gm/dL Hct 34.9 L (39.0-53.0) % Chloride 108 H (98-107) mmol/L BUN 22 H (9-20) mg/dL Creatinine 1.57 H (0.66-1.25) mg/dL Glucose 122 H (74-99) mg/dL AST 61 H (17-59) U/L ALT 75 H (4-49) U/L Alkaline Phosphatase 219 H (38-126) U/L Total Protein 5.9 L (6.3-8.2) g/dL Albumin 3.3 L (3.5-5.0) g/dL Microbiology - Last 24 Hours (Table) 05/28/24 03:00 Blood Culture - Preliminary Blood
[2024-05-30] MEDS: FUROSEMIDE 20 MG TAB PO SCH (20:31)
[2024-05-31 06:41] LABS: Basophils % (A) 0 %; Eosinophils # (A) 0.1 k/uL (0-0.7); Eosinophils % (A) 2 %; HCT 32.9 % (39.0-53.0); HGB 10.4 gm/dL (13.0-17.5); Hypochromasia Moderate; Lymphocytes # (A) 1.8 k/uL (1.0-4.8); Lymphocytes % (A) 26 %; MCH 30.4 pg (25.0-35.0); MCHC 31.6 g/dL (31.0-37.0); MCV 96.1 fL (80.0-100.0); Mean Platelet Volume 8.6; Monocytes # (A) 0.4 k/uL (0-1.0); Monocytes % (A) 6 %; Neutrophils # (A) 4.7 k/uL (1.3-7.7); Neutrophils % (A) 66 %; Platelet Count 198 k/uL (150-450); RBC 3.42 m/uL (4.30-5.90); RDW 14.5 % (11.5-15.5); WBC 7.1 k/uL (3.8-10.6)
[2024-05-31 06:57] LABS: ALT 57 U/L (4-49); AST 29 U/L (17-59); African American GFR (CKD) 60 (>60 ml/min/1.73 sqM); Alkaline Phosphatase 196 U/L (38-126); Anion Gap 5 mmol/L; Blood Urea Nitrogen 22 mg/dL (9-20); Calcium 9.4 mg/dL (8.4-10.2); Carbon Dioxide 23 mmol/L (22-30); Chloride 111 mmol/L (98-107); Glucose 98 mg/dL (74-99); Non-African American GFR(CKD) 52 (>60 ml/min/1.73 sqM); Potassium 4.8 mmol/L (3.5-5.1); Sodium 139 mmol/L (137-145); Total Bilirubin 0.7 mg/dL (0.2-1.3); Total Protein 5.4 g/dL (6.3-8.2)
--- NOTE | 2024-05-31 09:18 | P.PN ---
Subjective Progress Note Date: 05/31/24 Hospital Course: Patient is a 64-year-old male with past medical history of A-fib status post a blation, HTN, history of bariatric surgery, CKD 3B, recent admission to our institution(discharged on 05/13/2024) for septic shock secondary to E. coli bacteremia with unclear source, who presented to the ER with abdominal pain. He gets couple times a month and recently it became worse. He describes dull achy pain that started in the right lower quadrant, no associated nausea, vomiting, chills, fever, bowel habit changes. He states that his stool is normal brown color, urine sometimes gets dark but not lately. No skin color changes, no medication changes. Patient's blood pressure at home runs around 100 110 systolic. On my exam, patient states that the pain had gone and now he only has back pain, states that he had back surgeries in the past ER course CT abdomen pelvis: Cholecystectomy. Ectasia of the CBD more prominent from the previous examination now up to 2.7 cm with multiple rounded calcific densities in the distal CBD near the ampulla up to 11 mm, findings are consistent with distal choledocholithiasis. No evidence of high-grade bowel obstruction. Fecal material within small bowel loop, nonspecific findings suspicious for potential enteritis with delayed transit to the small bowel. At least moderate small burden throughout the colon, no diverticulitis, no free air. EKG showed sinus rhythm with HR 90s, low voltage QRS, no ischemic changes, QTc 397. Patient's lab work was significant for no leukocytosis, hemoglobin 12.6, improved from April 27.3. Platelet count normal, coagulation panel normal, sodium normal, potassium 6.6, creatinine was 1.74 which appears to be near patient's baseline, AST elevated at 530, ALT 207, alkaline phosphatase 340. Conjugated bilirubin elevated 1.2, troponin negative, lipase normal, amylase normal, BNP normal. In the ER patient was given bolus of fluid, ketorolac for pain control, Protonix, hyperkalemia protocol with albuterol, calcium gluconate, IV insulin 10 units, sodium bicarb, 1 dose of Lokelma, a dose of Zosyn. Cultures obtained. Given above findings, transfer was initiated by ER to [facility] for evaluation by GI, patient was made n.p.o., our service consulted for management while awaiting bed. Patient was started on Zosyn, maintenance IVF, made n.p.o. 05/29: Patient is still waiting for bed, abdominal pain resolved, LFT trending down, started on CLD, discontinued IV fluids he was complaining of left ankle pain, has known history of gout, does not take allopurinol, ordered uric acid and x-ray. X-ray showed mild soft tissue swelling no suspicious erosions or calcifications. Uric acid level normal 05/30: Patient denies any nausea, vomiting, abdominal discomfort, has regular bowel movements. Ankle pain improved, ready to try some regular diet. Will discontinue Zosyn no signs of infection, minimal symptoms have resolved completely. 05/31: Patient denies any chest pain, shortness of breath, abdominal pain, nausea, vomiting, urinary or bowel complaints. Ambulating without assistance Pertinent positives and negatives as discussed above, a complete review of systems was performed and all other systems are negative. Vitals Signs Reviewed. General: Nontoxic, no distress, appears at stated age Derm: Warm, dry Head: Atraumatic, normocephalic, symmetric Eyes: EOMI, no lid lag, anicteric sclera Mouth: No lip lesion, mucus membranes moist Cardiovascular: S1S2 reg, no murmur Lungs: CTA bilateral, no rhonchi, no rales, no accessory muscle use Abdominal: Soft, nontender to palpation, no guarding, no appreciable organomegaly Ext: No gross muscle atrophy, bilateral lower extremity edema, nonpitting, no tenderness, no contractures Neuro: CN II-XI grossly intact, no focal neuro deficits Psych: Alert, oriented, appropriate affect Data Reviewed Today: Pertinent Labs: WBC 7.1, hemoglobin 10.4, creatinine 1.44, total bili 0.7, AST 29, ALT 57, ALP 196 Imaging: No new imaging Assessment and Plan: Possible distal choledocholithiasis Abdominal pain, resolved Possible enteritis, resolving Conjugated bilirubinemia, resolved Transaminitis, resolving Elevated ALP, resolving Acute hypokalemia, resolved CKD stage IIIb secondary to nephrosclerosis, stable -Ectasia of the CBD more prominent from the previous examination now up to 2.7 cm with multiple rounded calcific densities in the distal CBD near the ampulla up to 11 mm, findings are consistent with distal choledocholithiasis. No evidence of high-grade bowel obstruction. Fecal material within small bowel loop, nonspecific findings suspicious for potential enteritis with delayed transit to the small bowel. At least moderate small burden throughout the colon, no diverticulitis, no free air. -No need for antibiotics -Continue regular diet -Awaiting transfer to [facility] History of A-fib status post ablation HTN history of bariatric surgery -Continue Lasix 20 twice daily, holding lisinopril 15 daily -Restarted metoprolol 50 daily Bilateral feet pain, left ankle pain Chronic opiate dependence -Left ankle x-ray nonrevealing, there is soft tissue swelling -Uric acid normal -significant improvement on prednisone, continue for 4 more days -Restart allopurinol 100 mg daily -Okay to continue home gabapentin 300 mg 3 times daily, Percocet 10 every 4 hours Thank you for allowing us to participate in the care of this pleasant patient. Do not hesitate to contact us with questions. Someone can be reached from the [facility] hospitalist group all hours of the day at [phone] or via [employer]. Objective - Vital Signs Vital signs: Vital Signs Temp 97.5 F L 05/31/24 00:00 Pulse 80 05/31/24 09:02 Resp 18 05/31/24 09:02 BP 118/84 05/31/24 09:02 Pulse Ox 99 05/31/24 09:02 FiO2 - Labs CBC & Chem 7: 05/31/24 06:30 05/31/24 06:30 Labs: Abnormal Lab Results - Last 24 Hours (Table) 05/31/24 05/31/24 Range/Units 06:30 06:30 RBC 3.42 L (4.30-5.90) m/uL Hgb 10.4 L (13.0-17.5) gm/dL Hct 32.9 L (39.0-53.0) % Chloride 111 H (98-107) mmol/L BUN 22 H (9-20) mg/dL Creatinine 1.44 H (0.66-1.25) mg/dL ALT 57 H (4-49) U/L Alkaline Phosphatase 196 H (38-126) U/L Total Protein 5.4 L (6.3-8.2) g/dL Albumin 3.0 L (3.5-5.0) g/dL Microbiology - Last 24 Hours (Table) 05/28/24 03:00 Blood Culture - Preliminary Blood
[2024-05-31] MEDS: METOPROLOL SUCCINATE (ER) 50 MG TAB.ER.24H PO SCH (09:44)
[2024-05-31] MEDS: allopurinoL 100 MG TAB PO SCH (10:00)
[2024-06-01 06:44] LABS: Basophils % (A) 1 %; Eosinophils # (A) 0.1 k/uL (0-0.7); Eosinophils % (A) 2 %; HCT 37.4 % (39.0-53.0); HGB 11.8 gm/dL (13.0-17.5); Hypochromasia Slight; Lymphocytes # (A) 2.3 k/uL (1.0-4.8); Lymphocytes % (A) 32 %; MCH 30.2 pg (25.0-35.0); MCHC 31.7 g/dL (31.0-37.0); MCV 95.4 fL (80.0-100.0); Mean Platelet Volume 8.7; Monocytes # (A) 0.4 k/uL (0-1.0); Monocytes % (A) 6 %; Neutrophils # (A) 4.2 k/uL (1.3-7.7); Neutrophils % (A) 59 %; Platelet Count 222 k/uL (150-450); RBC 3.92 m/uL (4.30-5.90); WBC 7.1 k/uL (3.8-10.6)
[2024-06-01 07:04] LABS: ALT 124 U/L (4-49); AST 256 U/L (17-59); African American GFR (CKD) 65 (>60 ml/min/1.73 sqM); Albumin 3.4 g/dL (3.5-5.0); Alkaline Phosphatase 387 U/L (38-126); Anion Gap 8 mmol/L; Blood Urea Nitrogen 21 mg/dL (9-20); Calcium 9.5 mg/dL (8.4-10.2); Carbon Dioxide 23 mmol/L (22-30); Chloride 109 mmol/L (98-107); Glucose 86 mg/dL (74-99); Non-African American GFR(CKD) 56 (>60 ml/min/1.73 sqM); Potassium 4.7 mmol/L (3.5-5.1); Sodium 140 mmol/L (137-145); Total Bilirubin 1.3 mg/dL (0.2-1.3)
[2024-06-01] MEDS: SODIUM BICARBONATE TAB 650 MG TAB PO SCH (08:46)
[2024-06-01] MEDS: CHOLECALCIFEROL 25 MCG (1000 IU) TABLET PO SCH (08:49)
--- NOTE | 2024-06-01 08:55 | P.PN ---
Subjective Progress Note Date: 06/01/24 Hospital Course: Patient is a 64-year-old male with past medical history of A-fib status post a blation, HTN, history of bariatric surgery, CKD 3B, recent admission to our institution(discharged on 05/13/2024) for septic shock secondary to E. coli bacteremia with unclear source, who presented to the ER with abdominal pain. He gets couple times a month and recently it became worse. He describes dull achy pain that started in the right lower quadrant, no associated nausea, vomiting, chills, fever, bowel habit changes. He states that his stool is normal brown color, urine sometimes gets dark but not lately. No skin color changes, no medication changes. Patient's blood pressure at home runs around 100 110 systolic. On my exam, patient states that the pain had gone and now he only has back pain, states that he had back surgeries in the past ER course CT abdomen pelvis: Cholecystectomy. Ectasia of the CBD more prominent from the previous examination now up to 2.7 cm with multiple rounded calcific densities in the distal CBD near the ampulla up to 11 mm, findings are consistent with distal choledocholithiasis. No evidence of high-grade bowel obstruction. Fecal material within small bowel loop, nonspecific findings suspicious for potential enteritis with delayed transit to the small bowel. At least moderate small burden throughout the colon, no diverticulitis, no free air. EKG showed sinus rhythm with HR 90s, low voltage QRS, no ischemic changes, QTc 397. Patient's lab work was significant for no leukocytosis, hemoglobin 12.6, improved from April 27.3. Platelet count normal, coagulation panel normal, sodium normal, potassium 6.6, creatinine was 1.74 which appears to be near patient's baseline, AST elevated at 530, ALT 207, alkaline phosphatase 340. Conjugated bilirubin elevated 1.2, troponin negative, lipase normal, amylase normal, BNP normal. In the ER patient was given bolus of fluid, ketorolac for pain control, Protonix, hyperkalemia protocol with albuterol, calcium gluconate, IV insulin 10 units, sodium bicarb, 1 dose of Lokelma, a dose of Zosyn. Cultures obtained. Given above findings, transfer was initiated by ER to [facility] for evaluation by GI, patient was made n.p.o., our service consulted for management while awaiting bed. Patient was started on Zosyn, maintenance IVF, made n.p.o. 05/29: Patient is still waiting for bed, abdominal pain resolved, LFT trending down, started on CLD, discontinued IV fluids he was complaining of left ankle pain, has known history of gout, does not take allopurinol, ordered uric acid and x-ray. X-ray showed mild soft tissue swelling no suspicious erosions or calcifications. Uric acid level normal 05/30: Patient denies any nausea, vomiting, abdominal discomfort, has regular bowel movements. Ankle pain improved, ready to try some regular diet. Will discontinue Zosyn no signs of infection, minimal symptoms have resolved completely. 05/31: Patient denies any chest pain, shortness of breath, abdominal pain, nausea, vomiting, urinary or bowel complaints. Ambulating without assistance 06/01: Patient denies any chest pain, shortness of breath, abdominal pain, nausea, vomiting, urinary or bowel complaints. Pertinent positives and negatives as discussed above, a complete review of systems was performed and all other systems are negative. Vitals Signs Reviewed. General: Nontoxic, no distress, appears at stated age Derm: Warm, dry Head: Atraumatic, normocephalic, symmetric Eyes: EOMI, no lid lag, anicteric sclera Mouth: No lip lesion, mucus membranes moist Cardiovascular: S1S2 reg, no murmur Lungs: CTA bilateral, no rhonchi, no rales, no accessory muscle use Abdominal: Soft, nontender to palpation, no guarding, no appreciable organomegaly Ext: No gross muscle atrophy, bilateral lower extremity edema, nonpitting, no tenderness, no contractures Neuro: CN II-XI grossly intact, no focal neuro deficits Psych: Alert, oriented, appropriate affect Data Reviewed Today: Pertinent Labs: WBC 7.1, hemoglobin 11.8, creatinine 1.35, total bili 1.3, AST 256, ALT 124, ALP 387 Imaging: No new imaging Assessment and Plan: Possible distal choledocholithiasis Abdominal pain, resolved Possible enteritis, resolving Conjugated bilirubinemia, worsening Transaminitis, worsening Elevated ALP, worsening Acute hypokalemia, resolved CKD stage IIIb secondary to nephrosclerosis, stable -Ectasia of the CBD more prominent from the previous examination now up to 2.7 cm with multiple rounded calcific densities in the distal CBD near the ampulla up to 11 mm, findings are consistent with distal choledocholithiasis. No evidence of high-grade bowel obstruction. Fecal material within small bowel loop, nonspecific findings suspicious for potential enteritis with delayed transit to the small bowel. At least moderate small burden throughout the colon, no diverticulitis, no free air. -No need for antibiotics -Continue regular diet -Awaiting transfer to [facility] -Liver enzymes slightly up trended this morning History of A-fib status post ablation HTN history of bariatric surgery -Continue Lasix 20 twice daily, holding lisinopril 15 daily -Restarted metoprolol 50 daily Bilateral feet pain, left ankle pain Chronic opiate dependence -Left ankle x-ray nonrevealing, there is soft tissue swelling -Uric acid normal -Prednisone 30 mg daily till 06/03 -Continue allopurinol 100 mg daily -Okay to continue home gabapentin 300 mg 3 times daily, Percocet 10 every 4 hours Thank you for allowing us to participate in the care of this pleasant patient. Do not hesitate to contact us with questions. Someone can be reached from the [facility] hospitalist group all hours of the day at [phone] or via [employer]. Objective - Vital Signs Vital signs: Vital Signs Temp 97.6 F 05/31/24 18:48 Pulse 54 L 06/01/24 06:20 Resp 18 06/01/24 06:20 BP 129/93 06/01/24 06:20 Pulse Ox 98 06/01/24 06:20 FiO2 - Labs CBC & Chem 7: 06/01/24 06:35 06/01/24 06:35 Labs: Abnormal Lab Results - Last 24 Hours (Table) 06/01/24 06/01/24 Range/Units 06:35 06:35 RBC 3.92 L (4.30-5.90) m/uL Hgb 11.8 L (13.0-17.5) gm/dL Hct 37.4 L (39.0-53.0) % Chloride 109 H (98-107) mmol/L BUN 21 H (9-20) mg/dL Creatinine 1.35 H (0.66-1.25) mg/dL AST 256 H (17-59) U/L ALT 124 H (4-49) U/L Alkaline Phosphatase 387 H (38-126) U/L Total Protein 6.0 L (6.3-8.2) g/dL Albumin 3.4 L (3.5-5.0) g/dL Microbiology - Last 24 Hours (Table) 05/28/24 03:00 Blood Culture - Preliminary Blood
[2024-06-02 09:21] LABS: Basophils # (A) 0.1 k/uL (0-0.2); Basophils % (A) 1 %; Eosinophils # (A) 0.1 k/uL (0-0.7); Eosinophils % (A) 2 %; HCT 37.6 % (39.0-53.0); HGB 11.8 gm/dL (13.0-17.5); Hypochromasia Slight; Lymphocytes # (A) 2.9 k/uL (1.0-4.8); Lymphocytes % (A) 43 %; MCH 30.2 pg (25.0-35.0); MCHC 31.3 g/dL (31.0-37.0); MCV 96.4 fL (80.0-100.0); Mean Platelet Volume 8.8; Monocytes # (A) 0.4 k/uL (0-1.0); Monocytes % (A) 5 %; Neutrophils # (A) 3.2 k/uL (1.3-7.7); Neutrophils % (A) 48 %; Platelet Count 219 k/uL (150-450); RDW 14.8 % (11.5-15.5); WBC 6.7 k/uL (3.8-10.6)
[2024-06-02 09:45] LABS: ALT 106 U/L (4-49); AST 95 U/L (17-59); African American GFR (CKD) 67 (>60 ml/min/1.73 sqM); Albumin 3.5 g/dL (3.5-5.0); Alkaline Phosphatase 330 U/L (38-126); Anion Gap 10 mmol/L; Blood Urea Nitrogen 22 mg/dL (9-20); Calcium 9.1 mg/dL (8.4-10.2); Carbon Dioxide 25 mmol/L (22-30); Chloride 106 mmol/L (98-107); Glucose 86 mg/dL (74-99); Non-African American GFR(CKD) 58 (>60 ml/min/1.73 sqM); Potassium 3.3 mmol/L (3.5-5.1); Sodium 141 mmol/L (137-145); Total Bilirubin 0.7 mg/dL (0.2-1.3); Total Protein 5.9 g/dL (6.3-8.2)
[2024-06-02] MEDS: POTASSIUM CHLORIDE ER 20 MEQ TAB.ER PO STA (12:21)
--- NOTE | 2024-06-02 13:38 | P.PN ---
Subjective Progress Note Date: 06/02/24 Hospital Course: Patient is a 64-year-old male with past medical history of A-fib status post a blation, HTN, history of bariatric surgery, CKD 3B, recent admission to our institution(discharged on 05/13/2024) for septic shock secondary to E. coli bacteremia with unclear source, who presented to the ER with abdominal pain. He gets couple times a month and recently it became worse. He describes dull achy pain that started in the right lower quadrant, no associated nausea, vomiting, chills, fever, bowel habit changes. He states that his stool is normal brown color, urine sometimes gets dark but not lately. No skin color changes, no medication changes. Patient's blood pressure at home runs around 100 110 systolic. On my exam, patient states that the pain had gone and now he only has back pain, states that he had back surgeries in the past ER course CT abdomen pelvis: Cholecystectomy. Ectasia of the CBD more prominent from the previous examination now up to 2.7 cm with multiple rounded calcific densities in the distal CBD near the ampulla up to 11 mm, findings are consistent with distal choledocholithiasis. No evidence of high-grade bowel obstruction. Fecal material within small bowel loop, nonspecific findings suspicious for potential enteritis with delayed transit to the small bowel. At least moderate small burden throughout the colon, no diverticulitis, no free air. EKG showed sinus rhythm with HR 90s, low voltage QRS, no ischemic changes, QTc 397. Patient's lab work was significant for no leukocytosis, hemoglobin 12.6, improved from April 27.3. Platelet count normal, coagulation panel normal, sodium normal, potassium 6.6, creatinine was 1.74 which appears to be near patient's baseline, AST elevated at 530, ALT 207, alkaline phosphatase 340. Conjugated bilirubin elevated 1.2, troponin negative, lipase normal, amylase normal, BNP normal. In the ER patient was given bolus of fluid, ketorolac for pain control, Protonix, hyperkalemia protocol with albuterol, calcium gluconate, IV insulin 10 units, sodium bicarb, 1 dose of Lokelma, a dose of Zosyn. Cultures obtained. Given above findings, transfer was initiated by ER to [facility] for evaluation by GI, patient was made n.p.o., our service consulted for management while awaiting bed. Patient was started on Zosyn, maintenance IVF, made n.p.o. 05/29: Patient is still waiting for bed, abdominal pain resolved, LFT trending down, started on CLD, discontinued IV fluids he was complaining of left ankle pain, has known history of gout, does not take allopurinol, ordered uric acid and x-ray. X-ray showed mild soft tissue swelling no suspicious erosions or calcifications. Uric acid level normal 05/30: Patient denies any nausea, vomiting, abdominal discomfort, has regular bowel movements. Ankle pain improved, ready to try some regular diet. Will discontinue Zosyn no signs of infection, minimal symptoms have resolved completely. 05/31: Patient denies any chest pain, shortness of breath, abdominal pain, nausea, vomiting, urinary or bowel complaints. Ambulating without assistance 06/01: Patient denies any chest pain, shortness of breath, abdominal pain, nausea, vomiting, urinary or bowel complaints. 06/02: Patient denies any chest pain, shortness of breath, abdominal pain, nausea, vomiting, urinary or bowel complaints. Pertinent positives and negatives as discussed above, a complete review of systems was performed and all other systems are negative. Vitals Signs Reviewed. General: Nontoxic, no distress, appears at stated age Derm: Warm, dry Head: Atraumatic, normocephalic, symmetric Eyes: EOMI, no lid lag, anicteric sclera Mouth: No lip lesion, mucus membranes moist Cardiovascular: S1S2 reg, no murmur Lungs: CTA bilateral, no rhonchi, no rales, no accessory muscle use Abdominal: Soft, nontender to palpation, no guarding, no appreciable organomegaly Ext: No gross muscle atrophy, bilateral lower extremity edema, nonpitting, no tenderness, no contractures Neuro: CN II-XI grossly intact, no focal neuro deficits Psych: Alert, oriented, appropriate affect Data Reviewed Today: Pertinent Labs: WBC 6.7, hemoglobin 11.8, potassium 3.3, creatinine 1.32, AST 95, total bili 0.7, ALT 106, ALP 330 Imaging: No new imaging Assessment and Plan: Possible distal choledocholithiasis Abdominal pain, resolved Possible enteritis, resolving Conjugated bilirubinemia, resolving Transaminitis, resolving Elevated ALP, worsening Acute hypokalemia, resolved CKD stage IIIb secondary to nephrosclerosis, stable -Ectasia of the CBD more prominent from the previous examination now up to 2.7 cm with multiple rounded calcific densities in the distal CBD near the ampulla up to 11 mm, findings are consistent with distal choledocholithiasis. No evidence of high-grade bowel obstruction. Fecal material within small bowel loop, nonspecific findings suspicious for potential enteritis with delayed transit to the small bowel. At least moderate small burden throughout the colon, no diverticulitis, no free air. -No need for antibiotics -Continue regular diet -Awaiting transfer to [facility] -Liver enzymes slightly up trended this morning Hypokalemia -Given 20 mg Oral potassium History of A-fib status post ablation HTN history of bariatric surgery -Continue Lasix 20 twice daily, and lisinopril 50 mg daily -Continue metoprolol 50 daily Bilateral feet pain, left ankle pain Chronic opiate dependence -Left ankle x-ray nonrevealing, there is soft tissue swelling -Uric acid normal -Prednisone 30 mg daily till 06/03 -Continue allopurinol 100 mg daily -Okay to continue home gabapentin 300 mg 3 times daily, Percocet 10 every 4 hours Thank you for allowing us to participate in the care of this pleasant patient. Do not hesitate to contact us with questions. Someone can be reached from the [facility] hospitalist group all hours of the day at [phone] or via [employer]. Objective - Vital Signs Vital signs: Vital Signs Temp 98.1 F 06/01/24 13:42 Pulse 70 06/02/24 12:22 Resp 18 06/02/24 12:22 BP 130/86 06/02/24 12:22 Pulse Ox 94 L 06/02/24 12:22 FiO2 - Labs CBC & Chem 7: 06/02/24 09:01 06/02/24 09:01 Labs: Abnormal Lab Results - Last 24 Hours (Table) 06/02/24 06/02/24 Range/Units 09:01 09:01 RBC 3.90 L (4.30-5.90) m/uL Hgb 11.8 L (13.0-17.5) gm/dL Hct 37.6 L (39.0-53.0) % Potassium 3.3 L (3.5-5.1) mmol/L BUN 22 H (9-20) mg/dL Creatinine 1.32 H (0.66-1.25) mg/dL AST 95 H (17-59) U/L ALT 106 H (4-49) U/L Alkaline Phosphatase 330 H (38-126) U/L Total Protein 5.9 L (6.3-8.2) g/dL Microbiology - Last 24 Hours (Table) 05/28/24 03:00 Blood Culture - Final Blood
[2024-06-03 08:15] LABS: Basophils # (A) 0.1 k/uL (0-0.2); Basophils % (A) 1 %; Eosinophils # (A) 0.1 k/uL (0-0.7); Eosinophils % (A) 1 %; HGB 11.5 gm/dL (13.0-17.5); Hypochromasia Moderate; Lymphocytes # (A) 3.9 k/uL (1.0-4.8); Lymphocytes % (A) 39 %; MCH 29.9 pg (25.0-35.0); MCHC 31.1 g/dL (31.0-37.0); MCV 96.1 fL (80.0-100.0); Mean Platelet Volume 8.7; Monocytes # (A) 0.7 k/uL (0-1.0); Monocytes % (A) 7 %; Neutrophils % (A) 51 %; Platelet Count 236 k/uL (150-450); RBC 3.85 m/uL (4.30-5.90); RDW 14.5 % (11.5-15.5); WBC 9.8 k/uL (3.8-10.6)
[2024-06-03 08:39] LABS: ALT 120 U/L (4-49); AST 132 U/L (17-59); African American GFR (CKD) 69 (>60 ml/min/1.73 sqM); Albumin 3.5 g/dL (3.5-5.0); Alkaline Phosphatase 366 U/L (38-126); Anion Gap 10 mmol/L; Blood Urea Nitrogen 21 mg/dL (9-20); Carbon Dioxide 24 mmol/L (22-30); Chloride 104 mmol/L (98-107); Glucose 97 mg/dL (74-99); Non-African American GFR(CKD) 60 (>60 ml/min/1.73 sqM); Potassium 3.9 mmol/L (3.5-5.1); Sodium 138 mmol/L (137-145); Total Bilirubin 0.7 mg/dL (0.2-1.3)
[2024-06-03] MEDS: lisinopriL 5 MG TAB PO SCH (09:09)
--- NOTE | 2024-06-03 12:30 | US ---
EXAMINATION TYPE: US gallbladder DATE OF EXAM: 06/03/2024 COMPARISON: US(05/09/2024) CLINICAL INDICATION: Male, 64 years old with history of Liver enzymes elevated; TECHNIQUE: Grayscale and color Doppler imaging of the right upper quadrant. FINDINGS: EXAM MEASUREMENTS: Liver Length: 16.6 cm Gallbladder Wall: Surgically absent cm CBD: 1.5 cm, color Doppler imaging was utilized to isolate the common bile duct for measurement. Right Kidney: 10.3x4.5x5.3 cm FUR PLUCKER NOTES: limited scan due to overlying bowel Pancreas: Obscured by bowel gas Liver: Increased attenuation, decreased visualization of vessels suggestive of fatty infiltrate, het erogeneous echotexture Gallbladder: Surgically absent Evidence for sonographic Lin's sign: No CBD: Dilated, unable to see fully, distal: obscured by overlying bowel Right Kidney: No hydronephrosis or masses seen IMPRESSION: 1. No evidence for acute process. 2. Dilated biliary system which can be seen in normal post cholecystectomy physiology. 3. Hepatocellular disease suggested [facility] Jas Torres, , 06/03/2024 12:27 PM
--- NOTE | 2024-06-03 14:53 | P.HPIM ---
History of Present Illness H&P Date: 06/03/24 Chief Complaint: abdominal pain Interim HPI: We have been following this patient in the emergency room under consultation service for approximately 6 days. Initially patient presented with abdominal pain with elevated bilirubin and liver enzymes concerning for duct obstruction from stone. Therefore, patient was recommended to be transferred to [facility], but he gradually improved both in terms of labs as well as symptomatology. At this point, transfer to [facility] does not seem warranted and the patient likely appears stable for discharge. I discussed this case further with the emergency room physician and we mutually decided to have patient undergo gallbladder ultrasound, which did demonstrate findings of dilated common bile duct, but no acute process. However, given these findings, MRCP was felt to be of utility and therefore patient was admitted to observation for further evaluation. I discussed this case in detail with the patient and family member at bedside, and recommended that if the MRCP is negative he can be discharged home tomorrow with GI follow-up. Our GI service will resume on 06/07 should patient require fu rther management after MRCP such as ERCP. However, overall, patient is hemodynamically stable, his bilirubin has returned to normal, his LFTs have remained stable, his abdominal pain has been stable, he is tolerating p.o., he is ambulate in the hallway, and in all likelihood patient should be amenable for discharge in the morning. Gen: In NAD, non-toxic HEENT: normocephalic, atraumatic, hearing acuity is intant, mucous membranes moist CVS: perfusing all extremities well, no pitting edema, Respiratory: symmetric chest expansion, no accessory muscle use, GI: soft, NTTP, ND, : no suprapubic tenderness, no CVA tenderness MSK/Derm: no rashes, cyanosis Neuro: CN II-XII intact, no motor weakness, Psych: cooperative, euthymic mood, judgment and insight is intact Prior emergency room course: Patient is a 64-year-old male with past medical history of A-fib status post ablation, HTN, history of bariatric surgery, CKD 3B, recent admission to our institution(discharged on 05/13/2024) for septic shock secondary to E. coli bacteremia with unclear source, who presented to the ER with abdominal pain. He gets couple times a month and recently it became worse. He describes dull achy pain that started in the right lower quadrant, no associated nausea, vomiting, chills, fever, bowel habit changes. He states that his stool is normal brown color, urine sometimes gets dark but not lately. No skin color changes, no medication changes. Patient's blood pressure at home runs around 100 110 systolic. On my exam, patient states that the pain had gone and now he only has back pain, states that he had back surgeries in the past ER course CT abdomen pelvis: Cholecystectomy. Ectasia of the CBD more prominent from the previous examination now up to 2.7 cm with multiple rounded calcific densities in the distal CBD near the ampulla up to 11 mm, findings are consistent with distal choledocholithiasis. No evidence of high-grade bowel obstruction. Fecal material within small bowel loop, nonspecific findings suspicious for potential enteritis with delayed transit to the small bowel. At least moderate small burden throughout the colon, no diverticulitis, no free air. EKG showed sinus rhythm with HR 90s, low voltage QRS, no ischemic changes, QTc 397. Patient's lab work was significant for no leukocytosis, hemoglobin 12.6, improved from April 27.. Platelet count normal, coagulation panel normal, sodium normal, potassium 6.6, creatinine was 1.74 which appears to be near patie nt's baseline, AST elevated at 530, ALT 207, alkaline phosphatase 340. Conjugated bilirubin elevated 1.2, troponin negative, lipase normal, amylase normal, BNP normal. In the ER patient was given bolus of fluid, ketorolac for pain control, Protonix, hyperkalemia protocol with albuterol, calcium gluconate, IV insulin 10 units, sodium bicarb, 1 dose of Lokelma, a dose of Zosyn. Cultures obtained. Given above findings, transfer was initiated by ER to [facility] for evaluation by GI, patient was made n.p.o., our service consulted for management while awaiting bed. Patient was started on Zosyn, maintenance IVF, made n.p.o. 05/29: Patient is still waiting for bed, abdominal pain resolved, LFT trending down, started on CLD, discontinued IV fluids he was complaining of left ankle pain, has known history of gout, does not take allopurinol, ordered uric acid and x-ray. X-ray showed mild soft tissue swelling no suspicious erosions or calcifications. Uric acid level normal 05/30: Patient denies any nausea, vomiting, abdominal discomfort, has regular bowel movements. Ankle pain improved, ready to try some regular diet. Will discontinue Zosyn no signs of infection, minimal symptoms have resolved completely. 05/31: Patient denies any chest pain, shortness of breath, abdominal pain, nausea, vomiting, urinary or bowel complaints. Ambulating without assistance 06/01: Patient denies any chest pain, shortness of breath, abdominal pain, nausea, vomiting, urinary or bowel complaints. 06/02: Patient denies any chest pain, shortness of breath, abdominal pain, nausea, vomiting, urinary or bowel complaints. Assessment and Plan: Possible distal choledocholithiasis Abdominal pain, resolved Possible enteritis, resolving Conjugated bilirubinemia, resolving Transaminitis, resolving Elevated ALP, worsening Acute hypokalemia, resolved CKD stage IIIb secondary to nephrosclerosis, stable -Ectasia of the CBD more prominent from the previous examination now up to 2.7 cm with multiple rounded calcific densities in the distal CBD near the ampulla up to 11 mm, findings are consistent with distal choledocholithiasis. No evidence of high-grade bowel obstruction. Fecal material within small bowel loop, nonspecific findings suspicious for potential enteritis with delayed transit to the small bowel. At least moderate small burden throughout the colon, no diverticulitis, no free air. -MRCP is pending for further characterization -No need for antibiotics -Continue regular diet -Awaiting transfer to [facility] -Liver enzymes slightly up trended this morning Hypokalemia -Given 20 mg Oral potassium History of A-fib status post ablation HTN history of bariatric surgery -Continue Lasix 20 twice daily, and lisinopril 50 mg daily -Continue metoprolol 50 daily Bilateral feet pain, left ankle pain Chronic opiate dependence -Left ankle x-ray nonrevealing, there is soft tissue swelling -Uric acid normal -Prednisone 30 mg daily till 06/03 -Continue allopurinol 100 mg daily -Okay to continue home gabapentin 300 mg 3 times daily, Percocet 10 every 4 hours Thank you for allowing us to participate in the care of this pleasant patient. Do not hesitate to contact us with questions. Someone can be reached from the [facility] hospitalist group all hours of the day at [phone] or via [employer]. Past Medical History Past Medical History: Atrial Fibrillation, Musculoskeletal Disorder, Renal Disease, Skin Disorder, Thyroid Disorder Additional Past Medical History / Comment(s): psoriasis, arthritis, hx kidney stones, cast on rt wrist from recent surgery, hx cellulitis left leg History of Any Multi-Drug Resistant Organisms: None Reported Past Surgical History: Ablation, Back Surgery, Bariatric Surgery, Cholecystectomy, Hernia Repair, Orthopedic Surgery Additional Past Surgical History / Comment(s): BACK X2 -rods in back, CERVICAL SURG.,-Segundo en Y.,hernia x 3, rt wrist surgery, abdominoplasty, cyst removed "from behind the heart", pain clinic procedures Past Anesthesia/Blood Transfusion Reactions: Previous Problems w/ Anesthesia Additional Past Anesthesia/Blood Transfusion Reaction / Comment(s): Pain with last pain clinic procedure 04/28/14- felt every needle going in Past Psychological History: No Psychological Hx Reported Smoking Status: Former smoker Past Alcohol Use History: Occasional Past Drug Use History: None Reported - Past Family History Mother Family Medical History: No Reported History Father Family Medical History: No Reported History Medications and Allergies Home Medications Medication Instructions Recorded Confirmed Type Lansoprazole 30 mg PO DAILY PRN 04/24/22 05/28/24 History oxyCODONE-APAP 10-325MG [Percocet 1 tab PO Q4H 04/24/22 05/28/24 History 10-325 mg] Metoprolol Succinate (ER) [Toprol 50 mg PO DAILY #60 tab 04/26/22 05/28/24 Rx XL] Furosemide [Lasix] 40 mg PO BID 08/28/22 05/28/24 History Cholecalciferol [Vitamin D3 (25 25 mcg PO DAILY 05/08/24 05/28/24 History Mcg = 1000 Iu)] Sodium Bicarbonate Tab 650 mg PO BID 05/08/24 05/28/24 History allopurinoL [Zyloprim] 100 mg PO DAILY 05/08/24 05/28/24 History lisinopriL [Zestril] 15 mg PO DAILY 05/08/24 05/28/24 History Gabapentin [Neurontin] See Taper PO DIRECTED 05/28/24 05/28/24 History Allergies Allergy/AdvReac Type Severity Reaction Status Date / Time colchicine Allergy Nausea & Verified 05/28/24 10:19 Vomiting iron Allergy SEVERE Verified 05/28/24 10:19 PAIN, WHEN RECEIVED INJECTION OF IRON nylon Allergy SUTURES, Uncoded 05/28/24 10:19 "FESTER OUT," INFECTED Physical Exam Osteopathic Statement: *. No significant issues noted on an osteopathic structural exam other than those noted in the History and Physical/Consult. Vitals: Vital Signs Temp Pulse Resp BP Pulse Ox 06/03/24 12:53 71 18 126/78 98 06/03/24 09:07 70 18 129/91 96 06/03/24 07:54 97.8 F 62 18 113/72 97 06/03/24 06:15 62 16 123/91 98 06/03/24 03:30 97.9 F 64 16 114/72 97 06/02/24 21:15 74 16 126/89 98 06/02/24 17:03 97.8 F 78 18 119/83 95 06/02/24 15:00 81 16 Results CBC & Chem 7: 06/03/24 07:54 06/03/24 07:54 Labs: Abnormal Lab Results - Last 24 Hours (Table) 06/03/24 06/03/24 Range/Units 07:54 07:54 RBC 3.85 L (4.30-5.90) m/uL Hgb 11.5 L (13.0-17.5) gm/dL Hct 37.0 L (39.0-53.0) % BUN 21 H (9-20) mg/dL Creatinine 1.28 H (0.66-1.25) mg/dL AST 132 H (17-59) U/L ALT 120 H (4-49) U/L Alkaline Phosphatase 366 H (38-126) U/L Total Protein 6.0 L (6.3-8.2) g/dL Microbiology - Last 24 Hours (Table) 05/28/24 03:00 Blood Culture - Final Blood
[2024-06-04 11:18] LABS: ALT 115 U/L (4-49); AST 83 U/L (17-59); African American GFR (CKD) 68 (>60 ml/min/1.73 sqM); Albumin 3.6 g/dL (3.5-5.0); Albumin/Globulin Ratio 1.3; Alkaline Phosphatase 317 U/L (38-126); Anion Gap 10 mmol/L; Blood Urea Nitrogen 24 mg/dL (9-20); Calcium 9.3 mg/dL (8.4-10.2); Carbon Dioxide 23 mmol/L (22-30); Chloride 107 mmol/L (98-107); Globulin 2.7 g/dL; Glucose 85 mg/dL (74-99); Non-African American GFR(CKD) 59 (>60 ml/min/1.73 sqM); Potassium 4.2 mmol/L (3.5-5.1); Sodium 140 mmol/L (137-145); Total Bilirubin 0.8 mg/dL (0.2-1.3); Total Protein 6.3 g/dL (6.3-8.2)
--- NOTE | 2024-06-04 13:30 | MR ---
EXAMINATION TYPE: MR MRCP DATE OF EXAM: 06/04/2024 1:19 PM COMPARISON: CT 05/28/2024. CLINICAL INDICATION: Male, 64 years old with history of Elevated liver enzymes; PHH, Elevated liver e nzymes TECHNIQUE: Multi planar, T2-weighted imaging with and without fat saturation and chemical shift imag ing was performed of the abdomen. Then, heavily T2 weighted imaging (half-Fourier acquisition single- shot turbo spin-echo) was utilized in order to study the biliary system. Maximum intensity projectio n images were reconstructed from the original data of the biliary tree. 3D images were created on [employer] work station. No Gadolinium given. FINDINGS: Lower Thorax: No evidence for acute process. MRCP: * The intrahepatic ducts are dilated most pronounced centrally.a * The extrahepatic ducts filling defects within the common bile duct compatible choledocholithiasis are identified. There is at least 3 identified one near the papilla to further changed. There is shweta tionally a stone in the cystic duct remnant that moved on different sequences. Stone is thought to be at the papillar series 801 image 17 measuring up to 7 mm. * The common hepatic duct measures 15 mm in size. * The common bile duct at the level of the pancreatic head measures 14 mm in size. * The pancreatic duct is normal. * The gallbladder is surgically absent with low medial insertion of the common duct which is dilated and containing flat gallstone in the cystic duct remnant. Abdomen: Liver: No evidence for hepatic steatosis or cirrhosis. Signal dropout on chemical shift in phase imag ing. Pancreas: No ductal dilation. No evidence for solid mass. Spleen: Normal for size. Signal dropout on chemical shift in phase imaging. Adrenal glands: Unremarkable. Kidneys: No evidence for obstructive uropathy. No suspicious renal masses. Simple appearing right kareem al cyst. Stomach and Bowel: No evidence for bowel wall thickening or evidence for obstruction. Retroperitoneum/Peritoneum: No evidence of pneumoperitoneum or free fluid. Vasculature: No aortic aneurysm. Musculoskeletal: The osseous structures appear intact. Fixation hardware in the spine stability artif act noted. Lymph Nodes: No gross evidence for lymphadenopathy. Abdominal wall: Multiple surgical clips susceptibility artifact noted along the anterior abdomen. IMPRESSION: 1. Evidence of choledocholithiasis with biliary dilation. There is at least 3 stones identified. One of the stones move position between scans. One of the stones is at the papilla ERCP recommended for extraction . 2. Iron deposition in the liver and spleen. [facility], , 06/04/2024 1:28 PM
--- NOTE | 2024-06-04 13:56 | P.PN ---
Subjective Progress Note Date: 06/04/24 Patient seen and examined at bedside. No events overnight, no abdominal pain. MRCP performed significant for findings of choledocholithiasis with at least 3 stones present, one at papilla. Iron deposits also noted in liver and spleen. Will pursue ERCP when GI available Friday or upon transfer to [facility]. Gen: In NAD, non-toxic HEENT: normocephalic, atraumatic, hearing acuity is intant, mucous membranes moist CVS: perfusing all extremities well, no pitting edema, Respiratory: symmetric chest expansion, no accessory muscle use, GI: soft, NTTP, ND, : no suprapubic tenderness, no CVA tenderness MSK/Derm: no rashes, cyanosis Neuro: CN II-XII intact, no motor weakness, Psych: cooperative, euthymic mood, judgment and insight is intact Prior emergency room course: Patient is a 64-year-old male with past medical history of A-fib status post ablation, HTN, history of bariatric surgery, CKD 3B, recent admission to our institution(discharged on 05/13/2024) for septic shock secondary to E. coli bacteremia with unclear source, who presented to the ER with abdominal pain. He gets couple times a month and recently it became worse. He describes dull achy pain that started in the right lower quadrant, no associated nausea, vomiting, chills, fever, bowel habit changes. He states that his stool is normal brown color, urine sometimes gets dark but not lately. No skin color changes, no m edication changes. Patient's blood pressure at home runs around 100 110 systolic. On my exam, patient states that the pain had gone and now he only has back pain, states that he had back surgeries in the past ER course CT abdomen pelvis: Cholecystectomy. Ectasia of the CBD more prominent from the previous examination now up to 2.7 cm with multiple rounded calcific densities in the distal CBD near the ampulla up to 11 mm, findings are consistent with distal choledocholithiasis. No evidence of high-grade bowel obstruction. Fecal material within small bowel loop, nonspecific findings suspicious for potential enteritis with delayed transit to the small bowel. At least moderate small burden throughout the colon, no diverticulitis, no free air. EKG showed sinus rhythm with HR 90s, low voltage QRS, no ischemic changes, QTc 397. Patient's lab work was significant for no leukocytosis, hemoglobin 12.6, improved from April 27.. Platelet count normal, coagulation panel normal, sodium normal, potassium 6.6, creatinine was 1.74 which appears to be near patient's baseline, AST elevated at 530, ALT 207, alkaline phosphatase 340. Conjugated bilirubin elevated 1.2, troponin negative, lipase normal, amylase normal, BNP normal. In the ER patient was given bolus of fluid, ketorolac for pain control, Protonix, hyperkalemia protocol with albuterol, calcium gluconate, IV insulin 10 units, sodium bicarb, 1 dose of Lokelma, a dose of Zosyn. Cultures obtained. Given above findings, transfer was initiated by ER to [facility] for evaluation by GI, patient was made n.p.o., our service consulted for management while awaiting bed. Patient was started on Zosyn, maintenance IVF, made n.p.o. 05/29: Patient is still waiting for bed, abdominal pain resolved, LFT trending down, started on CLD, discontinued IV fluids he was complaining of left ankle pain, has known history of gout, does not take allopurinol, ordered uric acid and x-ray. X-ray showed mild soft tissue swelling no suspicious erosions or calcifications. Uric acid level normal 05/30: Patient denies any nausea, vomiting, abdominal discomfort, has regular bowel movements. Ankle pain improved, ready to try some regular diet. Will discontinue Zosyn no signs of infection, minimal symptoms have resolved completely. 05/31: Patient denies any chest pain, shortness of breath, abdominal pain, nausea, vomiting, urinary or bowel complaints. Ambulating without assistance 06/01: Patient denies any chest pain, shortness of breath, abdominal pain, nausea, vomiting, urinary or bowel complaints. 06/02: Patient denies any chest pain, shortness of breath, abdominal pain, nausea, vomiting, urinary or bowel complaints. 06/03 Interim HPI: We have been following this patient in the emergency room under consultation service for approximately 6 days. Initially patient presented with abdominal pain with elevated bilirubin and liver enzymes concerning for duct obstruction from stone. Therefore, patient was recommended to be transferred to [facility], but he gradually improved both in terms of labs as well as symptomatology. At this point, transfer to [facility] does not seem warranted and the patient likely appears stable for discharge. I discussed this case further with the emergency room physician and we mutually decided to have patient undergo gallbladder ultrasound, which did demonstrate findings of dilated common bile duct, but no acute process. However, given these findings, MRCP was felt to be of utility and therefore patient was admitted to observation for further evaluation.I discussed this case in detail with the patient and family member at bedside, and recommended that if the MRCP is negative he can be discharged home tomorrow with GI follow-up. Our GI service will resume on 06/07 should patient require further management after MRCP such as ERCP. However, overall, patient is hemodynamically stable, his bilirubin has returned to normal, his LFTs have remained stable, his abdominal pain has been stable, he is tolerating p.o., he is ambulate in the hallway, and in all likelihood patient should be amenable for discharge in the morning. Creatinine 1.3, total bili 0.8, AST 83, ALT 150, ALP 370 Assessment and Plan: Choledocholithiasis at papilla, multiple stones noted Abdominal pain, resolved Conjugated bilirubinemia, resolved Transaminitis, resolving Elevated ALP, improving Acute hypokalemia, resolved CKD stage IIIb secondary to nephrosclerosis, stable -Ectasia of the CBD more prominent from the previous examination now up to 2.7 cm with multiple rounded calcific densities in the distal CBD near the ampulla up to 11 mm, findings are consistent with distal choledocholithiasis. No evidence of high-grade bowel obstruction. Fecal material within small bowel loop, nonspecific findings suspicious for potential enteritis with delayed transit to the small bowel. At least moderate small burden throughout the colon, no diverticulitis, no free air. -MRCP significant for findings of choledocholithiasis with at least 3 stones present, one at papilla. Iron deposits also noted in liver and spleen. -No need for antibiotics -Continue regular diet -Plan ERCP, earliest Friday -consult GI -Awaiting transfer to [facility] Hypokalemia, resolved History of A-fib status post ablation HTN history of bariatric surgery -Continue Lasix 20 twice daily, and lisinopril 50 mg daily -Continue metoprolol 50 daily Bilateral feet pain, left ankle pain Chronic opiate dependence -Left ankle x-ray nonrevealing, there is soft tissue swelling -Uric acid normal -Prednisone 30 mg daily till 06/03 -Continue allopurinol 100 mg daily -Okay to continue home gabapentin 300 mg 3 times daily, Percocet 10 every 4 hours CODE STATUS: Full code Disposition: [facility] transfer versus GI on Friday Objective - Vital Signs Vital signs: Vital Signs Temp 97.7 F 06/04/24 07:27 Pulse 63 06/04/24 07:27 Resp 16 06/04/24 07:27 BP 104/70 06/04/24 07:27 Pulse Ox 95 06/04/24 07:27 FiO2 Intake & Output 06/03/24 06/04/24 06/04/24 18:59 06:59 18:59 Intake Total 1857 Balance 1857 Weight 121.109 kg Intake: Oral 1857 Other: Voiding Method Toilet # Voids 1 5 - Labs CBC & Chem 7: 06/03/24 07:54 06/04/24 10:44 Labs: Abnormal Lab Results - Last 24 Hours (Table) 06/04/24 Range/Units 10:44 BUN 24 H (9-20) mg/dL Creatinine 1.30 H (0.66-1.25) mg/dL AST 83 H (17-59) U/L ALT 115 H (4-49) U/L Alkaline Phosphatase 317 H (38-126) U/L
[2024-06-05 09:40] LABS: BUN/Creat Ratio 15.41 Ratio (12.00-20.00); Blood Urea Nitrogen 26.2 mg/dL (9.0-27.0); Glucose 84 mg/dL (70-110)
[2024-06-05 09:41] LABS: ALT 134 U/L (10-49); AST 129 U/L (14-35); Albumin 3.5 g/dL (3.8-4.9); Albumin/Globulin Ratio 1.59 Ratio (1.60-3.17); Alkaline Phosphatase 457 U/L (41-126); Calcium 8.9 mg/dL (8.7-10.3); Carbon Dioxide 23.7 mmol/L (21.6-31.8); Chloride 108 mmol/L (96-109); Globulin 2.2 g/dL (1.6-3.3); Potassium 4.2 mmol/L (3.5-5.5); Sodium 144 mmol/L (135-145); Total Bilirubin 0.6 mg/dL (0.3-1.2); Total Protein 5.7 g/dL (6.2-8.2)
[2024-06-05 09:58] LABS: Basophils # (A) 0.12 X 10*3/uL (0.00-0.10); Basophils % (A) 1.1 %; Eosinophils # (A) 0.31 X 10*3/uL (0.04-0.35); Eosinophils % (A) 2.7 %; HCT 37.5 % (39.6-50.0); HGB 11.5 g/dL (13.0-17.0); Lymphocytes # (A) 3.84 X 10*3/uL (0.90-5.00); Lymphocytes % (A) 33.8 %; MCH 29.9 pg (27.0-32.0); MCHC 30.7 g/dL (32.0-37.0); MCV 97.7 FL (80.0-97.0); Mean Platelet Volume 11.1 FL (9.5-12.2); Monocytes # (A) 0.83 X 10*3/uL (0.20-1.00); Monocytes % (A) 7.3 %; NRBC Per 100 WBC 0 X 10*3/uL (0.00-0.01); Neutrophils # (A) 6.08 X 10*3/uL (1.80-7.70); Neutrophils % (A) 53.5 %; Platelet Count 240 X 10*3/uL (140-440); RBC 3.84 X 10*6/uL (4.40-5.60); RDW 15.5 % (11.5-14.5); WBC 11.36 X 10*3/uL (4.50-10.00)
--- NOTE | 2024-06-05 12:07 | P.PN ---
Subjective Progress Note Date: 06/05/24 Patient seen and examined at sitting in chair. No acute events overnight. Patient has no complaints of abdominal pain. Will discontinue Lasix, morphine, lisinopril. Will pursue ERCP when GI available Friday or upon transfer to [facility]. 06/04 Patient seen and examined at bedside. No events overnight, no abdominal pain. MRCP performed significant for findings of choledocholithiasis with at least 3 s tones present, one at papilla. Iron deposits also noted in liver and spleen. Will pursue ERCP when GI available Friday or upon transfer to [facility]. Gen: In NAD, non-toxic HEENT: normocephalic, atraumatic, hearing acuity is intant, mucous membranes moist CVS: perfusing all extremities well, no pitting edema, Respiratory: symmetric chest expansion, no accessory muscle use, GI: soft, NTTP, ND, : no suprapubic tenderness, no CVA tenderness MSK/Derm: no rashes, cyanosis Neuro: CN II-XII intact, no motor weakness, Psych: cooperative, euthymic mood, judgment and insight is intact Prior emergency room course: Patient is a 64-year-old male with past medical history of A-fib status post a blation, HTN, history of bariatric surgery, CKD 3B, recent admission to our institution(discharged on 05/13/2024) for septic shock secondary to E. coli bacteremia with unclear source, who presented to the ER with abdominal pain. He gets couple times a month and recently it became worse. He describes dull achy pain that started in the right lower quadrant, no associated nausea, vomiting, chills, fever, bowel habit changes. He states that his stool is normal brown color, urine sometimes gets dark but not lately. No skin color changes, no medication changes. Patient's blood pressure at home runs around 100 110 systolic. On my exam, patient states that the pain had gone and now he only has back pain, states that he had back surgeries in the past ER course CT abdomen pelvis: Cholecystectomy. Ectasia of the CBD more prominent from the previous examination now up to 2.7 cm with multiple rounded calcific densities in the distal CBD near the ampulla up to 11 mm, findings are consistent with distal choledocholithiasis. No evidence of high-grade bowel obstruction. Fecal material within small bowel loop, nonspecific findings suspicious for potential enteritis with delayed transit to the small bowel. At least moderate small burden throughout the colon, no diverticulitis, no free air. EKG showed sinus rhythm with HR 90s, low voltage QRS, no ischemic changes, QTc 397. Patient's lab work was significant for no leukocytosis, hemoglobin 12.6, improved from April 27.. Platelet count normal, coagulation panel normal, sodium normal, potassium 6.6, creatinine was 1.74 which appears to be near patient's baseline, AST elevated at 530, ALT 207, alkaline phosphatase 340. Conjugated bilirubin elevated 1.2, troponin negative, lipase normal, amylase normal, BNP normal. In the ER patient was given bolus of fluid, ketorolac for pain control, Protonix, hyperkalemia protocol with albuterol, calcium gluconate, IV insulin 10 units, sodium bicarb, 1 dose of Lokelma, a dose of Zosyn. Cultures obtained. Given above findings, transfer was initiated by ER to [facility] for evaluation by GI, patient was made n.p.o., our service consulted for management while awaiting bed. Patient was started on Zosyn, maintenance IVF, made n.p.o. 05/29: Patient is still waiting for bed, abdominal pain resolved, LFT trending down, started on CLD, discontinued IV fluids he was complaining of left ankle pain, has known history of gout, does not take allopurinol, ordered uric acid and x-ray. X-ray showed mild soft tissue swelling no suspicious erosions or calcifications. Uric acid level normal 05/30: Patient denies any nausea, vomiting, abdominal discomfort, has regular bowel movements. Ankle pain improved, ready to try some regular diet. Will discontinue Zosyn no signs of infection, minimal symptoms have resolved completely. 05/31: Patient denies any chest pain, shortness of breath, abdominal pain, nausea, vomiting, urinary or bowel complaints. Ambulating without assistance 06/01: Patient denies any chest pain, shortness of breath, abdominal pain, nausea, vomiting, urinary or bowel complaints. 06/02: Patient denies any chest pain, shortness of breath, abdominal pain, nausea, vomiting, urinary or bowel complaints. 06/03 Interim HPI: We have been following this patient in the emergency room under consultation service for approximately 6 days. Initially patient presented with abdominal pain with elevated bilirubin and liver enzymes concerning for duct obstruction from stone. Therefore, patient was recommended to be transferred to [facility], but he gradually improved both in terms of labs as well as symptomatology. At this point, transfer to [facility] does not seem warranted and the patient likely appears stable for discharge. I discussed this case further with the emergency room physician and we mutually decided to have patient undergo gallbladder ultrasound, which did demonstrate findings of dilated common bile duct, but no acute process. However, given these findings, MRCP was felt to be of utility and therefore patient was admitted to observation for further evaluation.I discussed this case in detail with the patient and family member at bedside, and recommended that if the MRCP is negative he can be discharged home tomorrow with GI follow-up. Our GI service will resume on 06/07 should patient require further management after MRCP such as ERCP. However, overall, patient is hemodynamically stable, his bilirubin has returned to normal, his LFTs have remained stable, his abdominal pain has been stable, he is tolerating p.o., he is ambulate in the hallway, and in all likelihood patient should be amenable for discharge in the morning. Assessment and Plan: Choledocholithiasis at papilla, multiple stones noted Abdominal pain, resolved Conjugated bilirubinemia, resolved Transaminitis Elevated ALP Acute hypokalemia, resolved -Ectasia of the CBD more prominent from the previous examination now up to 2.7 cm with multiple rounded calcific densities in the distal CBD near the ampulla up to 11 mm, findings are consistent with distal choledocholithiasis. No evidence of high-grade bowel obstruction. Fecal material within small bowel loop, nonspecific findings suspicious for potential enteritis with delayed transit to the small bowel. At least moderate small burden throughout the colon, no diverticulitis, no free air. -MRCP significant for findings of choledocholithiasis with at least 3 stones present, one at papilla. Iron deposits also noted in liver and spleen. -No need for antibiotics -Continue regular diet -Plan ERCP, earliest Friday -consult GI -Awaiting transfer to [facility] #CKD stage IIIb secondary to nephrosclerosis, stable #KENTON, likely prerenal due to hypovolemia Initial creatinine 1.3 => 1.7 Discontinue Lasix, morphine, lisinopril Will consider renal ultrasound if worsening Continue to monitor Hypokalemia, resolved History of A-fib status post ablation HTN history of bariatric surgery -Continue Lasix 20 twice daily, and lisinopril 50 mg daily -Continue metoprolol 50 daily Bilateral feet pain, left ankle pain Chronic opiate dependence -Left ankle x-ray nonrevealing, there is soft tissue swelling -Uric acid normal -Prednisone 30 mg daily till 06/03 -Continue allopurinol 100 mg daily -Okay to continue home gabapentin 300 mg 3 times daily, Percocet 10 every 4 hours CODE STATUS: Full code Disposition: [facility] transfer versus GI on Friday I have seen and evaluated the patient today. Discussed with the resident and agree with the residents finding and plan as documented in the resident's note. Changes highlighted in blue font. Objective - Vital Signs Vital signs: Vital Signs Temp 97.7 F 06/05/24 02:00 Pulse 63 06/05/24 02:00 Resp 17 06/05/24 02:00 BP 96/63 06/05/24 02:00 Pulse Ox 97 06/05/24 02:00 FiO2 Intake & Output 06/04/24 06/05/24 06/05/24 18:59 06:59 18:59 Other: Voiding Method Toilet # Voids 4 3 - Labs CBC & Chem 7: 06/05/24 05:39 06/05/24 05:39 Labs: Abnormal Lab Results - Last 24 Hours (Table) 06/04/24 Range/Units 10:44 BUN 24 H (9-20) mg/dL Creatinine 1.30 H (0.66-1.25) mg/dL AST 83 H (17-59) U/L ALT 115 H (4-49) U/L Alkaline Phosphatase 317 H (38-126) U/L
--- NOTE | 2024-06-06 11:25 | P.PN ---
Subjective Progress Note Date: 06/06/24 Subjective: Patient seen and examined at bedside. No acute events overnight. Denies any abdominal pain, lightheadedness, or urinary complaints. Pertinent positives and negatives as discussed above, a complete review of systems was performed and all other systems are negative. Vitals Signs Reviewed. General: Nontoxic, no distress, appears at stated age Derm: Warm, dry Head: Atraumatic, normocephalic, symmetric Eyes: EOMI, no lid lag, anicteric sclera Mouth: No lip lesion, mucus membranes moist Cardiovascular: S1S2 reg, no murmur Lungs: CTA bilateral, no rhonchi, no rales, no accessory muscle use Abdominal: Soft, nontender to palpation, no guarding, no appreciable organomegaly Ext: No gross muscle atrophy, nonpitting bilateral lower extremity edema, no contractures Neuro: CN II-XI grossly intact, no focal neuro deficits Psych: Alert, oriented, appropriate affect Data Reviewed Today: Pertinent Labs: CBC and CMP pending, will be reviewed when available Imaging: No new imaging Assessment and Plan: Choledocholithiasis at papilla, multiple stones noted Abdominal pain, resolved Conjugated bilirubinemia, resolved Transaminitis Elevated ALP Acute hypokalemia, resolved -Ectasia of the CBD more prominent from the previous examination now up to 2.7 cm with multiple rounded calcific densities in the distal CBD near the ampulla up to 11 mm, findings are consistent with distal choledocholithiasis. No evidence of high-grade bowel obstruction. Fecal material within small bowel loop, nonspecific findings suspicious for potential enteritis with delayed transit to the small bowel. At least moderate small burden throughout the colon, no diverticulitis, no free air. -MRCP significant for findings of choledocholithiasis with at least 3 stones present, one at papilla. Iron deposits also noted in liver and spleen. -No need for antibiotics -Continue regular diet -Plan ERCP, earliest Friday -consult GI -Awaiting transfer to [facility] #CKD stage IIIb secondary to nephrosclerosis, stable #KENTON, likely prerenal due to hypotension, nonoliguric Labs pending for today Discontinued antihypertensive Will consider renal ultrasound if worsening Continue to monitor Hypokalemia, resolved History of A-fib status post ablation History of HTN history of bariatric surgery -Continue metoprolol 50 daily Bilateral feet pain, left ankle pain Chronic opiate dependence -Left ankle x-ray nonrevealing, there is soft tissue swelling -Uric acid normal -Prednisone 30 mg daily till 06/03 -Continue allopurinol 100 mg daily -Okay to continue home gabapentin 300 mg 3 times daily, Percocet 10 every 4 hours CODE STATUS: Full code Disposition: [facility] transfer versus GI on Friday Objective - Vital Signs Vital signs: Vital Signs Temp 99 F 06/06/24 07:04 Pulse 76 06/06/24 07:04 Resp 19 06/06/24 07:04 BP 94/65 06/06/24 07:04 Pulse Ox 95 06/06/24 07:04 FiO2 Intake & Output 06/05/24 06/06/24 06/06/24 18:59 06:59 18:59 Intake Total 1040 Balance 1040 Intake: Oral 1040 Other: Voiding Method Toilet # Voids 2 3 - Labs CBC & Chem 7: 06/05/24 05:39 06/05/24 05:39
[2024-06-06 14:34] LABS: ALT 127 U/L (10-49); AST 115 U/L (14-35); Albumin 3.4 g/dL (3.8-4.9); Albumin/Globulin Ratio 1.48 Ratio (1.60-3.17); Alkaline Phosphatase 461 U/L (41-126); Blood Urea Nitrogen 29.8 mg/dL (9.0-27.0); Calcium 8.6 mg/dL (8.7-10.3); Carbon Dioxide 21.6 mmol/L (21.6-31.8); Chloride 108 mmol/L (96-109); Globulin 2.3 g/dL (1.6-3.3); Glucose 97 mg/dL (70-110); Sodium 141 mmol/L (135-145); Total Bilirubin 0.7 mg/dL (0.3-1.2); Total Protein 5.7 g/dL (6.2-8.2)
--- NOTE | 2024-06-06 19:11 | US ---
EXAMINATION TYPE: US kidneys/renal and bladder DATE OF EXAM: 06/06/2024 COMPARISON: NONE CLINICAL INDICATION: Male, 64 years old with history of kenton; KENTON TECHNIQUE: Grayscale imaging of the bilateral kidneys and urinary bladder: FINDINGS: EXAM MEASUREMENTS: Right Kidney: 10.3 x 4.1 x 4.6 cm Left Kidney: 10.2 x 4.5 x 4.6 cm Right Kidney: No hydronephrosis or masses seen Left Kidney: No hydronephrosis or masses seen Bladder: anechoic Bilateral Jets seen: yes There is no evidence for hydronephrosis at this point in time. No nephrolithiasis is seen. No emma s are identified. The urinary bladder is anechoic. IMPRESSION: No evidence for obstructive uropathy or renal calculus. [facility], , 06/06/2024 7:09 PM
[2024-06-06] MEDS: LACTATED RINGERS 1,000 ML IV SCH (22:03)
[2024-06-07 08:27] LABS: Prothrombin Time 10.7 sec (10.0-12.5)
[2024-06-07 08:43] LABS: Basophils # (A) 0.09 X 10*3/uL (0.00-0.10); Basophils % (A) 1.1 %; Eosinophils # (A) 0.34 X 10*3/uL (0.04-0.35); Eosinophils % (A) 4.2 %; HCT 34.1 % (39.6-50.0); HGB 10.5 g/dL (13.0-17.0); Lymphocytes # (A) 2.99 X 10*3/uL (0.90-5.00); MCH 29.8 pg (27.0-32.0); MCHC 30.8 g/dL (32.0-37.0); MCV 96.9 FL (80.0-97.0); Mean Platelet Volume 11.1 FL (9.5-12.2); Monocytes # (A) 0.75 X 10*3/uL (0.20-1.00); Monocytes % (A) 9.3 %; NRBC Per 100 WBC 0 X 10*3/uL (0.00-0.01); Platelet Count 207 X 10*3/uL (140-440); RBC 3.52 X 10*6/uL (4.40-5.60); RDW 15.2 % (11.5-14.5); WBC 8.08 X 10*3/uL (4.50-10.00)
[2024-06-07] MEDS: SODIUM CHLORIDE 0.9% 500 ML 500 ML IV ONE (09:02)
--- NOTE | 2024-06-07 09:12 | P.CONS ---
History of Present Illness - Reason for Consult Consult date: 06/07/24 ERCP, choledocholithiasis Requesting physician: Sahil Salmeron - Chief Complaint Abdominal pain - History of Present Illness This is a pleasant 64-year-old male who presented to the emergency department 10 days ago with complaints of abdominal pain. Apparently patient had recently been hospitalized for septic shock secondary to E. coli bacteremia. Past medical history includes atrial fibrillation status post ablation, hypertension, history of bariatric surgery with Segundo-en-Y gastric bypass, and cholecystectomy. He was noted to have elevated liver enzymes and hyperbilirubinemia on admission. He had a CT of the abdomen and pelvis reporting ectasia of the comm on bile duct more prominent from previous exam measuring up to 2.7 cm with multiple rounded calcific densities in the distal common bile duct near the ampulla. As there was no GI present in the hospital plan was for transfer to tertiary center however patient has not been yet accepted. During his time here further evaluation was done with MRCP reporting 3 filling defects in the common bile duct. Initially on admission bilirubin was as high as 4.4, AST 538 ALT 207. LFTs have been trending down. Gastroenterology consulted for ERCP, choledocholithiasis. He states his cholecystectomy was 15 to 20 years ago for cholelithiasis. Patient states he has no abdominal pain he has not had it basi milly since he came in. Denies any nausea or vomiting at this time. Just reporting lower back pain but has a history of chronic back pain and previous back surgeries. He denies any history of known liver disease. Does state he was over 400 pounds previous to his bypass, states that also history of alcohol abuse however no longer drinking. Review of Systems REVIEW OF SYSTEMS: CARDIOPULMONARY: No chest pain or shortness of breath. Gastrointestinal: Abdominal pain. No nausea or vomiting. No hematemesis, coffee-ground emesis. No rectal bleeding, or melena. GENITOURINARY: No dysuria or hematuria. MUSCULOSKELETAL: Reports normal range of motion., Joint pain. SKIN: No rashes. No jaundice. ENDOCRINE: No chills, fevers. No excessive weight gain or loss. No polydipsia or polyuria. PSYCHIATRIC: Unremarkable. NEUROLOGY: No change in mental status. Denies dizziness, headache. ENT: Vision unremarkable. CONSTITUTIONAL: No recent weight loss. No fever, chills, night sweats. Past Medical History Past Medical History: Atrial Fibrillation, Musculoskeletal Disorder, Renal Disease, Skin Disorder, Thyroid Disorder Additional Past Medical History / Comment(s): psoriasis, arthritis, hx kidney stones, cast on rt wrist from recent surgery, hx cellulitis left leg History of Any Multi-Drug Resistant Organisms: None Reported Past Surgical History: Ablation, Back Surgery, Bariatric Surgery, Cholecystectomy, Hernia Repair, Orthopedic Surgery Additional Past Surgical History / Comment(s): BACK X2 -rods in back, CERVICAL SURG.,-Segundo en Y.,hernia x 3, rt wrist surgery, abdominoplasty, cyst removed "from behind the heart", pain clinic procedures Past Anesthesia/Blood Transfusion Reactions: Previous Problems w/ Anesthesia Additional Past Anesthesia/Blood Transfusion Reaction / Comm: Pain with last pain clinic procedure 04/28/14- felt every needle going in Past Psychological History: No Psychological Hx Reported Additional Psychological History / Comment(s): . Smoking Status: Former smoker Past Alcohol Use History: Occasional Additional Past Alcohol Use History / Comment(s): occ CIGAR. QUIT CIGARETTES 1983. Past Drug Use History: None Reported - Past Family History Mother Family Medical History: No Reported History Father Family Medical History: No Reported History Medications and Allergies Home Medications Medication Instructions Recorded Confirmed Type Lansoprazole 30 mg PO DAILY PRN 04/24/22 05/28/24 History oxyCODONE-APAP 10-325MG [Percocet 1 tab PO Q4H 04/24/22 05/28/24 History 10-325 mg] Metoprolol Succinate (ER) [Toprol 50 mg PO DAILY #60 tab 04/26/22 05/28/24 Rx XL] Furosemide [Lasix] 40 mg PO BID 08/28/22 05/28/24 History Cholecalciferol [Vitamin D3 (25 25 mcg PO DAILY 05/08/24 05/28/24 History Mcg = 1000 Iu)] Sodium Bicarbonate Tab 650 mg PO BID 05/08/24 05/28/24 History allopurinoL [Zyloprim] 100 mg PO DAILY 05/08/24 05/28/24 History lisinopriL [Zestril] 15 mg PO DAILY 05/08/24 05/28/24 History Gabapentin [Neurontin] See Taper PO DIRECTED 05/28/24 05/28/24 History Allergies Allergy/AdvReac Type Severity Reaction Status Date / Time colchicine Allergy Nausea & Verified 05/28/24 10:19 Vomiting iron Allergy SEVERE Verified 05/28/24 10:19 PAIN, WHEN RECEIVED INJECTION OF IRON nylon Allergy SUTURES, Uncoded 05/28/24 10:19 "FESTER OUT," INFECTED Physical Exam Vitals: Vital Signs Temp Pulse Resp BP Pulse Ox 06/07/24 07:11 98.1 F 69 17 98/65 97 06/07/24 01:07 98.7 F 70 16 97/63 93 L 06/06/24 22:29 77 16 06/06/24 20:00 98.6 F 77 16 105/73 95 06/06/24 12:36 99.4 F 78 19 98/67 96 Intake and Output 06/06/24 06/07/24 06/07/24 22:59 06:59 14:59 Other: Voiding Method Toilet # Voids 3 2 General appearance: The patient is alert, oriented, appears in no acute distress. HET: Head is normocephalic and atraumatic. Conjunctiva pink. Sclera anicteric. Neck: Supple without lymphadenopathy. Trachea midline. Heart: Regular. Lungs: Equal expansion, normal respiratory effort. Abdomen: Soft, nontender, nondistended. Skin: No rashes. No jaundice. Extremities: Normal skin color and turgor. No pedal edema. Neurological: No focal deficits. Alert and oriented x3. Results CBC & Chem 7: 06/07/24 03:49 06/06/24 05:51 Labs: Abnormal Lab Results - Last 24 Hours (Table) 06/06/24 Range/Units 05:51 BUN 29.8 H (9.0-27.0) mg/dL Creatinine 2.0 H (0.6-1.5) mg/dL Est GFR (CKD-EPI) 37 L (>=60) Calcium 8.6 L (8.7-10.3) mg/dL AST 115 H (14-35) U/L ALT 127 H (10-49) U/L Alkaline Phosphatase 461 H (41-126) U/L Total Protein 5.7 L (6.2-8.2) g/dL Albumin 3.4 L (3.8-4.9) g/dL Albumin/Globulin Ratio 1.48 L (1.60-3.17) Ratio Comments: MRCP reports evidence of choledocholithiasis with biliary dilation. There is at least 3 stones identified. One of the stones will position between scans. One of the stones is at the papula ERCP recommended for extraction. Iron deposition in the liver and spleen Gallbladder ultrasound reports no evidence for acute process. Dilated biliary system which can be seen in normal postcholecystectomy physiology. Hepatocellular disease suggested. Assessment and Plan (1) Choledocholithiasis Narrative/Plan: 64-year-old male presented 10 days ago with complaints of abdominal pain with history of cholecystectomy 15 to 20 years ago for cholelithiasis. Noted to have elevated LFTs that were consistent with cholestatic pattern. CT abdomen pelvis as well as MRCP reporting CBD dilation and at least 3 noted filling defects consistent with choledocholithiasis. There has been no gastroenterology available in the hospital during his stay until today, recommend patient undergo ERCP however due to history of Segundo-en-Y gastric bypass patient will need advanced editor dictionary for transfer to higher level of care. Recommend continuing with transfer, patient has been accepted today. Current Visit: Yes Status: Acute Code(s): K80.50 - CALCULUS OF BILE DUCT W/O CHOLANGITIS OR CHOLECYST W/O OBST SNOMED Code(s): 860382539 (2) Abdominal pain Current Visit: Yes Status: Acute Code(s): R10.9 - UNSPECIFIED ABDOMINAL PAIN SNOMED Code(s): 04550428 (3) CKD (chronic kidney disease) Current Visit: Yes Status: Acute Code(s): N18.9 - CHRONIC KIDNEY DISEASE, UNSPECIFIED SNOMED Code(s): 392546632 (4) History of atrial fibrillation Current Visit: No Status: Acute Code(s): Z86.79 - PERSONAL HISTORY OF OTHER DISEASES OF THE CIRCULATORY SYSTEM SNOMED Code(s): 949788464 Plan: 1. Continue symptomatic and supportive care 2. Agree with transfer to tertiary center for higher level of care for need for ERCP with history of Segundo-en-Y gastric bypass with need for advanced editor dictionary 3. Rest of medical management per primary medical team Thank you for this consultation, we will continue to follow. Dr. Dwight Marcos I agree with the dictator's note, documented as a scribe by Jannie Qiu.
[2024-06-07 09:14] LABS: ALT 113 U/L (10-49); AST 104 U/L (14-35); Albumin 3.4 g/dL (3.8-4.9); Alkaline Phosphatase 439 U/L (41-126); Blood Urea Nitrogen 26.4 mg/dL (9.0-27.0); Calcium 8.6 mg/dL (8.7-10.3); Carbon Dioxide 22.9 mmol/L (21.6-31.8); Chloride 106 mmol/L (96-109); Glucose 98 mg/dL (70-110); Potassium 4.9 mmol/L (3.5-5.5); Sodium 138 mmol/L (135-145); Total Bilirubin 0.9 mg/dL (0.3-1.2); Total Protein 5.4 g/dL (6.2-8.2)
--- NOTE | 2024-06-07 15:31 | P.PN ---
Subjective Progress Note Date: 06/07/24 Subjective: Patient seen and examined at bedside. No acute events overnight. Denies any abdominal pain, lightheadedness, or urinary complaints. Pertinent positives and negatives as discussed above, a complete review of systems was performed and all other systems are negative. Vitals Signs Reviewed. General: Nontoxic, no distress, appears at stated age Derm: Warm, dry Head: Atraumatic, normocephalic, symmetric Eyes: EOMI, no lid lag, anicteric sclera Mouth: No lip lesion, mucus membranes moist Cardiovascular: S1S2 reg, no murmur Lungs: CTA bilateral, no rhonchi, no rales, no accessory muscle use Abdominal: Soft, nontender to palpation, no guarding, no appreciable organomegaly Ext: No gross muscle atrophy, nonpitting bilateral lower extremity edema, no contractures Neuro: CN II-XI grossly intact, no focal neuro deficits Psych: Alert, oriented, appropriate affect Data Reviewed Today: Pertinent Labs: WBC 8, hemoglobin 10.5, platelets 207, creatinine 1.5, AST 1 4, ALT 113, ALP 439 Imaging: Renal ultrasound with no signs of hydronephrosis Assessment and Plan: Choledocholithiasis at papilla, multiple stones noted Abdominal pain, resolved Conjugated bilirubinemia, resolved Transaminitis Elevated ALP Acute hypokalemia, resolved -Ectasia of the CBD more prominent from the previous examination now up to 2.7 cm with multiple rounded calcific densities in the distal CBD near the ampulla up to 11 mm, findings are consistent with distal choledocholithiasis. No evidence of high-grade bowel obstruction. Fecal material within small bowel loop, nonspecific findings suspicious for potential enteritis with delayed transit to the small bowel. At least moderate small burden throughout the colon, no diverticulitis, no free air. -MRCP significant for findings of choledocholithiasis with at least 3 stones present, one at papilla. Iron deposits also noted in liver and spleen. -No need for antibiotics -Continue regular diet -Discussed with GI, patient will need transfer due to history of Segundo-en-Y bypass -Awaiting transfer to [facility] for higher level of care and ERCP #CKD stage IIIb secondary to nephrosclerosis, stable #KENTON, likely prerenal due to hypotension, nonoliguric, improved Discontinued antihypertensive Renal ultrasound with no signs of hydronephrosis Continue to monitor -Continue lactated Ringer at 75 cc an hour Hypokalemia, resolved History of A-fib status post ablation History of HTN history of bariatric surgery -Continue metoprolol 50 daily Bilateral feet pain, left ankle pain Chronic opiate dependence -Left ankle x-ray nonrevealing, there is soft tissue swelling -Uric acid normal -Prednisone 30 mg daily till 06/03 -Continue allopurinol 100 mg daily -Okay to continue home gabapentin 300 mg 3 times daily, Percocet 10 every 4 hours CODE STATUS: Full code Disposition: [facility] transfer Accepted at [facility] by Dr. Ornelas I have seen and evaluated the patient today. Discussed with the resident and agree with the residents finding and plan as documented in the resident's note. Changes highlighted in blue font. Objective - Vital Signs Vital signs: Vital Signs Temp 98.7 F 06/07/24 01:07 Pulse 70 06/07/24 01:07 Resp 16 06/07/24 01:07 BP 97/63 06/07/24 01:07 Pulse Ox 93 L 06/07/24 01:07 FiO2 Intake & Output 06/06/24 06/07/24 06/07/24 18:59 06:59 18:59 Other: Voiding Method Toilet # Voids 3 2 - Labs CBC & Chem 7: 06/07/24 03:49 06/07/24 03:49 Labs: Abnormal Lab Results - Last 24 Hours (Table) 06/06/24 Range/Units 05:51 BUN 29.8 H (9.0-27.0) mg/dL Creatinine 2.0 H (0.6-1.5) mg/dL Est GFR (CKD-EPI) 37 L (>=60) Calcium 8.6 L (8.7-10.3) mg/dL AST 115 H (14-35) U/L ALT 127 H (10-49) U/L Alkaline Phosphatase 461 H (41-126) U/L Total Protein 5.7 L (6.2-8.2) g/dL Albumin 3.4 L (3.8-4.9) g/dL Albumin/Globulin Ratio 1.48 L (1.60-3.17) Ratio
[2024-06-07] MEDS: PANTOPRAZOLE 40 MG TABLET PO PRN (19:36)
[2024-06-07 20:07] VITALS: BP 105/73; PULSE 79; RESP 16; TEMP 97.9
--- NOTE | 2024-06-08 07:45 | P.DS ---
Providers Date of admission: 06/03/24 12:54 Expected date of discharge: 06/08/24 Attending physician: Rula Ruff MD Consults: 05/28/24 07:27 Consult Physician Routine Consulting Provider: Sahil Salmeron Consult Reason/Comments: medical management Do you want consulting provider notified?: Yes 06/04/24 13:57 Consult Physician Routine Consulting Provider: Kary Marcos Consult Reason/Comments: ERCP, choledocholithiasis Do you want consulting provider notified?: Yes Primary care physician: Stated None Hospital Course: Discharge Diagnosis: Choledocholithiasis at papilla, multiple stones noted Abdominal pain Conjugated bilirubinemia Transaminitis Elevated ALP Acute hypokalemia CKD stage IIIb secondary to nephrosclerosis, stable KENTON, likely prerenal due to hypotension, nonoliguric, improved Hypokalemia History of A-fib status post ablation History of HTN history of bariatric surgery Bilateral feet pain, left ankle pain Chronic opiate dependence Hospital Course: 64-year-old male with past medical history of A-fib status post ablation, HTN, history of bariatric surgery, CKD 3B, recent admission to our institution(discharged on 05/13/2024) for septic shock secondary to E. coli bacteremia with unclear source, who presented to the ER with abdominal pain. ER course CT abdomen pelvis: Cholecystectomy. Ectasia of the CBD more prominent from the previous examination now up to 2.7 cm with multiple rounded calcific densities in the distal CBD near the ampulla up to 11 mm, findings are consistent with distal choledocholithiasis. No evidence of high-grade bowel obstruction. Fecal material within small bowel loop, nonspecific findings suspicious for potential enteritis with delayed transit to the small bowel. At least moderate small cristal en throughout the colon, no diverticulitis, no free air. EKG showed sinus rhythm with HR 90s, low voltage QRS, no ischemic changes, QTc 397. Patient's lab work was significant for no leukocytosis, hemoglobin 12.6, improved from 02.18. Platelet count normal, coagulation panel normal, sodium normal, potassium 6.6, creatinine was 1.74 which appears to be near patient's baseline, AST elevated at 530, ALT 207, alkaline phosphatase 340. Conjugated bilirubin elevated 1.2, troponin negative, lipase normal, amylase normal, BNP normal. In the ER patient was given bolus of fluid, ketorolac for pain control, Protonix, hyperkalemia protocol with albuterol, calcium gluconate, IV insulin 10 units, sodium bicarb, 1 dose of Lokelma, a dose of Zosyn. Transfer initiated to [facility]. MRCP also showed choledocholithiasis. Patient was seen by GI, recommending transfer to [facility] as well. Patient transferred on 06/07/2024. Plan - Discharge Summary Discharge Rx Participant: No New Discharge Prescriptions: No Action Furosemide [Lasix] 40 mg PO BID Cholecalciferol [Vitamin D3 (25 Mcg = 1000 Iu)] 25 mcg PO DAILY lisinopriL [Zestril] 15 mg PO DAILY allopurinoL [Zyloprim] 100 mg PO DAILY Sodium Bicarbonate Tab 650 mg PO BID Gabapentin [Neurontin] See Taper PO DIRECTED oxyCODONE-APAP 10-325MG [Percocet 10-325 mg] 1 tab PO Q4H Lansoprazole 30 mg PO DAILY PRN PRN Reason: acid reflux Metoprolol Succinate (ER) [Toprol XL] 50 mg PO DAILY #60 tab Discharge Medication List Lansoprazole 30 mg PO DAILY PRN 04/24/22 [History] oxyCODONE-APAP 10-325MG [Percocet 10-325 mg] 1 tab PO Q4H 04/24/22 [History] Metoprolol Succinate (ER) [Toprol XL] 50 mg PO DAILY #60 tab 04/26/22 [Rx] Furosemide [Lasix] 40 mg PO BID 08/28/22 [History] Cholecalciferol [Vitamin D3 (25 Mcg = 1000 Iu)] 25 mcg PO DAILY 05/08/24 [History] Sodium Bicarbonate Tab 650 mg PO BID 05/08/24 [History] allopurinoL [Zyloprim] 100 mg PO DAILY 05/08/24 [History] lisinopriL [Zestril] 15 mg PO DAILY 05/08/24 [History] Gabapentin [Neurontin] See Taper PO DIRECTED 05/28/24 [History] Follow up Appointment(s)/Referral(s): None,Stated [Primary Care Provider] - 1-2 days Discharge Disposition: OTHER INSTITUTION NOT DEFINED
== END 2024-06-07 20:50 | disposition short-term general hospital (02) | DRG 445 ==
LOC: EC 01:54 → 4SSUR 05-30 12:54 → UNDOADMIN 05-30 12:54 → 4SSUR 06-03 12:54
PROVIDERS: ADMIT Internal Medicine; ATTEND Internal Medicine
DX: K80.50 Calculus of bile duct without cholangitis or cholecystitis without obstruction (principal); N17.9 Acute kidney failure, unspecified; I95.9 Hypotension, unspecified; N18.32 Chronic kidney disease, stage 3b; I12.9 Hypertensive chronic kidney disease with stage 1 through stage 4 chronic kidney disease, or unspecified chronic kidney disease; E86.1 Hypovolemia; E87.5 Hyperkalemia; R74.01 Elevation of levels of liver transaminase levels; E87.6 Hypokalemia; M10.9 Gout, unspecified; Z86.79 Personal history of other diseases of the circulatory system; Z79.899 Other long term (current) drug therapy; Z79.891 Long term (current) use of opiate analgesic; Z98.84 Bariatric surgery status; Z90.49 Acquired absence of other specified parts of digestive tract; Z87.891 Personal history of nicotine dependence
CPT/HCPCS: 36415; 74176; 74181; 76705; 76770; 80053; 81003; 82150; 82248; 83605; 83690; 83880; 84484; 84550; 85025; 85610; 85730; 87040; 93005; 94640; 96361; 96365; 96366; 96375; 96376; 99291

== ENCOUNTER 2024-06-15 18:46 | Emergency (ER) | payer BC ==
[2024-06-15 19:01] VITALS: TEMP 98.5
--- NOTE | 2024-06-15 19:22 | ED ---
Recheck HPI - General Chief Complaint: Recheck/Abnormal Lab/Rx Stated Complaint: Post-op R sided abd pain Time Seen by Provider: 06/15/24 19:02 Source: patient, family, RN notes reviewed Mode of arrival: ambulatory Limitations: no limitations - History of Present Illness Initial Comments: This is a 64-year-old male presenting with gallbladder and catheter leakage x 3 days. Patient endorses having a drain to placed in his gallbladder 8 days ago at [facility] when he began experiencing leaking after tugging on the catheter. States going to PCP earlier today or he was found to have leukocytosis and elevated uric acid levels. Patient states he has an upcoming appointment at [facility] for the catheter tomorrow morning. Endorses wheezing, increased pain (7/10), despite use of Humble, radiating to right back with fever and pallor. Patient denies chills, dizziness, chest pain, dyspnea, N/V/D, urinary symptoms. MD Complaint: wound re-check, other (Surgical catheter leakage) Onset/Timin -: days(s) Associated Symptoms: fever, abdominal pain - Related Data Home Medications Medication Instructions Recorded Confirmed Lansoprazole 30 mg PO DAILY PRN 04/24/22 05/28/24 oxyCODONE-APAP 10-325MG [Percocet 1 tab PO Q4H 04/24/22 05/28/24 10-325 mg] Furosemide [Lasix] 40 mg PO BID 08/28/22 05/28/24 Cholecalciferol [Vitamin D3 (25 25 mcg PO DAILY 05/08/24 05/28/24 Mcg = 1000 Iu)] Sodium Bicarbonate Tab 650 mg PO BID 05/08/24 05/28/24 allopurinoL [Zyloprim] 100 mg PO DAILY 05/08/24 05/28/24 lisinopriL [Zestril] 15 mg PO DAILY 05/08/24 05/28/24 Gabapentin [Neurontin] See Taper PO DIRECTED 05/28/24 05/28/24 Previous Rx's Medication Instructions Recorded Metoprolol Succinate (ER) [Toprol 50 mg PO DAILY #60 tab 04/26/22 XL] Allergies Allergy/AdvReac Type Severity Reaction Status Date / Time colchicine Allergy Nausea & Verified 06/15/24 19:01 Vomiting iron Allergy SEVERE Verified 06/15/24 19:01 PAIN, WHEN RECEIVED INJECTION OF IRON nylon Allergy SUTURES, Uncoded 06/15/24 19:01 "FESTER OUT," INFECTED Review of Systems ROS Statement: Those systems with pertinent positive or pertinent negative responses have been documented in the HPI. ROS Other: All systems not noted in ROS Statement are negative. Past Medical History Past Medical History: Atrial Fibrillation, Musculoskeletal Disorder, Renal Disease, Skin Disorder, Thyroid Disorder Additional Past Medical History / Comment(s): psoriasis, arthritis, hx kidney stones, cast on rt wrist from recent surgery, hx cellulitis left leg History of Any Multi-Drug Resistant Organisms: None Reported Past Surgical History: Ablation, Back Surgery, Bariatric Surgery, Cholecystectomy, Hernia Repair, Orthopedic Surgery Additional Past Surgical History / Comment(s): BACK X2 -rods in back, CERVICAL SURG.,-Segundo en Y.,hernia x 3, rt wrist surgery, abdominoplasty, cyst removed "from behind the heart", pain clinic procedures, Biliary drainage cathether Past Anesthesia/Blood Transfusion Reactions: Previous Problems w/ Anesthesia Additional Past Anesthesia/Blood Transfusion Reaction / Comment(s): Pain with last pain clinic procedure 04/28/14- felt every needle going in Past Psychological History: No Psychological Hx Reported Smoking Status: Former smoker Past Alcohol Use History: Occasional Past Drug Use History: None Reported - Past Family History Mother Family Medical History: No Reported History Father Family Medical History: No Reported History General Exam Limitations: no limitations General appearance: alert, in no apparent distress Head exam: Present: atraumatic, normocephalic, normal inspection Eye exam: Present: normal appearance, PERRL, EOMI. Absent: scleral icterus, conjunctival injection, periorbital swelling ENT exam: Present: normal exam, mucous membranes moist Neck exam: Present: normal inspection. Absent: tenderness, meningismus, lymphadenopathy Respiratory exam: Present: normal lung sounds bilaterally. Absent: respiratory distress, wheezes, rales, rhonchi, stridor Cardiovascular Exam: Present: regular rate, normal rhythm, normal heart sounds. Absent: systolic murmur, diastolic murmur, rubs, gallop, clicks GI/Abdominal exam: Present: soft, tenderness (Positive right upper quadrant catheter ostomy displacement with thick green oozing discharge with bordering erythema and some surrounding tenderness. Negative diffuse erythema, warmth.), normal bowel sounds, other (Remainder of abdomen is soft and nontender). Absent: distended, guarding, rebound, rigid Extremities exam: Present: normal inspection, full ROM, normal capillary refill. Absent: tenderness, pedal edema, joint swelling, calf tenderness Back exam: Present: normal inspection Neurological exam: Present: alert, oriented X3, CN II-XII intact Psychiatric exam: Present: normal affect, normal mood Skin exam: Present: warm, dry, intact, normal color. Absent: rash Course Vital Signs 06/15/24 18:58 Temperature 98.5 F Pulse Rate 85 Respiratory 20 Rate Blood Pressure 101/72 O2 Sat by Pulse 97 Oximetry Medical Decision Making - Medical Decision Making Was pt. sent in by a medical professional or institution (, PA, CADD DRAFTER, urgent care, hospital, or [facility]...) When possible be specific @ -No Did you speak to anyone other than the patient for history (EMS, parent, family, police, friend...)? What history was obtained from this source @ -No Did you review nursing and triage notes (agree or disagree)? Why? @ -I reviewed and agree with nursing and triage notes Were old charts reviewed (outside hosp., previous admission, EMS record, old EKG, old radiological studies, urgent care reports/EKG's, m[facility] records)? Report findings @ -No old charts were reviewed Differential Diagnosis (chest pain, altered mental status, abdominal pain women, abdominal pain men, vaginal bleeding, weakness, fever, dyspnea, syncope, headache, dizziness, GI bleed, back pain, seizure, CVA, palpatations, mental health, musculoskeletal)? @ -Differential Abdominal Pain Men: Appendicitis, cholecystitis, diverticulosis, ischemic bowel, pancreatitis, hepatitis, UTI, gastroenteritis, AAA, incarcerated hernia, bowel obstruction, constipation, inflammatory bowel, hepatitis, peptic ulcer disease, splenic infarction, perforated viscus, testicular torsion, this is not meant to be an all-inclusive list EKG interpreted by me (3pts min.). @ -Not on X-rays interpreted by me (1pt min.). @ -KUB shows unremarkable abdomen. CT interpreted by me (1pt min.). @ -None done U/S interpreted by me (1pt. min.). @ -Gallbladder ultrasound shows small fluid collection adjacent to liver indicating possible bile leak, small hemorrhage or minimal ascites. What testing was considered but not performed or refused? (CT, X-rays, U/S, labs)? Why? @ -None What meds were considered but not given or refused? Why? @ -None Did you discuss the management of the patient with other professionals (professionals i.e. , PA, CADD DRAFTER, lab, RT, psych nurse, social services analyst, beauty operator apprentice, teacher, upscale security officer, porter sample case)? Give summary @ -No Was smoking cessation discussed for >3mins.? @ -No Was critical care preformed (if so, how long)? @ -No Were there social determinants of health that impacted care today? How? (Homelessness, low income, unemployed, alcoholism, drug addiction, transportation, low edu. Level, literacy, decrease access to med. care, skilled nursing, rehab)? @ -No Was there de-escalation of care discussed even if they declined (Discuss DNR or withdrawal of care, Hospice)? DNR status @ -No What co-morbidities impacted this encounter? (DM, HTN, Smoking, COPD, CAD, Cancer, CVA, ARF, Chemo, Hep., AIDS, mental health diagnosis, sleep apnea, morbid obesity)? @ -None Was patient admitted / discharged? Hospital course, mention meds given and route, prescriptions, significant lab abnormalities, going to OR and other pertinent info. @ -Lab work shows leukocytosis (12.5) with left shift. Hemoglobin within normal limit for patient. Remaining electrolytes, CKD and alk phos all within normal limits for patient when compared to prior. UA unremarkable. KUB shows unremarkable abdomen. Gallbladder ultrasound shows small fluid collection adjacent to liver indicating possible bile leak, small hemorrhage or minimal ascites. Patient initially provided IV normal saline Toradol and Dilaudid for pain. With HPI, physical exam findings, stable vital signs with temp 98.5 F pulse 85 and BP 101/72, decided more prudent that patient follow-up normally for tomorrow's appointment at [facility] and have patient wait for transport which may take longer than the time of scheduled appointment. Patient is in agreement with this. Discussed patient with Dr. Pérez. Undiagnosed new problem with uncertain prognosis? @ -No Drug Therapy requiring intensive monitoring for toxicity (Heparin, Nitro, Insulin, Cardizem)? @ -No Were any procedures done? @ -No Diagnosis/symptom? @ -Displaced catheter Acute, or Chronic, or Acute on Chronic? @ -Acute Uncomplicated (without systemic symptoms) or Complicated (systemic symptoms)? @ -Complicated Side effects of treatment? @ -No Exacerbation, Progression, or Severe Exacerbation? @ -Exacerbation Poses a threat to life or bodily function? How? (Chest pain, [place], VA, pneumonia, PE, COPD, DKA, ARF, appy, cholecystitis, CVA, Diverticulitis, Homicidal, Suicidal, threat to staff... and all critical care pts) @ -No - Lab Data Result diagrams: 06/15/24 19:42 06/15/24 20:45 Lab Results 06/15/24 06/15/24 06/15/24 Range/Units 19:42 19:42 20:45 WBC 12.5 H (3.8-10.6) k/uL RBC 3.74 L (4.30-5.90) m/uL Hgb 11.4 L (13.0-17.5) gm/dL Hct 35.4 L (39.0-53.0) % MCV 94.5 (80.0-100.0) fL MCH 30.4 (25.0-35.0) pg MCHC 32.1 (31.0-37.0) g/dL RDW 14.1 (11.5-15.5) % Plt Count 329 (150-450) k/uL MPV 8.6 Neutrophils % 76 % Lymphocytes % 15 % Monocytes % 3 % Eosinophils % 3 % Basophils % 1 % Neutrophils # 9.6 H (1.3-7.7) k/uL Lymphocytes # 1.9 (1.0-4.8) k/uL Monocytes # 0.4 (0-1.0) k/uL Eosinophils # 0.4 (0-0.7) k/uL Basophils # 0.1 (0-0.2) k/uL Sodium 134 L (137-145) mmol/L Potassium 4.7 (3.5-5.1) mmol/L Chloride 104 (98-107) mmol/L Carbon Dioxide 21 L (22-30) mmol/L Anion Gap 9 mmol/L BUN 29 H (9-20) mg/dL Creatinine 1.34 H (0.66-1.25) mg/dL Est GFR (CKD-EPI)AfAm 66 (>60 ml/min/1.73 sqM) Est GFR (CKD-EPI)NonAf 57 (>60 ml/min/1.73 sqM) Glucose 90 (74-99) mg/dL Plasma Lactic Acid Luis 0.8 (0.7-2.0) mmol/L Uric Acid 8.3 (3.5-8.5) mg/dL Calcium 8.8 (8.4-10.2) mg/dL Total Bilirubin 0.8 (0.2-1.3) mg/dL AST 23 (17-59) U/L ALT 21 (4-49) U/L Alkaline Phosphatase 219 H (38-126) U/L Total Protein 5.9 L (6.3-8.2) g/dL Albumin 3.3 L (3.5-5.0) g/dL Amylase 45 (30-110) U/L Lipase 182 (23-300) U/L Urine Color Urine Appearance (Clear) Urine pH (5.0-8.0) Ur Specific [place] (1.001-1.035) Urine Protein (Negative) Urine Glucose (UA) (Negative) Urine Ketones (Negative) Urine Blood (Negative) Urine Nitrite (Negative) Urine Bilirubin (Negative) Urine Urobilinogen (<2.0) mg/dL Ur Leukocyte Esterase (Negative) Urine RBC (0-5) /hpf Urine WBC (0-5) /hpf Ur Squamous Epith Cells (0-4) /hpf Urine Mucus (None) /hpf 06/15/24 Range/Units 21:41 WBC (3.8-10.6) k/uL RBC (4.30-5.90) m/uL Hgb (13.0-17.5) gm/dL Hct (39.0-53.0) % MCV (80.0-100.0) fL MCH (25.0-35.0) pg MCHC (31.0-37.0) g/dL RDW (11.5-15.5) % Plt Count (150-450) k/uL MPV Neutrophils % % Lymphocytes % % Monocytes % % Eosinophils % % Basophils % % Neutrophils # (1.3-7.7) k/uL Lymphocytes # (1.0-4.8) k/uL Monocytes # (0-1.0) k/uL Eosinophils # (0-0.7) k/uL Basophils # (0-0.2) k/uL Sodium (137-145) mmol/L Potassium (3.5-5.1) mmol/L Chloride (98-107) mmol/L Carbon Dioxide (22-30) mmol/L Anion Gap mmol/L BUN (9-20) mg/dL Creatinine (0.66-1.25) mg/dL Est GFR (CKD-EPI)AfAm (>60 ml/min/1.73 sqM) Est GFR (CKD-EPI)NonAf (>60 ml/min/1.73 sqM) Glucose (74-99) mg/dL Plasma Lactic Acid Luis (0.7-2.0) mmol/L Uric Acid (3.5-8.5) mg/dL Calcium (8.4-10.2) mg/dL Total Bilirubin (0.2-1.3) mg/dL AST (17-59) U/L ALT (4-49) U/L Alkaline Phosphatase (38-126) U/L Total Protein (6.3-8.2) g/dL Albumin (3.5-5.0) g/dL Amylase (30-110) U/L Lipase (23-300) U/L Urine Color Yellow Urine Appearance Clear (Clear) Urine pH 5.0 (5.0-8.0) Ur Specific [place] 1.021 (1.001-1.035) Urine Protein Trace H (Negative) Urine Glucose (UA) Negative (Negative) Urine Ketones Negative (Negative) Urine Blood Negative (Negative) Urine Nitrite Negative (Negative) Urine Bilirubin Negative (Negative) Urine Urobilinogen <2.0 (<2.0) mg/dL Ur Leukocyte Esterase Trace H (Negative) Urine RBC 1 (0-5) /hpf Urine WBC 5 (0-5) /hpf Ur Squamous Epith Cells <1 (0-4) /hpf Urine Mucus Rare H (None) /hpf Disposition Clinical Impression: Instrmnt fail-catheteriz Disposition: HOME SELF-CARE Condition: Good Additional Instructions: Follow-up for surgical appointment tomorrow morning at [facility] for ongoing care. Is patient prescribed a controlled substance at d/c from ED?: No Referrals: None,Stated [REFERRING] - 1-2 days Time of Disposition: 22:46
[2024-06-15] MEDS: KETOROLAC 15 MG/ML 1 ML VIAL IVP STA (19:52)
[2024-06-15] MEDS: SODIUM CHLORIDE 0.9% 1,000 ML IV STA (19:52)
[2024-06-15] MEDS: HYDROmorphone 1 MG/ML 1 ML SYRINGE IVP STA (19:53)
[2024-06-15 20:05] LABS: Basophils # (A) 0.1 k/uL (0-0.2); Basophils % (A) 1 %; Eosinophils # (A) 0.4 k/uL (0-0.7); Eosinophils % (A) 3 %; HCT 35.4 % (39.0-53.0); HGB 11.4 gm/dL (13.0-17.5); Lymphocytes # (A) 1.9 k/uL (1.0-4.8); Lymphocytes % (A) 15 %; MCH 30.4 pg (25.0-35.0); MCHC 32.1 g/dL (31.0-37.0); MCV 94.5 fL (80.0-100.0); Mean Platelet Volume 8.6; Monocytes # (A) 0.4 k/uL (0-1.0); Monocytes % (A) 3 %; Neutrophils # (A) 9.6 k/uL (1.3-7.7); Neutrophils % (A) 76 %; Platelet Count 329 k/uL (150-450); RBC 3.74 m/uL (4.30-5.90); RDW 14.1 % (11.5-15.5); WBC 12.5 k/uL (3.8-10.6)
[2024-06-15 21:23] LABS: ALT 21 U/L (4-49); AST 23 U/L (17-59); African American GFR (CKD) 66 (>60 ml/min/1.73 sqM); Albumin 3.3 g/dL (3.5-5.0); Alkaline Phosphatase 219 U/L (38-126); Amylase 45 U/L (30-110); Anion Gap 9 mmol/L; Blood Urea Nitrogen 29 mg/dL (9-20); Calcium 8.8 mg/dL (8.4-10.2); Carbon Dioxide 21 mmol/L (22-30); Chloride 104 mmol/L (98-107); Glucose 90 mg/dL (74-99); Lipase 182 U/L (23-300); Non-African American GFR(CKD) 57 (>60 ml/min/1.73 sqM); Potassium 4.7 mmol/L (3.5-5.1); Sodium 134 mmol/L (137-145); Total Bilirubin 0.8 mg/dL (0.2-1.3); Total Protein 5.9 g/dL (6.3-8.2); Uric Acid 8.3 mg/dL (3.5-8.5)
--- NOTE | 2024-06-15 21:38 | XR ---
EXAMINATION TYPE: XR KUB DATE OF EXAM: 06/15/2024 8:16 PM COMPARISON: 10/15/2011 CLINICAL INDICATION: Male, 64 years old with history of Gallbladder catheter leakage, TECHNIQUE: XR KUB view(s) obtained. FINDINGS: There is a nonspecific bowel gas pattern present. No free air is under the diaphragm. Psoas margins are normal. No organomegaly is present. Catheter enters on the right. Pigtail is in the right midabdomen. IMPRESSION: 1. Unremarkable Abdomen [facility], Workstation: [facility], 06/15/2024 9:36 PM
--- NOTE | 2024-06-15 21:40 | US ---
EXAMINATION TYPE: US gallbladder DATE OF EXAM: 06/15/2024 COMPARISON: EXAMINATION TYPE: US gallbladder DATE OF EXAM: 06/15/2024 COMPARISON: 06/03/2024 CLINICAL INDICATION: Male, 64 years old with history of Catheter leakage; Patient states that he just had a procedure done on his biliary system at [facility]. Patient complaint of leakage from catheter site and abd pain. Patient has large bandages over RUQ/cath site, exam done intercostally. Patient h as hard time lying flat due to back issues. Cholecystectomy 20 years ago. TECHNIQUE: Grayscale and color Doppler imaging of the right upper quadrant was performed. FINDINGS: EXAM MEASUREMENTS: Liver Length: 15.9 cm Gallbladder Wall: Surgically absent cm CBD: obscured by overlying bowel gas cm Right Kidney: 9.2 x 4.9 x 4.8 cm DENTAL DIRECTOR NOTES:Limited due to bandages, pt positioning and overlying bowel gas Pancreas: Obscured by bowel gas Liver: There is a 2.9 x 1.2 x 3.9cm fluid collection seen within the anterior portion of the liver Gallbladder: Surgically absent Evidence for sonographic Lin's sign: no CBD: obscured by overlying bowel gas Right Kidney: wnl Patient's catheter is not identified during the ultrasound exam IMPRESSION: Small fluid collection adjacent to the liver. This is not directly at the gallbladder bed, however bi le leak, small hemorrhage, minimal ascites could be considered. [facility], Workstation: [facility], 06/15/2024 9:38 PM
[2024-06-15 22:18] LABS: Appearance,Urine Clear (Clear); Bilirubin,Urine Negative (Negative); Blood,Urine Negative (Negative); Color,Urine Yellow; Glucose,Urine (UA) Negative (Negative); Ketones,Urine Negative (Negative); Leukocyte Esterase,Urine Trace (Negative); Mucus,Urine Rare /hpf; Nitrite,Urine Negative (Negative); Protein,Urine Trace (Negative); RBC,Urine 1 /hpf (0-5); Specific Gravity,Urine 1.021 (1.001-1.035); Squamous Epithelial Cell,Urine <1 /hpf (0-4); Urobilinogen,Urine <2.0 mg/dL (<2.0); WBC,Urine 5 /hpf (0-5)
[2024-06-15 23:09] VITALS: BP 113/69; PULSE 82; RESP 16
== END 2024-06-15 23:09 | disposition home or self-care (01) ==
LOC: EC 18:46
DX: T83.098A Other mechanical complication of other urinary catheter, initial encounter (principal); Z87.891 Personal history of nicotine dependence; Z91.048 Other nonmedicinal substance allergy status; Z88.8 Allergy status to other drugs, medicaments and biological substances
CPT/HCPCS: 36415; 80053; 82150; 83605; 83690; 84550; 85025; 81001; 74018; 76705; 99284; 96374; 96375; 96361; J1171; J1885

== ENCOUNTER → 2024-08-11 | Outpatient (CLI) | payer BC ==
[2024-08-11 18:49] LABS: Microalbumin Creatinine Ratio <32 mg/g Cr (0-30); Urine Creatinine 37.6 mg/dL (39.0-259.0)
[2024-08-11 18:55] LABS: Chol/HDL Ratio 1.89 Ratio
[2024-08-11 18:56] LABS: % Iron Saturation 15.14 (15.00-50.00); ALT 15 U/L (10-49); AST 22 U/L (14-35); Albumin 3.4 g/dL (3.8-4.9); Albumin/Globulin Ratio 1.36 Ratio (1.60-3.17); Alkaline Phosphatase 139 U/L (41-126); BUN/Creat Ratio 15.93 Ratio (12.00-20.00); Blood Urea Nitrogen 23.9 mg/dL (9.0-27.0); Calcium 8.8 mg/dL (8.7-10.3); Carbon Dioxide 22.2 mmol/L (21.6-31.8); Chloride 107 mmol/L (96-109); Ferritin 38.6 ng/mL (22.0-322.0); Globulin 2.5 g/dL (1.6-3.3); Glucose 100 mg/dL (70-110); Iron 43 UG/DL (65-175); LDL Cholesterol,Calculated 41.7 mg/dL (0.0-131.0); Magnesium 2.1 mg/dL (1.5-2.4); Phosphorus 3.7 mg/dL (2.4-5.1); Potassium 3.6 mmol/L (3.5-5.5); Sodium 140 mmol/L (135-145); T4, Free (Free Thyroxine) 0.83 ng/dL (0.80-1.80); Total Bilirubin 0.3 mg/dL (0.3-1.2); Total Iron Binding Capacity 284 UG/DL (228-460); Total Protein 5.9 g/dL (6.2-8.2)
[2024-08-11 19:07] LABS: HCT 38.8 % (39.6-50.0); HGB 12.2 g/dL (13.0-17.0); MCH 28.9 pg (27.0-32.0); MCHC 31.4 g/dL (32.0-37.0); MCV 91.9 FL (80.0-97.0); Mean Platelet Volume 11.1 FL (9.5-12.2); NRBC Per 100 WBC 0 X 10*3/uL (0.00-0.01); Platelet Count 266 X 10*3/uL (140-440); RBC 4.22 X 10*6/uL (4.40-5.60)
== END | disposition home or self-care (01) ==
LOC: LABWHC1 11:38
PROVIDERS: ATTEND Family Medicine
DX: E55.9 Vitamin D deficiency, unspecified (principal); E78.5 Hyperlipidemia, unspecified; D63.1 Anemia in chronic kidney disease; N39.0 Urinary tract infection, site not specified; N18.32 Chronic kidney disease, stage 3b; N25.81 Secondary hyperparathyroidism of renal origin; M10.9 Gout, unspecified; R80.9 Proteinuria, unspecified; R94.6 Abnormal results of thyroid function studies
CPT/HCPCS: 36415; 80053; 80061; 81001; 82043; 82306; 82570; 82728; 83540; 83550; 83735; 84100; 84439; 85027

== ENCOUNTER → 2024-08-11 | Outpatient (CLI) | payer BC ==
--- NOTE | 2024-08-11 13:56 | MR ---
EXAMINATION TYPE: MR shoulder RT wo con DATE OF EXAM: 08/11/2024 1:08 PM COMPARISON: None. CLINICAL INDICATION: Male, 64 years old with history of M25.511 R shoulder pain, Rt shoulder pain for one month with difficulty raising arm overhead IV Contrast: cc (None if empty) TECHNIQUE: Multiplanar, multisequence imaging of the right shoulder is performed without contrast. FINDINGS: Rotator Cuff: Intact infraspinatus tendon. Some increased signal in the supraspinatus tendon. Heterog eneous increased signal in the subscapularis tendon with some surrounding fluid. Acromioclavicular Joint: Moderate to severe narrowing and spurring. Prominent heterogeneous diminishe d T1 and increased T2 signal involving the distal clavicle: The acromion extending to the joint space . Loss of underlying fat plane noted. Glenohumeral Joint: Narrowing is present. Small to moderate-sized joint effusion. No significant spur ring. Labrum: The labrum appears grossly intact given limitation of non-arthrogram study. Biceps Tendon: The long head of biceps is in normal location within bicipital groove. Some increased signal intracapsular portion noted. Bone marrow signal: Marked increased signal at level of the acromioclavicular joint and adjacent soft tissue.. Other: No additional significant abnormality is appreciated. IMPRESSION: 1. Severe AC joint arthropathy and abnormal bone marrow signal. A inflammatory process is suspected. Correlate clinically. Underlying impingement is felt present. Correlate clinically. 2. Some tendinosis of the supraspinatus tendon. More prominent tendinosis of the subscapularis tendon . 3. Tendinosis of the intracapsular portion long head of biceps tendon. [facility], , 08/11/2024 1:54 PM
== END | disposition home or self-care (01) ==
LOC: RADMRIMAIN 12:14
PROVIDERS: ATTEND Orthopaedic Surgery
DX: M19.011 Primary osteoarthritis, right shoulder (principal); M67.813 Other specified disorders of tendon, right shoulder; M25.411 Effusion, right shoulder

== ENCOUNTER 2024-09-07 07:35 | Day surgery (SDC) | payer BC ==
[2024-09-07] MEDS: diazePAM 5 MG TAB PO STA (08:51)
[2024-09-07 09:07] VITALS: TEMP 98.2
[2024-09-07] MEDS: HYDROcodone/APAP 10-325MG 1 EACH TAB PO ONE (10:49)
--- NOTE | 2024-09-07 10:53 | CT ---
EXAMINATION TYPE: CT cervical spine w con DATE OF EXAM: 09/07/2024 10:20 AM COMPARISON: Plain film and CT.. CLINICAL INDICATION: Male, 64 years old with history of M47.26,M54.2 CERVICALGIA; cervicalgia, post m yelogram TECHNIQUE: Axial CT images from the skull base to the inferior aspect of T2 we obtained without intra venous contrast. Coronal and sagittal reformatted images were also reviewed. Contrast used: mL of , (if blank None) Oral contrast used: (if blank None) CT DLP: 773 mGycm, Automated exposure control for dose reduction was used. Intrathecal contrast was injected. FINDINGS: Fracture: None. Osseous structures: Anterior fixation hardware at C6-C7 with hardware intact. There is partial fusion at this level of the vertebral body. Vertebral alignment: Alignment within normal limits. Spinal canal/Neural Foramina: There is narrowing of these spinal canal worse at C4-C5 and C5-C6 with moderate to severe spinal canal stenosis secondary to disc osteophyte complex. More moderate spinal c anal stenosis C6-C7. Facet joint uncovertebral joint arthropathy with moderate bilateral C4-C5 C5-C6 neural foraminal stenosis. Neck soft tissues: Prevertebral soft tissues are within normal limits. Heterogenous thyroid gland on the left. Other: The airway is patent. The lung apices are clear. IMPRESSION: 1. No evidence of cervical spine fracture. 2. Moderate multilevel degenerative disc disease. 3. Moderate to severe spinal canal stenosis at C4-C5 and C5-C6 secondary disc osteophyte complex. 4. Moderate bilateral C4-C5 and C5-6 neural foraminal stenosis. [facility], , 09/07/2024 10:51 AM
--- NOTE | 2024-09-07 11:11 | FL ---
EXAMINATION TYPE: FL myelogram cervical DATE OF EXAM: 09/07/2024 10:15 AM HISTORY: Upper extremity numbness and pain. Informed consent was obtained and all the patient's questions were answered. The L3-L4 level was loc alized under fluoroscopy. Standard sterile technique was utilized as well as appropriate local anest hesia 1% Lidocaine and sodium bicarbonate. Spinal needle was introduced into the thecal sac under fl uoroscopic guidance and 10 ml of Omni 240 was injected. The patient tolerated the procedure well and left the department in stable condition. CT myelography is to follow. IMPRESSION: Successful myelography with CT cervical myelogram to follow. [facility], , 09/07/2024 11:08 AM
[2024-09-07 14:07] VITALS: BP 111/63; PULSE 65; RESP 14
== END 2024-09-07 14:00 | disposition home or self-care (01) ==
LOC: RADPROMAIN 07:35
PROVIDERS: ATTEND Orthopaedic Surgery
DX: M25.78 Osteophyte, vertebrae (principal); M48.02 Spinal stenosis, cervical region; M47.26 Other spondylosis with radiculopathy, lumbar region
CPT/HCPCS: 62302; 72126; Q9967

== ENCOUNTER → 2024-09-08 | Outpatient (CLI) | payer BC | END | disposition home or self-care (01) | LOC: LABWHC1 15:03 | PROVIDERS: ATTEND Radiology Diagnostic Radiology | DX: K80.50 Calculus of bile duct without cholangitis or cholecystitis without obstruction (principal) | CPT/HCPCS: 36415; 82247 ==

== ENCOUNTER 2024-09-17 08:40 | Day surgery (SDC) | payer BC ==
[2024-09-14 15:58] VITALS: BMI 34.7
--- NOTE | 2024-09-16 09:05 | P.HPOR ---
History of Present Illness H&P Date: 09/16/24 Chief Complaint: Right shoulder pain The patient is a 64-year-old male who presents with right shoulder pain for the past several months. He notes significant weakness/stiffness along with pain with attempted overhead use. He is having night symptoms. He denies any trauma tic event. He feels his symptoms are worsening. He has tried medications, stretching, and a steroid injection without much relief. Review of Systems Per HPI Past Medical History Past Medical History: Atrial Fibrillation, GERD/Reflux, Hypertension, Musculoskeletal Disorder, Renal Disease, Skin Disorder Additional Past Medical History / Comment(s): psoriasis, arthritis, hx kidney stones, hx cellulitis left leg , HX STAGE III A KIDNEY DISEASE History of Any Multi-Drug Resistant Organisms: None Reported Past Surgical History: Back Surgery, Bariatric Surgery, Cardiac Ablation, Cholecystectomy, Hernia Repair, Orthopedic Surgery Additional Past Surgical History / Comment(s): BACK X2 -rods in back, CERVICAL SURG.,-Segundo en Y.,hernia x 3, rt wrist surgery, abdominoplasty, cyst removed "from behind the heart", pain clinic procedures, Biliary drainage cathether- REMOVED, bilateral knee surgeries, COLONOSCOPY, Past Anesthesia/Blood Transfusion Reactions: Previous Problems w/ Anesthesia Additional Past Anesthesia/Blood Transfusion Reaction / Comment(s): Pain with last pain clinic procedure 04/28/14- felt every needle going in Smoking Status: Former smoker - Past Family History Mother Family Medical History: No Reported History Father Family Medical History: No Reported History Medications and Allergies Home Medications Medication Instructions Recorded Confirmed Type Lansoprazole 30 mg PO DAILY 04/24/22 09/14/24 History oxyCODONE-APAP 10-325MG [Percocet 1 tab PO Q4H 04/24/22 09/14/24 History 10-325 mg] Metoprolol Succinate (ER) [Toprol 50 mg PO DAILY #60 tab 04/26/22 09/14/24 Rx XL] Sodium Bicarbonate Tab 325 mg PO DAILY 05/08/24 09/14/24 History Gabapentin [Neurontin] 400 mg PO DAILY 05/28/24 09/14/24 History Ferrous Sulfate [Iron (65 MG 325 mg PO DAILY 07/03/24 09/14/24 History Elemental)] Fluticasone Nasal [place] [Flonase 1 spr EA NOSTRIL BID 07/03/24 09/14/24 History Nasal [place]] Magnesium Oxide [Magox 400] 400 mg PO BID 07/03/24 09/14/24 History allopurinoL [Zyloprim] 300 mg PO DAILY 07/03/24 09/14/24 History Apixaban [Eliquis] 5 mg PO BID 30 Days #60 tab 07/07/24 09/14/24 Rx Furosemide [Lasix] 40 mg PO DAILY 08/31/24 09/14/24 History Cholecalciferol (Vitamin D3) 50 mcg PO DAILY 09/14/24 09/14/24 History [Vitamin D3 (50 Mcg = 2000 Iu)] Cyclobenzaprine [Flexeril] 10 mg PO TID 09/14/24 09/14/24 History Allergies Allergy/AdvReac Type Severity Reaction Status Date / Time colchicine Allergy Nausea & Verified 09/14/24 15:46 Vomiting iron Allergy SEVERE Verified 09/14/24 15:46 PAIN, WHEN RECEIVED INJECTION OF IRON nylon Allergy SUTURES, Uncoded 09/14/24 15:46 "FESTER OUT," INFECTED Physical Examination - Shoulder right Tenderness with palpation: anterior, bicipital groove Pain: with abduction, with forward flexion ROM: forward flexion: 40 degrees ROM: internal rotation: lower lumbar ROM: external rotation: 40 degrees Strength: abduction: 4/5 Strength: external rotation: 5/5 Tests: internal impingement tests: positive, external impingment tests: positive Results The patient is a well-developed well-nourished male approximately 6 foot 2, 268 pounds of endomorphic habitus. HEENT exam is nonfocal, cervical range of motion is limited. He is tender about the right anterior glenohumeral joint and subacromial space. Moderate crepitus is noted. Actively him able to forward elevate him 50 degrees, passively 90 degrees. Impingement test, Neer test are p ositive. His distal neurovascular exam appears otherwise intact. - Diagnostic results Shoulder MRI: image reviewed (MRI of the right shoulder shows the rotator cuff is intact.) Assessment and Plan Assessment: Right shoulder adhesive capsulitis History of cervical fusion with radiculopathy Plan: I talked to the patient at length regarding his condition along with treatment options. At this point he remains symptomatic despite conservative measures. After a thorough discussion he opts to proceed with manipulation under anesthesia of the right shoulder. Risks and benefits were discussed at length in layman's terms. We will likely perform that utilizing IV sedation.
[~2024-09-17 08:40] MED LIST: LIDOCAINE 1% (10MG/ML) FOR IV START INTRADERMA PRN; MIDAZOLAM 2 MG/2 ML VIAL IV PRN; ceFAZolin 3 GM in SODIUM CHLORIDE 0.9% 100 ML IVPB PRN; fentaNYL (PF) 50 MCG/ML 2 ML AMP IVP PRN
[2024-09-17] MEDS: IV FLUID CONTINUATION 1,000 ML IV ONE (09:17)
[2024-09-17] MEDS: DEXAMETHASONE SOD PHOSPHATE 4 MG/ML 1 ML VIAL IV ONE (09:40)
[2024-09-17] MEDS: LACTATED RINGERS 1,000 ML IV SCH (09:40)
[2024-09-17] MEDS: ONDANSETRON 4 MG/2 ML VIAL IVP ONE (09:40)
[2024-09-17 10:44] VITALS: TEMP 98
[2024-09-17] MEDS ORDERED: PROPOFOL 10 MG/ML 20 ML VIAL IV ONE (10:46)
[2024-09-17] MEDS ORDERED: KETOROLAC 15 MG/ML 1 ML VIAL ONE (10:46)
[2024-09-17] MEDS ORDERED: HYDROmorphone (PF) 1 MG/ML ONE (10:46)
[2024-09-17] MEDS ORDERED: fentaNYL (PF) 50 MCG/ML 2 ML AMP ONE (10:46)
--- NOTE | 2024-09-17 10:58 | P.OP ---
Date of Procedure: 09/17/24 Preoperative Diagnosis: Right shoulder adhesive capsulitis Postoperative Diagnosis: Same Procedure(s) Performed: Manipulation under anesthesia right shoulder Anesthesia: MAC Surgeon: Ron Kaufman Estimated Blood Loss (ml): 0 Pathology: none sent Condition: stable Disposition: PACU Indications for Procedure: The patient is a 64-year-old male who presents with progressive right shoulder pain and stiffness despite conservative measures. A discussion of the risks and benefits of manipulation under anesthesia was made with the patient. He opted to proceed. Risks of the procedure to include fracture, tendon rupture, recurrence of stiffness, possible need for subsequent procedures was discussed. Informed consent was obtained. Operative Findings: As below Description of Procedure: The patient was brought to the recovery room, and after induction of IV sedation I then gently manipulated the right shoulder. First with the arm at his side I obtained full external rotation. Moderate adhesions were encountered. I then obtained full forward elevation. Again moderate adhesions were encountered. I felt that adequate release at this point. The patient was then monitored until fully awake. There was no blood loss. No complications were incurred.
[2024-09-17] MEDS: HYDROmorphone 0.5 MG/0.5 ML SYRINGE IVP PRN (11:26)
[2024-09-17 11:34] VITALS: RESP 16
[2024-09-17 12:06] VITALS: PULSE 70
[2024-09-17 12:42] VITALS: BP 110/75
== END 2024-09-17 12:54 | disposition home or self-care (01) ==
LOC: OR 08:40
PROVIDERS: ATTEND Orthopaedic Surgery
DX: M75.01 Adhesive capsulitis of right shoulder (principal); I48.91 Unspecified atrial fibrillation; I10 Essential (primary) hypertension; K21.9 Gastro-esophageal reflux disease without esophagitis; N28.9 Disorder of kidney and ureter, unspecified; Z87.442 Personal history of urinary calculi; Z98.890 Other specified postprocedural states; Z90.49 Acquired absence of other specified parts of digestive tract; Z87.891 Personal history of nicotine dependence; Z98.1 Arthrodesis status; Z90.89 Acquired absence of other organs; Z79.01 Long term (current) use of anticoagulants; Z79.899 Other long term (current) drug therapy
CPT/HCPCS: 23700; J1100; J2405; J3010; J1171 ×2; J1885; J2704

== ENCOUNTER 2024-11-08 22:48 | Emergency (ER) | payer BC ==
[2024-11-08 23:08] VITALS: RESP 18
--- NOTE | 2024-11-09 00:03 | ED ---
Back Pain HPI - General Source: patient, family, RN notes reviewed, old records reviewed Limitations: no limitations <Mireya Carias - Last Filed: 11/09/24 01:35> <Armani Pérez - Last Filed: 11/09/24 07:57> - General Chief Complaint: Back Pain/Injury Stated Complaint: Back and left shoulder pain Time Seen by Provider: 11/08/24 23:21 - History of Present Illness Initial Comments: 64-year-old male presents with complaints of lower back pain and left shoulder pain. Of note patient has extensive back pain history including 3 surgeries wi th hardware in place. States this morning when he woke up he felt the back pain was far worse than usual, no states his pain medication has recently been weaned in an effort to get him off narcotics. Denies any loss of bowel or loss of bladder or decree sensation in the lower back or lower legs. States he believes he had imaging on his back most recently approximately 3 months ago. Denies any recent trauma, other than falling and hitting his ribs a couple weeks ago. States he normally takes Percocet to control his pain. (Mireya Carias) - Related Data Home Medications Medication Instructions Recorded Confirmed Lansoprazole 30 mg PO DAILY 04/24/22 09/17/24 oxyCODONE-APAP 10-325MG [Percocet 1 tab PO Q4H 04/24/22 09/17/24 10-325 mg] Sodium Bicarbonate Tab 325 mg PO DAILY 05/08/24 09/17/24 Gabapentin [Neurontin] 400 mg PO DAILY 05/28/24 09/17/24 Ferrous Sulfate [Iron (65 MG 325 mg PO DAILY 07/03/24 09/17/24 Elemental)] Fluticasone Nasal [place] [Flonase 1 spr EA NOSTRIL BID 07/03/24 09/17/24 Nasal [place]] Magnesium Oxide [Magox 400] 400 mg PO BID 07/03/24 09/17/24 allopurinoL [Zyloprim] 300 mg PO DAILY 07/03/24 09/17/24 Furosemide [Lasix] 40 mg PO DAILY 08/31/24 09/17/24 Cholecalciferol (Vitamin D3) 50 mcg PO DAILY 09/14/24 09/17/24 [Vitamin D3 (50 Mcg = 2000 Iu)] Cyclobenzaprine [Flexeril] 10 mg PO TID 09/14/24 09/17/24 Previous Rx's Medication Instructions Recorded Metoprolol Succinate (ER) [Toprol 50 mg PO DAILY #60 tab 04/26/22 XL] Apixaban [Eliquis] 5 mg PO BID 30 Days #60 tab 07/07/24 Allergies Allergy/AdvReac Type Severity Reaction Status Date / Time colchicine Allergy Nausea & Verified 09/17/24 09:17 Vomiting iron Allergy SEVERE Verified 09/17/24 09:17 PAIN, WHEN RECEIVED INJECTION OF IRON nylon Allergy SUTURES, Uncoded 09/17/24 09:17 "FESTER OUT," INFECTED Review of Systems ROS Other: All systems not noted in ROS Statement are negative. <Mireya Carias - Last Filed: 11/09/24 01:35> ROS Other: All systems not noted in ROS Statement are negative. <Armani Pérez - Last Filed: 11/09/24 07:57> ROS Statement: Those systems with pertinent positive or pertinent negative responses have been documented in the HPI. Past Medical History Past Medical History: Atrial Fibrillation, Hypertension, Musculoskeletal Disorder, Renal Disease, Skin Disorder Additional Past Medical History / Comment(s): psoriasis, arthritis, hx kidney stones, cast on rt wrist from recent surgery, hx cellulitis left leg History of Any Multi-Drug Resistant Organisms: None Reported Past Surgical History: Ablation, Back Surgery, Bariatric Surgery, Cholecystectomy, Hernia Repair, Orthopedic Surgery Additional Past Surgical History / Comment(s): BACK X2 -rods in back, CERVICAL SURG.,-Segundo en Y.,hernia x 3, rt wrist surgery, abdominoplasty, cyst removed "from behind the heart", pain clinic procedures, Biliary drainage cathether, bilateral knee surgeries Past Anesthesia/Blood Transfusion Reactions: Previous Problems w/ Anesthesia Additional Past Anesthesia/Blood Transfusion Reaction / Comment(s): Pain with last pain clinic procedure 04/28/14- felt every needle going in Past Psychological History: No Psychological Hx Reported Smoking Status: Never smoker Past Alcohol Use History: Occasional Past Drug Use History: None Reported - Past Family History Mother Family Medical History: No Reported History Father Family Medical History: No Reported History <Mireya Carias - Last Filed: 11/09/24 01:35> General Exam Limitations: no limitations <Mireya Carias - Last Filed: 11/09/24 01:35> - General Exam Comments Initial Comments: GENERAL: In mild distress at the time of examination. Pleasant and cooperative. HEENT: Head is atraumatic, normocephalic. Pupils are equal, round, and reactive to light. Sclerae anicteric. Conjunctivae are clear. Mucus membranes of the mouth are moist. Neck is supple. RESPIRATORY: Clear to auscultation. No wheezes, rales, or rhonchi. No use of accessory muscles. Patient maintaining oxygen saturation greater than 92%. No chest wall tenderness is noted on palpation or with deep breathing. CARDIOVASCULAR: Regular rate and rhythm. S1 and S2 noted. No systolic or diastolic murmur auscultated. No JVD noted. No S3 or S4 noted. GASTROINTESTINAL: No distention noted. Abdomen soft and round. Normal active bowel sounds auscultated x 4 quadrants. No pain or tenderness noted upon palpation. INTEGUMENTARY: No cyanosis. No jaundice. No rashes noted. No cellulitis noted. MSK: Left shoulder can only be AB ducted approximately 15 degrees, tenderness to palpation of the lower lumbar spine. EXTREMITIES: 2+ peripheral pulses. No evidence of peripheral edema. No calf tenderness noted. PSYCHIATRIC: Awake, alert, and oriented X 3. Appropriate affect. Intact judgement and insight. (Mireya Carias) Course Vital Signs 11/08/24 11/09/24 23:02 01:54 Temperature 97.9 F 98.0 F Pulse Rate 90 89 Respiratory 18 18 Rate Blood Pressure 109/78 113/82 O2 Sat by Pulse 95 97 Oximetry Medical Decision Making <Mireya Carias - Last Filed: 11/09/24 01:35> <Armani Pérez - Last Filed: 11/09/24 07:57> - Medical Decision Making Was pt. sent in by a medical professional or institution (, PA, FURNACE KEEPER, urgent care, hospital, or halfway...) When possible be specific @ -No Did you speak to anyone other than the patient for history (EMS, parent, family, police, friend...)? What history was obtained from this source @ -No Did you review nursing and triage notes (agree or disagree)? Why? @ -I reviewed and agree with nursing and triage notes Were old charts reviewed (outside hosp., previous admission, EMS record, old EKG, old radiological studies, urgent care reports/EKG's, halfway records)? Report findings @ -Yes previous hospital records were reviewed. Differential Diagnosis? @ -Differential Back Pain: Strain, zoster, cauda equina syndrome, epidural abscess, vertebral osteomyelitis, discitis, fracture, subluxation, disc herniation, DJD, spinal stenosis, dissection, AAA, pancreatitis, peptic ulcer disease, pyelonephritis, kidney stone, this is not meant to be an all-inclusive list. EKG interpreted by me (3pts min.). @ -As above X-rays interpreted by me (1pt min.). @ -None done CT interpreted by me (1pt min.). @ -None done U/S interpreted by me (1pt. min.). @ -None done What testing was considered but not performed or refused? (CT, X-rays, U/S, labs)? Why? @ -None What meds were considered but not given or refused? Why? @ -None Did you discuss the management of the patient with other professionals (professionals i.e. , PA, FURNACE KEEPER, lab, RT, psych nurse, manager social media, servicing rep, teacher, special service officer, showcase maker)? Give summary @ -No Was smoking cessation discussed for >3mins.? @ -No Was critical care preformed (if so, how long)? @ -No Were there social determinants of health that impacted care today? How? (Homel essness, low income, unemployed, alcoholism, drug addiction, transportation, low edu. Level, literacy, decrease access to med. care, fci, rehab)? @ -No Was there de-escalation of care discussed even if they declined (Discuss DNR or withdrawal of care, Hospice)? DNR status @ -No What co-morbidities impacted this encounter? (DM, HTN, Smoking, COPD, CAD, Cancer, CVA, ARF, Chemo, Hep., AIDS, mental health diagnosis, sleep apnea, morbid obesity)? @ -None Was patient admitted / discharged? Hospital course, mention meds given and route, prescriptions, significant lab abnormalities, going to OR and other pertinent info. @ -Discharged, 64-year-old male presenting with lower back pain and left shoulder pain. Of note patient has chronic lower back pain for which she has received 3 surgeries and has significant hardware in his back. Patient had no recent trauma so imaging was deemed unnecessary at this time. Patient was also in the process of weaning off of his narcotic medications. Patient was given pain medication here with significant decrease and improvement in his lower back pain as well as left shoulder pain. Patient was discharged at this time, advised to follow-up with his PCP in 1 to 2 days. Undiagnosed new problem with uncertain prognosis? @ -No Drug Therapy requiring intensive monitoring for toxicity (Heparin, Nitro, Insulin, Cardizem)? @ -No Were any procedures done? @ -No Diagnosis/symptom? @ -Mechanical back pain Acute, or Chronic, or Acute on Chronic? @ -Acute on chronic Uncomplicated (without systemic symptoms) or Complicated (systemic symptoms)? @ -Default Side effects of treatment? @ -No Exacerbation, Progression, or Severe Exacerbation? @ -No Poses a threat to life or bodily function? How? (Chest pain, [place], MT, pneumonia, PE, COPD, DKA, ARF, appy, cholecystitis, CVA, Diverticulitis, Homicidal, Suicidal, threat to staff... and all critical care pts) @ -No (Mireya Carias) I personally saw the patient and performed the critical portion of the service. I discussed the patient care with the resident. I directed management, care planning and final disposition of the patient. This includes, but not limited to, review of all lab work, radiological studies, EKG's, consultations, vital signs, and nursing notes. EKG interpreted by me (3pts min.) @ [as above] X-Rays interpreted by me (1 pt min.) @ [none] CT interpreted by me ( 1pt min.) @ [none] U/S interpreted by me (1 pt min.) @ [none] Critical care time of [0] minutes excluding separately billable procedures was spent in conjunction with critical care activities provided by the Resident and Attending simultaneously. I was present during [no procedures] for all critical portions of the procedure and as immediately available to furnish service during the entire procedure. (Armani Pérez) Disposition Is patient prescribed a controlled substance at d/c from ED?: No <Mireya Carias - Last Filed: 11/09/24 01:35> <Armani Pérez - Last Filed: 11/09/24 07:57> Clinical Impression: Mechanical back pain Disposition: HOME SELF-CARE Condition: Fair Instructions (If sedation given, give patient instructions): Chronic Back Pain (DC) Referrals: Laura Murguia III, MD [Primary Care Provider] - 1-2 days
[2024-11-09] MEDS: MORPHINE SULFATE 4 MG/ML SYRINGE IM STA (00:20)
[2024-11-09] MEDS: HYDROmorphone 1 MG/ML 1 ML SYRINGE IM STA (01:50)
[2024-11-09 01:56] VITALS: BP 113/82; PULSE 89; TEMP 98
== END 2024-11-09 01:57 | disposition home or self-care (01) ==
LOC: EC 22:48
DX: M54.50 Low back pain, unspecified (principal); Z88.8 Allergy status to other drugs, medicaments and biological substances; Z91.09 Other allergy status, other than to drugs and biological substances
CPT/HCPCS: 99284; 96372 ×2; J2270; J1171

== ENCOUNTER → 2024-11-09 | Outpatient (CLI) | payer BC ==
[2024-11-09 19:23] LABS: HCT 43.9 % (39.6-50.0); HGB 13.3 g/dL (13.0-17.0); MCH 28.4 pg (27.0-32.0); MCHC 30.3 g/dL (32.0-37.0); MCV 93.6 FL (80.0-97.0); Mean Platelet Volume 11.2 FL (9.5-12.2); NRBC Per 100 WBC 0 X 10*3/uL (0.00-0.01); Platelet Count 229 X 10*3/uL (140-440); RBC 4.69 X 10*6/uL (4.40-5.60); RDW 14.9 % (11.5-14.5); WBC 7.69 X 10*3/uL (4.50-10.00)
[2024-11-09 20:01] LABS: % Iron Saturation 10.51 (15.00-50.00); ALT 9 U/L (10-49); AST 17 U/L (14-35); Albumin 3.4 g/dL (3.8-4.9); Albumin/Globulin Ratio 1.42 Ratio (1.60-3.17); Alkaline Phosphatase 148 U/L (41-126); BUN/Creat Ratio 17.53 Ratio (12.00-20.00); Blood Urea Nitrogen 26.3 mg/dL (9.0-27.0); Calcium 8.7 mg/dL (8.7-10.3); Carbon Dioxide 25.5 mmol/L (21.6-31.8); Chloride 106 mmol/L (96-109); Globulin 2.4 g/dL (1.6-3.3); Glucose 110 mg/dL (70-110); Iron 29 UG/DL (65-175); Magnesium 2.1 mg/dL (1.5-2.4); Phosphorus 5.1 mg/dL (2.4-5.1); Potassium 4.3 mmol/L (3.5-5.5); Sodium 144 mmol/L (135-145); Total Bilirubin 0.3 mg/dL (0.3-1.2); Total Iron Binding Capacity 276 UG/DL (228-460); Total Protein 5.8 g/dL (6.2-8.2); Uric Acid 5.1 mg/dL (3.7-8.7)
[2024-11-09 20:02] LABS: Ferritin 52.9 ng/mL (22.0-322.0)
== END | disposition home or self-care (01) ==
LOC: LABWHC1 14:14
PROVIDERS: ATTEND Internal Medicine
DX: D64.9 Anemia, unspecified (principal); N18.32 Chronic kidney disease, stage 3b; N39.0 Urinary tract infection, site not specified; R80.9 Proteinuria, unspecified; E55.9 Vitamin D deficiency, unspecified; M10.9 Gout, unspecified; N25.81 Secondary hyperparathyroidism of renal origin
CPT/HCPCS: 36415; 80053; 82306; 82728; 83540; 83550; 83735; 83970; 84100; 84550; 85027

== ENCOUNTER → 2024-11-24 | Outpatient (CLI) | payer BC ==
--- NOTE | 2024-11-24 07:44 | CT ---
EXAMINATION TYPE: CT lumbar spine wo con CT DLP: 1663.60 mGycm, Automated exposure control for dose reduction was used. DATE OF EXAM: 11/24/2024 6:41 AM COMPARISON: CT abdomen and pelvis 05/08/2024, CT lumbar spine 02/11/2014. CLINICAL INDICATION:Male, 64 years old with history of M54.50 chronic low back pain; PHH, chronic low er back pain, pain TECHNIQUE: Multiple axial images were obtained from the midportion of T11 through the sacroiliac rosario nts. Soft tissue and bone windows in coronal and sagittal planes were obtained and reviewed. Contrast used: none. Oral contrast used: none. FINDINGS: Alignment: There are 5 lumbar type vertebral bodies within normal alignment. Bone: Post surgical changes with bilateral pedicle screws and rods involving L2-S1. No right sided L 4 pedicular screw identified. Hardware appears intact. No periprosthetic lucency identified to sugges t loosening. Intervertebral disc cages identified at L4-L5 and L5-S1. No evidence of acute fracture i s identified. Prominent endplate sclerosis at L1-L2. Degenerative changes of bilateral SI joints. Discs: T12-L1: Mild broad-based disc bulge. No significant spinal canal stenosis. No neural foraminal stenos is. L1-L2: Minimal broad-based disc bulge. No spinal canal stenosis. Mild right neural foraminal stenosis . The left neural foramen is patent. L2-L3: No spinal canal or neural foraminal stenosis is identified. L3-L4: No spinal canal or neural foraminal stenosis is identified. L4-L5: No spinal canal or neural foraminal stenosis is identified. L5-S1: No spinal canal stenosis identified. Mild bilateral neural foraminal stenosis. Other: Nonobstructing left renal 8 mm calculus. Partial visualization of Segundo-en-Y gastric bypass bronson nges. IMPRESSION: 1. No evidence for acute spinal fracture. 2. Extensive posterior fusion changes of the lumbar spine from L2 through S1. Hardware appears intact with stable alignment. No evidence for significant neural foraminal or spinal canal stenosis. [facility], , 11/24/2024 7:42 AM
== END | disposition home or self-care (01) ==
LOC: RADCTMAIN 06:14
DX: M54.50 Low back pain, unspecified (principal); Z98.1 Arthrodesis status; W19.XXXA Unspecified fall, initial encounter
CPT/HCPCS: 72131